=== PATIENT | male | born 1965 | race African-American/Black ===

== ENCOUNTER → 2016-11-02 | Outpatient (CLI) | payer BC ==
[~2016-11-02] MED LIST: AMT10 PO; ASPCH81X PO; ERYOPO OPL; HYDR-5688 PO; LISI5TAB PO
== END | disposition home or self-care (01) ==
LOC: C.LABSPEC 15:36
PROVIDERS: ATTEND Podiatrist
DX: L03.115 Cellulitis of right lower limb (principal)

== ENCOUNTER 2017-03-22 18:34 | Emergency (ER) | payer BC ==
[~2017-03-22] VITALS: Ht 182.9 cm; Wt 92.1 kg
[~2017-03-22 18:34] MED LIST changes: -AMT10 PO; -ERYOPO OPL; -HYDR-5688 PO
[2017-03-22 18:54] VITALS: TEMP 36.7; Ht 182.9 cm; Wt 92.1 kg
[2017-03-22] MEDS ORDERED: AMT10 PO (19:25)
[2017-03-22 19:32] VITALS: BP 133/70; PULSE 68; O2SAT 98
--- NOTE | 2017-03-22 20:47 | EMERGENCY ROOM VISIT NOTE ---
History First contact with patient: 19:20 Chief Complaint: FOREIGNBODY ANY BODY PART Stated Complaint: FOREIGN BODY IN RIGHT EAR History of Present Illness The patient is a 52 year old male who presents to the Emergency Room with complaints of a foam earbud stuck in his right ear canal. The patient reports that when he was removing his head set, the foam fell off. When he attempted to remove it, it was pushed further into the ear canal. He now presents for further evaluation. He denies any pain. Review of Systems 6 system review was performed and was negative except for pertinent positives and negatives as indicated in history of present illness Past Medical/Surgical History Medical Problems: (1) DM type 2 (diabetes mellitus, type 2) (2) HTN (hypertension) Family History Cancer Diabetes mellitus Heart disease Hypertension Social History Smoking Status: Current Every Day Smoker Alcohol Use: none Drug Use: marijuana Marital Status: single Housing Status: lives with family Occupation Status: employed Current/Historical Medications Scheduled Amitriptyline HCl (Amitriptyline HCl), 10 MG PO HS Aspirin (Aspirin Chewable), 81 MG PO DAILY Lisinopril (Prinivil), 1 TAB PO DAILY Allergies Coded Allergies: Penicillins (Verified Allergy, Mild, 02/25/16) Propoxyphene (Verified Allergy, Unknown, TYLENOL OK, 02/25/16) Naproxen (Verified Adverse Reaction, Unknown, stomach burning, takes ibuprofen w/out prob, 02/25/16) Physical Exam Vital Signs Date Time Temp Pulse Resp B/P (MAP) Pulse Ox O2 Delivery O2 Flow Rate FiO2 03/22/17 19:32 68 20 133/70 98 03/22/17 18:54 36.7 81 20 141/63 97 Room Air Pain Rating (0-10): 0 Physical Exam CONSTITUTIONAL: Healthy and well nourished. Alert and oriented X 3 with positive affect. Does not appear in any acute distress. HEENT: Normocephalic, atraumatic. Pupils equal, round and reactive. Exam shows a foreign body in the right ear. No bloody drainage noted. NECK: Full active range of motion without discomfort. INTEGUMENTARY: No rash or other significant dermatologic conditions noted. NEUROLOGIC: No focal neurologic deficits noted. Medical Decision & Procedures Procedure Foreign body removal of the right ear was successfully performed using mosquito forceps. Further otoscope examination of the year does not show any abrasions or other external auditory canal/tympanic membrane trauma. ED Course Patient history and physical exam were performed. Nurse's notes were reviewed. Foreign body removal was performed using mosquito forceps. Repeat otoscope exam did not show any residual trauma to the auditory canal or TM. The patient was instructed to return for any developing pain or drainage from the ear. The patient was happy with plan of care, and denied any pain at the time of discharge. Medical Decision Impression Primary Impression: Foreign body in right ear Departure Information Dispostion Home / Self-Care Condition GOOD Forms HOME CARE DOCUMENTATION FORM, IMPORTANT VISIT INFORMATION Patient Instructions [facility] Additional Instructions Return for any developing pain or drainage from the ear Problem Qualifiers Primary Impression: Foreign body in right ear Encounter type: initial encounter Qualified Codes: T16.1XXA - Foreign body in right ear, initial encounter
== END 2017-03-22 19:35 | disposition home or self-care (01) ==
LOC: C.EDB 18:37 → C.EDD 19:35
DX: T16.1XXA Foreign body in right ear, initial encounter (principal); X58.XXXA Exposure to other specified factors, initial encounter; Y93.89 Activity, other specified; Y99.8 Other external cause status; E11.9 Type 2 diabetes mellitus without complications; I10 Essential (primary) hypertension; F17.200 Nicotine dependence, unspecified, uncomplicated; Z83.3 Family history of diabetes mellitus; Z82.49 Family history of ischemic heart disease and other diseases of the circulatory system; Z79.82 Long term (current) use of aspirin; Z79.899 Other long term (current) drug therapy

== ENCOUNTER 2017-03-26 20:07 | Emergency (ER) | payer BC ==
[~2017-03-26] VITALS: Ht 182.9 cm; Wt 92.3 kg
[~2017-03-26 20:07] MED LIST changes: +AMT10 PO
[2017-03-26 20:09] VITALS: TEMP 36.9; Ht 182.9 cm; Wt 92.3 kg
[2017-03-26] MEDS ORDERED: HYDROCODONE/ACETAMOPHEN 5/325MG TAB PO ONE (20:30)
--- NOTE | 2017-03-26 20:36 | DIAGNOSTIC IMAGING REPORT ---
HEAD CT NONCONTRAST CT DOSE: HISTORY: Trauma Baseball injury to left eyebrow area TECHNIQUE: Multiaxial CT images of the head were performed without the use of intravenous contrast. Comparison: None. Findings: The paranasal sinuses and mastoid air cells are clear. The calvarium and skull base are intact. The ventricles and sulci are within normal limits. There is no mass, hematoma, midline shift, or acute infarct. Impression: No acute intracranial abnormality. Left periorbital soft tissue edema Electronically signed by: Hernandez Kong M.D. 03/26/2017 8:35 PM Dictated Date/Time: 03/26/2017 8:34 PM
--- NOTE | 2017-03-26 20:39 | DIAGNOSTIC IMAGING REPORT ---
MAXILLOFACIAL CT CT DOSE: 941.04 mGy.cm HISTORY: Trauma Baseball injury to left eyebrow area TECHNIQUE: Multiaxial CT images of the maxillofacial region were performed and reformatted in the coronal plane without the use of contrast. COMPARISON: None. FINDINGS: The visualized cervical spine, skull base, pterygoid plates, nasal bones, lamina papyracea, orbital floors, mandible, and zygomatic arches are intact. No fractures. The orbits are unremarkable. Considerable left preorbital soft tissue edema. Vague lucencies of the nasal bones felt to represent anatomic variations. IMPRESSION: Left preorbital soft tissue edema. Globes are symmetric. No acute bony abnormality Electronically signed by: Hernandez Kong M.D. 03/26/2017 8:38 PM Dictated Date/Time: 03/26/2017 8:36 PM
[2017-03-26] MEDS ORDERED: HYDR-5688 PO (21:39)
[2017-03-26] MEDS ORDERED: ONDANSETRON HOME PACK 4MG OD TAB PO ONE (21:45)
[2017-03-26] MEDS ORDERED: NORCO 5/325MG HOME PACK PO ONE (21:45)
[2017-03-26 21:49] VITALS: BP 142/89; PULSE 72; O2SAT 97
--- NOTE | 2017-03-27 22:06 | EMERGENCY ROOM VISIT NOTE ---
History First contact with patient: 20:13 Chief Complaint: FACIAL PAIN/INJURY Stated Complaint: HIT IN LEFT EYE WITH BASEBALL History of Present Illness The patient is a 52 year old male who presents to the Emergency Room with complaints of injury to the left side of his face after being struck by a baseball about 1 hour ago. The patient states that he was trying to catch a batted baseball. The ball was very high in the air, and the patient states the wind was swirling. This made it difficult for him to track the ball well, and as it fell, and struck him in the area of the left eyebrow. The patient did not lose consciousness or have seizure-like activity after the injury. He does not have difficulty with vision from either of his eyes, although the swelling around his left eye has increased. He does not have pain with movement of the eyes. No bleeding or laceration. The patient is not on blood thinners. He rates his discomfort a 7/10 and has not had anything [id number] for his discomfort. Review of Systems More than 10 systems were reviewed and otherwise negative with the exception of history of present illness. Past Medical/Surgical History Medical Problems: (1) DM type 2 (diabetes mellitus, type 2) (2) HTN (hypertension) Family History Cancer Diabetes mellitus Heart disease Hypertension Social History Smoking Status: Current Every Day Smoker Alcohol Use: none Drug Use: marijuana Marital Status: single Housing Status: lives with family Occupation Status: employed Current/Historical Medications Scheduled Amitriptyline HCl (Amitriptyline HCl), 10 MG PO HS Aspirin (Aspirin Chewable), 81 MG PO DAILY Lisinopril (Prinivil), 1 TAB PO DAILY Scheduled PRN Hydrocodone/Acetaminophen 5MG/325MG ([place] 5MG/325MG), 1-2 TABLET PO Q6 PRN for Pain Allergies Coded Allergies: Penicillins (Verified Allergy, Mild, 03/26/17) Propoxyphene (Verified Allergy, Unknown, TYLENOL OK, 03/26/17) Naproxen (Verified Adverse Reaction, Unknown, stomach burning, takes ibuprofen w/out prob, 03/26/17) Physical Exam Vital Signs Date Time Temp Pulse Resp B/P (MAP) Pulse Ox O2 Delivery O2 Flow Rate FiO2 03/26/17 21:49 72 16 142/89 97 Room Air 03/26/17 20:09 36.9 71 18 152/97 98 Room Air Pain Rating (0-10): 7.0 Physical Exam VITALS: Vitals are noted on the nurse's note and reviewed by myself. Vital signs stable. GENERAL: Well-developed, well-nourished, black male who is in moderate discomfort secondary to his stated complaint. HEAD: Significant left sided facial hematoma appreciated. The most central aspect appears to be over the left eyebrow laterally. The edema causes almost complete closure of the left eye. There is no active bleeding or pulsatile mass. EARS: External ear normal. External auditory canals clear, tympanic membranes pearly mcmillan without erythema or effusion bilaterally. No hemotympanum EYES: Pupils equal round and reactive to light and accommodation. Conjunctivae without injection, sclerae without icterus. Extraocular movements intact. No hyphema. No evidence of corneal abrasion or laceration. NOSE: Patent, turbinates without inflammation or discharge. No epistaxis or septal hematoma. MOUTH: Mucous membranes moist. Tonsils are not enlarged. Pharynx without erythema, blood, or exudate. Uvula midline. Airway patent. NECK: Supple without nuchal rigidity. No lymphadenopathy. No thyromegaly. Cervical spine is nontender. HEART: Regular rate and rhythm without murmurs gallops or rubs. LUNGS: Clear to auscultation bilaterally without wheezes, rales or rhonchi. No retractions or accessory muscle use. NEURO: Patient was alert and oriented to person place and time. CN II through XII grossly intact. Medical Decision & Procedures ER Provider Diagnostic Interpretation: HEAD CT NONCONTRAST CT DOSE: HISTORY: Trauma Baseball injury to left eyebrow area TECHNIQUE: Multiaxial CT images of the head were performed without the use of intravenous contrast. Comparison: None. Findings: The paranasal sinuses and mastoid air cells are clear. The calvarium and skull base are intact. The ventricles and sulci are within normal limits. There is no mass, hematoma, midline shift, or acute infarct. Impression: No acute intracranial abnormality. Left periorbital soft tissue edema MAXILLOFACIAL CT CT DOSE: 941.04 mGy.cm HISTORY: Trauma Baseball injury to left eyebrow area TECHNIQUE: Multiaxial CT images of the maxillofacial region were performed and reformatted in the coronal plane without the use of contrast. COMPARISON: None. FINDINGS: The visualized cervical spine, skull base, pterygoid plates, nasal bones, lamina papyracea, orbital floors, mandible, and zygomatic arches are intact. No fractures. The orbits are unremarkable. Considerable left preorbital soft tissue edema. Vague lucencies of the nasal bones felt to represent anatomic variations. IMPRESSION: Left preorbital soft tissue edema. Globes are symmetric. No acute bony abnormality Medications Administered Medications (Trade) Dose Ordered Sig/Dev Route Start Time Stop Time Status Last Admin Dose Admin Acetaminophen/ Hydrocodone Bitart ([place] 5/325 Tab) 2 tab NOW ONCE PO 03/26/17 20:30 03/26/17 20:31 DC 03/26/17 20:25 2 TAB Acetaminophen/ Hydrocodone Bitart ([place] 5/325mg Home Pack) 1 homepack UD ONCE PO 03/26/17 21:45 03/26/17 21:46 DC 03/26/17 21:45 1 HOMEPACK Ondansetron HCl (ZOFRAN ODT 4MG Home Pack) 1 homepack UD ONCE PO 03/26/17 21:45 03/26/17 21:46 DC 03/26/17 21:45 1 HOMEPACK ED Course Physical exam and history were performed. Nursing notes and EMR were reviewed. Patient appears to have suffered injury to his left side face after being struck by a baseball. The patient has a quite impressive amount of swelling around the left periorbital area. He was given Vicodin here in the department for comfort and a CT scan of the head and face was performed. CT scans do not show evidence of acute fracture or intracranial bleed. The patient was monitored for some time here in the department, and did not have any worsening of his symptoms. I suspect his injury is limited to the contusion and subsequent hematoma. The patient will be given a note for work and instructions to follow with his PCP. He was otherwise invited back to the ER with any new, worsening, or concerning symptoms. The chart was completed utilizing [employer] Voice Recognition Software. Grammatical errors, random word insertions, pronoun errors, and incomplete sentences are an occasional consequence of this system due to software limitations, ambient noise, and hardware issues. Any formal questions or concerns about the content, text, or information contained within the body of this dictation should be directly addressed to the provider for clarification. . Medical Decision Differential diagnosis: Etiologies such as concussion, contusion, fracture, subdural hematoma, epidural hematoma, intraparenchymal hemorrhage, as well as other traumatic pathologies were entertained. Impression Primary Impression: Facial injury Departure Information Dispostion Home / Self-Care Condition GOOD Prescriptions Hydrocodone/Acetaminophen 5MG/325MG ([place] 5MG/325MG) Tab 1-2 TABLET PO Q6 Y for Pain, #24 TAB For Initial Treatment Prov: Les Mccray PA-C 03/26/17 Forms HOME CARE DOCUMENTATION FORM, Work Instructions, Additional Instructions: Patient was seen and evaluated today in the emergency department medica care. Return to work on 04/01/2017. Please excuse. IMPORTANT VISIT INFORMATION Patient Instructions My [facility] Additional Instructions You were seen and evaluated today on an emergency basis only. This is not a substitute for, or an effort to provide, complete comprehensive medical care. It is not possible to recognize and treat all injuries or illnesses in a single emergency department visit. For this reason it is recommended that you followup with your primary care physician in 36-48 hours for recheck of your condition. [place] (hydrocodone/acetaminophen) 5/325 mg ONE or TWO every 6 hours as needed for worsening breakthrough pain. Do not drink or drive on [place]. This medication will likely make you tired. Do not take [place] and Tylenol at the same time as both contain acetaminophen. [place] may cause constipation. You may wish to take an vnqf-efu-wphrndc stool softener like Colace if this occurs. Zofran (hompack) 1 tablet every 6 hrs as needed for nausea. You are welcome to return to the emergency department anytime with new, worsening, or concerning symptoms. Work Instructions Additional Work Instructions: Patient was seen and evaluated today in the emergency department medical care. Return to work on 04/01/2017. Please excuse.
== END 2017-03-26 22:00 | disposition home or self-care (01) ==
LOC: C.EDB 20:09 → C.EDD 22:00
DX: S09.93XA Unspecified injury of face, initial encounter (principal); W21.89XA Striking against or struck by other sports equipment, initial encounter; Y93.89 Activity, other specified; Y99.8 Other external cause status; I10 Essential (primary) hypertension; E11.9 Type 2 diabetes mellitus without complications; F17.200 Nicotine dependence, unspecified, uncomplicated; Z83.3 Family history of diabetes mellitus; Z82.49 Family history of ischemic heart disease and other diseases of the circulatory system; Z79.82 Long term (current) use of aspirin; Z79.899 Other long term (current) drug therapy

== ENCOUNTER 2017-03-28 15:53 | Emergency (ER) | payer BC ==
[~2017-03-28] VITALS: Ht 182.9 cm; Wt 93.9 kg
[~2017-03-28 15:53] MED LIST changes: +HYDR-5688 PO
[2017-03-28 15:59] VITALS: BP 137/83; PULSE 65; TEMP 37.1; O2SAT 95; Ht 182.9 cm; Wt 93.9 kg
[2017-03-28] MEDS ORDERED: PROPARACAINE HCL 0.5% OP SOLN 15 ML BTL OP STA (16:23)
[2017-03-28] MEDS ORDERED: ERYTHROMYCIN OP OINT 5 MG/GM 3.5 GM TUBE OP ONE (17:00)
[2017-03-28] MEDS ORDERED: ERYOPO OPL (17:03)
--- NOTE | 2017-03-28 17:04 | EMERGENCY ROOM VISIT NOTE ---
History First contact with patient: 16:03 Chief Complaint: EYE ASSESSMENT Stated Complaint: LT EYE PUS AND BLOODY DISCHARGE- URGENT CARE REFER History of Present Illness The patient is a 52 year old male who presents to the Emergency Room with complaints of discharge from the left eye. The patient was seen here 2 days ago for an injury to the left eye. He was hit in the head with a baseball. He states that at that time, the eye was completely swollen shut. The swelling has actually improved and the patient is able to open his eyes slightly at this time. He still has a significant amount of pain surrounding the eye, but states it is improving slightly. He rates his discomfort a 9/10. The patient returned because when he woke up this morning, he had yellowish discharge from the eye. He states that there was also some pinkish drainage which he was concerned was blood. He was seen at urgent care and sent here for a recheck. The patient states that his vision is blurred. Overall, his symptoms seem to be improving since he was seen here initially. Review of Systems A complete 10 point review of systems was reviewed with the patient with pertinent positives and negatives as per history of present illness. All else were negative. Past Medical/Surgical History Medical Problems: (1) DM type 2 (diabetes mellitus, type 2) (2) HTN (hypertension) Family History Cancer Diabetes mellitus Heart disease Hypertension Social History Smoking Status: Current Every Day Smoker Alcohol Use: none Drug Use: marijuana Marital Status: single Housing Status: lives with family Occupation Status: employed Current/Historical Medications Scheduled Amitriptyline HCl (Amitriptyline HCl), 10 MG PO HS Aspirin (Aspirin Chewable), 81 MG PO DAILY Erythromycin Opth (Erythromycin Opth), 1 APPLN OPL QID Lisinopril (Prinivil), 1 TAB PO DAILY Scheduled PRN Hydrocodone/Acetaminophen 5MG/325MG ([place] 5MG/325MG), 1-2 TABLET PO Q6 PRN for Pain Allergies Coded Allergies: Penicillins (Verified Allergy, Mild, 03/28/17) Propoxyphene (Verified Allergy, Unknown, TYLENOL OK, 03/28/17) Acetaminophen (Unverified Adverse Reaction, Unknown, UPSETS STOMACH, ) Naproxen (Verified Adverse Reaction, Unknown, stomach burning, takes ibuprofen w/out prob, 03/28/17) Physical Exam Vital Signs Date Time Temp Pulse Resp B/P (MAP) Pulse Ox O2 Delivery O2 Flow Rate FiO2 03/28/17 15:59 37.1 65 16 137/83 95 Room Air Left Eye Acuity: 20/70 Physical Exam VITALS: Vitals are noted on the nurse's note and reviewed by myself. Vital signs stable. GENERAL: This is a 52-year-old male, in no acute distress, nondiaphoretic, well- developed well-nourished. EARS: External auditory canals clear, tympanic membranes pearly mcmillan without erythema or effusion bilaterally. EYES: There is a significant amount of left periorbital edema and ecchymosis. The pupil is equal, round and reactive to light and accommodation. There is yellowish discharge from the left eye. There is no evidence of hyphema. Patient has significant difficulty opening the eye due to edema. HEART: Regular rate and rhythm without murmurs gallops or rubs. LUNGS: Clear to auscultation bilaterally without wheezes, rales or rhonchi. NEURO: Patient was alert and oriented to person place and time. Medical Decision & Procedures Medications Administered Medications (Trade) Dose Ordered Sig/Dev Route Start Time Stop Time Status Last Admin Dose Admin Erythromycin (Erythromycin Oph Oint) 1 appln NOW ONCE OP 03/28/17 17:00 03/28/17 17:01 DC 03/28/17 16:54 1 APPLN Medical Decision Differential diagnosis includes conjunctivitis, open globe injury, retrobulbar hematoma, among others. Patient was evaluated as above. He presents with left eye discharge after being seen here 2 days ago for an injury. The patient states that his symptoms seem to be improving other than the discharge from the eye. Clinically, he appears to have a conjunctivitis. I'm unable to perform an adequate eye exam secondary to swelling. Case was discussed with ophthalmology on-call, Dr. Gonzalez , who states that he will follow-up with the patient in his office for a full eye exam. The patient will be placed on erythromycin ointment. He will follow- up with ophthalmology. He verbalized understanding and was discharged home in good condition. Medication reconciliation: I attest that I have personally reviewed the patient 's current medication list. Blood Pressure Screening: Patient was found to have a slightly elevated blood pressure due to circumstances. I do not believe that the patient requires hypertension monitoring. Impression Primary Impression: Conjunctivitis, left eye Departure Information Dispostion Home / Self-Care Condition GOOD Prescriptions Erythromycin Opth (ERYTHROMYCIN OPTH) 12 Appln/3.5 Gm Oint 1 APPLN OPL QID for 7 Days, #1 TUBE Prov: Marya Lopez, IVELISSE 03/28/17 Referrals Mackenzie Escobedo D.O. (PCP) Palomo Gonzalez D.O. Patient Instructions My [facility] Additional Instructions You have been prescribed Erythromycin Opthalmic ointment. This is an antibiotic ointment. You should apply a 1 cm ribbon of the ointment to the lower part of the affected eye up to 6 times per day for the next 7 days. Call ophthalmology (Dr. Gonzalez's office) tomorrow to schedule a follow-up appointment in the office. Return here for worsening eye pain, fever or any other new/concerning symptoms. Problem Qualifiers Primary Impression: Conjunctivitis, left eye Conjunctivitis type: acute Acute conjunctivitis type: bacterial Qualified Codes: H10.32 - Unspecified acute conjunctivitis, left eye
== END 2017-03-28 17:16 | disposition home or self-care (01) ==
LOC: C.EDB 15:55 → C.EDD 17:16
DX: H10.32 Unspecified acute conjunctivitis, left eye (principal); E11.9 Type 2 diabetes mellitus without complications; I10 Essential (primary) hypertension; Z83.3 Family history of diabetes mellitus; Z82.49 Family history of ischemic heart disease and other diseases of the circulatory system; F17.200 Nicotine dependence, unspecified, uncomplicated; F12.90 Cannabis use, unspecified, uncomplicated

== ENCOUNTER → 2017-05-27 | Outpatient (CLI) | payer BC ==
[~2017-05-27] MED LIST changes: +ERYOPO OPL
--- NOTE | 2017-05-27 07:18 | DIAGNOSTIC IMAGING REPORT ---
BRAIN WITHOUT CONTRAST CLINICAL HISTORY: 52 years-old Male presenting with S06.0X1A Concussion with loss of consciousness of 30 minutes or. TECHNIQUE: Multisequence, multiplanar MR imaging of the brain was performed without the use of intravenous contrast. IV contrast: None. COMPARISON: MRA from 01/24/[address] head from 03/26/2017. FINDINGS: Ventricles and sulci normal in size. Brain parenchyma normal in appearance with preserved mcmillan-white differentiation. No mass effect or midline shift. No hemorrhage or acute territorial infarct. No extra-axial fluid collection. T2 skull base flow voids preserved. 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 Extensive mucosal thickening in the bilateral maxillary sinuses. Additional mucosal thickening in anterior ethmoid air cells. Trace fluid in the left maxillary mastoid air cells suspected. Bone marrow signal intensity within the calvarium within normal limits. IMPRESSION: No acute intracranial abnormality. Extensive mucosal thickening in the paranasal sinuses. Electronically signed by: Carlos Negrete M.D. 05/27/2017 7:17 AM Dictated Date/Time: 05/27/2017 7:13 AM
== END | disposition home or self-care (01) ==
LOC: C.MRI 06:08
PROVIDERS: ATTEND Physician Assistant
DX: R51 Headache (principal); S06.0X1A Concussion with loss of consciousness of 30 minutes or less, initial encounter; X58.XXXA Exposure to other specified factors, initial encounter

== ENCOUNTER 2017-09-07 23:09 | Emergency (ER) | payer BC, OTHER ==
[~2017-09-07] VITALS: Ht 182.9 cm; Wt 95.3 kg
[2017-09-07 23:14] VITALS: TEMP 36.7; Ht 182.9 cm; Wt 95.3 kg
[2017-09-07] MEDS ORDERED: ONDANSETRON HOME PACK 4MG OD TAB PO ONE (23:30)
[2017-09-07] MEDS ORDERED: ONDANSETRON 4MG OD TAB PO ONE (23:30)
[2017-09-07] MEDS ORDERED: LISI-729 PO (23:44)
[2017-09-07] MEDS ORDERED: HYDR-5688 PO (23:45)
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
[2017-09-08 00:15] VITALS: BP 154/106; PULSE 72; O2SAT 97
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
== END 2017-09-08 00:20 | disposition home or self-care (01) ==
LOC: C.EDB 23:11 → C.EDA 09-08 00:20
DX: S06.0X9A Concussion with loss of consciousness of unspecified duration, initial encounter (principal); V89.0XXA Person injured in unspecified motor-vehicle accident, nontraffic, initial encounter; E11.9 Type 2 diabetes mellitus without complications; I10 Essential (primary) hypertension; F17.200 Nicotine dependence, unspecified, uncomplicated; F12.90 Cannabis use, unspecified, uncomplicated; Z79.82 Long term (current) use of aspirin; Z80.9 Family history of malignant neoplasm, unspecified; Z83.3 Family history of diabetes mellitus; Z82.49 Family history of ischemic heart disease and other diseases of the circulatory system

== ENCOUNTER 2018-02-14 08:49 | Emergency (ER) | payer BC, OTHER ==
[~2018-02-14] VITALS: Ht 182.9 cm; Wt 93.2 kg
[~2018-02-14 08:49] MED LIST changes: -ERYOPO OPL; +LISI-729 PO; -LISI5TAB PO
[2018-02-14 08:56] VITALS: TEMP 36.6; Ht 182.9 cm; Wt 93.2 kg
[2018-02-14] MEDS ORDERED: PROPARACAINE HCL 0.5% OP SOLN 15 ML BTL ONE (09:32)
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
[2018-02-14] MEDS ORDERED: CIPROFLOXACIN HCL 0.3% OP SOLN 2.5 ML BTL OPR ONE (10:15)
[2018-02-14 10:36] VITALS: BP 163/102; PULSE 70; O2SAT 96
== END 2018-02-14 10:36 | disposition home or self-care (01) ==
LOC: C.EDB 08:50 → C.EDA 10:36
DX: H61.101 Unspecified noninfective disorders of pinna, right ear (principal); E11.9 Type 2 diabetes mellitus without complications; I10 Essential (primary) hypertension; Z72.0 Tobacco use; Z79.82 Long term (current) use of aspirin; Z79.899 Other long term (current) drug therapy; Z88.0 Allergy status to penicillin; Z88.6 Allergy status to analgesic agent

== ENCOUNTER 2022-04-15 17:17 | Inpatient (IN) ==
--- NOTE | 2022-04-15 18:21 | Emergency Department Note ---
History of Present Illness General Chief complaint: Hypertension Stated complaint: BP HIGH, ABNORMAL LABS Time Seen by Provider: 04/15/22 17:45 Source: patient Mode of arrival: ambulatory Limitations: no limitations History of Present Illness Provider complaint: hypertension Onset (ago): month(s) This is a 57-year-old male presents emergency department due to concern for persistent high blood pressure. Patient states he was first noted to have high blood pressure a little over a month ago when he went to urgent care for something work-related. He states in the interim he began checking it and noted that it had been elevated intermittently. He states he did see his family doctor and was started on blood pressure medication. He states his blood pressure has remained high, and on to check recently it was up in the 240s systolically. He states he went to [facility] today and the pressures were still persistently high and they insisted he come to the ER for additional evaluation. Patient states there is a family history of high blood pressure. He states he has been trying to cut back on the salt intake in his diet. He states he also recently found out one of his best friends and feels stress could also be contributing. Patient states he has had intermittent headaches as well as slight blurred vision in his right eye. He does have a prior history of TBI and postconcussive syndrome which have left him with intermittent headaches that typically have a preceding visual aura. Pt seen during a time of high acuity and national emergency pandemic while we aring PPE. Home Medications Medication Instructions Recorded Confirmed Type aspirin 81 mg chewable tablet 81 mg PO QAM 10/06/18 04/15/22 History finasteride 5 mg tablet 5 mg PO DAILY 03/08/21 04/15/22 History losartan 25 mg tablet 50 mg PO QAM 04/15/22 04/15/22 History Allergies Allergy/AdvReac Type Severity Reaction Status Date / Time Penicillins Allergy Unknown CAN'T Verified 04/15/22 18:14 REMEMBER propoxyphene Allergy Unknown TYLENOL OK Verified 04/15/22 18:14 acetaminophen AdvReac Intermediate UPSETS Verified 04/15/22 18:14 STOMACH naproxen AdvReac Intermediate stomach Verified 04/15/22 18:14 burning, takes ibuprofen w/out prob Past Med/Surg History Medical History BPH (benign prostatic hyperplasia) Diabetes HTN (hypertension) Surgical History History of rotator cuff surgery Family History Other Cancer Diabetes Heart disease Hypertension Social History Smoking Status: Current every day smoker Second Hand Exposure: No; Do You Dip or Chew Tobacco: No; Tobacco Cessation Education Requested by Patient: No Hx Alcohol Use: No Hx Substance Use: Yes Last Used Substance: Days (ago) Preferred Language: Honduran Communication Ability: Effective 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 Beliefs That Will Affect Care: None marital status: Single Current Living Situation: Significant Other current occupational status: employed Other Information That Helps Us Care for You: No Feels Safe at Home: Yes Safety Concerns: Feels Safe At This Time Assistive Devices: None Review of Systems A total of 10 systems reviewed and were otherwise negative All systems reviewed & are unremarkable except as noted in HPI & below Physical Exam Vital Signs Vital Signs - 24 hr 04/15/22 17:22 04/15/22 18:35 04/15/22 18:47 Temperature 37.3 C Temperature Source Temporal Artery Scan Pulse Rate 104 H 77 84 Pulse Rate [Apical] Pulse Rate from SpO2 Sensor 84 Pulse Rhythm [Apical] Respiratory Rate 16 17 20 Respiratory Effort / Characteristics Non-Labored Respiratory Depth Normal Respiratory Pattern Blood Pressure 192/102 H Blood Pressure [Right Arm] Blood Pressure Mean 132 Blood Pressure Mean [Right Arm] Blood Pressure Position [Right Arm] Pulse Oximetry 97 99 Oxygen Delivery Method Room Air Room Air Room Air Sepsis Recent Fever Within 48 Hours No Sepsis New/Unexplained Change in Mental Status No Sepsis Action Taken by Nursing No Action Required 04/15/22 18:50 04/15/22 19:00 04/15/22 19:06 Temperature Temperature Source Pulse Rate 79 78 76 Pulse Rate [Apical] Pulse Rate from SpO2 Sensor 79 78 77 Pulse Rhythm [Apical] Respiratory Rate 19 17 17 Respiratory Effort / Characteristics Respiratory Depth Respiratory Pattern Blood Pressure Blood Pressure [Right Arm] Blood Pressure Mean Blood Pressure Mean [Right Arm] Blood Pressure Position [Right Arm] Pulse Oximetry 99 99 99 Oxygen Delivery Method Room Air Room Air Room Air Sepsis Recent Fever Within 48 Hours Sepsis New/Unexplained Change in Mental Status Sepsis Action Taken by Nursing 04/15/22 19:06 04/15/22 19:31 04/15/22 19:49 Temperature Temperature Source Pulse Rate Pulse Rate [Apical] 73 74 Pulse Rate from SpO2 Sensor Pulse Rhythm [Apical] Regular Respiratory Rate 18 18 Respiratory Effort / Characteristics Non-Labored Spontaneous Non-Labored Spontaneous Respiratory Depth Normal Normal Respiratory Pattern Regular Regular Blood Pressure 199/129 H Blood Pressure [Right Arm] 199/123 H 190/123 H Blood Pressure Mean 152 Blood Pressure Mean [Right Arm] 148 145 Blood Pressure Position [Right Arm] Sitting Sitting Pulse Oximetry 98 99 Oxygen Delivery Method Room Air Room Air Room Air Sepsis Recent Fever Within 48 Hours Sepsis New/Unexplained Change in Mental Status Sepsis Action Taken by Nursing GENERAL: alert, well appearing, well nourished, no distress, non-toxic EYE EXAM: normal conjunctiva, PERRL and EOM's grossly intact, no nystagmus OROPHARYNX: no exudate, no erythema, lips, buccal mucosa, and tongue normal and mucous membranes are moist NECK: supple, no nuchal rigidity, no adenopathy, non-tender LUNGS: Clear to auscultation. Normal chest wall mechanics, no w/r/r HEART: no murmurs, S1 normal and S2 normal ABDOMEN: abdomen soft, non-tender, normo-active bowel sounds, no masses, no rebound or guarding. BACK: Back is symmetrical on inspection and there is no deformity, no midline tenderness, no CVA tenderness. SKIN: no rashes and no bruising UPPER EXTREMITIES: upper extremities are grossly normal. FROM, nml pulses b/l. LOWER EXTREMITIES: No pitting edema. FROM, nml pulses b/l. NEURO EXAM: Normal sensorium, cranial nerves II-XII grossly intact, normal speech, no facial droop, no gross weakness of arms, no gross weakness of legs. Gross sensation intact. Course Course 1921: Patient updated on results. Denies any prior history of kidney problems. Blood pressure is still elevated although slightly improved compared to prior. Administered Medications Heparin Sodium (Porcine) (Heparin Sod 5,000 Unit/0.5 Ml Vial) 5,000 units SQ Q8 AURA Stop: 05/15/22 22:22 Last Admin: 04/15/22 22:52 Dose: 5,000 units Documented By: LONG Hydralazine HCl (Hydralazine Hcl 20 Mg/Ml Vial) 7.5 mg IV Q6H PRN PRN Reason: Hypertension Stop: 05/15/22 22:22 Last Admin: 04/15/22 23:17 Dose: 7.5 mg Documented By: LONG Tamsulosin HCl (Tamsulosin Hcl 0.4 Mg Cap) 0.4 mg PO HS AURA Stop: 05/15/22 22:22 Last Admin: 04/15/22 22:52 Dose: 0.4 mg Documented By: LONG Discontinued Medications Amlodipine Besylate (Amlodipine Besylate 5 Mg Tab) 10 mg PO NOW ONE Stop: 04/15/22 22:24 Last Admin: 04/15/22 22:51 Dose: 10 mg Documented By: LONG Carvedilol (Carvedilol 6.25 Mg Tab) 6.25 mg PO NOW STA Stop: 04/15/22 22:24 Last Admin: 04/15/22 22:52 Dose: 6.25 mg Documented By: LONG Sodium Chloride (Nss 1000ml) 1,000 mls @ 500 mls/hr IV .Q2H AURA Stop: 05/15/22 18:14 Last Infusion: 04/15/22 22:32 Dose: 0 mls/hr Documented By: Admin: 04/15/22 20:38 Dose: 500 mls/hr Documented By: Infusion: 04/15/22 20:36 Dose: 500 mls/hr Documented By: Admin: 04/15/22 18:36 Dose: 500 mls/hr Documented By: GERMÁN Ceftriaxone Sodium (Rocephin) 2,000 mg in 70 mls @ 140 mls/hr IV NOW STA Stop: 04/15/22 21:47 Last Infusion: 04/15/22 22:32 Dose: 0 mls/hr Documented By: Admin: 04/15/22 21:41 Dose: 140 mls/hr Documented By: KATE Sodium Chloride (Nss 1000ml) 1,000 mls @ 125 mls/hr IV .Q8H AURA Stop: 05/15/22 21:29 Last Admin: 04/15/22 22:31 Dose: Not Given Documented By: LONG Labetalol HCl (Labetalol Hcl Iv 5 Mg/Ml 20ml) 5 mg IV NOW STA Stop: 04/15/22 19:12 Last Admin: 04/15/22 19:15 Dose: 5 mg Documented By: KATE Co-signed By: QASIM Labetalol HCl (Labetalol Hcl Iv 5 Mg/Ml 20ml) 5 mg IV NOW STA Stop: 04/15/22 20:25 Last Admin: 04/15/22 20:38 Dose: 5 mg Documented By: JT Co-signed By: DAGMAR Potassium Chloride (Potassium Chloride Crtab 20 Meq Tabcr) 20 meq PO NOW STA Stop: 04/15/22 22:24 Last Admin: 04/15/22 22:54 Dose: 20 meq Documented By: LONG Medical Decision Making Differential Diagnosis Benign hypertension, hypertensive emergency, cardiovascular pathology, toxicologic, pheochromocytoma, electrolyte abnormality, renal disease, endorgan damage, as well as other pathologies. Medical Records Attestation: I reviewed the patient's medical records. Home Medications Current Medication List: was personally reviewed by me Laboratory Data Attestation: I reviewed the patient's lab results. Result diagrams: 04/15/22 18:30 04/15/22 18:30 Lab Results 04/15/22 04/15/22 04/15/22 Range/Units 18:30 18:30 18:30 WBC 9.72 (4.8-10.8) K/ul RBC 3.34 L (4.63-6.08) M/uL Hgb 9.9 L (14.0-18.0) g/dl Hct 29.8 L (40.1-51.0) % MCV 89.2 (80.0-100.0) fL MCH 29.6 (25.0-34.0) pg MCHC 33.2 (32.0-36.0) g/dL RDW Std Deviation 45.0 (36.4-46.3) fL RDW Coeff of Rufino 13.7 (11.5-14.5) % Plt Count 243 (130-400) K/uL MPV 10.1 (9.4-12.4) fL Immature Gran % (Auto) 0.4 % Neut % (Auto) 69.3 % Lymph % (Auto) 17.5 % [place] % (Auto) 8.8 % Eos % (Auto) 3.4 % Baso % (Auto) 0.6 % Neut # (Auto) 6.73 H (1.4-6.5) K/uL Lymph # (Auto) 1.70 (1.2-3.4) K/uL [place] # (Auto) 0.86 H (0.24-0.82) K/uL Eos # (Auto) 0.33 (0-0.50) K/uL Baso # (Auto) 0.06 (0-0.2) K/uL Immature Gran # (Auto) 0.04 H (0.00-0.02) K/uL Sodium 138 (136-145) mmol/L Potassium 3.3 L (3.5-5.1) mmol/L Chloride 106 (98-107) mmol/L Carbon Dioxide 25 (21-32) mmol/L Anion Gap 7 (3-11) BUN 27 H (6-23) mg/dl Creatinine 2.64 H (0.6-1.4) mg/dl Est Cr Clr Drug Dosing 36.8 ml/min Est GFR ( Amer) 29.8 ml/min Est GFR (Non-Af Amer) 25.7 ml/min BUN/Creatinine Ratio 10.2 (10-20) Glucose 99 (70-99(Fasting)) mg/dl Calcium 8.5 (8.5-10.1) mg/dl Phosphorus (2.5-4.9) mg/dl Magnesium 2.0 (1.7-2.4) mg/dl Total Bilirubin 0.3 (0.2-1.0) mg/dl AST 19 (13-39) U/L ALT 18 (7-52) U/L Alkaline Phosphatase 77 (34-104) U/L Troponin I High Sens 17.8 (0-20) pg/ml Total Protein 7.0 (6.0-8.3) gm/dl Albumin 3.8 (3.4-5.0) gm/dl Globulin 3.2 (2.5-4.0) gm/dl Albumin/Globulin Ratio 1.2 (0.9-2) TSH 0.988 (0.300-4.500) uIu/ml Urine Color Urine Appearance (Clear) Urine pH (4.5-7.5) Ur Specific [place] (1.000-1.030) Urine Protein (Negative) Urine Glucose (UA) (Negative) Urine Ketones (Negative) Urine Blood (Negative) Urine Nitrite (Negative) Urine Bilirubin (Negative) Urine Urobilinogen (Negative) Ur Leukocyte Esterase (Negative) Urine WBC (Auto) (0-5) /hpf Urine RBC (Auto) (0-4) /hpf U Hyaline Cast (Auto) (0-5) /lpf U Epithel Cells (Auto) (0-5) /lpf Urine Bacteria (Auto) (Negative) Lyme Disease IgG Ab (Negative) Lyme Disease IgM Ab (Negative) SARS-CoV-2, RNA, NAAT (NEGATIVE) 04/15/22 04/15/22 04/15/22 Range/Units 18:30 18:30 19:35 WBC (4.8-10.8) K/ul RBC (4.63-6.08) M/uL Hgb (14.0-18.0) g/dl Hct (40.1-51.0) % MCV (80.0-100.0) fL MCH (25.0-34.0) pg MCHC (32.0-36.0) g/dL RDW Std Deviation (36.4-46.3) fL RDW Coeff of Rufino (11.5-14.5) % Plt Count (130-400) K/uL MPV (9.4-12.4) fL Immature Gran % (Auto) % Neut % (Auto) % Lymph % (Auto) % [place] % (Auto) % Eos % (Auto) % Baso % (Auto) % Neut # (Auto) (1.4-6.5) K/uL Lymph # (Auto) (1.2-3.4) K/uL [place] # (Auto) (0.24-0.82) K/uL Eos # (Auto) (0-0.50) K/uL Baso # (Auto) (0-0.2) K/uL Immature Gran # (Auto) (0.00-0.02) K/uL Sodium (136-145) mmol/L Potassium (3.5-5.1) mmol/L Chloride (98-107) mmol/L Carbon Dioxide (21-32) mmol/L Anion Gap (3-11) BUN (6-23) mg/dl Creatinine (0.6-1.4) mg/dl Est Cr Clr Drug Dosing ml/min Est GFR ( Amer) ml/min Est GFR (Non-Af Amer) ml/min BUN/Creatinine Ratio (10-20) Glucose (70-99(Fasting)) mg/dl Calcium (8.5-10.1) mg/dl Phosphorus 3.1 (2.5-4.9) mg/dl Magnesium (1.7-2.4) mg/dl Total Bilirubin (0.2-1.0) mg/dl AST (13-39) U/L ALT (7-52) U/L Alkaline Phosphatase (34-104) U/L Troponin I High Sens (0-20) pg/ml Total Protein (6.0-8.3) gm/dl Albumin (3.4-5.0) gm/dl Globulin (2.5-4.0) gm/dl Albumin/Globulin Ratio (0.9-2) TSH (0.300-4.500) uIu/ml Urine Color Urine Appearance (Clear) Urine pH (4.5-7.5) Ur Specific [place] (1.000-1.030) Urine Protein (Negative) Urine Glucose (UA) (Negative) Urine Ketones (Negative) Urine Blood (Negative) Urine Nitrite (Negative) Urine Bilirubin (Negative) Urine Urobilinogen (Negative) Ur Leukocyte Esterase (Negative) Urine WBC (Auto) (0-5) /hpf Urine RBC (Auto) (0-4) /hpf U Hyaline Cast (Auto) (0-5) /lpf U Epithel Cells (Auto) (0-5) /lpf Urine Bacteria (Auto) (Negative) Lyme Disease IgG Ab Negative (Negative) Lyme Disease IgM Ab Negative (Negative) SARS-CoV-2, RNA, NAAT NEGATIVE (NEGATIVE) 04/15/22 Range/Units 20:23 WBC (4.8-10.8) K/ul RBC (4.63-6.08) M/uL Hgb (14.0-18.0) g/dl Hct (40.1-51.0) % MCV (80.0-100.0) fL MCH (25.0-34.0) pg MCHC (32.0-36.0) g/dL RDW Std Deviation (36.4-46.3) fL RDW Coeff of Rufino (11.5-14.5) % Plt Count (130-400) K/uL MPV (9.4-12.4) fL Immature Gran % (Auto) % Neut % (Auto) % Lymph % (Auto) % [place] % (Auto) % Eos % (Auto) % Baso % (Auto) % Neut # (Auto) (1.4-6.5) K/uL Lymph # (Auto) (1.2-3.4) K/uL [place] # (Auto) (0.24-0.82) K/uL Eos # (Auto) (0-0.50) K/uL Baso # (Auto) (0-0.2) K/uL Immature Gran # (Auto) (0.00-0.02) K/uL Sodium (136-145) mmol/L Potassium (3.5-5.1) mmol/L Chloride (98-107) mmol/L Carbon Dioxide (21-32) mmol/L Anion Gap (3-11) BUN (6-23) mg/dl Creatinine (0.6-1.4) mg/dl Est Cr Clr Drug Dosing ml/min Est GFR ( Amer) ml/min Est GFR (Non-Af Amer) ml/min BUN/Creatinine Ratio (10-20) Glucose (70-99(Fasting)) mg/dl Calcium (8.5-10.1) mg/dl Phosphorus (2.5-4.9) mg/dl Magnesium (1.7-2.4) mg/dl Total Bilirubin (0.2-1.0) mg/dl AST (13-39) U/L ALT (7-52) U/L Alkaline Phosphatase (34-104) U/L Troponin I High Sens (0-20) pg/ml Total Protein (6.0-8.3) gm/dl Albumin (3.4-5.0) gm/dl Globulin (2.5-4.0) gm/dl Albumin/Globulin Ratio (0.9-2) TSH (0.300-4.500) uIu/ml Urine Color Yellow Urine Appearance Turbid A (Clear) Urine pH 8.0 H (4.5-7.5) Ur Specific [place] 1.014 (1.000-1.030) Urine Protein 2+ H (Negative) Urine Glucose (UA) Negative (Negative) Urine Ketones Negative (Negative) Urine Blood 1+ H (Negative) Urine Nitrite Negative (Negative) Urine Bilirubin Negative (Negative) Urine Urobilinogen Negative (Negative) Ur Leukocyte Esterase 3+ H (Negative) Urine WBC (Auto) >30 H (0-5) /hpf Urine RBC (Auto) 5-10 H (0-4) /hpf U Hyaline Cast (Auto) 1-5 (0-5) /lpf U Epithel Cells (Auto) 0-5 (0-5) /lpf Urine Bacteria (Auto) Negative (Negative) Lyme Disease IgG Ab (Negative) Lyme Disease IgM Ab (Negative) SARS-CoV-2, RNA, NAAT (NEGATIVE) Imaging Data Radiologist's Impression: Head CT 04/15/22 18:12 CT SCAN OF THE BRAIN WITHOUT IV CONTRAST CLINICAL HISTORY: Headache. Hypertension. COMPARISON STUDY: CT of the brain dated 09/07/2017. TECHNIQUE: Unenhanced axial CT scan of the brain is performed from the vertex to the skull base. A dose lowering technique was utilized adhering to the principles of ALARA. CT DOSE: 537.48 mGy.cm FINDINGS: Brain parenchyma: There is age-related involutional change noting mild subcortical and periventricular microangiopathic disease. There is no hemorrhage, mass effect, or evidence of acute territorial ischemia by CT criteria. Mcfarland-white matter differentiation is preserved. No extra-axial fluid collection is seen. Ventricles, sulci, cisterns: Prominent secondary to involutional change. Intracranial vasculature: There is atherosclerotic calcification of the cavernous carotid arteries. Calvarium: Unremarkable. Sinuses and mastoids: There is trace mucosal thickening within the ethmoid and sphenoid sinuses. Retention cysts within the sphenoid sinuses measure up to 1.3 cm. The mastoid air cells are well pneumatized. Orbits: The bony orbits are grossly intact. IMPRESSION: There is no hemorrhage, mass effect, or evidence of acute territorial ischemia by CT criteria. ACT 112: Negative or not required by law. Electronically signed by: Pete Ocampo M.D. 04/15/2022 6:57 PM Chest X-Ray 04/15/22 18:13 SINGLE VIEW CHEST CLINICAL HISTORY: Hypertension FINDINGS: An AP, portable, upright chest radiograph is compared to study dated 10/09/2018. The cardiomediastinal silhouette is unremarkable. The lungs and pleural spaces are clear noting mild bibasilar atelectasis. No pneumothorax is seen. The bony thorax is grossly intact. IMPRESSION: No active disease in the chest. ACT 112: Negative or not required by law. Electronically signed by: Pete Ocampo M.D. 04/15/2022 6:41 PM Ultrasound renal: No hydronephrosis or nephrolithiasis noted bilaterally. Mucosal prominence of the bladder, greater than expected with partial decompression, measuring up to 9 mm in thickness. Differential consideration includes cystitis or hypertrophic changes. Bilateral ureteral jets noted. Upper pole cyst in the right kidney measuring 9 mm no complex features. Radiologist: José Miguel Young MD ECG Data Attestation: I personally reviewed and interpreted this ECG as follows: Indication: + other Rate (beats per minute): 92 Rhythm: + normal sinus ECG Intervals/blocks: + Normal QRS and + Normal QT ECG [place]: + Left axis deviation ECG ST segments: + Nonspecific ST abnormalities MDM Narrative An order was placed for continuous cardiac monitoring. The monitor shows a rate of _77_ with _normal sinus_ rhythm. This is a 57-year-old male presents emergency room due to concern for high blood pressure noted as an outpatient. Patient was started on oral medication by his PCP but feels it has not been helping. Patient has had intermittent headaches, although does not note that these seem associated with episodes of high blood pressure. Patient found to be markedly hypertensive here, mild improvement without intervention. Labs drawn and sent, CT performed, chest x-ray and EKG performed in addition. Patient denied any current headaches, vision changes, dizziness, chest pain, palpitations, or leg swelling. Patient found to have elevated creatinine at 2.6 which is new. No prior history of kidney dysfunction. Patient had a normal and nonfocal neuro exam. Patient is EKG, CT and chest x-ray reassuring. Patient denied any urinary symptoms. Case discussed with hospitalist, UA was pending at that time, renal ultrasound also added. UA with abnormalities also suggestive of possible infection, patient given IV Rocephin as a precaution. He was given 2 doses of IV labetalol to help improve blood pressure while in the emergency department. Patient sent for renal ultrasound which ultimately was reassuring in addition. Impression & Plan Hypertension, HERBERT (acute kidney injury), Acute UTI (urinary tract infection), Anemia Discharge Plan Visit Data Chief Complaint: Hypertension Stated Complaint: BP HIGH, ABNORMAL LABS ED Provider: Leyla Sequeira Discharge Problem: Hypertension, HERBERT (acute kidney injury), Acute UTI (urinary tract infection), Anemia Patient Disposition: Admitted As Inpatient Discharge Instructions Interventions: ED Discharge Assessment Last Done: 04/15/22 21:49
[2022-04-15] MEDS: SODIUM CHLORIDE 0.9% 1000ML 1,000 ML IV SCH ×2 (18:36→20:38)
[2022-04-15 18:39] LABS: Basophils # (auto) 0.06 K/uL (0-0.2); Basophils % (auto) 0.6 %; Eosinophils # (auto) 0.33 K/uL (0-0.50); Eosinophils % (auto) 3.4 %; Hematocrit (blood only) 29.8 % (40.1-51.0); Hemoglobin 9.9 g/dl (14.0-18.0); Immature Granulocytes # (auto) 0.04 K/uL (0.00-0.02); Immature Granulocytes % (auto) 0.4 %; Lymphocytes % (auto) 17.5 %; Mean Corpuscular Hemoglobin 29.6 pg (25.0-34.0); Mean Corpuscular Hgb Conc 33.2 g/dL (32.0-36.0); Mean Corpuscular Volume 89.2 fL (80.0-100.0); Mean Platelet Volume 10.1 fL (9.4-12.4); Monocytes # (auto) 0.86 K/uL (0.24-0.82); Monocytes % (auto) 8.8 %; Neutrophils # (auto) 6.73 K/uL (1.4-6.5); Neutrophils % (auto) 69.3 %; Platelet Count 243 K/uL (130-400); RDW Coefficient of Variation 13.7 % (11.5-14.5); Red Blood Count 3.34 M/uL (4.63-6.08); White Blood Count 9.72 K/ul (4.8-10.8)
--- NOTE | 2022-04-15 18:42 | XRay Report ---
SINGLE VIEW CHEST CLINICAL HISTORY: Hypertension FINDINGS: An AP, portable, upright chest radiograph is compared to study dated 10/09/2018. The cardiom ediastinal silhouette is unremarkable. The lungs and pleural spaces are clear noting mild bibasilar a telectasis. No pneumothorax is seen. The bony thorax is grossly intact. IMPRESSION: No active disease in the chest. ACT 112: Negative or not required by law. Electronically signed by: Pete Ocampo M.D. 04/15/2022 6:41 PM
--- NOTE | 2022-04-15 19:00 | CT Scan Report ---
CT SCAN OF THE BRAIN WITHOUT IV CONTRAST CLINICAL HISTORY: Headache. Hypertension. COMPARISON STUDY: CT of the brain dated 09/07/2017. TECHNIQUE: Unenhanced axial CT scan of the brain is performed from the vertex to the skull base. A do se lowering technique was utilized adhering to the principles of ALARA. CT DOSE: 537.48 mGy.cm FINDINGS: Brain parenchyma: There is age-related involutional change noting mild subcortical and periventricula r microangiopathic disease. There is no hemorrhage, mass effect, or evidence of acute territorial isc hemia by CT criteria. Mcfarland-white matter differentiation is preserved. No extra-axial fluid collection is seen. Ventricles, sulci, cisterns: Prominent secondary to involutional change. Intracranial vasculature: There is atherosclerotic calcification of the cavernous carotid arteries. Calvarium: Unremarkable. Sinuses and mastoids: There is trace mucosal thickening within the ethmoid and sphenoid sinuses. Rete ntion cysts within the sphenoid sinuses measure up to 1.3 cm. The mastoid air cells are well pneumati zed. Orbits: The bony orbits are grossly intact. IMPRESSION: There is no hemorrhage, mass effect, or evidence of acute territorial ischemia by CT parker gong. ACT 112: Negative or not required by law. Electronically signed by: Pete Ocampo M.D. 04/15/2022 6:57 PM
[2022-04-15 19:07] LABS: Albumin Globulin Ratio 1.2 (0.9-2); Albumin Level 3.8 gm/dl (3.4-5.0); BUN Creatinine Ratio 10.2 (10-20); Bilirubin,Total 0.3 mg/dl (0.2-1.0); Calcium 8.5 mg/dl (8.5-10.1); Creatinine Clr Calc Pharmacy 36.8 ml/min; Est GFR (African American) 29.8 ml/min; Est GFR (Non-African American) 25.7 ml/min; Globulin 3.2 gm/dl (2.5-4.0); Potassium 3.3 mmol/L (3.5-5.1)
[2022-04-15 19:09] LABS: Troponin I High Sensitivity 17.8 pg/ml (0-20)
[2022-04-15] MEDS ORDERED: LABETALOL HCL IV 5 MG/ML 20ML IV STA ×2 (19:11→20:24)
[2022-04-15 19:28] LABS: Lyme Ab IgG w/WB Rflx Negative (Negative); Lyme Ab IgM w/WB Rflx Negative (Negative)
[2022-04-15 20:36] LABS: Appearance Urine Turbid (Clear); Bacteria Urine Automated Negative (Negative); Bilirubin Urine Negative (Negative); Blood Urine 1+ (Negative); Color Urine Yellow; Epithelial Cell Urine Auto 0-5 /lpf (0-5); Glucose Urine UA Negative (Negative); Ketones Urine Negative (Negative); Leukocyte Esterase Urine 3+ (Negative); Nitrite Urine Negative (Negative); Specific Gravity Urine 1.014 (1.000-1.030); Urobilinogen Urine Negative (Negative); WBC Urine Automated >30 /hpf (0-5)
[2022-04-15 20:38] LABS: Protein Urine 2+ (Negative)
[2022-04-15] MEDS ORDERED: cefTRIAXone SODIUM 2,000 MG/70 ML BAG IV STA (21:18)
[2022-04-15] MEDS ORDERED: SODIUM CHLORIDE 0.9% 1000ML 1,000 ML IV SCH (21:30)
[2022-04-15] MEDS ORDERED: POTASSIUM CHLORIDE CRTAB 20 MEQ TABCR PO STA (22:23)
[2022-04-15] MEDS ORDERED: carvediloL 6.25 MG TAB PO STA (22:23)
[2022-04-15] MEDS ORDERED: amLODIPine BESYLATE 5 MG TAB PO ONE (22:23)
[2022-04-15] MEDS ORDERED: NITROGLYCERIN SL 0.4 MG/TAB TAB SL PRN (22:23)
--- NOTE | 2022-04-15 22:39 | History and Physical Report ---
DATE OF ADMISSION: 04/15/2022. CHIEF COMPLAINT: Hypertensive urgency. HISTORY OF PRESENT ILLNESS: A 57-year-old male with past medical history significant for hypertension, BPH, history of left ventricular hypertrophy, history of tobacco abuse, presents with elevated blood pressure. The patient states he was diagnosed with COVID on 04/08/2022. He had symptoms for a couple of days prior to that and he was having headaches, feeling flu-like symptoms. Initially had some shortness of breath, that got resolved. Appetite was not that great, but there was no cough, no fever, or any chest pains. He had symptoms for 2 days and he tested for COVID, it came back positive on 04/08/2022. He is COVID vaccinated and boosted .Today he went to check his doctors for physical for his work, his blood pressure was high and was sent in here. The patient states he is taking only losartan and his losartan was increased recently to 50. He was supposed to start losartan 50 today.But he was also on amlodipine 10 mg and also on Coreg 12.5 mg p.o. b.i.d., as per [facility] PCP notes from July 2021, but the patient is not taking those medications and he says he does not know about that. He is also taking medication for his prostate. Recently, he saw urology and continued the Flomax and finasteride. Resting comfortably. Denies any chest pain. He had a headache during COVID, but he says currently no headache. He has some blurred visions in his right eye. No earache, no runny nose, no sore throat, no cough, no fevers. Currently, no chest pain, no shortness of breath, no nausea, no abdominal pain. Normal bowel and bladder movements. ALLERGIES: PENICILLIN, PROPOXYPHENE, ACETAMINOPHEN, NAPROXEN. PAST MEDICAL HISTORY: As mentioned above. PAST SURGICAL HISTORY: Colonoscopy. MEDICATIONS: As per the patient, he is only on aspirin 81 mg p.o. daily, finasteride 5 mg p.o. daily, Flomax 0.4 mg daily, losartan 50 mg p.o. a.m. FAMILY HISTORY: Significant for no family history on file. SOCIAL HISTORY: Smokes half pack of cigarettes a day. No alcohol. Occasional marijuana. REVIEW OF SYSTEMS: As per HPI. Rest of review of systems is negative. PHYSICAL EXAMINATION: GENERAL: The patient is of moderate build, not in acute distress. VITAL SIGNS: Temperature 37.3, pulse 74, respiratory rate 18, blood pressure 190/123, oxygen 99% on room air. HEENT: Pupils equal, round and reactive to light. Oral mucosa moist. NECK: No JVD. No masses. CARDIOVASCULAR: S1 and S2 heard. Regular rate and rhythm. No murmur, no gallop. RESPIRATORY SYSTEM: Normal AP diameter. No accessory muscle use. No wheezing, no crackles. ABDOMEN: Soft, bowel sounds present, nontender, no distention. CENTRAL NERVOUS SYSTEM: Cranial nerves II-XII grossly intact, nonfocal. EXTREMITIES: No edema, no erythema. LABORATORY DATA: WBC 9.7, hemoglobin 9.9, hematocrit 29.8, platelets 243. Sodium 138, potassium 3.3, chloride 106, bicarbonate 25, BUN 27, creatinine 2.6, serum glucose 99, calcium 8.5, phosphorus 3.1, magnesium 2, total bilirubin 0.3, AST 19, ALT 18, alkaline phosphatase 77, total troponin I high sensitivity 17.8. TSH 0.9. Urinalysis, +3 leukocyte esterase, urine bacteria negative. Lyme screen negative. SARS-CoV-2 rapid test negative. IMAGING DATA: Chest x-ray, no acute disease in the chest. CT of the head, no acute findings. Renal ultrasound results are pending. EKG: Normal sinus rhythm at a rate of 92. Incomplete right bundle-branch block, left axis deviation, voltage criteria for left ventricular hypertrophy. ASSESSMENT AND PLAN: This is a 57-year-old male who presents with hypertensive urgency. 1. Hypertensive urgency: The patient says he is taking only losartan, supposed to be on amlodipine and Coreg also. The patient received labetalol in the ER, Will hold losartan for acute kidney injury. Continue amlodipine 10 mg daily. On Coreg 12.5 b.i.d. at home, but will continue with 6.25 b.i.d., IV hydralazine p.r.n. Monitor in the hospital. Follow renal ultrasound and nephro consult in a.m. .Later added nitropaste as his BP was still high. 2. Left ventricular hypertrophy: Will get an echocardiogram and consult cardiology. 3. Acute kidney injury versus chronic kidney disease: Presents with creatinine of 2.6, his creatinine was 1.2 in September 2018. His creatinine was 1.3 in January 2020. Recently had COVID. Follow renal ultrasound. Await nephro input. 4. Hypokalemia: Will replace. 5. Benign prostatic hypertrophy: Continue home medications. 6. Anemia: Hemoglobin 9.9. Could be from the renal disease. Will follow the stool for Hemoccult and iron studies, vitamin B12, and folate levels. 7. Deep venous thrombosis prophylaxis: Heparin subcutaneous. If Hemoccult positive, will stop the heparin subcutaneous. DISPOSITION: Closely monitor in tele floor. PT/OT prior to discharge. Social service to help with discharge planning. Job ID: [id number] MTDD
[2022-04-15] MEDS: TAMSULOSIN HCL 0.4 MG CAP PO SCH (22:52)
[2022-04-15] MEDS: HEPARIN SOD 5,000 UNIT/0.5 ML VIAL SQ SCH (22:52)
[2022-04-15] MEDS: hydrALAZINE HCL 20 MG/ML VIAL IV PRN (23:17)
[2022-04-16] MEDS: NITROGLYCERIN 2% OINTMENT 30GM TUBE EXT SCH ×2 (04:20→10:01)
[2022-04-16 05:47] LABS: Basophils # (auto) 0.06 K/uL (0-0.2); Basophils % (auto) 0.5 %; Eosinophils # (auto) 0.36 K/uL (0-0.50); Eosinophils % (auto) 3.3 %; Hematocrit (blood only) 31.7 % (40.1-51.0); Hemoglobin 10.7 g/dl (14.0-18.0); Immature Granulocytes # (auto) 0.04 K/uL (0.00-0.02); Immature Granulocytes % (auto) 0.4 %; Lymphocytes # (auto) 1.38 K/uL (1.2-3.4); Lymphocytes % (auto) 12.5 %; Mean Corpuscular Hemoglobin 29.9 pg (25.0-34.0); Mean Corpuscular Hgb Conc 33.8 g/dL (32.0-36.0); Mean Corpuscular Volume 88.5 fL (80.0-100.0); Mean Platelet Volume 10.3 fL (9.4-12.4); Monocytes % (auto) 7.2 %; Neutrophils % (auto) 76.1 %; Platelet Count 263 K/uL (130-400); RDW Coefficient of Variation 13.5 % (11.5-14.5); RDW Standard Deviation 44.1 fL (36.4-46.3); Red Blood Count 3.58 M/uL (4.63-6.08); White Blood Count 11.04 K/ul (4.8-10.8)
[2022-04-16 06:09] LABS: Calcium 8.6 mg/dl (8.5-10.1); Creatinine Clr Calc Pharmacy 41.3 ml/min; Est GFR (African American) 34.1 ml/min; Est GFR (Non-African American) 29.5 ml/min; Potassium 3.3 mmol/L (3.5-5.1)
[2022-04-16] MEDS: HEPARIN SOD 5,000 UNIT/0.5 ML VIAL SQ SCH ×3 (06:11→21:03)
[2022-04-16 06:32] LABS: Folate (Folic Acid) 11.89 ng/ml (>5.38)
--- NOTE | 2022-04-16 07:17 | Ultrasound Report ---
RENAL ULTRASOUND HISTORY: Acute kidney injury. Hypertension. COMPARISON: None. FINDINGS: Right kidney: 9.4 cm. A 1.1 cm upper pole cyst. No hydronephrosis. Normal corticomedullary differenti ation and cortical thickness. Left kidney: 9.7 cm. No hydronephrosis. Normal corticomedullary differentiation and cortical thicknes s. Bladder: Moderate bladder wall thickening. The bilateral ureteral jets were identified. IMPRESSION: 1. No hydronephrosis. 2. Moderate bladder wall thickening. Recommend correlation with urinalysis to exclude a cystitis. ACT 112: Negative or not required by law. Electronically signed by: Navneet Piña M.D. 04/16/2022 7:16 AM
[2022-04-16] MEDS ORDERED: POTASSIUM CHLORIDE CRTAB 20 MEQ TABCR PO ONE (08:01)
[2022-04-16] MEDS: ASPIRIN 81 MG CHEW PO SCH (08:07)
[2022-04-16] MEDS: amLODIPine BESYLATE 5 MG TAB PO SCH (08:07)
[2022-04-16] MEDS: FINASTERIDE 5 MG TAB PO SCH (08:07)
[2022-04-16] MEDS: ACETAMINOPHEN 325 MG TAB PO PRN ×2 (08:16→12:28)
[2022-04-16] MEDS ORDERED: carvediloL 6.25 MG TAB PO SCH (09:00)
--- NOTE | 2022-04-16 10:53 | Cardiology Consultation ---
Date of Consultation April 16, 2022 Assessment & Plan (1) Hypertensive urgency: (2) Hypertension: (3) Hypertensive heart disease: (4) Anemia: Plan Hypertensive urgency: Agree with initiation/resumption of carvedilol and amlodipine. Recommend increasing carvedilol dosing, attempting to discontinue nitro paste. Continue IV hydralzine PRN. If renal dysfunction improves would consider resumption of losartan followed by low spironolactone versus low dose HCTZ. Patient educated regarding effects of uncontrolled hypertension. Nonpharmacologic treatment of hypertension discussed. Further recommendations pending the above, evaluation by Dr. Gonzalez, patient's ongoing hospitalization. Supervising Physician Co-Signing Physician Notes Patient was seen and personally reviewed and examined. Outpatient records also reviewed. Patient notes recent COVID infection only mildly symptomatic. Did use nonsteroidals for complaints. Was seeing urgent care as part of screening prior to returning to work and noted to have significant hypertension, referred for ER evaluation. Patient notes longstanding history of hypertension. Notes systolic blood pressures rarely of below 170 on home checks. "Not having much symptoms" Unfortunately now manifesting evidence of end-organ damage with severe left ventricular hypertrophy, renal insufficiency. Treatment for hypertension initiated as above. We will coordinate with nephrology ongoing care History of Present Illness Reason for Consultation: Hypertensive urgency Requesting Physician: Clinton Attending Physician: Mahamed History of Present Illness History of Present Illness: Mr. Christopher Harry is a 57 year old male originally from the [facility] who was referred for hospitalization on April 15, 2022 after observing marked hypertension as an outpatient. Initial blood pressure upon presentation to the [facility] ER was 192/102 with a high of 222/128 noted on 04/15/2022 at 22:23. Patient notes past use of lisinopril was not well-tolerated. More recently, circa July 2021 he was prescribed losartan. He does not recall ever being prescribed amlodipine or carvedilol and does not recall past evaluation by [facility]. Mild to moderate left ventricular hypertrophy noted at the time of stress testing in 2015, without evidence of exercise-induced myocardial ischemia at that time. Resting echocardiography of January 2020 with moderate concentric left ventricular hypertrophy, grade 1 diastolic dysfunction, atrial septal aneurysm, and small patent foramen ovale.Patient notes testing positive for COVID-19 on April 08, 2022. Symptoms at that time were loss of taste and smell and some malaise as well as fatigue. Notes, questioning, intermittent headaches. Denies chest pain, shortness of breath, palpitations. No orthopnea, PND, or lower extremity peripheral edema. No dizziness, near syncope, or syncope. No current fevers or chills. No epistaxis, hemoptysis, melena, hematochezia, or hematuria. Past Medical and Surgical History: Hypertension, hypertensive heart disease Chronic kidney disease BPH Chronic tobacco abuse Left shoulder surgery Oral surgery, prior dental abscess Social History: Smoker, 1/2 pack/day. No alcohol. Occasional marijuana. Employment: [employer], [employer]. 4 children ages 26-35. Son with heart murmur. Family History: Multiple family members with hypertension. Mother with Alzheimer's at 74. Father is alive at 87, history of prostate and colon cancer. Brother is alive with hypertension, age 63. Complete Review of Systems: Constitutional: No current fevers, sweats, or chills. HEENT: No amaurosis fugax. No recent visual changes. No epistaxis. Pulmonary: Chronic tobacco use. No history of sleep apnea, pulmonary embolism, COPD or asthma. Cardiac: See above. GI/Abd: No dysphagia. No liver problems. + CKD. Vascular: Denies history of claudication, AAA, or carotid artery disease. Hematologic: No coagulation disorder, anemia, or abnormal bleeding. Muscu loskeletal: Negative. Skin: No rash. Neurologic: No history of TIA, CVA, or seizure. Male : BPH, on medications, followed by Urology, attempting to avoid surgery per patient. Endocrine: No history of diabetes. Complete Review of Systems is as stated above or negative. Allergies Allergy/AdvReac Type Severity Reaction Status Date / Time Penicillins Allergy Unknown CAN'T Verified 04/15/22 18:14 REMEMBER propoxyphene Allergy Unknown TYLENOL OK Verified 04/15/22 18:14 acetaminophen AdvReac Intermediate UPSETS Verified 04/15/22 18:14 STOMACH naproxen AdvReac Intermediate stomach Verified 04/15/22 18:14 burning, takes ibuprofen w/out prob Home Medications Medication Instructions Recorded Confirmed Type aspirin 81 mg chewable tablet 81 mg PO QAM 10/06/18 04/15/22 History finasteride 5 mg tablet 5 mg PO DAILY 03/08/21 04/15/22 History losartan 25 mg tablet 50 mg PO QAM 04/15/22 04/15/22 History Patient History Medical History BPH (benign prostatic hyperplasia) Diabetes HTN (hypertension) Surgical History History of rotator cuff surgery Family History Other Cancer Diabetes Heart disease Hypertension Social History Smoking Status: Current every day smoker Second Hand Exposure: No; Do You Dip or Chew Tobacco: No; Tobacco Cessation Education Requested by Patient: No Hx Alcohol Use: No Hx Substance Use: Yes Last Used Substance: Days (ago) Preferred Language: French Communication Ability: Effective [employer] Sciences Program Coordinator Required: No Beliefs That Will Affect Care: None marital status: Single Current Living Situation: Significant Other current occupational status: employed Other Information That Helps Us Care for You: No Feels Safe at Home: Yes Safety Concerns: Feels Safe At This Time Assistive Devices: None Physical Exam Physical Exam: General: A&Ox3. NAD. HENT: Normocephalic. Atraumatic. Eyes: PER. Conjunctiva pink, sclera clear. Neck: No carotid bruits. No JVD. No HJR. Heart: RRR, 76 bpm. Soft systolic murmur. No diastolic murmur. No rub. No gallop. PMI is nondisplaced. Lungs: Diminished. Decreased. Clear to auscultation. No wheeze. Abdomen: +BS. Soft. Nontender. No masses or organomegaly. Extremities: No clubbing, cyanosis, or edema. Limited neurological examination is without focal deficits. Pulses: radial=3/4, posterior tibial=3/4. Results & Data ([facility]) Vital Signs (Past 12 Hours) Vital Signs Temp Pulse Resp BP Pulse Ox O2 Del Method 04/16/22 07:31 36.8 C 79 19 150/89 H 98 Room Air 04/16/22 06:21 156/87 H 04/16/22 03:00 36.7 C 78 18 187/112 H 97 Laboratory Results Laboratory Results - last 24 hr 04/15/22 04/15/22 04/15/22 18:30 18:30 18:30 WBC 9.72 RBC 3.34 L Hgb 9.9 L Hct 29.8 L MCV 89.2 MCH 29.6 MCHC 33.2 RDW Std Deviation 45.0 RDW Coeff of Rufino 13.7 Plt Count 243 MPV 10.1 Immature Gran % (Auto) 0.4 Neut % (Auto) 69.3 Lymph % (Auto) 17.5 [place] % (Auto) 8.8 Eos % (Auto) 3.4 Baso % (Auto) 0.6 Neut # (Auto) 6.73 H Lymph # (Auto) 1.70 [place] # (Auto) 0.86 H Eos # (Auto) 0.33 Baso # (Auto) 0.06 Immature Gran # (Auto) 0.04 H Sodium 138 Potassium 3.3 L Chloride 106 Carbon Dioxide 25 Anion Gap 7 BUN 27 H Creatinine 2.64 H Est Cr Clr Drug Dosing 36.8 Est GFR ( Amer) 29.8 Est GFR (Non-Af Amer) 25.7 BUN/Creatinine Ratio 10.2 Glucose 99 Calcium 8.5 Phosphorus Magnesium 2.0 Iron TIBC Unsaturated IBC Transferrin % Sat Total Bilirubin 0.3 AST 19 ALT 18 Alkaline Phosphatase 77 Troponin I High Sens 17.8 Total Protein 7.0 Albumin 3.8 Globulin 3.2 Albumin/Globulin Ratio 1.2 Vitamin B12 Folate TSH 0.988 Urine Color Urine Appearance Urine pH Ur Specific Pearson Urine Protein Urine Glucose (UA) Urine Ketones Urine Blood Urine Nitrite Urine Bilirubin Urine Urobilinogen Ur Leukocyte Esterase Urine WBC (Auto) Urine RBC (Auto) U Hyaline Cast (Auto) U Epithel Cells (Auto) Urine Bacteria (Auto) Lyme Disease IgG Ab Lyme Disease IgM Ab SARS-CoV-2, RNA, NAAT 04/15/22 04/15/22 04/15/22 18:30 18:30 19:35 WBC RBC Hgb Hct MCV MCH MCHC RDW Std Deviation RDW Coeff of Rufino Plt Count MPV Immature Gran % (Auto) Neut % (Auto) Lymph % (Auto) [place] % (Auto) Eos % (Auto) Baso % (Auto) Neut # (Auto) Lymph # (Auto) [place] # (Auto) Eos # (Auto) Baso # (Auto) Immature Gran # (Auto) Sodium Potassium Chloride Carbon Dioxide Anion Gap BUN Creatinine Est Cr Clr Drug Dosing Est GFR ( Amer) Est GFR (Non-Af Amer) BUN/Creatinine Ratio Glucose Calcium Phosphorus 3.1 Magnesium Iron TIBC Unsaturated IBC Transferrin % Sat Total Bilirubin AST ALT Alkaline Phosphatase Troponin I High Sens Total Protein Albumin Globulin Albumin/Globulin Ratio Vitamin B12 Folate TSH Urine Color Urine Appearance Urine pH Ur Specific Pearson Urine Protein Urine Glucose (UA) Urine Ketones Urine Blood Urine Nitrite Urine Bilirubin Urine Urobilinogen Ur Leukocyte Esterase Urine WBC (Auto) Urine RBC (Auto) U Hyaline Cast (Auto) U Epithel Cells (Auto) Urine Bacteria (Auto) Lyme Disease IgG Ab Negative Lyme Disease IgM Ab Negative SARS-CoV-2, RNA, NAAT NEGATIVE 04/15/22 04/16/22 04/16/22 20:23 05:14 05:14 WBC 11.04 H RBC 3.58 L Hgb 10.7 L Hct 31.7 L MCV 88.5 MCH 29.9 MCHC 33.8 RDW Std Deviation 44.1 RDW Coeff of Rufino 13.5 Plt Count 263 MPV 10.3 Immature Gran % (Auto) 0.4 Neut % (Auto) 76.1 Lymph % (Auto) 12.5 [place] % (Auto) 7.2 Eos % (Auto) 3.3 Baso % (Auto) 0.5 Neut # (Auto) 8.40 H Lymph # (Auto) 1.38 [place] # (Auto) 0.80 Eos # (Auto) 0.36 Baso # (Auto) 0.06 Immature Gran # (Auto) 0.04 H Sodium Potassium Chloride Carbon Dioxide Anion Gap BUN Creatinine Est Cr Clr Drug Dosing Est GFR ( Amer) Est GFR (Non-Af Amer) BUN/Creatinine Ratio Glucose Calcium Phosphorus Magnesium Iron TIBC Unsaturated IBC Transferrin % Sat Total Bilirubin AST ALT Alkaline Phosphatase Troponin I High Sens Total Protein Albumin Globulin Albumin/Globulin Ratio Vitamin B12 1369 H Folate 11.89 TSH Urine Color Yellow Urine Appearance Turbid A Urine pH 8.0 H Ur Specific Pearson 1.014 Urine Protein 2+ H Urine Glucose (UA) Negative Urine Ketones Negative Urine Blood 1+ H Urine Nitrite Negative Urine Bilirubin Negative Urine Urobilinogen Negative Ur Leukocyte Esterase 3+ H Urine WBC (Auto) >30 H Urine RBC (Auto) 5-10 H U Hyaline Cast (Auto) 1-5 U Epithel Cells (Auto) 0-5 Urine Bacteria (Auto) Negative Lyme Disease IgG Ab Lyme Disease IgM Ab SARS-CoV-2, RNA, NAAT 04/16/22 05:14 WBC RBC Hgb Hct MCV MCH MCHC RDW Std Deviation RDW Coeff of Rufino Plt Count MPV Immature Gran % (Auto) Neut % (Auto) Lymph % (Auto) [place] % (Auto) Eos % (Auto) Baso % (Auto) Neut # (Auto) Lymph # (Auto) [place] # (Auto) Eos # (Auto) Baso # (Auto) Immature Gran # (Auto) Sodium 139 Potassium 3.3 L Chloride 108 H Carbon Dioxide 23 Anion Gap 8 BUN 26 H Creatinine 2.36 H Est Cr Clr Drug Dosing 41.3 Est GFR ( Amer) 34.1 Est GFR (Non-Af Amer) 29.5 BUN/Creatinine Ratio 11.0 Glucose 110 H Calcium 8.6 Phosphorus Magnesium 2.0 Iron 27 L TIBC 347 Unsaturated IBC 320 Transferrin % Sat 8 L Total Bilirubin AST ALT Alkaline Phosphatase Troponin I High Sens Total Protein Albumin Globulin Albumin/Globulin Ratio Vitamin B12 Folate TSH Urine Color Urine Appearance Urine pH Ur Specific Pearson Urine Protein Urine Glucose (UA) Urine Ketones Urine Blood Urine Nitrite Urine Bilirubin Urine Urobilinogen Ur Leukocyte Esterase Urine WBC (Auto) Urine RBC (Auto) U Hyaline Cast (Auto) U Epithel Cells (Auto) Urine Bacteria (Auto) Lyme Disease IgG Ab Lyme Disease IgM Ab SARS-CoV-2, RNA, NAAT Diagnostic Findings Telemetry: Sinus in the 70's and 80's. No arrhythmias. EKG on presentation revealed normal sinus rhythm at 92 bpm with left axis deviation, incomplete right bundle branch block, left ventricular hypertrophy. April 16, 2022 TTE Interpretation Summary ([facility], Dr. Gonzalez): Normal size left ventricle. Severe concentric LVH. Normal LV wall motion. Ejection fraction 60 to 65%. Grade 1 diastolic dysfunction. Trace mitral regurgitation. Normal size aortic root. Doppler findings not suggestive of pulmonary hypertension.
--- NOTE | 2022-04-16 10:53 | Nephrology Consultation ---
Date of Consultation April 16, 2022 Assessment & Plan (1) Hypertension: w/ severe LVH and HTN urgency in setting of medication nonadherence and nsaid use. NSAIDS may potentially explain low K but would monitor. GOAL is SBP in 150-160s for next few days consistently -hold ARB given presumed HERBERT though likely to need this as well as diuretic longer term. 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 smoking cessation/nicotine patch -agree w/ coreg, amlodipine; prn hydralazine -defer eval for aldosteronism at this time; would avoid / hold spironolactone for now though given its long halflife so that this could be evaluated later -daily bmp while in house -care coordinated w/ cardiology (2) HERBERT (acute kidney injury): most recent baseline creatinine unknown; 1.3-1.4 as OP in 2019 w/ dipstick proteinuria; HERBERT on CKD versus CKD progressoin -check proteinuria status once bp control better established (3) Abnormal urine findings: on empiric ceftriaxone for WBC, LE in urine; reasonable to continue pending culture; notably no bacteria in urine > may have chronic prostatitis or other and doubt UTI; pt w/ hx of prostatic hypertrophy/ LUTS History of Present Illness Reason for Consultation: HERBERT on CKD and HTN urgency Requesting Physician: Dr Alonzo Attending Physician: Katrin Irby, History of Present Illness 57 y/o M whom I'm asked to see for HERBERT on CKD and HTN urgency was admitted overnight w/ HTN urgency after being sent by [facility] to ER d/t HTN. His baseline creatinine is 1.3-1.4 (last reading as OP in Epic or Meditech in 2019) and he presented with creatinine 2.6. Presenting BP was 192/102 last evening about 1800, to 150-180s as of this am. 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 He had Covid 04/08/22 + test after 48 hrs of sx. Had significant NORMAN with infection and took advil to treat. He can't really give me the specifics of how much advil he took but thinks it was about 3 pills 2-3 times in the past week. He tells me he takes advil regularly but can't specify how often. Overnight he had 500 mL NS, nitropaste, one dose of hydralazine 7.5 mg IV, 2 labetalol 5 mg doses, coreg 6.25 mg x 1 and amlodipine 10 mg. Also had 60 mEq po K for presenting K 3.3. Admission med list markedly inconsistent with pt reported meds for HTN. He was on losartan only as OP 25 mg daily. He freely admits to me that he struggles to remember his medication names/doses. Hx of past intolerance of lisinopril. Dr Angelica is listed as PCP > at last 07/2021 visit was not taking BP meds as rx'd ; he'd at that time stopped /did not tolerate ACEI; endorsed being on amlodipine, coreg at that time but does not recall use now. He has seen cardiology [facility] last visit 04/2020 but does not recall this visit/BP med recs there. the patient reports he had a headache w/ nitropaste but otherwise feels well. no n/v, no sob, no chest pain or palpitations, no new/worrisome voiding sx; no flank or suprapubic pain, no edema, no rash or F. Allergies Allergy/AdvReac Type Severity Reaction Status Date / Time Penicillins Allergy Unknown CAN'T Verified 04/15/22 18:14 REMEMBER propoxyphene Allergy Unknown TYLENOL OK Verified 04/15/22 18:14 acetaminophen AdvReac Intermediate UPSETS Verified 04/15/22 18:14 STOMACH naproxen AdvReac Intermediate stomach Verified 04/15/22 18:14 burning, takes ibuprofen w/out prob Home Medications Medication Instructions Recorded Confirmed Type aspirin 81 mg chewable tablet 81 mg PO QAM 10/06/18 04/15/22 History finasteride 5 mg tablet 5 mg PO DAILY 03/08/21 04/15/22 History losartan 25 mg tablet 50 mg PO QAM 04/15/22 04/15/22 History Patient History Medical History BPH (benign prostatic hyperplasia) Diabetes HTN (hypertension) Surgical History History of rotator cuff surgery Family History (Updated 04/16/22 @ 20:18 by Angie Ovalle MD, PhD) Grandmother (Maternal) Dementia Mother Dementia Other Cancer Diabetes Heart disease Hypertension Social History Smoking Status: Current every day smoker Second Hand Exposure: No; Do You Dip or Chew Tobacco: No; Tobacco Cessation Education Requested by Patient: No Hx Alcohol Use: No Hx Substance Use: Yes Last Used Substance: Days (ago) Preferred Language: Setswana Communication Ability: Effective [employer]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 Beliefs That Will Affect Care: None marital status: Single Current Living Situation: Significant Other current occupational status: employed How many Children do You have: 4 Other Information That Helps Us Care for You: No Feels Safe at Home: Yes Safety Concerns: Feels Safe At This Time Assistive Devices: None Review of Systems Review of Systems: All systems reviewed & are unremarkable except as noted in HPI & below Physical Exam Constitutional: well developed and well nourished Eyes: EOM intact bilaterally ENMT: Ears: no external ear abnormality Nose: no external nose abnormality Mouth: + dry oral mucous membranes Neck: no nuchal rigidity Respiratory: normal respiratory effort Auscultation: + diminished lung sounds Gastrointestinal (Abdomen): Inspection/Auscultation: normal bowel sounds Percussion/Palpation: abdomen soft; abdomen nontender Musculoskeletal: Extremities: strength 5/5 throughout Skin: no rashes, warm and dry Neurologic: rivera, fluent speech, no tremor Results & Data ([facility]) Vital Signs (Past 12 Hours) Vital Signs Temp Pulse Resp BP Pulse Ox O2 Del Method 04/16/22 07:31 36.8 C 79 19 150/89 H 98 Room Air 04/16/22 06:21 156/87 H 04/16/22 03:00 36.7 C 78 18 187/112 H 97 Laboratory Results 04/16/22 05:14 04/16/22 05:14 UA with turbid yellow urine pH 8.0, 3+ LE, > 30 WBC, 2+ protein, 1+ blood, no ketones, no bacteria, 5-10 RBC Diagnostic Findings renal u/s 1. No hydronephrosis. 2. Moderate bladder wall thickening. Recommend correlation with urinalysis to exclude a cystitis. cxr, head CT no active process TTE >severe cLVH, EF 60%; valves ok; no plm HTN, ECG concerning for LVH
--- NOTE | 2022-04-16 11:27 | Hospitalist Progress Note ---
Date of Service April 16, 2022 Assessment & Plan (1) Hypertensive urgency: Plan: Controlled on current therapy including carvedilol and amlodipine. Losartan is being held given HERBERT. Nitropaste was on overnight but is being removed as patient has headache and blood pressure is improved. (2) Hypertensive heart disease: Plan: Described to patient long-term side effect of uncontrolled high blood pressure. LVH noted on echocardiogram. (3) HERBERT (acute kidney injury): Plan: Creatinine is twice his baseline. Nephrology was consulted and we are trending BMP daily. Hold losartan (4) UTI (urinary tract infection): Plan: Ruled out with negative urine culture. Rocephin stopped. (5) BPH (benign prostatic hyperplasia): Plan: Continue tamsulosin and Flomax per home regimen. (6) Smoker: Plan: Smoking cessation strongly encouraged. (7) DVT prophylaxis: Plan: Heparin Full code Disposition-to home when renal failure is resolved and blood pressure is stable. Katrin Irby DO [facility] Hospitalist Admission and Anticipated Discharge Date Admission Date: April 15, 2022 Subjective 57-year-old man with known history of hypertension presents out of concern for uncontrolled blood pressure. Denies any chest pain or shortness of breath We discussed the long-term effects of high blood pressure on the heart and he verbalized understanding. Blood pressure is now at goal at 135/77. Nitro was discontinued per plan from nephrology and cardiology. He is tolerating current therapies without issue He is an active smoker and is interested in quitting Review of Systems Review of Systems: All systems reviewed negative except as indicated above. Physical Exam Physical Exam: CONSTITUTIONAL: WNWD, vitals as above, generally well- appearing, NAD EYES: normal conjunctivae, no scleral icterus ENT: external ear and nose normal,MMM NECK: trachea midline RESPIRATORY: clear to auscultation bilaterally, no crackles, rales or wheezes, normal respiratory effort CARDIOVASCULAR: regular rate and rhythm, S1 and 2 heard without murmurs, gallops or rubs, no JVD, no peripheral edema CHEST: inspection of chest was normal GASTROINTESTINAL: soft, nontender, ND, no guarding MUSCULOSKELETAL: strength 5/5 throughout, head is normocephalic and atraumatic SKIN: warm and dry NEUROLOGIC: CN 2-12 grossly intact, no sensory deficit, normal cognition, normal speech, no tremor PSYCHIATRIC: alert cooperative and oriented to person, place and time. Euthymic mood, makes good eye contact, language grossly intact, recent and remote memory grossly intact. Results & Data Results & Data ([facility]) Vital Signs (Past 12 Hours) Vital Signs Temp Pulse Resp BP Pulse Ox O2 Del Method 04/16/22 07:31 36.8 C 79 19 150/89 H 98 Room Air 04/16/22 06:21 156/87 H 04/16/22 03:00 36.7 C 78 18 187/112 H 97 Laboratory Results Short CBC 04/15/22 04/16/22 Range/Units 18:30 05:14 WBC 9.72 11.04 H (4.8-10.8) K/ul Hgb 9.9 L 10.7 L (14.0-18.0) g/dl Hct 29.8 L 31.7 L (40.1-51.0) % Plt Count 243 263 (130-400) K/uL [facility] 04/15/22 04/16/22 18:30 05:14 Sodium 138 139 Potassium 3.3 L 3.3 L Chloride 106 108 H Carbon Dioxide 25 23 BUN 27 H 26 H Creatinine 2.64 H 2.36 H Glucose 99 110 H Calcium 8.5 8.6 Liver Function 04/15/22 Range/Units 18:30 Total Bilirubin 0.3 (0.2-1.0) mg/dl AST 19 (13-39) U/L ALT 18 (7-52) U/L Alkaline Phosphatase 77 (34-104) U/L Albumin 3.8 (3.4-5.0) gm/dl Urine 04/15/22 Range/Units 20:23 Urine Color Yellow Urine Appearance Turbid A (Clear) Urine pH 8.0 H (4.5-7.5) Ur Specific [place] 1.014 (1.000-1.030) Urine Protein 2+ H (Negative) Urine Glucose (UA) Negative (Negative) Diagnostic Findings Renal Ultrasound 04/15/22 19:31 RENAL ULTRASOUND HISTORY: Acute kidney injury. Hypertension. COMPARISON: None. FINDINGS: Right kidney: 9.4 cm. A 1.1 cm upper pole cyst. No hydronephrosis. Normal corticomedullary differentiation and cortical thickness. Left kidney: 9.7 cm. No hydronephrosis. Normal corticomedullary differentiation and cortical thickness. Bladder: Moderate bladder wall thickening. The bilateral ureteral jets were identified. IMPRESSION: 1. No hydronephrosis. 2. Moderate bladder wall thickening. Recommend correlation with urinalysis to exclude a cystitis. ACT 112: Negative or not required by law. Electronically signed by: Navneet Piña M.D. 04/16/2022 7:16 AM Medications Administered Current Inpatient Medications Acetaminophen (Acetaminophen 325 Mg Tab) 650 mg PO Q4H PRN PRN Reason: Pain or Fever Stop: 05/15/22 22:22 Last Admin: 04/16/22 08:16 Dose: 650 mg Amlodipine Besylate (Amlodipine Besylate 5 Mg Tab) 10 mg PO QAM [facility] Stop: 05/16/22 08:59 Last Admin: 04/16/22 08:07 Dose: 10 mg Aspirin (Aspirin 81 Mg Chew) 81 mg PO QAM [facility] Stop: 05/16/22 08:59 Last Admin: 04/16/22 08:07 Dose: 81 mg Carvedilol (Carvedilol 6.25 Mg Tab) 6.25 mg PO BID [facility] Stop: 05/16/22 08:59 Last Admin: 04/16/22 08:07 Dose: 6.25 mg Finasteride (Finasteride 5 Mg Tab) 5 mg PO DAILY [facility] Stop: 05/16/22 08:59 Last Admin: 04/16/22 08:07 Dose: 5 mg Heparin Sodium (Porcine) (Heparin Sod 5,000 Unit/0.5 Ml Vial) 5,000 units SQ Q8 [facility] Stop: 05/15/22 22:22 Last Admin: 04/16/22 06:11 Dose: 5,000 units Hydralazine HCl (Hydralazine Hcl 20 Mg/Ml Vial) 7.5 mg IV Q6H PRN PRN Reason: Hypertension Stop: 05/15/22 22:22 Last Admin: 04/15/22 23:17 Dose: 7.5 mg Ceftriaxone Sodium 2,000 mg/ (Dextrose) 70 mls @ 140 mls/hr IV Q24H [facility]; Protocol Stop: 04/26/22 20:59 Nitroglycerin (Nitroglycerin Sl 0.4 Mg/Tab Tab) 0.4 mg SL Q5M PRN PRN Reason: Chest Pain Stop: 05/15/22 22:22 Nitroglycerin (Nitroglycerin 2% Ointment 30gm Tube) 0.5 inch EXT Q6H [facility] Stop: 05/16/22 03:59 Last Admin: 04/16/22 10:01 Dose: 0.5 inch Tamsulosin HCl (Tamsulosin Hcl 0.4 Mg Cap) 0.4 mg PO HS [facility] Stop: 05/15/22 22:22 Last Admin: 04/15/22 22:52 Dose: 0.4 mg
--- NOTE | 2022-04-16 12:39 | Electrocardiogram Report ---
Test Reason : Blood Pressure : / mmHG Vent. Rate : 092 BPM Atrial Rate : 092 BPM P-R Int : 144 ms QRS Dur : 114 ms QT Int : 364 ms P-R-T Axes : 047 -37 -18 degrees QTc Int : 450 ms Normal sinus rhythm Left axis deviation Incomplete right bundle branch block Voltage criteria for left ventricular hypertrophy Nonspecific T wave abnormality Abnormal ECG When compared with ECG of 09-OCT-2018 12:41, Incomplete right bundle branch block is now Present Confirmed by Christopher Cortez ([id number]) on 04/16/2022 12:39:25 PM Referred By: REFERRED SELF Confirmed By:Christopher Cortez
[2022-04-16] MEDS: carvediloL 12.5 MG TAB PO SCH (20:05)
[2022-04-16] MEDS: TAMSULOSIN HCL 0.4 MG CAP PO SCH (20:07)
[2022-04-16] MEDS ORDERED: cefTRIAXone SODIUM 2,000 MG in DEXTROSE 5% 50 ML IV SCH (21:00)
[2022-04-17] MEDS: hydrALAZINE HCL 20 MG/ML VIAL IV PRN (03:34)
[2022-04-17] MEDS: HEPARIN SOD 5,000 UNIT/0.5 ML VIAL SQ SCH ×3 (05:46→23:07)
[2022-04-17 07:01] LABS: BUN Creatinine Ratio 12.9 (10-20); Calcium 8.6 mg/dl (8.5-10.1); Creatinine Clr Calc Pharmacy 37.3 ml/min; Est GFR (African American) 33.5 ml/min; Est GFR (Non-African American) 28.9 ml/min; Potassium 3.4 mmol/L (3.5-5.1)
[2022-04-17] MEDS: ASPIRIN 81 MG CHEW PO SCH (08:29)
[2022-04-17] MEDS: carvediloL 12.5 MG TAB PO SCH (08:29)
[2022-04-17] MEDS: amLODIPine BESYLATE 5 MG TAB PO SCH (08:29)
[2022-04-17] MEDS: FINASTERIDE 5 MG TAB PO SCH (08:30)
--- NOTE | 2022-04-17 09:44 | Cardiology Progress Note ---
Date of Service April 17, 2022 Assessment & Plan (1) Hypertensive heart disease: (2) Hypertensive urgency: (3) HERBERT (acute kidney injury): Plan Increase carvedilol to 25 mg twice a day. Add hydralazine 12.5 four times per day. Continue amlodipine 10 mg/day. If renal dysfunction improves would consider a trial of low spironolactone versus low dose HCTZ. Patient educated once again. Nonpharmacologic treatment of hypertension discussed. Avoid NSAID's. Admission and Anticipated Discharge Date Admission Date: April 15, 2022 Supervising Physician Co-Signing Physician Notes Patient seen and examined, chart, medications, telemetry reviewed. Asymptomatic but blood pressure still trending high. Medications adjusted appropriately as above. Discussed treatment of hypertension in detail with patient. Will require multiple drug regimen and patient understands Subjective Patient seen and examined. Chart, medications, and telemetry reviewed. Headaches resolved 10 minutes after removal of the Nitropaste. No pain. Patient specifically denies chest pain, palpitations, shortness of breath, dizziness, lightheadedness, near-syncope, melena, hematochezia, or dysuria. Blood pressure remains uncontrolled. Continuous telemetry monitoring reveals sinus rhythm predominantly in the 70s. Physical Exam Physical Exam: General: A&Ox3. NAD. HENT: Normocephalic. Atraumatic. Eyes: PER. Conjunctiva pink, sclera clear. Neck: No carotid bruits. No JVD. Heart: RRR, 70 bpm. Grade II/ systolic murmur. No diastolic murmur. PMI is nondisplaced. Lungs: Clear to auscultation. Abdomen: +BS. Soft. Nontender. No masses or organomegaly. Extremities: No clubbing, cyanosis, or edema. Limited neurological examination is without focal deficits. Pulses: radial=2/4, posterior tibial=2/4. Results & Data ([facility]) Vital Signs (Past 12 Hours) Vital Signs Temp Pulse Pulse Pulse Resp BP Pulse Ox 04/17/22 08:12 36.7 C 68 22 187/98 H 97 04/17/22 04:08 70 178/102 H 04/17/22 03:34 36.6 C 68 18 222/125 H 98 04/17/22 03:34 222/125 H 04/16/22 23:24 36.5 C 66 20 183/101 H 98 04/16/22 22:50 67 O2 Del Method 04/17/22 08:12 Room Air 04/17/22 04:08 04/17/22 03:34 Room Air 04/17/22 03:34 04/16/22 23:24 Room Air 04/16/22 22:50 Laboratory Results Laboratory Results - last 24 hr 04/17/22 06:10 Sodium 137 Potassium 3.4 L Chloride 106 Carbon Dioxide 24 Anion Gap 7 BUN 31 H Creatinine 2.40 H Est Cr Clr Drug Dosing 37.3 Est GFR ( Amer) 33.5 Est GFR (Non-Af Amer) 28.9 BUN/Creatinine Ratio 12.9 Glucose 103 H Calcium 8.6 Magnesium 2.0
--- NOTE | 2022-04-17 11:26 | Nephrology Progress Note ---
Date of Service April 17, 2022 Assessment & Plan (1) Hypertension: Plan: w/ severe LVH and HTN urgency in setting of medication nonadherence and nsaid use. NSAIDS may potentially explain low K but would monitor. GOAL is SBP in 150-160s for next few days consistently - he is still far from goal -hold ARB given presumed HERBERT though likely to need this as well as diuretic longer term. -needs close in f/u of BP control and renal function after d/c as well as IP -no nsaids -career counselor smoking cessation/nicotine patch -agree w/ coreg, amlodipine; agree w/ trial of low dose qid hydralazine for now -added low dose hctz/triamterene -defer eval for aldosteronism at this time; would avoid / hold spironolactone for now though given its long halflife so that this could be evaluated later -daily bmp while in house >manage anxiety and tobacco withdrawal >low threshold for MMSE as indepth as possible (2) HERBERT (acute kidney injury): Plan: most recent baseline creatinine unknown; 1.3-1.4 as OP in 2019 w/ dipstick proteinuria; HERBERT on CKD versus CKD progressoin -check proteinuria status once bp control better established (3) Abnormal urine findings: Plan: not a uti; ? chronic prostatitis; pt w/ hx of prostatic hypertrophy/ LUTS and sx stable; observe Admission and Anticipated Discharge Date Admission Date: April 15, 2022 Subjective no interval events; tells me no cigarettes since he got covid 3 wks back; some elevated bp this am w/o sx. Review of Systems Review of Systems: All systems reviewed & are unremarkable except as noted in Subjective Physical Exam Constitutional: well developed and well nourished Eyes: EOM intact bilaterally ENMT: Ears: no external ear abnormality Nose: no external nose abnormality Mouth: + dry oral mucous membranes Neck: no nuchal rigidity Respiratory: normal respiratory effort Auscultation: + diminished lung sounds Gastrointestinal (Abdomen): Inspection/Auscultation: normal bowel sounds Percussion/Palpation: abdomen soft; abdomen nontender Musculoskeletal: Extremities: strength 5/5 throughout Skin: no rashes, warm and dry Results & Data ([facility]) Vital Signs (Past 12 Hours) Vital Signs Temp Pulse Pulse Pulse Resp BP Pulse Ox 04/17/22 10:56 63 04/17/22 08:12 36.7 C 68 22 187/98 H 97 04/17/22 04:08 70 178/102 H 04/17/22 03:34 36.6 C 68 18 222/125 H 98 04/17/22 03:34 222/125 H 04/16/22 23:24 36.5 C 66 20 183/101 H 98 O2 Del Method 04/17/22 10:56 04/17/22 08:12 Room Air 04/17/22 04:08 04/17/22 03:34 Room Air 04/17/22 03:34 04/16/22 23:24 Room Air Laboratory Results 04/16/22 05:14 04/17/22 06:10
[2022-04-17] MEDS: TRIAMTERENE/HCTZ 37.5/25MG TAB PO SCH (12:04)
[2022-04-17] MEDS: hydrALAZINE HCL 25 MG TAB PO SCH ×3 (12:05→20:24)
[2022-04-17] MEDS: carvediloL 25 MG TAB PO SCH (20:24)
[2022-04-17] MEDS: TAMSULOSIN HCL 0.4 MG CAP PO SCH (20:25)
--- NOTE | 2022-04-17 21:11 | Hospitalist Progress Note ---
Date of Service April 17, 2022 Assessment & Plan (1) Hypertensive urgency: Plan: 04/16: Controlled on current therapy including carvedilol and amlodipine. Losartan is being held given HERBERT. Nitropaste was on overnight but was removed as patient had headache and blood pressure was improved 04/17: elevated to 220s systolic overnight. Treated with hydralazine with minimal success. Coreg was increased and hydralazine PO added. Cont amlodipine. Cardiology and Nephrology are seeing him. Nephro also added Maxzide later in the day. Cont low salt diet. Consider withdrawal from tobacco contributing. Consider secondary HTN workup. Defer to specialty teams as appropriate. (2) Hypertensive heart disease: Plan: Described to patient long-term side effect of uncontrolled high blood pressure. LVH noted on echocardiogram. Counseled on the detention effects of hypertension and how to improve this. (3) HERBERT (acute kidney injury): Plan: Creatinine remains twice his baseline. Nephrology was consulted and we are trending BMP daily. Cont holding losartan. BMP daily. (4) UTI (urinary tract infection): Plan: Ruled out with negative urine culture. Rocephin stopped. (5) BPH (benign prostatic hyperplasia): Plan: Continue tamsulosin and Flomax per home regimen. (6) Smoker: Plan: Smoking cessation strongly encouraged. (7) DVT prophylaxis: Plan: Heparin Full code Disposition-to home when renal failure is resolved and blood pressure is stable. Katrin Irby DO [facility] Hospitalist Admission and Anticipated Discharge Date Admission Date: April 15, 2022 Subjective 57-year-old man with known history of hypertension presents out of concern for uncontrolled blood pressure. Denies any chest pain or shortness of breath He is tolerating current therapies without issue Some elevation in BP to 220s overnight Hydralazine QID started and coreg was increased. Pt is ambulating in hallways. Review of Systems Review of Systems: All systems reviewed negative except as indicated above. Physical Exam Physical Exam: CONSTITUTIONAL: WNWD, vitals as above, generally well- appearing, NAD EYES: normal conjunctivae, no scleral icterus ENT: external ear and nose normal,MMM NECK: trachea midline RESPIRATORY: clear to auscultation bilaterally, no crackles, rales or wheezes, normal respiratory effort CARDIOVASCULAR: regular rate and rhythm, S1 and 2 heard without murmurs, gallops or rubs, no JVD, no peripheral edema, no carotid bruits. CHEST: inspection of chest was normal GASTROINTESTINAL: soft, nontender, ND, no guarding MUSCULOSKELETAL: strength 5/5 throughout, head is normocephalic and atraumatic SKIN: warm and dry NEUROLOGIC: CN 2-12 grossly intact, no sensory deficit, normal cognition, normal speech, no tremor PSYCHIATRIC: alert cooperative and oriented to person, place and time. Euthymic mood, makes good eye contact, language grossly intact, recent and remote memory grossly intact. Results & Data Results & Data ([facility]) Vital Signs (Past 12 Hours) Vital Signs Temp Pulse Pulse Pulse Resp BP BP 04/17/22 19:05 36.6 C 78 18 180/98 H 04/17/22 16:00 36.5 C 73 18 172/108 H 04/17/22 11:45 36.5 C 73 18 159/86 H 04/17/22 10:56 63 Pulse Ox O2 Del Method 04/17/22 19:05 98 Room Air 04/17/22 16:00 99 Room Air 04/17/22 11:45 99 Room Air 04/17/22 10:56 Laboratory Results BMP 04/17/22 06:10 Sodium 137 Potassium 3.4 L Chloride 106 Carbon Dioxide 24 BUN 31 H Creatinine 2.40 H Glucose 103 H Calcium 8.6 Medications Administered Current Inpatient Medications Acetaminophen (Acetaminophen 325 Mg Tab) 650 mg PO Q4H PRN PRN Reason: Pain or Fever Stop: 05/15/22 22:22 Last Admin: 04/16/22 12:28 Dose: 650 mg Amlodipine Besylate (Amlodipine Besylate 5 Mg Tab) 10 mg PO QAM [facility] Stop: 05/16/22 08:59 Last Admin: 04/17/22 08:29 Dose: 10 mg Aspirin (Aspirin 81 Mg Chew) 81 mg PO QAM [facility] Stop: 05/16/22 08:59 Last Admin: 04/17/22 08:29 Dose: 81 mg Carvedilol (Carvedilol 25 Mg Tab) 25 mg PO BID [facility] Stop: 05/17/22 20:59 Last Admin: 04/17/22 20:24 Dose: 25 mg Finasteride (Finasteride 5 Mg Tab) 5 mg PO DAILY [facility] Stop: 05/16/22 08:59 Last Admin: 04/17/22 08:30 Dose: 5 mg Heparin Sodium (Porcine) (Heparin Sod 5,000 Unit/0.5 Ml Vial) 5,000 units SQ Q8 [facility] Stop: 05/15/22 22:22 Last Admin: 04/17/22 15:41 Dose: 5,000 units Hydralazine HCl (Hydralazine Hcl 20 Mg/Ml Vial) 7.5 mg IV Q6H PRN PRN Reason: Hypertension Stop: 05/15/22 22:22 Last Admin: 04/17/22 03:34 Dose: 7.5 mg Hydralazine HCl (Hydralazine Hcl 25 Mg Tab) 12.5 mg PO QID [facility] Stop: 05/17/22 12:59 Last Admin: 04/17/22 20:24 Dose: 12.5 mg Nitroglycerin (Nitroglycerin Sl 0.4 Mg/Tab Tab) 0.4 mg SL Q5M PRN PRN Reason: Chest Pain Stop: 05/15/22 22:22 Tamsulosin HCl (Tamsulosin Hcl 0.4 Mg Cap) 0.4 mg PO HS [facility] Stop: 05/15/22 22:22 Last Admin: 04/17/22 20:25 Dose: 0.4 mg Triamterene/Hydrochlorothiazide (Triamterene/Hctz 37.5/25mg Tab) 0.5 tab PO QAM [facility] Stop: 05/17/22 11:59 Last Admin: 04/17/22 12:04 Dose: 0.5 tab
[2022-04-18] MEDS: HEPARIN SOD 5,000 UNIT/0.5 ML VIAL SQ SCH ×2 (05:44→15:30)
[2022-04-18 06:11] LABS: Hematocrit (blood only) 32.2 % (40.1-51.0); Mean Corpuscular Hemoglobin 30.1 pg (25.0-34.0); Mean Corpuscular Hgb Conc 34.2 g/dL (32.0-36.0); Platelet Count 269 K/uL (130-400); RDW Coefficient of Variation 13.5 % (11.5-14.5); RDW Standard Deviation 43.8 fL (36.4-46.3); Red Blood Count 3.66 M/uL (4.63-6.08); White Blood Count 7.14 K/ul (4.8-10.8)
[2022-04-18 06:34] LABS: BUN Creatinine Ratio 12.7 (10-20); Calcium 8.7 mg/dl (8.5-10.1); Creatinine Clr Calc Pharmacy 41.4 ml/min; Est GFR (Non-African American) 29.3 ml/min; Potassium 3.7 mmol/L (3.5-5.1)
[2022-04-18] MEDS: TRIAMTERENE/HCTZ 37.5/25MG TAB PO SCH (09:10)
[2022-04-18] MEDS: hydrALAZINE HCL 25 MG TAB PO SCH (09:10)
[2022-04-18] MEDS: carvediloL 25 MG TAB PO SCH (09:12)
[2022-04-18] MEDS: FINASTERIDE 5 MG TAB PO SCH (09:12)
[2022-04-18] MEDS: ASPIRIN 81 MG CHEW PO SCH (09:17)
--- NOTE | 2022-04-18 10:32 | Cardiology Progress Note ---
Date of Service April 18, 2022 Assessment & Plan (1) Hypertensive heart disease: (2) Hypertensive urgency: (3) HERBERT (acute kidney injury): Plan Increase/change hydralazine to 50 three times per day Continue carvedilol at 25 mg twice a day. Continue amlodipine 10 mg/day. Maxzide as per Nephrology Outpatient cardiology follow-up at [facility] Admission and Anticipated Discharge Date Admission Date: April 15, 2022 Supervising Physician Co-Signing Physician Notes Patient seen and examined, chart, medications reviewed. Blood pressure still labile and elevated with slightly better control. Medications adjusted as above and patient agreeable to the need for multiple drug regimen Subjective Patient seen and examined. Chart, medications, and telemetry reviewed. No headaches, visual changes, chest pain, palpitations, shortness of breath, dizziness, lightheadedness, near-syncope, melena, hematochezia, or dysuria. Continuous telemetry monitoring reveals sinus rhythm throughout, rates in the 60's and 70s. Review of Systems Review of Systems: Complete Review of Systems is as stated above, negative, or noncontributory. Physical Exam Physical Exam: General: A&Ox3. NAD. HENT: Normocephalic. Atraumatic. Eyes: PER. Conjunctiva pink, sclera clear. Neck: No carotid bruits. No JVD. Heart: RRR, 64 bpm. Grade II/ systolic murmur. No diastolic murmur. PMI is nondisplaced. Lungs: Clear to auscultation. Abdomen: +BS. Soft. Nontender. No masses or organomegaly. Extremities: No clubbing, cyanosis, or edema. Limited neurological examination is without focal deficits. Pulses: radial=2/4, posterior tibial=2/4. Results & Data ([facility]) Vital Signs (Past 12 Hours) Vital Signs Temp Pulse Resp BP BP Pulse Ox O2 Del Method 04/18/22 08:13 36.6 C 66 18 176/107 H 99 Room Air 04/18/22 04:05 36.5 C 70 18 178/117 H 99 Room Air 04/17/22 22:40 36.7 C 77 16 150/69 H 98 Room Air Laboratory Results Laboratory Results - last 24 hr 04/18/22 04/18/22 05:45 05:45 WBC 7.14 RBC 3.66 L Hgb 11.0 L Hct 32.2 L MCV 88.0 MCH 30.1 MCHC 34.2 RDW Std Deviation 43.8 RDW Coeff of Rufino 13.5 Plt Count 269 MPV 11.0 Sodium 135 L Potassium 3.7 Chloride 104 Carbon Dioxide 23 Anion Gap 8 BUN 30 H Creatinine 2.37 H Est Cr Clr Drug Dosing 41.4 Est GFR ( Amer) 34.0 Est GFR (Non-Af Amer) 29.3 BUN/Creatinine Ratio 12.7 Glucose 105 H Calcium 8.7
[2022-04-18] MEDS: amLODIPine BESYLATE 5 MG TAB PO SCH (11:08)
[2022-04-18] MEDS: hydrALAZINE TAB 50 MG TAB PO SCH ×2 (11:36→15:30)
--- NOTE | 2022-04-18 11:56 | Nephrology Progress Note ---
Date of Service April 18, 2022 Assessment & Plan (1) Hypertension: Plan: w/ severe LVH and HTN urgency in setting of medication nonadherence and nsaid use. NSAIDS may potentially explain low K but would monitor. GOAL is SBP in 150-160s for next few days consistently - he is still somewhat far from goal; would ideally be tested in house but given desire to go home and understanding of severity now of situation believe he can be f/u as OP w/ 's support DISCHARGE RECOMMENDATIONS -bring home bp cuff to appt with cardiology/nephrology/or-and PCP to ensure it reads correctly -d/c on hydralazine 50 mg tid, coreg 25 mg bid, amlodipine 10 mg daily, current maxzide dose >>pls have him get FASTING 8AM lab draw no later than 04/20 (blood and urine tests) -will need to [employer] supplies for 24 hr urine when he does fasting labs -pls d/c on NaCl tabs 1 gm bid to be taken x 3 days - on day he does 24 hr urine and the 2 days just before he does it -hold ARB at d/c given presumed HERBERT though likely to need this longer term. -needs HOSPITAL DISCHARGE appt with me within 10 days of discharge -no nsaids after d/c -correctional classification counselor smoking cessation and manage anxiety > consider wellbutrin trial or other -pls put on hospital d/c instructions that only nephrology starts spi ronolactone, given its interference w/ HTN testing (2) HERBERT (acute kidney injury): Plan: most recent baseline creatinine unknown; 1.3-1.4 as OP in 2019 w/ dipstick proteinuria; HERBERT on CKD versus CKD progression >> he is at least CKD 3B, possibly early Stage 4 -check proteinuria status once bp control better established (3) Abnormal urine findings: Plan: not a uti; ? chronic prostatitis; pt w/ hx of prostatic hypertrophy/ LUTS and sx stable; observe Admission and Anticipated Discharge Date Admission Date: April 15, 2022 Subjective no overnight events. at bedside > states pt not same cognitively as pre concussion 2017; both he and she endorse anxiety; no sob, no n/v, no confusion, no acute visual changes or edema; pt extremely eager to d/c home today / dismayed to stay for further testing Review of Systems Review of Systems: All systems reviewed & are unremarkable except as noted in Subjective Physical Exam Constitutional: well developed and well nourished Eyes: EOM intact bilaterally ENMT: Ears: no external ear abnormality Nose: no external nose abnormality Mouth: + dry oral mucous membranes Neck: no nuchal rigidity Respiratory: normal respiratory effort Auscultation: + diminished lung sounds Cardiovascular: RRR, no murmur, no edema Gastrointestinal (Abdomen): Inspection/Auscultation: normal bowel sounds Percussion/Palpation: abdomen soft; abdomen nontender Musculoskeletal: Extremities: strength 5/5 throughout Skin: no rashes, warm and dry Neurologic: rivera, fluent speech, no tremor Psychiatric: Orientation: oriented x 3 Affect: + anxious affect Results & Data ([facility]) Vital Signs (Past 12 Hours) Vital Signs Temp Pulse Resp BP BP Pulse Ox O2 Del Method 04/18/22 11:41 36.4 C L 65 18 170/101 H 98 Room Air 04/18/22 08:13 36.6 C 66 18 176/107 H 99 Room Air 04/18/22 04:05 36.5 C 70 18 178/117 H 99 Room Air Laboratory Results 04/18/22 05:45 04/18/22 05:45
[2022-04-18] MEDS ORDERED: SODIUM CHLORIDE 1 GM TABLET PO SCH (14:00)
--- NOTE | 2022-04-18 14:54 | Hospitalist Progress Note ---
Date of Service April 18, 2022 Assessment & Plan (1) Hypertensive urgency: Plan: - currently better controlled on carvedilol and amlodipine. - Losartan is being held given HERBERT. - Cardiology and Nephrology following - Nephro also added Maxzide and triamterene/HCTZ - salt tabs and regular diet per renal preparing for secondary hypertension work up - being discharge for close follow up with nephrology and repeat labs 04/20/2022 - also following up with Cardiology as outpatient (2) Hypertensive heart disease: Plan: Described to patient long-term side effect of uncontrolled high blood pressure. LVH noted on echocardiogram. Counseled on the mcc effects of hypertension and how to improve this. (3) HERBERT (acute kidney injury): Plan: Creatinine remains twice his baseline. Nephrology was consulted and we are trending BMP daily. Cont holding losartan. BMP daily. - likely with CKD 3 now - still holding ARB for now until outpatient follow up and secondary hypertension work up completed (4) UTI (urinary tract infection): Plan: Ruled out with negative urine culture. Rocephin stopped. (5) BPH (benign prostatic hyperplasia): Plan: Continue tamsulosin and Flomax per home regimen. (6) Smoker: Plan: Smoking cessation strongly encouraged. - being discharged with trial of bupropion 150mg daily given reduced kidney function - to follow up with PCP about continuing (7) DVT prophylaxis: Plan: Heparin Full code Disposition-to home when renal failure is resolved and blood pressure is stable. Donovan Reed MD [facility] Medicine Admission and Anticipated Discharge Date Admission Date: April 15, 2022 Subjective no overnight events. at bedside > states pt not same cognitively as pre concussion 2017; both he and she endorse anxiety; no sob, no n/v, no confusion, no acute visual changes or edema; pt extremely eager to d/c home today discussed with Dr. Ovalle and ok to discharge with instructions for close follow up with her for further testing. Review of Systems Review of Systems: All systems reviewed & are unremarkable except as noted in Subjective Physical Exam Constitutional: well developed, well nourished and + well hydrated; no acute distress, not ill appearing and not overweight Eyes: + anicteric sclerae, PERRL and EOM intact bilaterally; no conjunctival abnormality ENMT: Ears: no external ear abnormality Nose: no sinus tenderness and no epistaxis Mouth: no oropharynx abnormality, no oral mucosal abnormality, oral mucous membranes not dry and no dentition abnormality Throat: no tonsil abnormality Neck: trachea midline; no tracheal deviation and no nuchal rigidity Thyroid: normal thyroid; no thyromegaly and thyroid nontender Respiratory: normal respiratory effort; no respiratory distress, no labored breathing, does not use accessory muscles, not tachypneic and no audible wheezes Auscultation: lungs clear to auscultation bilaterally; no crackles, no rales, no rhonchi and no wheezes Cardiovascular: Rate/Rhythm: regular rate and regular rhythm Heart Sounds: normal S1 and normal S2; no gallop, no murmur and no cardiac rub Vessels: normal peripheral pulses; no JVD Extremities: normal capillary refill; no edema Gastrointestinal (Abdomen): Inspection/Auscultation: normal bowel sounds; abdomen not distended Percussion/Palpation: abdomen soft; abdomen nontender, no guarding, abdomen not rigid and no hepatosplenomegaly Musculoskeletal: Head/Neck/Chest: normocephalic, head atraumatic and neck supple Spine: normal cervical ROM and no cervical spinal tenderness Extremities: strength 5/5 throughout; full ROM of extremities and no clubbing Skin: normal turgor; no rashes, no lesions, no ulcers, no induration, no jaundice, no dry skin and no erythema Neurologic: moves all extremities and awake; no focal motor deficits Speech / Cognition: normal speech Motor/Sensory: no tremor, no fasciculations and no sensory deficit Cranial Nerves: PERRL, EOM intact bilaterally and tongue midline Psychiatric: Orientation: alert, oriented x 3 and cooperative Speech: normal rate/rhythm/volume of speech Affect: euthymic affect Genitourinary: no CVA tenderness Lymphatic: no lymphadenopathy and no lymphedema Results & Data Results & Data ([facility]) Vital Signs (Past 12 Hours) Vital Signs Temp Pulse Resp BP BP Pulse Ox O2 Del Method 04/18/22 11:41 36.4 C L 65 18 170/101 H 98 Room Air 04/18/22 08:13 36.6 C 66 18 176/107 H 99 Room Air 04/18/22 04:05 36.5 C 70 18 178/117 H 99 Room Air Laboratory Results Short CBC 04/18/22 Range/Units 05:45 WBC 7.14 (4.8-10.8) K/ul Hgb 11.0 L (14.0-18.0) g/dl Hct 32.2 L (40.1-51.0) % Plt Count 269 (130-400) K/uL [facility] 04/18/22 05:45 Sodium 135 L Potassium 3.7 Chloride 104 Carbon Dioxide 23 BUN 30 H Creatinine 2.37 H Glucose 105 H Calcium 8.7
--- NOTE | 2022-04-18 18:10 | Discharge Summary ---
Date of Service April 18, 2022 Admission HPI Per Admitting Provider A 57-year-old male with past medical history significant for hypertension, BPH, history of left ventricular hypertrophy, history of tobacco abuse, presents with elevated blood pressure. The patient states he was diagnosed with COVID on 04/08/2022. He had symptoms for a couple of days prior to that and he was having headaches, feeling flu-like symptoms. Initially had some shortness of breath, that got resolved. Appetite was not that great, but there was no cough, no fever, or any chest pains. He had symptoms for 2 days and he tested for COVID, it came back positive on 04/08/2022. He is COVID vaccinated and boosted .Today he went to check his doctors for physical for his work, his blood pressure was high and was sent in here. The patient states he is taking only losartan and his losartan was increased recently to 50. He was supposed to start losartan 50 today.But he was also on amlodipine 10 mg and also on Coreg 12.5 mg p.o. b.i.d., as per [facility] PCP notes from July 2021, but the patient is not taking those medications and he says he does not know about that. He is also taking medication for his prostate. Recently, he saw urology and continued the Flomax and finasteride. Resting comfortably. Denies any chest pain. He had a headache during COVID, but he says currently no headache. He has some blurred visions in his right eye. No earache, no runny nose, no sore throat, no cough, no fevers. Currently, no chest pain, no shortness of breath, no nausea, no abdominal pain. Normal bowel and bladder movements. Admission Exam Per Admitting Provider GENERAL: The patient is of moderate build, not in acute distress. VITAL SIGNS: Temperature 37.3, pulse 74, respiratory rate 18, blood pressure 190/123, oxygen 99% on room air. HEENT: Pupils equal, round and reactive to light. Oral mucosa moist. NECK: No JVD. No masses. CARDIOVASCULAR: S1 and S2 heard. Regular rate and rhythm. No murmur, no gallop. RESPIRATORY SYSTEM: Normal AP diameter. No accessory muscle use. No wheezing, no crackles. ABDOMEN: Soft, bowel sounds present, nontender, no distention. CENTRAL NERVOUS SYSTEM: Cranial nerves II-XII grossly intact, nonfocal. EXTREMITIES: No edema, no erythema. Principal Diagnosis severe hypertension Discharge Exam Constitutional well developed, well nourished and + well hydrated; no acute distress, not ill appearing and not overweight Eyes + anicteric sclerae, PERRL and EOM intact bilaterally; no conjunctival abnormality ENMT Ears: no external ear abnormality Nose: no sinus tenderness and no epistaxis Mouth: no oropharynx abnormality, no oral mucosal abnormality, oral mucous membranes not dry and no dentition abnormality Throat: no tonsil abnormality Neck trachea midline; no tracheal deviation and no nuchal rigidity Thyroid: normal thyroid; no thyromegaly and thyroid nontender Respiratory normal respiratory effort; no respiratory distress, no labored breathing, does not use accessory muscles, not tachypneic and no audible wheezes Auscultation: lungs clear to auscultation bilaterally; no crackles, no rales, no rhonchi and no wheezes Cardiovascular Rate/Rhythm: regular rate and regular rhythm Heart Sounds: normal S1 and normal S2; no gallop, no murmur and no cardiac rub Vessels: normal peripheral pulses; no JVD Extremities: normal capillary refill; no edema Gastrointestinal (Abdomen) Inspection/Auscultation: normal bowel sounds; abdomen not distended Percussion/Palpation: abdomen soft; abdomen nontender, no guarding, abdomen not rigid and no hepatosplenomegaly Musculoskeletal Head/Neck/Chest: normocephalic, head atraumatic and neck supple Spine: normal cervical ROM and no cervical spinal tenderness Extremities: strength 5/5 throughout; full ROM of extremities and no clubbing Skin normal turgor; no rashes, no lesions, no ulcers, no induration, no jaundice, no dry skin and no erythema Neurologic moves all extremities and awake; no focal motor deficits Speech / Cognition: normal speech Motor/Sensory: no tremor, no fasciculations and no sensory deficit Cranial Nerves: PERRL, EOM intact bilaterally and tongue midline Psychiatric Orientation: alert, oriented x 3 and cooperative Speech: normal rate/rhythm/volume of speech Affect: euthymic affect Genitourinary no CVA tenderness Lymphatic no lymphadenopathy and no lymphedema Discharge Data Allergies Allergy/AdvReac Type Severity Reaction Status Date / Time Penicillins Allergy Unknown CAN'T Verified 04/15/22 18:14 REMEMBER propoxyphene Allergy Unknown TYLENOL OK Verified 04/15/22 18:14 acetaminophen AdvReac Intermediate UPSETS Verified 04/15/22 18:14 STOMACH naproxen AdvReac Intermediate stomach Verified 04/15/22 18:14 burning, takes ibuprofen w/out prob Consultations 04/15/22 19:45 ED Decision to Admit Stat 04/16/22 08:00 Consult Cardiology Routine Consult Nephrology Routine Ordered Studies 04/15/22 18:12 CT head/brain wo con Stat 04/15/22 19:31 US renal/blad retro comp Stat Hospital Course (1) Hypertensive urgency: - currently better controlled on carvedilol and amlodipine. - Losartan is being held given HERBERT. - Cardiology and Nephrology following - Nephro also added Maxzide and triamterene/HCTZ - salt tabs and regular diet per renal preparing for secondary hypertension work up - being discharge for close follow up with nephrology and repeat labs 04/20/2022 - also following up with Cardiology as outpatient (2) Hypertensive heart disease: Described to patient long-term side effect of uncontrolled high blood pressure. LVH noted on echocardiogram. Counseled on the fine grader effects of hypertension and how to improve this. (3) HERBERT (acute kidney injury): Creatinine remains twice his baseline. Nephrology was consulted and we are trending BMP daily. Cont holding losartan. BMP daily. - likely with CKD 3 now - still holding ARB for now until outpatient follow up and secondary hypertension work up completed (4) UTI (urinary tract infection): Ruled out with negative urine culture. Rocephin stopped. (5) BPH (benign prostatic hyperplasia): Continue tamsulosin and Flomax per home regimen. (6) Smoker: Smoking cessation strongly encouraged. - being discharged with trial of bupropion 150mg daily given reduced kidney function - to follow up with PCP about continuing (7) DVT prophylaxis: Heparin Full code Disposition-to home when renal failure is resolved and blood pressure is stable. Donovan Reed MD [facility] Medicine Total Time Total Time Spent Total Time Spent (In Minutes): 30 minutes Total Time Includes: Examination of the Patient, Discharge Planning, Medication Reconciliation and Communication With Other Providers Discharge Plan Discharge Items Patient Disposition: Home - Self-Care Reason For Visit: HTN Discharge Diagnosis: resistant Hypertension, chronic kidney disease Condition on Discharge: Fair Activity: Resume your previous activity Non-emergency contact: Primary Care Provider, Substation Superintendent and Warehouse Record Clerk Call non-emergency contact if: you have any medication questions and your symptoms worsen Follow-up/Referrals: Shaun Chung DO [Physician] - Angie Villarreal MD, PhD [Physician] - Irma Gavin MD [Outside Practitioners] - (Date & Time 04/23/2022 11:00 AM Provider Irma Gavin MD [facility] ) PCP,NO [Primary Care Provider] - Diet: Heart Healthy Addtl Attending Provider Instructions: You were admitted with resistant hypertension and found to have impairment in your kidney function which is likely chronic kidney disease at this time. You were being followed by a instructional specialist and zipper machine operator and have started on new BP medications. You MUST FOLLOW UP with your new instructional specialist, Dr. Villarreal, and Substation Superintendent as well as a primary care doctor. You should take all your medications as prescribed. You will be discharged on Wellbutrin (bupropion) to start for smoking cessation. Please follow up with primary care to further management his medication. Addtl Complex Care Nurse Practitioner Provider Instructions: Instructions from you instructional specialist: bring home bp cuff to appt with cardiology/nephrology/or-and PCP to ensure it reads correctly -d/c on hydralazine 50 mg 3x/day, coreg 25 mg 2x/day, amlodipine 10 mg daily, current maxzide dose >> get FASTING 8AM lab draw no later than 04/20 (blood and urine tests) - CALL DR. VILLARREAL's office to set up blood work and urine studies - oyster picker supplies for 24 hr urine when he does fasting labs -pls d/c on NaCl tabs 1 gm bid to be taken x 3 days - on day he does 24 hr urine and the 2 days just before he does it -hold ARB at d/c given presumed HERBERT though likely to need this longer term. 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 smoking cessation and manage anxiety > Trial of wellbutrin on discharge - only nephrology starts spironolactone, given its interference w/ HTN testing Pending Studies at Discharge: No Stand-Alone Forms: [facility], Smoking Cessation Medications and DC Order Prescriptions: New carvedilol 25 mg Tablet 25 mg PO BID Qty: 60 0RF amlodipine [Norvasc] 5 mg Tablet 10 mg PO QAM Qty: 30 0RF tamsulosin 0.4 mg Capsule 0.4 mg PO HS Qty: 30 0RF nitroglycerin [Nitrostat] 0.4 mg Tablet, Sublingual 0.4 mg sublingual Q5M PRN (Reason: chest pain) Qty: 15 0RF hydralazine 50 mg Tablet 50 mg PO TID Qty: 90 0RF sodium chloride 1 gram Tablet 1 g PO TID Qty: 60 0RF triamterene-hydrochlorothiazid [Maxzide-25mg] 37.5-25 mg Tablet 0.5 tab PO QAM Qty: 30 0RF bupropion HCl (smoking deter) 150 mg tablet extended release 12 hr 150 mg PO DAILY Qty: 30 0RF Continued aspirin 81 mg Tablet,Chewable 81 mg PO QAM finasteride 5 mg tablet 5 mg PO DAILY Discontinued losartan 25 mg tablet 50 mg PO QAM Rx Instructions: PER PT "FIRST DAY ON INCREASED DOSE OF 50 MG". Discharge Orders: Discharge Order (Routine); Ordered 04/18/22 Ordered By: Donovan Reed Admission Data Admit Date/Time: 04/15/22 20:57 Attending Provider: Donovan Reed Admit Provider: Myke Alonzo Primary Care Provider: PCP,NO Other Providers: Myke Alonzo ; Angie Villarreal ; Shaun Chung ; Les Wiggins ; John Gonzalez ; Jan Fink ; MelissaBob jean ; Hernandez Shaw ; Dolores Goodwin ; Syl Lopez ; Belgica Santos ; Mak Abreu Other Interventions: Discharge Summary Assessment (RN) Last Done: 04/18/22 14:54
[2022-04-19] MEDS ORDERED: ASPIRIN 81 MG ECTAB PO SCH (09:00)
== END 2022-04-18 15:42 | disposition home or self-care (01) | DRG 305 ==
LOC: ED 17:17 → 2S 20:57 → SUATTDRO 20:57 → 2S 21:49

== ENCOUNTER 2022-10-06 12:00 | Inpatient (IN) ==
[2022-10-06] MEDS ORDERED: NITROGLYCERIN 2% OINTMENT 30GM TUBE EXT STA (12:43)
[2022-10-06] MEDS ORDERED: LABETALOL HCL IV 5 MG/ML 20ML IV STA ×2 (12:43→14:06)
--- NOTE | 2022-10-06 12:52 | Emergency Department Note ---
Impression & Plan Headache, Hypertensive urgency, Visual disturbance, Elevated troponin, Abnormal ECG, Thrombocytopenia ED Provider Note NAME: BERTHA MIRANDA SR AGE: 57 SEX: M : 1965 ARRIVES VIA: Walk-In INFORMANT: [Patient] ED PROVIDER(S): [Pete Morfin MD] CHIEF COMPLAINT: Hypertension HISTORY OF PRESENT ILLNESS: The patient is a 57-year-old male with a history of hypertension. He has n oticed blurry vision and poor vision for about a week or so. He has had 2 days of some shortness of breath and probably 2 weeks of intermittent headache. He has no headache currently. The patient has not taken his medications for blood pressure for at least 2 days. He did go to [employer] today and his pressure was quite high, he was sent to the ER for further work-up. The patient has not had chest pain. He has no arm or leg weakness. He has not had abdominal pain or vomiting. PMHx/PSHx: See Below SOCIAL HISTORY: See Below. PHYSICAL EXAM: GENERAL: Patient is in no acute distress. HEENT: No acute trauma, normocephalic atraumatic, mucous membranes moist, no nasal congestion. NECK: No stridor, no adenopathy, no meningismus, trachea is midline. LUNGS: Clear to auscultation bilaterally, no wheeze, no rhonchi, breath sounds equal. HEART: Diminished breath sounds with some scattered wheezing and crackles noted bilaterally. No respiratory distress. ABDOMEN: Soft, nontender, bowel sounds positive, no peritonitis. EXTREMITIES: No cyanosis or edema, full range of motion of all the joints without pain or difficulty, no signs for acute trauma. NEUROLOGIC: Oriented x 3, no acute motor or sensory deficits, no focal weakness. SKIN: No rash, no jaundice, no diaphoresis. DIFFERENTIAL DIAGNOSIS: Hypertensive emergency/urgency. Renal failure, electrolyte imbalance, intracranial bleeding, cardiac ischemia, infection, among others. EMERGENCY DEPARTMENT COURSE/PROCEDURES: Prior/Outside records reviewed: [facility] documents. ECG per my interpretation: Indication was hypertension. The ECG shows a normal sinus rhythm with a rate of 72. There is some subtle ST elevation in the anterior leads consistent with likely early repolarization. There are inverted T waves in the inferior and lateral leads. LVH is present. No PVCs. The QTc is 479. Compared to an ECG from 15 April 2022, the T wave changes are more pronounced/acute appearing. Continuous Cardiac Monitoring per my interpretation: An order was placed for continuous cardiac monitoring. The monitor shows a rate of 72 with normal sinus rhythm. Critical Care Note: I have personally spent 48 minutes of critical care time in the direct management of this patient. This includes bedside care, interpretation of diagnostic studies, and testing, discussion with consultants, patient, and family members, and other required patient management activities. This 48 minutes is in excess of all separately billable procedures. MEDICAL DECISION MAKING: There is no leukocytosis or concerning anemia. Platelet count is low at 79. The lower platelet count is a new finding. There was evidence for some acute on chronic renal failure. Creatinine was 3.62. Potassium was little bit low at 3.4. No worrisome liver enzyme elevation. The patient appeared to be in a eu thyroid state. ECG shows T wave inversions which are significantly more pronounced than previous ECGs. These findings are consistent with his significant hypertension. Cardiac enzyme testing x1 is slightly elevated, this elevation could be from mismatch or potential cardiac injury. COVID, influenza and RSV test were negative. Chest x-ray does not show pneumonia or CHF. Brain CT shows no acute bleed or mass-effect. The patient was aggressively managed as he was quite hypertensive. He received IV hydralazine, a second dose of IV hydralazine was given. He was given IV labetalol, a second dose of IV labetalol was given. He received 2 inches of nitroglycerin paste. The patient's blood pressure has decreased some, I was careful not to decrease it too much too fast. The patient requires a hospital stay for further blood pressure control and further monitoring/management. I suspect his visual changes and headache are from his extremely high blood pressure. The patient was told the results of his testing, I did speak with case management, hospitalization is warranted. The on-call hospitalist was consulted. DISPOSITION: Hospitalization was warranted. 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 Beliefs That Will Affect Care: None marital status: Single Current Living Situation: Significant Other current occupational status: employed How many Children do You have: 4 Feels Safe at Home: Yes Assistive Devices: None Allergies Allergies Allergy/AdvReac Type Severity Reaction Status Date / Time Penicillins Allergy Unknown CAN'T Verified 04/15/22 18:14 REMEMBER propoxyphene Allergy Unknown TYLENOL OK Verified 04/15/22 18:14 acetaminophen AdvReac Intermediate UPSETS Verified 04/15/22 18:14 STOMACH naproxen AdvReac Intermediate stomach Verified 04/15/22 18:14 burning, takes ibuprofen w/out prob Home Meds Home Medications Medication Instructions Recorded Confirmed aspirin 81 mg chewable tablet 81 mg PO QAM 10/06/18 04/15/22 finasteride 5 mg tablet 5 mg PO DAILY 03/08/21 04/15/22 Previous Rx's Medication Instructions Recorded amlodipine 5 mg tablet (Norvasc) 10 mg PO QAM #30 tabs 04/18/22 bupropion HCl (smoking deter) 150 150 mg PO DAILY #30 tabs 04/18/22 mg tablet,12 hr sustained-release(smoking deterrent) carvedilol 25 mg tablet 25 mg PO BID #60 tabs 04/18/22 hydralazine 50 mg tablet 50 mg PO TID #90 tabs 04/18/22 nitroglycerin 0.4 mg sublingual 0.4 mg sublingual Q5M PRN chest 04/18/22 tablet (Nitrostat) pain #15 tabs sodium chloride 1 gram tablet 1 g PO TID #60 tabs 04/18/22 tamsulosin 0.4 mg capsule 0.4 mg PO HS #30 caps 04/18/22 triamterene 37.5 0.5 tab PO QAM #30 tabs 04/18/22 mg-hydrochlorothiazide 25 mg tablet (Maxzide-25mg) Results & Data (ED) Vital Signs Vital Signs - 24 hr 10/06/22 12:07 10/06/22 12:21 10/06/22 12:30 Temperature 36.7 C Temperature Source Temporal Artery Scan Pulse Rate 78 69 76 Pulse Rate from SpO2 Sensor 71 75 Respiratory Rate 18 15 25 H Respiratory Effort / Characteristics Non-Labored Spontaneous Respiratory Depth Normal Respiratory Pattern Regular Blood Pressure 235/148 H Blood Pressure Mean 177 Pulse Oximetry 100 99 99 Oxygen Delivery Method Room Air Sepsis Recent Fever Within 48 Hours No Sepsis New/Unexplained Change in Mental Status No Sepsis Action Taken by Nursing No Action Required 10/06/22 12:40 10/06/22 12:50 10/06/22 13:07 Temperature Temperature Source Pulse Rate 70 72 71 Pulse Rate from SpO2 Sensor 71 72 70 Respiratory Rate 20 21 17 Respiratory Effort / Characteristics Respiratory Depth Respiratory Pattern Blood Pressure 249/201 H Blood Pressure Mean 217 Pulse Oximetry 100 98 99 Oxygen Delivery Method Sepsis Recent Fever Within 48 Hours Sepsis New/Unexplained Change in Mental Status Sepsis Action Taken by Nursing 10/06/22 13:10 10/06/22 13:10 10/06/22 13:20 Temperature Temperature Source Pulse Rate 71 70 Pulse Rate from SpO2 Sensor 72 71 Respiratory Rate 19 6 L Respiratory Effort / Characteristics Respiratory Depth Respiratory Pattern Blood Pressure 241/161 H 241/161 H Blood Pressure Mean 187 187 Pulse Oximetry 99 97 Oxygen Delivery Method Room Air Sepsis Recent Fever Within 48 Hours Sepsis New/Unexplained Change in Mental Status Sepsis Action Taken by Nursing 10/06/22 13:23 10/06/22 13:23 10/06/22 13:27 Temperature Temperature Source Pulse Rate 71 76 Pulse Rate from SpO2 Sensor 71 74 Respiratory Rate 11 L 19 Respiratory Effort / Characteristics Respiratory Depth Respiratory Pattern Blood Pressure 259/160 H 229/144 H Blood Pressure Mean 193 172 Pulse Oximetry 98 99 Oxygen Delivery Method Sepsis Recent Fever Within 48 Hours Sepsis New/Unexplained Change in Mental Status Sepsis Action Taken by Nursing 10/06/22 13:27 10/06/22 13:30 10/06/22 13:40 Temperature Temperature Source Pulse Rate 74 72 Pulse Rate from SpO2 Sensor 74 73 Respiratory Rate 13 18 Respiratory Effort / Characteristics Respiratory Depth Respiratory Pattern Blood Pressure 255/170 H Blood Pressure Mean 198 Pulse Oximetry 98 100 Oxygen Delivery Method Sepsis Recent Fever Within 48 Hours Sepsis New/Unexplained Change in Mental Status Sepsis Action Taken by Nursing 10/06/22 13:56 10/06/22 13:48 10/06/22 13:48 Temperature Temperature Source Pulse Rate 76 Pulse Rate from SpO2 Sensor 75 Respiratory Rate 17 Respiratory Effort / Characteristics Respiratory Depth Respiratory Pattern Blood Pressure 229/144 H Blood Pressure Mean 172 Pulse Oximetry 99 99 Oxygen Delivery Method Room Air Sepsis Recent Fever Within 48 Hours Sepsis New/Unexplained Change in Mental Status Sepsis Action Taken by Nursing 10/06/22 13:50 10/06/22 14:00 10/06/22 14:00 Temperature Temperature Source Pulse Rate 76 76 Pulse Rate from SpO2 Sensor 76 76 Respiratory Rate 17 17 Respiratory Effort / Characteristics Respiratory Depth Respiratory Pattern Blood Pressure 239/151 H Blood Pressure Mean 180 Pulse Oximetry 100 99 Oxygen Delivery Method Sepsis Recent Fever Within 48 Hours Sepsis New/Unexplained Change in Mental Status Sepsis Action Taken by Nursing 10/06/22 14:10 10/06/22 14:15 10/06/22 14:15 Temperature Temperature Source Pulse Rate 75 78 Pulse Rate from SpO2 Sensor Respiratory Rate 15 14 Respiratory Effort / Characteristics Respiratory Depth Respiratory Pattern Blood Pressure 260/145 H Blood Pressure Mean 183 Pulse Oximetry Oxygen Delivery Method Sepsis Recent Fever Within 48 Hours Sepsis New/Unexplained Change in Mental Status Sepsis Action Taken by Nursing 10/06/22 14:20 10/06/22 14:30 10/06/22 14:32 Temperature Temperature Source Pulse Rate 76 78 Pulse Rate from SpO2 Sensor 76 78 Respiratory Rate 16 20 Respiratory Effort / Characteristics Respiratory Depth Respiratory Pattern Blood Pressure 243/141 H Blood Pressure Mean 175 Pulse Oximetry 100 100 Oxygen Delivery Method Sepsis Recent Fever Within 48 Hours Sepsis New/Unexplained Change in Mental Status Sepsis Action Taken by Nursing 10/06/22 14:32 10/06/22 14:40 10/06/22 14:45 Temperature Temperature Source Pulse Rate 78 77 89 Pulse Rate from SpO2 Sensor 78 77 90 Respiratory Rate 15 13 16 Respiratory Effort / Characteristics Respiratory Depth Respiratory Pattern Blood Pressure Blood Pressure Mean Pulse Oximetry 100 99 100 Oxygen Delivery Method Sepsis Recent Fever Within 48 Hours Sepsis New/Unexplained Change in Mental Status Sepsis Action Taken by Nursing 10/06/22 14:45 10/06/22 14:50 10/06/22 15:00 Temperature Temperature Source Pulse Rate 80 Pulse Rate from SpO2 Sensor 80 Respiratory Rate 15 Respiratory Effort / Characteristics Respiratory Depth Respiratory Pattern Blood Pressure 216/139 H 214/123 H Blood Pressure Mean 164 153 Pulse Oximetry 100 Oxygen Delivery Method Sepsis Recent Fever Within 48 Hours Sepsis New/Unexplained Change in Mental Status Sepsis Action Taken by Nursing 10/06/22 15:00 10/06/22 15:10 10/06/22 15:15 Temperature Temperature Source Pulse Rate 85 84 83 Pulse Rate from SpO2 Sensor 85 83 83 Respiratory Rate 16 21 16 Respiratory Effort / Characteristics Respiratory Depth Respiratory Pattern Blood Pressure Blood Pressure Mean Pulse Oximetry 99 100 100 Oxygen Delivery Method Sepsis Recent Fever Within 48 Hours Sepsis New/Unexplained Change in Mental Status Sepsis Action Taken by Nursing 10/06/22 15:15 10/06/22 15:20 10/06/22 15:30 Temperature Temperature Source Pulse Rate 83 84 Pulse Rate from SpO2 Sensor 81 88 Respiratory Rate 18 21 Respiratory Effort / Characteristics Respiratory Depth Respiratory Pattern Blood Pressure 202/123 H 160/100 H Blood Pressure Mean 149 120 Pulse Oximetry 99 100 Oxygen Delivery Method Sepsis Recent Fever Within 48 Hours Sepsis New/Unexplained Change in Mental Status Sepsis Action Taken by Custodial Medications Current Medication List: was personally reviewed by me Laboratory Data Attestation: I reviewed the patient's lab results. 10/06/22 12:30 10/06/22 12:30 Lab Results 10/06/22 10/06/22 10/06/22 Range/Units 12:30 12:30 12:30 WBC 10.09 (4.8-10.8) K/ul RBC 4.41 L (4.63-6.08) M/uL Hgb 13.1 L (14.0-18.0) g/dl Hct 38.3 L (40.1-51.0) % MCV 86.8 (80.0-100.0) fL MCH 29.7 (25.0-34.0) pg MCHC 34.2 (32.0-36.0) g/dL RDW Std Deviation 50.8 H (36.4-46.3) fL RDW Coeff of Rufino 15.9 H (11.5-14.5) % Plt Count 79 L (130-400) K/uL Immature Gran % (Auto) 0.5 % Neut % (Auto) 75.7 % Lymph % (Auto) 12.9 % Franklin % (Auto) 7.7 % Eos % (Auto) 2.5 % Baso % (Auto) 0.7 % Neut # (Auto) 7.64 H (1.4-6.5) K/uL Lymph # (Auto) 1.30 (1.2-3.4) K/uL Franklin # (Auto) 0.78 (0.24-0.82) K/uL Eos # (Auto) 0.25 (0-0.50) K/uL Baso # (Auto) 0.07 (0-0.2) K/uL Immature Gran # (Auto) 0.05 H (0.00-0.02) K/uL Platelet Estimate Decreased L (Normal) Sodium 137 (136-145) mmol/L Potassium 3.4 L (3.5-5.1) mmol/L Chloride 103 (98-107) mmol/L Carbon Dioxide 26 (21-32) mmol/L Anion Gap 8 (3-11) BUN 30 H (6-23) mg/dl Creatinine 3.62 H (0.6-1.4) mg/dl Est Cr Clr Drug Dosing 24.7 ml/min Est GFR ( Amer) 20.4 ml/min Est GFR (Non-Af Amer) 17.6 ml/min BUN/Creatinine Ratio 8.3 L (10-20) Glucose 114 H (70-99(Fasting)) mg/dl Calcium 8.6 (8.5-10.1) mg/dl Magnesium 2.0 (1.7-2.4) mg/dl Total Bilirubin 0.9 (0.2-1.0) mg/dl AST 35 (13-39) U/L ALT 39 (7-52) U/L Alkaline Phosphatase 91 (34-104) U/L Troponin I High Sens 72.8 H* (0-20) pg/ml Total Protein 7.8 (6.0-8.3) gm/dl Albumin 4.1 (3.4-5.0) gm/dl Globulin 3.7 (2.5-4.0) gm/dl Albumin/Globulin Ratio 1.1 (0.9-2) TSH 2.121 (0.300-4.500) uIu/ml SARS-CoV-2 (PCR) (Negative) Influenza Type A (PCR) (Neg) Influenza Type B (PCR) (Neg) RSV (RT-PCR) (Neg) 10/06/22 Range/Units 12:54 WBC (4.8-10.8) K/ul RBC (4.63-6.08) M/uL Hgb (14.0-18.0) g/dl Hct (40.1-51.0) % MCV (80.0-100.0) fL MCH (25.0-34.0) pg MCHC (32.0-36.0) g/dL RDW Std Deviation (36.4-46.3) fL RDW Coeff of Rufino (11.5-14.5) % Plt Count (130-400) K/uL Immature Gran % (Auto) % Neut % (Auto) % Lymph % (Auto) % Franklin % (Auto) % Eos % (Auto) % Baso % (Auto) % Neut # (Auto) (1.4-6.5) K/uL Lymph # (Auto) (1.2-3.4) K/uL Franklin # (Auto) (0.24-0.82) K/uL Eos # (Auto) (0-0.50) K/uL Baso # (Auto) (0-0.2) K/uL Immature Gran # (Auto) (0.00-0.02) K/uL Platelet Estimate (Normal) Sodium (136-145) mmol/L Potassium (3.5-5.1) mmol/L Chloride (98-107) mmol/L Carbon Dioxide (21-32) mmol/L Anion Gap (3-11) BUN (6-23) mg/dl Creatinine (0.6-1.4) mg/dl Est Cr Clr Drug Dosing ml/min Est GFR ( Amer) ml/min Est GFR (Non-Af Amer) ml/min BUN/Creatinine Ratio (10-20) Glucose (70-99(Fasting)) mg/dl Calcium (8.5-10.1) mg/dl Magnesium (1.7-2.4) mg/dl Total Bilirubin (0.2-1.0) mg/dl AST (13-39) U/L ALT (7-52) U/L Alkaline Phosphatase (34-104) U/L Troponin I High Sens (0-20) pg/ml Total Protein (6.0-8.3) gm/dl Albumin (3.4-5.0) gm/dl Globulin (2.5-4.0) gm/dl Albumin/Globulin Ratio (0.9-2) TSH (0.300-4.500) uIu/ml SARS-CoV-2 (PCR) NEGATIVE (Negative) Influenza Type A (PCR) Negative (Neg) Influenza Type B (PCR) Negative (Neg) RSV (RT-PCR) Negative (Neg) Administered Medications Hydralazine HCl (Hydralazine Hcl 20 Mg/Ml Vial) 10 mg IV Q4H PRN PRN Reason: hypertension Stop: 11/05/22 14:48 Last Admin: 10/06/22 15:09 Dose: 10 mg Documented By: ADAMS Labetalol HCl (Labetalol Hcl Iv 5 Mg/Ml 20ml) 10 mg IV Q4H PRN PRN Reason: Hypertension Stop: 11/05/22 14:48 Last Admin: 10/06/22 15:10 Dose: 10 mg Documented By: ADAMS Co-signed By: OMA Discontinued Medications Hydralazine HCl (Hydralazine Hcl 20 Mg/Ml Vial) 10 mg IV NOW STA Stop: 10/06/22 13:28 Last Admin: 10/06/22 13:31 Dose: 10 mg Documented By: ADAMS Hydralazine HCl (Hydralazine Hcl 20 Mg/Ml Vial) 10 mg IV NOW STA Stop: 10/06/22 14:07 Last Admin: 10/06/22 14:35 Dose: 10 mg Documented By: ADAMS Labetalol HCl (Labetalol Hcl Iv 5 Mg/Ml 20ml) 10 mg IV NOW STA Stop: 10/06/22 12:44 Last Admin: 10/06/22 12:51 Dose: 10 mg Documented By: ADAMS Co-signed By: CHEYENNE Labetalol HCl (Labetalol Hcl Iv 5 Mg/Ml 20ml) 10 mg IV NOW STA Stop: 10/06/22 14:07 Last Admin: 10/06/22 14:36 Dose: 10 mg Documented By: AADMS Co-signed By: ESTEVAN Nitroglycerin (Nitroglycerin 2% Ointment 30gm Tube) 2 inch EXT NOW STA Stop: 10/06/22 12:44 Last Admin: 10/06/22 12:51 Dose: 2 inch Documented By: ADAMS Imaging Data Radiologist's Impression: Chest X-Ray 10/06/22 12:43 XR chest 1V portable HISTORY: 57 years-old Male weakness acute weakness COMPARISON: 04/15/2022 TECHNIQUE: AP view of the chest FINDINGS: Cardiomediastinal and hilar silhouettes are within normal limits. No pneumothorax, pleural effusion, airspace consolidation or overt pulmonary edema. Bones of the chest appear grossly intact. IMPRESSION: No acute process. ACT 112: Negative or not required by law. The above report was generated using voice recognition software. It may contain grammatical, syntax or spelling errors. Electronically signed by: Milton Crystal M.D. 10/06/2022 1:[address] 10/06/22 12:43 CT head/brain wo con CLINICAL HISTORY: 57 years-old Male with headache, htn. Acute headache with hypertension TECHNIQUE: Multiple axial CT images of the head were obtained without contrast. A dose lowering technique was utilized adhering to the principles of ALARA. CT DOSE: 773.57 mGy.cm COMPARISON: Head CT 04/15/2022. FINDINGS: No acute intracranial hemorrhage, midline shift, intracranial mass, hydrocephalus, territorial ischemia or abnormal extra-axial collection. Involutional changes with patchy white matter hypodensities redemonstrated suggestive of probable chronic microvascular ischemic disease. Motion degraded exam. The calvarium is intact. The paranasal sinuses, mastoid air cells, and middle ear cavities are clear. IMPRESSION: No acute intracranial abnormality. ACT 112: Negative or not required by law. The above report was generated using voice recognition software. It may contain grammatical, syntax or spelling errors. Electronically signed by: Milton Crystal M.D. 10/06/2022 1:16 PM Discharge Plan Visit Data Chief Complaint: Hypertension Stated Complaint: BODY ACHES ED Provider: Pete Morfin Discharge Problem: Headache, Hypertensive urgency, Visual disturbance, Elevated troponin, Abnormal ECG, Thrombocytopenia Patient Disposition: Admitted As Inpatient Condition: Fair Forms Stand Alone Forms: [facility] Prescriptions Prescriptions: No Action aspirin 81 mg Tablet,Chewable 81 mg PO QAM finasteride 5 mg tablet 5 mg PO DAILY carvedilol 25 mg Tablet 25 mg PO BID Qty: 60 0RF amlodipine [Norvasc] 5 mg Tablet 10 mg PO QAM Qty: 30 0RF tamsulosin 0.4 mg Capsule 0.4 mg PO HS Qty: 30 0RF nitroglycerin [Nitrostat] 0.4 mg Tablet, Sublingual 0.4 mg sublingual Q5M PRN (Reason: chest pain) Qty: 15 0RF hydralazine 50 mg Tablet 50 mg PO TID Qty: 90 0RF sodium chloride 1 gram Tablet 1 g PO TID Qty: 60 0RF triamterene-hydrochlorothiazid [Maxzide-25mg] 37.5-25 mg Tablet 0.5 tab PO QAM Qty: 30 0RF bupropion HCl (smoking deter) 150 mg tablet extended release 12 hr 150 mg PO DAILY Qty: 30 0RF Referrals Referrals: PCP,NO [Physician] -
[2022-10-06 13:17] LABS: Basophils # (auto) 0.07 K/uL (0-0.2); Basophils % (auto) 0.7 %; Eosinophils # (auto) 0.25 K/uL (0-0.50); Eosinophils % (auto) 2.5 %; Hematocrit (blood only) 38.3 % (40.1-51.0); Hemoglobin 13.1 g/dl (14.0-18.0); Immature Granulocytes # (auto) 0.05 K/uL (0.00-0.02); Immature Granulocytes % (auto) 0.5 %; Lymphocytes % (auto) 12.9 %; Mean Corpuscular Hemoglobin 29.7 pg (25.0-34.0); Mean Corpuscular Hgb Conc 34.2 g/dL (32.0-36.0); Mean Corpuscular Volume 86.8 fL (80.0-100.0); Monocytes # (auto) 0.78 K/uL (0.24-0.82); Monocytes % (auto) 7.7 %; Neutrophils # (auto) 7.64 K/uL (1.4-6.5); Neutrophils % (auto) 75.7 %; Platelet Count 79 K/uL (130-400); Platelet Estimate Decreased (Normal); RDW Coefficient of Variation 15.9 % (11.5-14.5); RDW Standard Deviation 50.8 fL (36.4-46.3); Red Blood Count 4.41 M/uL (4.63-6.08); White Blood Count 10.09 K/ul (4.8-10.8)
--- NOTE | 2022-10-06 13:18 | CT Scan Report ---
CT head/brain wo con CLINICAL HISTORY: 57 years-old Male with headache, htn. Acute headache with hypertension TECHNIQUE: Multiple axial CT images of the head were obtained without contrast. A dose lowering tech nique was utilized adhering to the principles of ALARA. CT DOSE: 773.57 mGy.cm COMPARISON: Head CT 04/15/2022. FINDINGS: No acute intracranial hemorrhage, midline shift, intracranial mass, hydrocephalus, territorial ischem ia or abnormal extra-axial collection. Involutional changes with patchy white matter hypodensities re demonstrated suggestive of probable chronic microvascular ischemic disease. Motion degraded exam. The calvarium is intact. The paranasal sinuses, mastoid air cells, and middle ear cavities are clear . IMPRESSION: No acute intracranial abnormality. ACT 112: Negative or not required by law. The above report was generated using voice recognition software. It may contain grammatical, syntax o r spelling errors. Electronically signed by: Milton Crystal M.D. 10/06/2022 1:16 PM
[2022-10-06 13:19] LABS: Albumin Globulin Ratio 1.1 (0.9-2); Albumin Level 4.1 gm/dl (3.4-5.0); BUN Creatinine Ratio 8.3 (10-20); Bilirubin,Total 0.9 mg/dl (0.2-1.0); Calcium 8.6 mg/dl (8.5-10.1); Creatinine Clr Calc Pharmacy 24.7 ml/min; Est GFR (African American) 20.4 ml/min; Est GFR (Non-African American) 17.6 ml/min; Globulin 3.7 gm/dl (2.5-4.0); Potassium 3.4 mmol/L (3.5-5.1); Total Protein 7.8 gm/dl (6.0-8.3)
--- NOTE | 2022-10-06 13:21 | XRay Report ---
XR chest 1V portable HISTORY: 57 years-old Male weakness acute weakness COMPARISON: 04/15/2022 TECHNIQUE: AP view of the chest FINDINGS: Cardiomediastinal and hilar silhouettes are within normal limits. No pneumothorax, pleural effusion, airspace consolidation or overt pulmonary edema. Bones of the chest appear grossly intact. IMPRESSION: No acute process. ACT 112: Negative or not required by law. The above report was generated using voice recognition software. It may contain grammatical, syntax o r spelling errors. Electronically signed by: Milton Crystal M.D. 10/06/2022 1:20 PM
[2022-10-06] MEDS ORDERED: hydrALAZINE HCL 20 MG/ML VIAL IV STA ×2 (13:27→14:06)
[2022-10-06 13:38] LABS: Troponin I High Sensitivity 72.8 pg/ml (0-20)
[2022-10-06 14:01] LABS: Influenza A virus by PCR Negative (Neg); Influenza B virus by PCR Negative (Neg); RSV by PCR Negative (Neg); SARS CoV2 RNA(COVID-19) Ceph NEGATIVE (Negative)
[2022-10-06] MEDS ORDERED: MAGNESIUM HYDROXIDE SUSP 30 ML UDC PO PRN (14:44)
[2022-10-06] MEDS ORDERED: ALUMINUM/MAGNESIUM SUSP 30 ML UDC PO PRN (14:44)
[2022-10-06] MEDS ORDERED: ONDANSETRON INJ 2 MG/ML 2 ML VIAL IV PRN (14:44)
[2022-10-06] MEDS ORDERED: NITROGLYCERIN SL 0.4 MG/TAB TAB SL PRN (14:44)
[2022-10-06] MEDS ORDERED: hydrALAZINE HCL 20 MG/ML VIAL IV PRN (14:49)
[2022-10-06] MEDS ORDERED: LABETALOL HCL IV 5 MG/ML 20ML IV PRN ×2 (14:49→18:48)
[2022-10-06] MEDS ORDERED: POTASSIUM CHLORIDE CRTAB 20 MEQ TABCR PO STA ×2 (14:53→17:59)
--- NOTE | 2022-10-06 15:10 | History & Physical Report ---
Date of Service October 06, 2022 Assessment & Plan (1) Hypertensive heart disease: Plan Malignant hypertenison/ Hypertensive emergency Hypertensive heart disease / STEMI Troponin elevation, likely demand due to hypertension: Trend troponin, EKG as needed for chest pain. HERBERT over CKD stage IV, likely secondary to hypertensive disease Patient presents with elevated blood pressure at 235/148, no chest pain, troponin elevation at 72.8, EKG with LVH but no acute ST elevation. Patient received 2 doses of hydralazine 10 mg IV and 2 doses of labetalol 10 mg IV along with Nitropaste in the ED. Admitting CXR and admitting CT head with no acute findings. TSH WNL. Pt later on developed chest pain, EKG w/ ? ST elevation in ant leads. Heart Alert called. Pt going to slab inspector. Course of events while in ED: Pt had no chest pain, received multiple doses of iv labetalol. Pt was specifically asked about drug abuse, and he declined any use of them. Later after my bedside exam i sent Utox, which came back positive for cocaine and marijuana. Interaction b/w cocaine and labetalol on background of high BP might have triggered STEMI. Pt also has diaphoresis/nausea after being pricked by needle for his second troponin draw. Will continue with as needed hydralazine and labetalol IV. We will resume home medication. Hold nephrotoxic's. Nephrology consult, cardiology consult, EKG as needed for chest pain. Telemetry monitoring. Will get U tox screen. AVOID BETA BLOCKERS. Thrombocytopenia: Likely secondary to hypertensive emergency, possible thrombotic microangiopathy. Expect to improve with blood pressure improvement. Follow labs in AM. 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 Heparin subcu Full code History of Present Illness Chief Complaint: Higb BP Primary Care Provider: Irma Gavin MD 57-year-old male with PMH of left ventricular hypertrophy, essential hypertension, patent foramen ovale, tobacco abuse presented to the ED 10/06 was sent to the ED from his visit at [facility] today due to very high blood pressure. 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 Hence patient was sent to the ED for further evaluation. Patient reports he might have missed his blood pressure medication up to 2 times in the last 1 month, patient states that he took his blood pressure medication until yesterday evening and did not take his today morning's medication. Patient denies sore throat/cough/chest pain/palpitations/belly pain/acute changes in his bowel or bladder habit. Patient denies vomiting. Patient reports smoking tobacco for many years, currently smokes 1/4 pack a day. Also smokes marijuana multiple times a week. Denies use of alcohol or other recreational drugs. Medications were reviewed with the patient at bedside. Full code Plan of care discussed with the patient at bedside. Patient works at [employer] at [employer]. Family history positive for colon cancer and prostate cancer in father, dementia in mother, hypertension in brother. Allergies Allergy/AdvReac Type Severity Reaction Status Date / Time Penicillins Allergy Unknown CAN'T Verified 10/06/22 16:25 REMEMBER propoxyphene Allergy Unknown TYLENOL OK Verified 10/06/22 16:25 acetaminophen AdvReac Intermediate UPSETS Verified 10/06/22 16:25 STOMACH naproxen AdvReac Intermediate stomach Verified 10/06/22 16:25 burning, takes ibuprofen w/out prob Home Medications Medication Instructions Recorded Confirmed Type aspirin 81 mg chewable tablet 81 mg PO QAM 10/06/18 10/06/22 History finasteride 5 mg tablet 5 mg PO QAM 03/08/21 10/06/22 History amlodipine 5 mg tablet (Norvasc) 10 mg PO QAM #30 tabs 04/18/22 10/06/22 Rx carvedilol 25 mg tablet 25 mg PO BID #60 tabs 04/18/22 10/06/22 Rx hydralazine 50 mg tablet 50 mg PO TID #90 tabs 04/18/22 10/06/22 Rx nitroglycerin 0.4 mg sublingual 0.4 mg sublingual Q5M PRN chest 04/18/22 10/06/22 Rx tablet (Nitrostat) pain #15 tabs bupropion HCl (smoking deter) 150 150 mg PO QAM 10/06/22 10/06/22 History mg tablet,12 hr sustained-release(smoking deterrent) tamsulosin 0.4 mg capsule 0.8 mg PO QAM 10/06/22 10/06/22 History triamterene 37.5 1 tab PO QAM 10/06/22 10/06/22 History mg-hydrochlorothiazide 25 mg tablet (Maxzide-25mg) Past Med/Surg History Medical History HERBERT (acute kidney injury) BPH (benign prostatic hyperplasia) CKD (chronic kidney disease) stage 3, GFR 30-59 ml/min Diabetes HTN (hypertension) LV hypertrophy, hypertensive Surgical History History of rotator cuff surgery Family History Grandmother (Maternal) Dementia Mother Dementia Other Cancer Diabetes Heart disease Hypertension Social History Smoking Status: Current some day smoker Second Hand Exposure: No; Hx Alcohol Use: No Hx Substance Use: Yes Last Used Substance: Days (ago) Preferred Language: Bulgarian Communication Ability: Effective Dispatcher Automobile Rental Required: No Beliefs That Will Affect Care: None marital status: Single Current Living Situation: Significant Other current occupational status: employed How many Children do You have: 4 Feels Safe at Home: Yes Assistive Devices: None Review of Systems Review of Systems: Negative otherwise mentioned in HPI. Physical Exam Physical Exam: GENERAL: Alert and oriented x3. NAD, on RA. HEENT: No pallor, no icterus. Pupils equal, round and reactive to light. Oral mucosa moist. NECK: No JVD, no neck masses. HEART: S1 and S2 heard. Regular rate and rhythm. No murmur, no gallop. RESPIRATORY SYSTEM: Normal AP diameter. No accessory muscle use. No wheezing, no crackles. ABDOMEN: Soft, bowel sounds present, nontender, no distention. CENTRAL NERVOUS SYSTEM: No facial droop. Speech is clear. Obeys simple commands. Moves extremities. EXTREMITIES: No edema, no erythema seen. Results & Data Results & Data ([facility]) Vital Signs (Past 12 Hours) Vital Signs Temp Pulse Resp BP Pulse Ox O2 Del Method 10/06/22 14:45 216/139 H 10/06/22 14:45 89 16 100 10/06/22 14:40 77 13 99 10/06/22 14:32 78 15 100 10/06/22 14:32 243/141 H 10/06/22 14:30 78 20 100 10/06/22 14:20 76 16 100 10/06/22 14:15 260/145 H 10/06/22 14:15 78 14 10/06/22 14:10 75 15 10/06/22 14:00 76 17 99 10/06/22 14:00 239/151 H 10/06/22 13:50 76 17 100 10/06/22 13:48 76 17 99 10/06/22 13:48 229/144 H 10/06/22 13:56 99 Room Air 10/06/22 13:40 72 18 100 10/06/22 13:30 74 13 98 10/06/22 13:27 255/170 H 10/06/22 13:27 76 19 229/144 H 99 10/06/22 13:23 259/160 H 10/06/22 13:23 71 11 L 98 10/06/22 13:20 70 6 L 97 10/06/22 13:10 241/161 H 10/06/22 13:10 71 19 241/161 H 99 Room Air 10/06/22 13:07 71 17 99 10/06/22 12:50 72 21 249/201 H 98 10/06/22 12:40 70 20 100 10/06/22 12:30 76 25 H 99 10/06/22 12:21 69 15 99 10/06/22 12:07 36.7 C 78 18 235/148 H 100 Room Air Code Status & VTE Plan VTE Prophylaxis Plan VTE Prophylaxis will be ordered: Yes
--- NOTE | 2022-10-06 15:56 | Nephrology Consultation ---
Date of Consultation October 06, 2022 Assessment & Plan (1) Labile blood pressure: as per # 2 (2) Hypertensive urgency: would call this HTN urgency rather than emergency given no acute findings of end organ damage such as flash pulmonary edema or new/neurologic changes worrisome for stroke. headache /blurry vision over days and HERBERT go more with HTN urgency than emergency, though he is certainly at risk for the latter. that said w/ heart alert he may well now have ECG changes w/ large swing in BP >goal blood pressure is 170-180s systolic for next few days or as per cardiology service given heart alert -cont cardiac catheterization technician and low Na diet >agree w/ NS and Trendelenberg position >continue prn IV labetalol and hydralazine w/ goal BP above -reluctant to use diuretics or ACEI at this time but may need to consider (3) CKD (chronic kidney disease) stage 3, GFR 30-59 ml/min: baseline creatinine in summer 2021 was mid 2's, w/ Cystatin C eGFR 31. He did however have evidence of progression at that time from prior values so some concern this could be less HERBERT and more CKD progression; time will tell -daily bmp -cont to avoid nephrotoxins (4) HERBERT (acute kidney injury): HERBERT on CKD versus continued CKD progression; not clear at this time >daily bmp > awaitUA and repeat prot/creat ratio (historically <200mg proteinuria) -avoid nephrotoxic meds/substances for now including shellie/arb History of Present Illness Reason for Consultation: HTN emergency, HERBERT on CKD4 Requesting Physician: Dr Loco Attending Physician: Dr Loco History of Present Illness 57 y/o M whom I'm asked to see for HTN emergency and HERBERT on CKD is being admitted this afternoon for same. 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 He was sent to ER today from [facility] after presenting there w/ uncontrolled HTN. He endorses a week of intermittent NORMAN and blurry vision w/ malaise and GI upset. Has also been missing BP medications at times recently, including this am. He follows w/ me in CKD clinic and I took care of him last summer as well > his medication reconciliation is generally quite challenging ? d/t mild cognitive impairment. For example he was repeatedly told to do only 3 days of salt tabs at last hospital d/c in March but he was taking them at May. His presenting BPs were 240s/140s. He was given IV labetalol 100 mg x 2, hydralazine 10 mg x 2 IV, and nitropaste. No acute ECG changes; mild troponin elevation. At about 345 pm per RN he took a turn for the worse w/ sbp to 120s and then to 100s; pt was diaphoretic, groaning in discomfort; c/o chest pressure nonradiating but more than anything of malaise. He denied dyspnea or abdominal pain; denied new/worrisome voiding sx. 1L NS was hung wide open. BG 107. Dr Loco at bedside evaluating patient. Heart alert later called after I left the room. Allergies Allergy/AdvReac Type Severity Reaction Status Date / Time Penicillins Allergy Unknown CAN'T Verified 04/15/22 18:14 REMEMBER propoxyphene Allergy Unknown TYLENOL OK Verified 04/15/22 18:14 acetaminophen AdvReac Intermediate UPSETS Verified 04/15/22 18:14 STOMACH naproxen AdvReac Intermediate stomach Verified 04/15/22 18:14 burning, takes ibuprofen w/out prob Home Medications Medication Instructions Recorded Confirmed Type aspirin 81 mg chewable tablet 81 mg PO QAM 10/06/18 04/15/22 History finasteride 5 mg tablet 5 mg PO DAILY 03/08/21 04/15/22 History amlodipine 5 mg tablet (Norvasc) 10 mg PO QAM #30 tabs 04/18/22 Rx carvedilol 25 mg tablet 25 mg PO BID #60 tabs 04/18/22 Rx hydralazine 50 mg tablet 50 mg PO TID #90 tabs 04/18/22 Rx nitroglycerin 0.4 mg sublingual 0.4 mg sublingual Q5M PRN chest 04/18/22 Rx tablet (Nitrostat) pain #15 tabs sodium chloride 1 gram tablet 1 g PO TID #60 tabs 04/18/22 Rx tamsulosin 0.4 mg capsule 0.4 mg PO HS #30 caps 04/18/22 Rx triamterene 37.5 0.5 tab PO QAM #30 tabs 07/20/22 Rx mg-hydrochlorothiazide 25 mg tablet (Maxzide-25mg) bupropion HCl (smoking deter) 150 150 mg PO QAM 10/06/22 10/06/22 History mg tablet,12 hr sustained-release(smoking deterrent) Patient History Medical History HERBERT (acute kidney injury) BPH (benign prostatic hyperplasia) CKD (chronic kidney disease) stage 3, GFR 30-59 ml/min Diabetes HTN (hypertension) LV hypertrophy, hypertensive Surgical History History of rotator cuff surgery Family History Grandmother (Maternal) Dementia Mother Dementia Other Cancer Diabetes Heart disease Hypertension Social History Smoking Status: Current some day smoker Second Hand Exposure: No; Hx Alcohol Use: No Hx Substance Use: Yes Last Used Substance: Days (ago) Preferred Language: Ethiopian Communication Ability: Effective School Coordinator Required: No Beliefs That Will Affect Care: None marital status: Single Current Living Situation: Significant Other current occupational status: employed How many Children do You have: 4 Feels Safe at Home: Yes Assistive Devices: None Review of Systems Review of Systems: All systems reviewed & are unremarkable except as noted in HPI & below Physical Exam Constitutional: well developed and well nourished Eyes: EOM intact bilaterally ENMT: Ears: no external ear abnormality Nose: no external nose abnormality Mouth: + dry oral mucous membranes Neck: no nuchal rigidity Respiratory: normal respiratory effort Auscultation: + diminished lung sounds Cardiovascular: Rate/Rhythm: regular rate and regular rhythm Extremities: normal capillary refill; no edema Gastrointestinal (Abdomen): Inspection/Auscultation: normal bowel sounds Percussion/Palpation: abdomen soft; abdomen nontender Musculoskeletal: Extremities: strength 5/5 throughout Skin: no rashes, warm and dry Neurologic: rivera, fluent speech, no tremor Psychiatric: Orientation: oriented x 3 Results & Data ([facility]) Vital Signs (Past 12 Hours) Vital Signs Temp Pulse Resp BP Pulse Ox O2 Del Method 10/06/22 14:45 216/139 H 10/06/22 14:45 89 16 100 10/06/22 14:40 77 13 99 10/06/22 14:32 78 15 100 10/06/22 14:32 243/141 H 10/06/22 14:30 78 20 100 10/06/22 14:20 76 16 100 10/06/22 14:15 260/145 H 10/06/22 14:15 78 14 10/06/22 14:10 75 15 10/06/22 14:00 76 17 99 10/06/22 14:00 239/151 H 10/06/22 13:50 76 17 100 10/06/22 13:48 76 17 99 10/06/22 13:48 229/144 H 10/06/22 13:56 99 Room Air 10/06/22 13:40 72 18 100 10/06/22 13:30 74 13 98 10/06/22 13:27 255/170 H 10/06/22 13:27 76 19 229/144 H 99 10/06/22 13:23 259/160 H 10/06/22 13:23 71 11 L 98 10/06/22 13:20 70 6 L 97 10/06/22 13:10 241/161 H 10/06/22 13:10 71 19 241/161 H 99 Room Air 10/06/22 13:07 71 17 99 10/06/22 12:50 72 21 249/201 H 98 10/06/22 12:40 70 20 100 10/06/22 12:30 76 25 H 99 10/06/22 12:21 69 15 99 10/06/22 12:07 36.7 C 78 18 235/148 H 100 Room Air Laboratory Results 10/06/22 12:30 10/06/22 12:[address],CXR no acute process
[2022-10-06 16:10] LABS: Appearance Urine Clear (Clear); Bacteria Urine Automated Negative (Negative); Bilirubin Urine Negative (Negative); Blood Urine 2+ (Negative); Color Urine Yellow; Glucose Urine UA Negative (Negative); Ketones Urine Negative (Negative); Leukocyte Esterase Urine Negative (Negative); Nitrite Urine Negative (Negative); Protein Urine 4+ (Negative); Specific Gravity Urine 1.016 (1.000-1.030); Urobilinogen Urine Negative (Negative); pH Urine 6.5 (4.5-7.5)
[2022-10-06] MEDS ORDERED: MIDAZOLAM HCL 1 MG/ML 2ML VIAL ONE (16:23)
[2022-10-06] MEDS ORDERED: fentaNYL citrate 100 MCG/2 ML VIAL ONE (16:23)
[2022-10-06] MEDS ORDERED: HEPARIN (PORCINE) 1000 UNIT/ML 10 ML (CATH LAB USE ONLY) ONE (16:23)
[2022-10-06] MEDS ORDERED: niCARdipine HCL INJ 2.5 MG/ML 10 ML AMP ONE (16:23)
[2022-10-06] MEDS ORDERED: NITROGLYCERIN/D5W 100MCG/ML 20ML SYR ONE (16:24)
[2022-10-06 16:54] LABS: Estimated Average Glucose 105 mg/dl; Hemoglobin A1C 5.3 % (4.5-5.6)
[2022-10-06 17:15] LABS: Amphetamines+Metham, Urine Neg (Neg); Barbiturates, Urine Neg (Neg); Benzodiazepine, Urine Neg (Neg); Cocaine, Urine Pos (Neg); MDMA (Ecstacy), Urine Neg (Neg); Methadone, Urine Neg (Neg); Opiate, Urine Neg (Neg); Phencyclidine, Urine Neg (Neg)
[2022-10-06 17:24] LABS: Protein Creatinine Ratio Urine 4.1 (0-0.2); Total Protein Urine Random 483.6 mg/dl (0-11.9)
[2022-10-06] MEDS: amLODIPine BESYLATE 5 MG TAB PO SCH (17:50)
[2022-10-06] MEDS ORDERED: NITROGLYCERIN 2% OINTMENT 30GM TUBE EXT SCH (18:00)
--- NOTE | 2022-10-06 18:56 | Communication Note ---
Date of Service: October 06, 2022 Heart alert called this afternoon just after I saw the pt in setting of chest pain/ECG changes w/ large swings in SBP (from 240>100s). Cardiac cath was clean per RN. Pt w/ positive cocaine on urine tox screen. notable thrombocytopenia but doubt MAHA here and no clear cause; certainly ITP or drug-induced thrombocytopenia on differential -started 1/2 NS at 125 ml/hr to help lower risk of contrast induced nephropathy; reluctant to use customary NS or bic gtt d/t potential for worsened HTN -he has prn NTG chest pain and prn hydralazine for sbp > 200 >>for now will avoid beta blockade d/t cocaine screen >> if used, would use NTG ointment first and would use labetalol since it's short acting and non selective -favor prn benzo to help w/ chest pain/anxiety -cocaine and THC verifications sent/pending -hold ASA/heparin given plts Care coordinated w/ Dr Loco
--- NOTE | 2022-10-06 19:13 | Post Anesthesia Assessment ---
Date of Service October 06, 2022 Post Sedation Assessment Vital Signs Temp Pulse Pulse Pulse Resp BP BP 10/06/22 18:35 97.7 F 82 20 200/103 H 10/06/22 18:05 97.5 F L 80 20 175/111 H 10/06/22 17:50 97.5 F L 79 18 169/97 H 10/06/22 17:35 97.3 F L 80 18 146/80 H 10/06/22 17:33 76 10/06/22 17:20 97.2 F L 77 18 175/82 H 10/06/22 17:23 97.2 F L 75 20 175/82 H 10/06/22 16:30 75 14 10/06/22 16:20 74 12 10/06/22 16:15 142/78 H 10/06/22 16:15 70 21 10/06/22 16:10 65 27 H 10/06/22 16:08 67 27 H 10/06/22 16:08 109/64 10/06/22 16:00 76 19 10/06/22 16:00 107/74 10/06/22 15:50 66 12 10/06/22 15:47 69 10/06/22 15:47 121/71 10/06/22 15:30 160/100 H 10/06/22 15:30 84 21 160/100 H 10/06/22 15:20 83 18 10/06/22 15:15 202/123 H 10/06/22 15:15 83 16 10/06/22 15:10 84 21 10/06/22 15:00 85 16 10/06/22 15:00 214/123 H 10/06/22 14:50 80 15 10/06/22 14:45 216/139 H 10/06/22 14:45 89 16 10/06/22 14:40 77 13 10/06/22 14:32 78 15 10/06/22 14:32 243/141 H 10/06/22 14:30 78 20 10/06/22 14:20 76 16 10/06/22 14:15 260/145 H 10/06/22 14:15 78 14 10/06/22 14:10 75 15 10/06/22 14:00 76 17 10/06/22 14:00 239/151 H 10/06/22 13:50 76 17 10/06/22 13:48 76 17 10/06/22 13:48 229/144 H 10/06/22 13:56 10/06/22 13:40 72 18 10/06/22 13:30 74 13 10/06/22 13:27 255/170 H 10/06/22 13:27 76 19 229/144 H 10/06/22 13:23 259/160 H 10/06/22 13:23 71 11 L 10/06/22 13:20 70 6 L 10/06/22 13:10 241/161 H 10/06/22 13:10 71 19 241/161 H 10/06/22 13:07 71 17 10/06/22 12:50 72 21 249/201 H 10/06/22 12:40 70 20 10/06/22 12:30 76 25 H 10/06/22 12:21 69 15 10/06/22 12:07 98.1 F 78 18 235/148 H Pulse Ox O2 Del Method 10/06/22 18:35 99 Room Air 10/06/22 18:05 97 Room Air 10/06/22 17:50 98 Room Air 10/06/22 17:35 99 Room Air 10/06/22 17:33 10/06/22 17:20 98 Room Air 10/06/22 17:23 98 Room Air 10/06/22 16:30 10/06/22 16:20 99 10/06/22 16:15 10/06/22 16:15 99 10/06/22 16:10 99 10/06/22 16:08 99 10/06/22 16:08 10/06/22 16:00 98 10/06/22 16:00 10/06/22 15:50 98 10/06/22 15:47 10/06/22 15:47 10/06/22 15:30 10/06/22 15:30 100 10/06/22 15:20 99 10/06/22 15:15 10/06/22 15:15 100 10/06/22 15:10 100 10/06/22 15:00 99 10/06/22 15:00 10/06/22 14:50 100 10/06/22 14:45 10/06/22 14:45 100 10/06/22 14:40 99 10/06/22 14:32 100 10/06/22 14:32 10/06/22 14:30 100 10/06/22 14:20 100 10/06/22 14:15 10/06/22 14:15 10/06/22 14:10 10/06/22 14:00 99 10/06/22 14:00 10/06/22 13:50 100 10/06/22 13:48 99 10/06/22 13:48 10/06/22 13:56 99 Room Air 10/06/22 13:40 100 10/06/22 13:30 98 10/06/22 13:27 10/06/22 13:27 99 10/06/22 13:23 10/06/22 13:23 98 10/06/22 13:20 97 10/06/22 13:10 10/06/22 13:10 99 Room Air 10/06/22 13:07 99 10/06/22 12:50 98 10/06/22 12:40 100 10/06/22 12:30 99 10/06/22 12:21 99 10/06/22 12:07 100 Room Air Recovery Score Activity: Moves 4 extremities Respiration: Deep Breath/Cough Circulation: +/-20% PreAnes Value Consciousness: Fully Awake Oxygen Saturation: O2 needed for >90% Discharge Sedation Level of Care: Fast Track Phase II Post Sedation Plan On clinical assessment, the patient appears to have tolerated the sedation without complications. Patient is recovering as anticipated. Patient will continue to be monitored by nursing and may be discharged when sedation discharge criteria are met per below protocol. Upon Completions of procedure up to 15 minutes continue every 5 minute vital signs and the P.A.R. score; then discharge to a Phase I or Fast Track to Phase II per the following guidelines: * Discharge Patient to appropriate Phase II area if PAR is 8 or greater or return to pre- procedure baseline. The post - procedure orders will be as directed. * If PAR score is less than 8 or not return to pre-procedure baseline then patient will follow Phase I monitoring till PAR is reached for Phase II. The Phase I may be done in procedure room or may call to secure a Phase I area. * If naloxone or flumazenil are used for reversal, hold in Phase I for continued monitoring from when last reversal dose was given for a minimum of 60 minutes or longer pending the nurse and/or physician discretion of patient condition before discharge to Phase II. Please call the Sedation Physician to re-evaluate and complete post-note for discharge to Phase II area. Do NOT discharge from procedure sedation or Phase 1 until post- sedation evaluation note is complete by procedure /sedation MD Sedation Discharge Instructions to be given to the patient at discharge to home.
--- NOTE | 2022-10-06 19:28 | Cardiac Catheterization ---
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 Cardiac Status Clinical evaluation leading to the procedure CAD Presenation: STEMI Anginal Classification: CCS IV Diagnostic Physicians Name: Mook Sandra MD Closure Device Recommendations: Medical Therapy and/or Counseling Cardiac Cath Procedure Full Procedure Date October 06, 2022 Pre-Procedure Diagnosis Pre-Procedure Diagnosis: Acute Coronary Syndrome AUC Score AUC Score: 9 Post-Procedure Diagnosis Post-Procedure Diagnosis: Mild CAD Procedure(s) Performed Procedure(s) Performed: Coronary Angiography and Left Heart Cath Canvas Repairer Mook Sandra MD Hot Air Furnace Installer And Repairer(s) [place] Estimated Blood Loss Estimated Blood Loss: 10 Medication(s) Medication(s): Fentanyl, Heparin, Lidocaine 1%, Nicardipine, Nitroglycerin and Versed Summary of Findings Indication: Suspected ACS. Transient anterior ST elevations Access: 6 Fr right radial artery Catheters: [place] Findings: LM -large caliber vessel, no significant disease LAD -large caliber, 40% diffuse mid segment disease. Distal vessel without significant disease and wraps around apex. Small D1, medium D2 without significant disease. Circumflex -dominant, large caliber vessel, midsegment luminal regularities. Gives of 2 medium caliber OM's, 1 PLV and left PDA without significant disease. RCA -not visualized in the setting of patient's acute renal insufficiency. Likely nondominant LVEDP - 8 Arterial Closure: TR band Summary: 1. Mild nonobstructive coronary artery disease -40% diffuse mid LAD -Dominant circumflex. RCA not visualized to spare contrast. 2. Elevated intracardiac filling pressure Recommendations: Continue blood pressure control, ASCVD risk factor modification. IV fluids per nephrology for risk of TYSON. Hemodynamics Rest Ao:: 127/82/102 Final Ao: 129/79/97 LV: 121/8 Recommendations Recommendations: Medical Therapy and/or Counseling Specimens Specimens: None Radiation Exposure (mGy) 369 Contrast (mls) 25 Anesthesia Moderate [id number] Procedural Complication(s) None Disposition PCU I attest to the content of the Intraoperative Record and any orders documented therein. Any exceptions are noted below. [facility] Card Cath Procedure Codes Cardiac Catheterization Procedure 1: Cardiovascular Cath Procedures: 73025 Coronaries and LHC (+/-LV) Moderate Sedation Procedure 1: Sedation/Anesthesia: 64053 Mod Sedation by the same physician;Init15 Min Child Age 5 & Up PG Care Time/CCT Total # of Minutes Spent Total Time Spent with Patient: Total time spent is greater than 50% in coordination of care (as documented) at patient's floor/unit and/or counseling patient:
[2022-10-06] MEDS: ACETAMINOPHEN 325 MG TAB PO PRN (19:42)
[2022-10-06] MEDS: SODIUM CHLORIDE 0.45 % 1,000 ML IV SCH (19:43)
[2022-10-06] MEDS: HEPARIN SOD 5,000 UNIT/0.5 ML VIAL SQ SCH (20:36)
[2022-10-06] MEDS: TAMSULOSIN HCL 0.4 MG CAP PO SCH (20:36)
[2022-10-06] MEDS: hydrALAZINE TAB 50 MG TAB PO SCH (20:36)
[2022-10-06] MEDS ORDERED: carvediloL 25 MG TAB PO SCH (21:00)
[2022-10-06] MEDS: LORazepam 0.5 MG TAB PO PRN (21:23)
[2022-10-06 22:01] LABS: Prothrombin Time 10.7 Seconds (9.0-12.0)
[2022-10-07] MEDS: ACETAMINOPHEN 325 MG TAB PO PRN ×2 (03:26→19:08)
[2022-10-07] MEDS ORDERED: LABETALOL HCL IV 5 MG/ML 20ML IV STA ×2 (03:27→23:23)
[2022-10-07 03:39] LABS: BUN Creatinine Ratio 8.4 (10-20); Calcium 8.1 mg/dl (8.5-10.1); Creatinine Clr Calc Pharmacy 27.2 ml/min; Est GFR (African American) 20.6 ml/min; Est GFR (Non-African American) 17.7 ml/min; Magnesium 1.8 mg/dl (1.7-2.4); Phosphorus 4.3 mg/dl (2.5-4.9); Potassium 3.4 mmol/L (3.5-5.1)
[2022-10-07] MEDS: SODIUM CHLORIDE 0.45 % 1,000 ML IV SCH (03:48)
[2022-10-07 03:51] LABS: Hematocrit (blood only) 33.1 % (40.1-51.0); Hemoglobin 11.5 g/dl (14.0-18.0); Mean Corpuscular Hemoglobin 29.9 pg (25.0-34.0); Mean Corpuscular Hgb Conc 34.7 g/dL (32.0-36.0); Mean Corpuscular Volume 86.2 fL (80.0-100.0); Mean Platelet Volume 11.6 fL (9.4-12.4); Platelet Count 80 K/uL (130-400); Red Blood Count 3.84 M/uL (4.63-6.08); White Blood Count 12.21 K/ul (4.8-10.8)
[2022-10-07] MEDS ORDERED: LORazepam 0.5 MG TAB PO STA (05:01)
[2022-10-07] MEDS ORDERED: POTASSIUM CHLORIDE CRTAB 20 MEQ TABCR PO STA (07:55)
[2022-10-07] MEDS: FINASTERIDE 5 MG TAB PO SCH (08:16)
[2022-10-07] MEDS: amLODIPine BESYLATE 5 MG TAB PO SCH (08:16)
[2022-10-07] MEDS: buPROPion SR 150 MG TABCR PO SCH (08:16)
[2022-10-07] MEDS: ASPIRIN 81 MG CHEW PO SCH (08:16)
[2022-10-07] MEDS: hydrALAZINE TAB 50 MG TAB PO SCH (08:16)
[2022-10-07] MEDS: HEPARIN SOD 5,000 UNIT/0.5 ML VIAL SQ SCH ×2 (08:17→20:07)
[2022-10-07] MEDS ORDERED: carvediloL 25 MG TAB PO SCH (09:00)
--- NOTE | 2022-10-07 09:04 | Nephrology Progress Note ---
Date of Service October 07, 2022 Assessment & Plan (1) Labile blood pressure: Plan: as per # 2 (2) Hypertensive urgency: Plan: would call this HTN urgency rather than emergency given no acute findings of emergent end organ damage such as flash pulmonary edema or new/neurologic changes worrisome for stroke. headache /blurry vision over days and HERBERT go more with HTN urgency than emergency, though he is certainly at risk for the latter. tox screen + for cocaine on presentation. Heart alert called day of admission in wake of large swing in BP (240s > 100s in few hours); cardiac cath >> mild nonobstructive CAD 40% diffuse LAD, only 25 mL IV con. >>>lowered standing coreg from 25 mg bid to 12.5 mg bid and amlodipine from 10 mg daily to 5 mg daily and hydralazine from 50 mg tid to 25 mg tid to avoid large BP swings; not clear to me how consistently pt took bp meds prior to admission and want to avoid bottoming pt out again >>>>continue prn IV hydralazine w/ goal BP above -heart alert/ECG changes and troponin bumps w/ large swings in BP and w/ cardiac cath > f/u cardiology recs on this >goal blood pressure is 170-180s systolic consistently for next few days or as per cardiology service given cath -cont hall monitor and low Na diet -discussed w/ hospitalist >> nonselective BB such as coreg, labetalol ok w/ cocaine + tox screen if needed -reluctant to use ACEI at this time but may need to consider (3) CKD (chronic kidney disease) stage 3, GFR 30-59 ml/min: Plan: baseline creatinine in summer 2021 was mid 2's, w/ Cystatin C eGFR 31. He did however have evidence of progression at that time from prior values so some concern this could be less HERBERT and more CKD progression; time will tell. chemistries and volume status ok -daily bmp -cont to avoid nephrotoxins -follows w/ me in CKD clinic and at d/c will need hosp d/c appt w/ me (4) HERBERT (acute kidney injury): Plan: HERBERT on CKD versus continued CKD progression; not clear at this time which and at risk for TYSON. new 4 gm proteinuria on specimen extremely high BP at time of collection - recheck when BP control a bit better; may reflect new nephrotic range proteinuria from hypertensive nephropathy >>>after obligate heart cath, at risk for contrast induced nephropathy next 36 hrs >>>> completed 1.5L 1/2 NS to lower risk; had no preoperative hydration for unplanned cath > will give another 1L 1/2 NS >daily bmp -avoid nephrotoxic meds/substances for now including shellie/arb Admission and Anticipated Discharge Date Admission Date: October 06, 2022 Subjective at goal SBP 170-180s [id number]. denies ever using cocaine and dismayed this was in urine. endorses several days of blurred vision, not changing. no sob, no further ches tpain Review of Systems Review of Systems: All systems reviewed & are unremarkable except as noted in Subjective Physical Exam Constitutional: well developed and well nourished Eyes: EOM intact bilaterally ENMT: Ears: no external ear abnormality Nose: no external nose abnormality Mouth: + dry oral mucous membranes Neck: no nuchal rigidity Respiratory: normal respiratory effort Auscultation: + diminished lung sounds Cardiovascular: Rate/Rhythm: regular rate and regular rhythm Extremities: normal capillary refill; no edema Gastrointestinal (Abdomen): Inspection/Auscultation: normal bowel sounds Percussion/Palpation: abdomen soft; abdomen nontender Musculoskeletal: Extremities: strength 5/5 throughout ?clubbing Skin: no rashes, warm and dry Neurologic: rivera, fluent speech, no tremor; squints to read Psychiatric: Orientation: oriented x 3 Results & Data ([facility]) Vital Signs (Past 12 Hours) Vital Signs Temp Pulse Pulse Resp BP Pulse Ox O2 Del Method 10/07/22 08:22 Room Air 10/07/22 07:30 36.8 C 79 18 194/116 H 94 Room Air 10/07/22 05:00 80 186/97 H 10/07/22 03:23 88 10/07/22 03:00 36.8 C 92 H 18 192/113 H 96 Room Air 10/07/22 01:23 36.6 C 96 H 19 171/100 H 97 Room Air 10/06/22 23:00 36.7 C 93 H 18 171/93 H 97 Room Air 10/06/22 21:05 36.8 C 86 16 191/109 H 98 Room Air Laboratory Results 10/07/22 03:10 10/07/22 03:10
[2022-10-07] MEDS ORDERED: SODIUM CHLORIDE 0.45 % 1,000 ML IV SCH (09:15)
--- NOTE | 2022-10-07 10:51 | Cardiology Consultation ---
Date of Consultation October 07, 2022 Assessment & Plan (1) Hypertensive urgency: (2) Headache: (3) LV hypertrophy, hypertensive: (4) HERBERT (acute kidney injury): (5) Elevated troponin: (6) Visual disturbance: (7) Diabetes: (8) Positive urine drug screen: Plan Upon presentation the patient was suffering from hypertensive urgency and then has a vasovagal event with severe EKG changes Cardiac cath showed no significant obstructive disease Urine drug screen came back positive for cocaine which obviously would explain the ischemic EKG changes in the setting of acute coronary spasm Confirmatory cocaine screen is pending at this time Has already been seen by our nephrology colleagues and will defer further antihypertensive management to their expertise No further cardiac test intervention necessary at this time. History of Present Illness Reason for Consultation: Chest pain Requesting Physician: Dr. Loco Attending Physician: Cara Loco MD History of Present Illness Mr. Nelson is a very pleasant 57-year-old gentleman who presented to [facility] on 10/06/2022 with complaints of headache and severely elevated blood pressure. Patient states he was not feeling well and went to a local urgent care. There his blood pressure was severely elevated and was recommended to go to the emergency department. In the ER, his initial EKG showed nonspecific changes. While an IV was being placed the patient appeared to have a vasovagal episode and became very diaphoretic and lightheaded. His blood pressure dropped approximately 100 mmHg systolic and the patient developed chest pain. With this, profound EKG changes also occurred and a heart alert was called. The patient was taken to the cardiac [facility] which showed no significant obstructive disease and he was admitted to telemetry. Overnight, his blood pressure has improved but unfortunately his renal function continues to decline. Past Medical and Surgical History: Hypertension, hypertensive heart disease Chronic kidney disease BPH Chronic tobacco abuse Left shoulder surgery Oral surgery, prior dental abscess Allergies Allergy/AdvReac Type Severity Reaction Status Date / Time Penicillins Allergy Unknown CAN'T Verified 10/06/22 16:25 REMEMBER propoxyphene Allergy Unknown TYLENOL OK Verified 10/06/22 16:25 acetaminophen AdvReac Intermediate UPSETS Verified 10/06/22 16:25 STOMACH naproxen AdvReac Intermediate stomach Verified 10/06/22 16:25 burning, takes ibuprofen w/out prob Home Medications Medication Instructions Recorded Confirmed Type aspirin 81 mg chewable tablet 81 mg PO QAM 10/06/18 10/06/22 History finasteride 5 mg tablet 5 mg PO QAM 03/08/21 10/06/22 History amlodipine 5 mg tablet (Norvasc) 10 mg PO QAM #30 tabs 04/18/22 10/06/22 Rx carvedilol 25 mg tablet 25 mg PO BID #60 tabs 04/18/22 10/06/22 Rx hydralazine 50 mg tablet 50 mg PO TID #90 tabs 04/18/22 10/06/22 Rx nitroglycerin 0.4 mg sublingual 0.4 mg sublingual Q5M PRN chest 04/18/22 10/06/22 Rx tablet (Nitrostat) pain #15 tabs bupropion HCl (smoking deter) 150 150 mg PO QAM 10/06/22 10/06/22 History mg tablet,12 hr sustained-release(smoking deterrent) tamsulosin 0.4 mg capsule 0.8 mg PO QAM 10/06/22 10/06/22 History triamterene 37.5 1 tab PO QAM 10/06/22 10/06/22 History mg-hydrochlorothiazide 25 mg tablet (Maxzide-25mg) Patient History Medical History HERBERT (acute kidney injury) BPH (benign prostatic hyperplasia) CKD (chronic kidney disease) stage 3, GFR 30-59 ml/min Diabetes HTN (hypertension) LV hypertrophy, hypertensive Surgical History History of rotator cuff surgery Family History Grandmother (Maternal) Dementia Mother Dementia Other Cancer Diabetes Heart disease Hypertension Social History Smoking Status: Current every day smoker Second Hand Exposure: No; Do You Dip or Chew Tobacco: No; Tobacco Cessation Education Requested by Patient: No Hx Alcohol Use: No Hx Substance Use: Yes Last Used Substance: Unknown Preferred Language: Yi Communication Ability: Effective 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 No acute distress. HEENT: Normocephalic, atraumatic. Pupils equal, round and reactive to light and accommodation. Extraocular muscles are intact. Anicteric sclera. Moist mucous membranes. Neck: No JVD. No bruit. Cardiovascular: Regular. Positive S-4. Normal S-1 and S-2. No S-3. No mur murs or rubs. Pulmonary: Clear to auscultation B/L. No rales, rhonchi or wheezing Abdomen: Bowel sounds x 4, soft. No rebound, guarding or tenderness. No organomegaly. Extremities: No clubbing, cyanosis or edema. +2 pedal pulses bilaterally. Skin: Warm and dry. Results & Data ([facility]) Vital Signs (Past 12 Hours) Vital Signs Temp Pulse Pulse Resp BP Pulse Ox O2 Del Method 10/07/22 08:22 Room Air 10/07/22 07:30 36.8 C 79 18 194/116 H 94 Room Air 10/07/22 05:00 80 186/97 H 10/07/22 03:23 88 10/07/22 03:00 36.8 C 92 H 18 192/113 H 96 Room Air 10/07/22 01:23 36.6 C 96 H 19 171/100 H 97 Room Air 10/06/22 23:00 36.7 C 93 H 18 171/93 H 97 Room Air (1) Headache Headache chronicity pattern: acute headache Headache type: unspecified Intractability: not intractable Qualified Code(s): R51.9 - Headache, unspecified
[2022-10-07] MEDS: hydrALAZINE HCL 25 MG TAB PO SCH ×2 (13:20→21:04)
--- NOTE | 2022-10-07 13:48 | Hospitalist Progress Note ---
Date of Service October 07, 2022 Assessment & Plan (1) Hypertensive heart disease: Plan Malignant hypertenison/ Hypertensive emergency Hypertensive heart disease / STEMI Patient presents with elevated blood pressure at 235/148, no chest pain at presentation, troponin elevation at 72.8, EKG with LVH but no acute ST elevation. TSH WNL. Patient states he smoked marijuana prior to arrival, he denies use of cocaine. Patient received multiple doses of IV hydralazine and IV labetalol in the ED, also received Nitropaste. Urine toxicology screen done later in the admission process was positive for cocaine and marijuana. Later in the admission patient developed chest discomfort and repeat EKG was with ST elevation in anterior leads. Further beta-blockers were held on the day of admission. Heart alert called, status post cardiac cath 10/06--- mild nonobstructive coronary artery disease. Of note, patient also likely had vasovagal after needlestick for troponin draw at ED. Patient reports missing taking blood pressure medication up to 2 times in the last 1 month prior to arrival. Blood pressure getting better, appears labile, nephrology on board, appreciate recommendation. Blood pressure medication changes per nephro --- Coreg from 25 twice daily to 12.5 twice daily, amlodipine from 10 Mg daily to 5 Mg daily, hydralazine from 50 Mg 3 times daily to 25 mg 3 times daily due to labile nature of his blood pressure/to avoid bottoming out again with his blood pressure. Cardiology on board for chest discomfort/hypertensive heart disease. Troponin elevation post cardiac cath is expected, patient with no chest pain HERBERT over CKD stage IV, likely secondary to hypertensive disease, admitting creatinine of 3.62, baseline creatinine around mid twos. Avoid nephrotoxic. BMP in AM. Nephrology on board, appreciate recommendation. Thrombocytopenia: stable, continue to monitor. OK with heparin and aspirin at this point. Monitor. 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 Pt reports resolution of headache, don't have clear vision/can't see television from distance, no eye pain. Will need opthalmo/optometry follow up upon DC. Heparin subcu Full code Admission and Anticipated Discharge Date Admission Date: October 06, 2022 Subjective Patient seen and examined at bedside as a follow-up of malignant hypertension, troponin elevation with chest pain, HERBERT over CKD stage IV, thrombocytopenia. Patient was lying in bed, on room air, NAD, reports improvement in his headache and chest discomfort, no further chest pain per patient, denies any dizziness/sore throat/cough/belly pain/other review of symptoms. Reports eating okay and moving bowels okay. Physical Exam Physical Exam: GENERAL: Alert and oriented x3. NAD, on RA. HEENT: No pallor, no icterus. Pupils equal, round and reactive to light. Oral mucosa moist. NECK: No JVD, no neck masses. HEART: S1 and S2 heard. Regular rate and rhythm. No murmur, no gallop. RESPIRATORY SYSTEM: Normal AP diameter. No accessory muscle use. No wheezing, no crackles. ABDOMEN: Soft, bowel sounds present, nontender, no distention. CENTRAL NERVOUS SYSTEM: No facial droop. Speech is clear. Obeys simple commands. Moves extremities. EXTREMITIES: No edema, no erythema seen. Results & Data Results & Data ([facility]) Vital Signs (Past 12 Hours) Vital Signs Temp Pulse Pulse Resp BP Pulse Ox O2 Del Method 10/07/22 12:14 36.4 C L 74 18 140/86 97 Room Air 10/07/22 08:22 Room Air 10/07/22 07:30 36.8 C 79 18 194/116 H 94 Room Air 10/07/22 05:00 80 186/97 H 10/07/22 03:23 88 10/07/22 03:00 36.8 C 92 H 18 192/113 H 96 Room Air
[2022-10-07] MEDS: hydrALAZINE HCL 20 MG/ML VIAL IV PRN (19:59)
[2022-10-07] MEDS: carvediloL 12.5 MG TAB PO SCH (20:07)
[2022-10-07] MEDS: TAMSULOSIN HCL 0.4 MG CAP PO SCH (20:07)
[2022-10-07] MEDS: LORazepam 0.5 MG TAB PO PRN (22:08)
--- NOTE | 2022-10-07 23:04 | Electrocardiogram Report ---
Test Reason : Blood Pressure : / mmHG Vent. Rate : 072 BPM Atrial Rate : 072 BPM P-R Int : 152 ms QRS Dur : 112 ms QT Int : 438 ms P-R-T Axes : 062 -43 255 degrees QTc Int : 479 ms Normal sinus rhythm Possible Left atrial enlargement Left axis deviation Incomplete right bundle branch block Left ventricular hypertrophy ST elevation, consider early repolarization, pericarditis, or injury T wave abnormality, consider inferolateral ischemia Prolonged QT Abnormal ECG When compared with ECG of 15-APR-2022 17:36, ST elevation now present in Anterior leads T wave inversion now evident in Lateral leads Confirmed by Wayne Gomez ([id number]) on 10/07/2022 11:04:18 PM Referred By: REFERRED SELF Confirmed By:Wayne Gomez
--- NOTE | 2022-10-08 06:10 | Electrocardiogram Report ---
Test Reason : Blood Pressure : / mmHG Vent. Rate : 064 BPM Atrial Rate : 064 BPM P-R Int : 160 ms QRS Dur : 116 ms QT Int : 518 ms P-R-T Axes : 074 -38 -89 degrees QTc Int : 534 ms Normal sinus rhythm Left axis deviation Left ventricular hypertrophy with QRS widening and repolarization abnormality ST elevation consider anterior injury or acute infarct Prolonged QT Abnormal ECG When compared with ECG of 06-OCT-2022 12:37, ST now depressed in Inferolateral leads QT has lengthened Confirmed by Wayne Gomez ([id number]) on 10/08/2022 6:10:28 AM Referred By: REFERRED SELF Confirmed By:Wayne Gomez
[2022-10-08 06:22] LABS: Hematocrit (blood only) 33.7 % (40.1-51.0); Hemoglobin 11.1 g/dl (14.0-18.0); Mean Corpuscular Hemoglobin 29.8 pg (25.0-34.0); Mean Corpuscular Hgb Conc 32.9 g/dL (32.0-36.0); Mean Corpuscular Volume 90.6 fL (80.0-100.0); Mean Platelet Volume 11.5 fL (9.4-12.4); Platelet Count 85 K/uL (130-400); RDW Coefficient of Variation 16.5 % (11.5-14.5); RDW Standard Deviation 54.2 fL (36.4-46.3); Red Blood Count 3.72 M/uL (4.63-6.08); White Blood Count 7.98 K/ul (4.8-10.8)
[2022-10-08 06:34] LABS: BUN Creatinine Ratio 9.3 (10-20); Calcium 8.3 mg/dl (8.5-10.1); Creatinine Clr Calc Pharmacy 27.6 ml/min; Est GFR (African American) 20.9 ml/min; Magnesium 1.8 mg/dl (1.7-2.4); Phosphorus 2.9 mg/dl (2.5-4.9); Potassium 3.4 mmol/L (3.5-5.1)
[2022-10-08] MEDS: FINASTERIDE 5 MG TAB PO SCH (08:40)
[2022-10-08] MEDS: hydrALAZINE HCL 25 MG TAB PO SCH ×3 (08:40→19:22)
[2022-10-08] MEDS: amLODIPine BESYLATE 5 MG TAB PO SCH (08:40)
[2022-10-08] MEDS: carvediloL 12.5 MG TAB PO SCH ×2 (08:40→19:22)
[2022-10-08] MEDS: buPROPion SR 150 MG TABCR PO SCH (08:40)
[2022-10-08] MEDS: ASPIRIN 81 MG CHEW PO SCH (08:40)
[2022-10-08] MEDS: HEPARIN SOD 5,000 UNIT/0.5 ML VIAL SQ SCH ×2 (08:41→19:23)
[2022-10-08] MEDS ORDERED: POTASSIUM CHLORIDE CRTAB 20 MEQ TABCR PO STA (08:46)
--- NOTE | 2022-10-08 11:40 | Nephrology Progress Note ---
Date of Service October 08, 2022 Assessment & Plan Admission and Anticipated Discharge Date Admission Date: October 06, 2022 Subjective Assessment & Plan 1 Hypertensive urgency: Plan: would call this HTN urgency rather than emergency given no acute findings of emergent end organ damage such as flash pulmonary edema or new/neurologic changes worrisome for stroke. headache /blurry vision over days and HERBERT go more with HTN urgency than emergency, though he is certainly at risk for the latter. tox screen + for cocaine on presentation. Heart alert called day of admission in wake of large swing in BP (240s > 100s in few hours); cardiac cath >> mild nonobstructive CAD 40% diffuse LAD, only 25 mL IV con. BP now is 166/93 which is acceptable. Continue Hydralazine 25 tid and Coreg and Amlo 5. No ZEKE/ARB and Diuretics till we sort out the renal status. Daily labs. Goal is to have BP < 170/100 for the next 24 hrs. (3) CKD (chronic kidney disease) stage 3, GFR 30-59 ml/min: Plan: baseline creatinine in summer 2021 was mid 2's, w/ Cystatin C eGFR 31. Rapidly Declinig Kidney function and seems heading towards Dialysis in the next 6 months. Creat has not changed much last few days. -follow up with Nephrology in CKD clinic and at d/c will need hosp d/c appt with Dr Ovalle (4) HERBERT (acute kidney injury): Plan: HERBERT on CKD versus continued CKD progression. 4 gm proteinuria on specimen extremely high BP at time of collection - recheck when BP control a bit better; may reflect new nephrotic range proteinuria from hypertensive nephropathy vs Underlying FSGS Causing Premature Severe HTN/Worsening CKD and Proteinuria. Subjective No new issues. Feels fine. NORMAN and Blurry Vision is getting Better. BP also trending down. Review of Systems Review of Systems: All systems reviewed & are unremarkable except as noted in Subjective Physical Exam Constitutional: well developed and well nourished Eyes: EOM intact bilaterally ENMT: Ears: no external ear abnormality Nose: no external nose abnormality Mouth: + dry oral mucous membranes Neck: no nuchal rigidity Respiratory: normal respiratory effort Auscultation: + diminished lung sounds Cardiovascular: Rate/Rhythm: regular rate and regular rhythm Extremities: normal capillary refill; no edema Gastrointestinal (Abdomen): Inspection/Auscultation: normal bowel sounds P ercussion/Palpation: abdomen soft; abdomen nontender Musculoskeletal: Extremities: strength 5/5 throughout ?clubbing Skin: no rashes, warm and dry Neurologic: rivera, fluent speech, no tremor; squints to read Psychiatric: Orientation: oriented x 3 Results & Data ([facility]) Vital Signs (Past 12 Hours) Vital Signs Temp Pulse Pulse Resp BP BP Pulse Ox 10/08/22 11:12 36.5 C 73 18 166/93 H 97 10/08/22 11:01 10/08/22 07:24 36.3 C L 76 18 193/108 H 96 10/08/22 03:14 36.8 C 84 18 165/85 H 98 10/08/22 01:10 76 10/08/22 00:30 178/97 H O2 Del Method 10/08/22 11:12 Room Air 10/08/22 11:01 Room Air 10/08/22 07:24 Room Air 10/08/22 03:14 Room Air 10/08/22 01:10 10/08/22 00:30
--- NOTE | 2022-10-08 14:30 | Electrocardiogram Report ---
Test Reason : Blood Pressure : / mmHG Vent. Rate : 071 BPM Atrial Rate : 071 BPM P-R Int : 158 ms QRS Dur : 098 ms QT Int : 434 ms P-R-T Axes : 065 -39 263 degrees QTc Int : 471 ms Normal sinus rhythm Left axis deviation Left ventricular hypertrophy with repolarization abnormality Chronic ST elevation in Septal leads T-wave inversion in multiple leads, metabolic vs.ischemia vs. LVH Abnormal ECG When compared with ECG of 06-OCT-2022 16:12, No significant change Confirmed by Tarun Freedman ([id number] on 10/08/2022 2:30:12 PM Referred By: REFERRED SELF Confirmed By:Tarun Freedman
--- NOTE | 2022-10-08 16:06 | Hospitalist Progress Note ---
Date of Service October 08, 2022 Assessment & Plan (1) Hypertensive heart disease: Plan Malignant hypertenison/ Hypertensive emergency Hypertensive heart disease / STEMI Patient presents with elevated blood pressure at 235/148, no chest pain at presentation, troponin elevation at 72.8, EKG with LVH but no acute ST elevation. TSH WNL. Patient states he smoked marijuana prior to arrival, he denies use of cocaine. Patient received multiple doses of IV hydralazine and IV labetalol in the ED, also received Nitropaste. Urine toxicology screen done later in the admission process was positive for cocaine and marijuana. Later in the admission patient developed chest discomfort and repeat EKG was with ST elevation in anterior leads. Further beta-blockers were held on the day of admission. Heart alert called, status post cardiac cath 10/06--- mild nonobstructive coronary artery disease. Of note, patient also likely had vasovagal after needlestick for troponin draw at ED. Patient reports missing taking blood pressure medication up to 2 times in the last 1 month prior to arrival. Blood pressure getting better, appears labile, nephrology on board, appreciate recommendation. Blood pressure medication changes per nephro --- Coreg from 25 twice daily to 12.5 twice daily, amlodipine from 10 Mg daily to 5 Mg daily, hydralazine from 50 Mg 3 times daily to 25 mg 3 times daily due to labile nature of his blood pressure/to avoid bottoming out again with his blood pressure. Cardiology on board for chest discomfort/hypertensive heart disease. Troponin elevation post cardiac cath is expected, patient with no chest pain HERBERT over CKD stage IV vs Progressive CKD IV, likely secondary to hypertensive disease, admitting creatinine of 3.62, baseline creatinine around mid twos. Avoid nephrotoxic. BMP in AM. Nephrology on board, appreciate recommendation. BMP stable around 3.5, likely new baseline/progressing CKD rather than HERBERT over CKD. Thrombocytopenia: stable, continue to monitor. OK with heparin sc and aspirin at this point. Monitor. 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 Pt reports resolution of headache, don't have clear vision/can't see television from distance, no eye pain. Will need opthalmo/optometry follow up upon DC. Heparin subcu Full code Admission and Anticipated Discharge Date Admission Date: October 06, 2022 Subjective Patient seen and examined at bedside as a follow-up of malignant hypertension, troponin elevation with chest pain, HERBERT over CKD stage IV, thrombocytopenia. Patient was lying in bed, on room air, NAD, reports occasional headache/overall improved and no further chest discomfort, no further chest pain per patient, denies any dizziness/sore throat/cough/belly pain/other review of symptoms. Reports eating okay and moving bowels okay. Physical Exam Physical Exam: GENERAL: Alert and oriented x3. NAD, on RA. HEENT: No pallor, no icterus. Pupils equal, round and reactive to light. Oral mucosa moist. NECK: No JVD, no neck masses. HEART: S1 and S2 heard. Regular rate and rhythm. No murmur, no gallop. RESPIRATORY SYSTEM: Normal AP diameter. No accessory muscle use. No wheezing, no crackles. ABDOMEN: Soft, bowel sounds present, nontender, no distention. CENTRAL NERVOUS SYSTEM: No facial droop. Speech is clear. Obeys simple commands. Moves extremities. EXTREMITIES: No edema, no erythema seen. Results & Data Results & Data ([facility]) Vital Signs (Past 12 Hours) Vital Signs Temp Pulse Resp BP BP Pulse Ox O2 Del Method 10/08/22 15:41 36.8 C 74 18 189/110 H 96 Room Air 10/08/22 11:12 36.5 C 73 18 166/93 H 97 Room Air 10/08/22 11:01 Room Air 10/08/22 07:24 36.3 C L 76 18 193/108 H 96 Room Air
[2022-10-08] MEDS: TAMSULOSIN HCL 0.4 MG CAP PO SCH (19:22)
[2022-10-08] MEDS: LORazepam 0.5 MG TAB PO PRN (23:40)
[2022-10-09] MEDS: hydrALAZINE HCL 20 MG/ML VIAL IV PRN (02:54)
[2022-10-09] MEDS: ACETAMINOPHEN 325 MG TAB PO PRN ×2 (05:06→10:49)
[2022-10-09] MEDS: carvediloL 12.5 MG TAB PO SCH (08:05)
[2022-10-09] MEDS: FINASTERIDE 5 MG TAB PO SCH (08:05)
[2022-10-09] MEDS: buPROPion SR 150 MG TABCR PO SCH (08:05)
[2022-10-09] MEDS: ASPIRIN 81 MG CHEW PO SCH (08:05)
[2022-10-09] MEDS: hydrALAZINE HCL 25 MG TAB PO SCH (08:05)
[2022-10-09] MEDS: amLODIPine BESYLATE 5 MG TAB PO SCH ×2 (08:05→20:14)
[2022-10-09] MEDS: HEPARIN SOD 5,000 UNIT/0.5 ML VIAL SQ SCH ×2 (08:06→20:15)
[2022-10-09 08:54] LABS: BUN Creatinine Ratio 10.1 (10-20); Calcium 8.7 mg/dl (8.5-10.1); Creatinine Clr Calc Pharmacy 27.4 ml/min; Est GFR (African American) 20.7 ml/min; Est GFR (Non-African American) 17.9 ml/min; Potassium 3.6 mmol/L (3.5-5.1)
--- NOTE | 2022-10-09 09:48 | Nephrology Progress Note ---
Date of Service October 09, 2022 Assessment & Plan Admission and Anticipated Discharge Date Admission Date: October 06, 2022 Subjective Assessment & Plan 1 Hypertensive urgency: Plan: would call this HTN urgency rather than emergency given no acute findings of emergent end organ damage such as flash pulmonary edema or new/neurologic changes worrisome for stroke. headache /blurry vision over days and HERBERT go more with HTN urgency than emergency, though he is certainly at risk for the latter. tox screen + for cocaine on presentation. Heart alert called day of admission in wake of large swing in BP (240s > 100s in few hours); cardiac cath >> mild nonobstructive CAD 40% diffuse LAD, only 25 mL IV con. BP was 166/93 yesterday AM but now 200 sys again. No ZEKE/ARB and loop Diuretics till we sort out the renal status. Increase Amlo to 5 bid. Hydralazine to 50 tid. Stop flomax and use Doxazosin instead--this as more BP lowering effect than flom ax while doing same for Bladder function. Low K is persistent so will also add Spironolactone 50. Raise Coreg to 25 bid. Daily labs. Goal is to have BP < 170/100 for the next 24 hrs. (3) CKD (chronic kidney disease) stage 3, GFR 30-59 ml/min: Plan: baseline creatinine in summer 2021 was mid 2's, w/ Cystatin C eGFR 31. Rapidly Declinig Kidney function and seems heading towards Dialysis in the next 6 months. Creat has not changed in last 3 days so quite possible this is new baseline. -follow up with Nephrology in CKD clinic and at d/c will need hosp d/c appt with Dr Ovalle (4) HERBERT (acute kidney injury): Plan: HERBERT on CKD versus continued CKD progression. 4 gm proteinuria on specimen extremely high BP at time of collection - recheck when BP control a bit better; may reflect new nephrotic range proteinuria from hypertensive nephropathy vs Underlying FSGS Causing Premature Severe HTN/Worsening CKD and Proteinuria. Subjective No new issues. Feels fine. NORMAN and Blurry Vision is Better. BP also trending down. Review of Systems Review of Systems: All systems reviewed & are unremarkable except as noted in Subjective Physical Exam Constitutional: well developed and well nourished Eyes: EOM intact bilaterally ENMT: Ears: no external ear abnormality Nose: no external nose abnormality Mouth: + dry oral mucous membranes Neck: no nuchal rigidity Respiratory: normal respiratory effort Auscultation: + diminished lung sounds Cardiovascular: Rate/Rhythm: regular rate and regular rhythm Extremities: normal capillary refill; no edema Gastrointestinal (Abdomen): Inspection/Auscultation: normal bowel sounds Percussion/Palpation: abdomen soft; abdomen nontender Musculoskeletal: Extremities: strength 5/5 throughout ?clubbing Skin: no rashes, warm and dry Neurologic: rivera, fluent speech, no tremor; squints to read Psychiatric: Orientation: oriented x 3 Results & Data ([facility]) Vital Signs (Past 12 Hours) Vital Signs Temp Pulse Pulse Pulse Resp BP BP 10/09/22 08:13 36.5 C 87 16 200/110 H 10/09/22 03:26 81 179/106 H 10/09/22 02:59 36.6 C 83 18 201/112 H 10/08/22 22:00 75 10/09/22 00:00 76 191/115 H 10/08/22 23:28 36.5 C 75 18 196/122 H Pulse Ox O2 Del Method 10/09/22 08:13 97 Room Air 10/09/22 03:26 10/09/22 02:59 96 Room Air 10/08/22 22:00 10/09/22 00:00 10/08/22 23:28 97 Room Air
[2022-10-09] MEDS ORDERED: SPIRONOLACTONE 25 MG TAB PO SCH (10:00)
[2022-10-09] MEDS: SPIRONOLACTONE 25 MG TAB PO SCH (10:49)
[2022-10-09] MEDS: hydrALAZINE TAB 50 MG TAB PO SCH ×2 (13:24→20:15)
--- NOTE | 2022-10-09 14:28 | Hospitalist Progress Note ---
Date of Service October 09, 2022 Assessment & Plan (1) Hypertensive heart disease: Plan Malignant hypertenison/ Hypertensive emergency Hypertensive heart disease / STEMI Patient presents with elevated blood pressure at 235/148, no chest pain at presentation, troponin elevation at 72.8, EKG with LVH but no acute ST elevation. TSH WNL. Patient states he smoked marijuana prior to arrival, he denies use of cocaine. Patient received multiple doses of IV hydralazine and IV labetalol in the ED, also received Nitropaste. Urine toxicology screen done later in the admission process was positive for cocaine and marijuana. Later in the admission day, patient developed chest discomfort and repeat EKG was with ST elevation in anterior leads. Further beta-blockers were held on the day of admission. Heart alert called, status post cardiac cath 10/06--- mild nonobstructive coronary artery disease. Of note, patient also likely had vasovagal after needlestick for troponin draw at ED. Patient reports missing taking blood pressure medication up to 2 times in the last 1 month prior to arrival. Blood pressure mostly high in AM, appears labile, d/w nephro. Blood pressure medication changes per nephro --- Coreg from 25 twice daily as prior, amlodipine from 10 Mg daily to 5 Mg BID, hydralazine from 50 Mg 3 times daily as prior home dose. Doxazosin in PM instead of flomax. Aldactone added 50 mg in AM. Cardiology on evaled for chest discomfort/hypertensive heart disease. Pt w/ no chest pain. Monitor overnight, meds changes today, reassess in AM for DC. HERBERT over CKD stage IV vs Progressive CKD IV, likely secondary to hypertensive disease, admitting creatinine of 3.62, baseline creatinine around mid twos. Avoid nephrotoxic. Nephrology on board, appreciate recommendation. BMP stable around 3.5, likely new baseline/progressing CKD rather than HERBERT over CKD. BMP in AM. Thrombocytopenia: stable, continue to monitor. OK with heparin sc and aspirin at this point. Monitor. Intermittent headache and blurry vision: Patient reports such symptoms 1 weeks [employer] RO[employer], likely secondary to uncontrolled blood pressure, patient already scheduled to see ophthalmology per himself/coming saturday, advised to keep follow-up with eye doctor for possible hypertensive eye disease eval. Headache might be from poor sight/vision he has, he also need pourer buggy ladle eval on DC. No eye pain, No red eye. Will need opthalmo/optometry follow up upon DC. Heparin subcu Full code Admission and Anticipated Discharge Date Admission Date: October 06, 2022 Subjective Patient seen and examined at bedside as a follow-up of malignant hypertension, troponin elevation with chest pain, HERBERT over CKD stage IV, thrombocytopenia. Patient was lying in bed, on room air, NAD, reports occasional headache/overall improved and no further chest discomfort, headache could be from him watching television on background of poor sight (he needs eval for specs), no further chest pain per patient, denies any dizziness/sore throat/cough/belly pain/other review of symptoms. Reports eating okay and moving bowels okay. Physical Exam Physical Exam: GENERAL: Alert and oriented x3. NAD, on RA. HEENT: No pallor, no icterus. Pupils equal, round and reactive to light. Oral mucosa moist. NECK: No JVD, no neck masses. HEART: S1 and S2 heard. Regular rate and rhythm. No murmur, no gallop. RESPIRATORY SYSTEM: Normal AP diameter. No accessory muscle use. No wheezing, no crackles. ABDOMEN: Soft, bowel sounds present, nontender, no distention. CENTRAL NERVOUS SYSTEM: No facial droop. Speech is clear. Obeys simple commands. Moves extremities. EXTREMITIES: No edema, no erythema seen. Results & Data Results & Data ([facility]) Vital Signs (Past 12 Hours) Vital Signs Temp Pulse Pulse Pulse Resp BP BP 10/09/22 09:50 166/87 H 10/09/22 11:44 36.4 C L 71 18 154/87 H 10/09/22 08:00 85 10/09/22 08:13 36.5 C 87 16 200/110 H 10/09/22 03:26 81 179/106 H 10/09/22 02:59 36.6 C 83 18 201/112 H Pulse Ox O2 Del Method 10/09/22 09:50 10/09/22 11:44 97 Room Air 10/09/22 08:00 10/09/22 08:13 97 Room Air 10/09/22 03:26 10/09/22 02:59 96 Room Air
[2022-10-09] MEDS: carvediloL 25 MG TAB PO SCH (20:14)
[2022-10-09] MEDS ORDERED: DOXAZosin MESYLATE TAB 2 MG TAB PO SCH (21:00)
[2022-10-10] MEDS: ACETAMINOPHEN 325 MG TAB PO PRN ×3 (00:39→14:31)
[2022-10-10 07:07] LABS: BUN Creatinine Ratio 11.5 (10-20); Calcium 8.4 mg/dl (8.5-10.1); Creatinine Clr Calc Pharmacy 22.9 ml/min; Est GFR (African American) 18.6 ml/min; Magnesium 1.9 mg/dl (1.7-2.4); Potassium 3.6 mmol/L (3.5-5.1)
[2022-10-10 08:08] LABS: Cocaine, Urine 575 ng/mL (<100); Marijuana Quant, GCMS Urine 37 ng/mL (<5)
[2022-10-10] MEDS: amLODIPine BESYLATE 5 MG TAB PO SCH (10:31)
[2022-10-10] MEDS: HEPARIN SOD 5,000 UNIT/0.5 ML VIAL SQ SCH ×2 (10:32→20:04)
[2022-10-10] MEDS: carvediloL 25 MG TAB PO SCH ×2 (10:32→20:03)
[2022-10-10] MEDS: FINASTERIDE 5 MG TAB PO SCH (10:32)
[2022-10-10] MEDS: buPROPion SR 150 MG TABCR PO SCH (10:32)
[2022-10-10] MEDS: ASPIRIN 81 MG CHEW PO SCH (10:33)
[2022-10-10] MEDS: hydrALAZINE TAB 50 MG TAB PO SCH ×3 (10:33→20:03)
[2022-10-10] MEDS: SPIRONOLACTONE 25 MG TAB PO SCH (11:01)
--- NOTE | 2022-10-10 11:07 | Nephrology Progress Note ---
Date of Service October 10, 2022 Assessment & Plan Admission and Anticipated Discharge Date Admission Date: October 06, 2022 Subjective Assessment & Plan 1 Hypertensive urgency: Plan: would call this HTN urgency rather than emergency given no acute findings of emergent end organ damage such as flash pulmonary edema or new/neurologic changes worrisome for stroke. headache /blurry vision over days and HERBERT go more with HTN urgency than emergency, though he is certainly at risk for the latter. tox screen + for cocaine on presentation. Heart alert called day of admission in wake of large swing in BP (240s > 100s in few hours); cardiac cath >> mild nonobstructive CAD 40% diffuse LAD, only 25 mL IV con. No ZEKE/ARB and loop Diuretics till we sort out the renal status. Change to Nifedipine 90 evening. d/c Amlodipine Increase Hydralazine to 100 tid. Continue Doxazosin -raise to 8 mg hs Added Spironolactone 50 yesterday --K is better but Creat got slightly higher so not sure we can use this Coreg to 25 bid. Daily labs. Goal is to have BP < 170/100 for the next 24 hrs. After this no other choice but to add clonidine po tid. (3) CKD (chronic kidney disease) stage 3, GFR 30-59 ml/min: Plan: baseline creatinine in summer 2021 was mid 2's, w/ Cystatin C eGFR 31. Rapidly Declining Kidney function and seems heading towards Dialysis in the next 6 months. Creat has not changed in last 3 days so quite possible this is new baseline. -follow up with Nephrology in CKD clinic and at d/c will need hosp d/c appt with Dr Ovalle (4) HERBERT (acute kidney injury): Plan: HERBERT on CKD versus continued CKD progression. 4 gm proteinuria on specimen extremely high BP at time of collection - recheck when BP control a bit better; may reflect new nephrotic range proteinuria from hypertensive nephropathy vs Underlying FSGS Causing Premature Severe HTN/Worsening CKD and Proteinuria. Subjective No new issues. NORMAN and Blurry Vision is Better. BP Still quite difficult to control despite multiple meds. Review of Systems Review of Systems: All systems reviewed & are unremarkable except as noted in Subjective Physical Exam Constitutional: well developed and well nourished Eyes: EOM intact bilaterally ENMT: Ears: no external ear abnormality Nose: no external nose abnormality Mouth: + dry oral mucous membranes Neck: no nuchal rigidity Respiratory: normal respiratory effort Auscultation: + diminished lung sounds Cardiovascular: Rate/Rhythm: regular rate and regular rhythm Extremities: normal capillary refill; no edema Gastrointestinal (Abdomen): Inspection/Auscultation: normal bowel sounds Percussion/Palpation: abdomen soft; abdomen nontender Musculoskeletal: Extremities: strength 5/5 throughout ?clubbing Skin: no rashes, warm and dry Neurologic: rivera, fluent speech, no tremor; squints to read Psychiatric: Orientation: oriented x 3 Results & Data ([facility]) Vital Signs (Past 12 Hours) Vital Signs Temp Pulse Pulse Resp BP Pulse Ox O2 Del Method 10/10/22 07:38 36.5 C 71 19 178/92 H 95 Room Air 10/10/22 03:26 36.8 C 82 20 171/93 H 97 Room Air 10/10/22 00:54 77
--- NOTE | 2022-10-10 16:09 | Hospitalist Progress Note ---
Date of Service October 10, 2022 Assessment & Plan (1) Hypertensive heart disease: Plan Malignant hypertenison/ Hypertensive emergency Hypertensive heart disease / STEMI Patient presents with elevated blood pressure at 235/148, no chest pain at presentation, troponin elevation at 72.8, EKG with LVH but no acute ST elevation. TSH WNL. Patient states he smoked marijuana prior to arrival, he denies use of cocaine. Patient received multiple doses of IV hydralazine and IV labetalol in the ED, also received Nitropaste. Urine toxicology screen done later in the admission process was positive for cocaine and marijuana. Later in the admission day, patient developed chest discomfort and repeat EKG was with ST elevation in anterior leads. Further beta-blockers were held on the day of admission. Heart alert called, status post cardiac cath 10/06--- mild nonobstructive coronary artery disease. Of note, patient also likely had vasovagal after needlestick for troponin draw at ED. Patient reports missing taking blood pressure medication up to 2 times in the last 1 month prior to arrival. Blood pressure mostly high in AM, appears labile, d/w nephro. Blood pressure medication changes per nephro --- Coreg from 25 twice daily as prior, amlodipine from 10 Mg daily to 5 Mg BID, hydralazine from 50 Mg 3 times daily to 100 mg TID. Doxazosin in PM instead of flomax. Aldactone 50 mg in AM. Cardiology on evaled for chest discomfort/hypertensive heart disease. Pt w/ no chest pain. d/w nephro, Monitor overnight, reassess in AM for DC. HERBERT over CKD stage IV vs Progressive CKD IV, likely secondary to hypertensive disease, admitting creatinine of 3.62, baseline creatinine around mid twos. Avoid nephrotoxic. Nephrology on board, appreciate recommendation. BMP slightly trending up, d/w nephro, BMP in AM. Thrombocytopenia: stable, continue to monitor. Monitor. 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 Headache might be from poor sight/vision he has, he also need scrap collector eval on DC. No eye pain, No red eye. Will need opthalmo/optometry follow up upon DC. Heparin subcu Full code Admission and Anticipated Discharge Date Admission Date: October 06, 2022 Subjective Patient seen and examined at bedside as a follow-up of malignant hypertension, troponin elevation with chest pain, HERBERT over CKD stage IV, thrombocytopenia. Patient was lying in bed, on room air, NAD, reports occasional headache/overall improved and no further chest discomfort, headache could be from him watching television on background of poor sight (he needs eval for specs), no further chest pain per patient, denies any dizziness/sore throat/cough/belly pain/other review of symptoms. Reports eating okay and moving bowels okay. BP still high and Renal fxn slightly worsened, pt made aware. Physical Exam Physical Exam: GENERAL: Alert and oriented x3. NAD, on RA. HEENT: No pallor, no icterus. Pupils equal, round and reactive to light. Oral mucosa moist. NECK: No JVD, no neck masses. HEART: S1 and S2 heard. Regular rate and rhythm. No murmur, no gallop. RESPIRATORY SYSTEM: Normal AP diameter. No accessory muscle use. No wheezing, no crackles. ABDOMEN: Soft, bowel sounds present, nontender, no distention. CENTRAL NERVOUS SYSTEM: No facial droop. Speech is clear. Obeys simple commands. Moves extremities. EXTREMITIES: No edema, no erythema seen. Results & Data Results & Data ([facility]) Vital Signs (Past 12 Hours) Vital Signs Temp Pulse Resp BP Pulse Ox O2 Del Method 10/10/22 15:06 36.3 C L 76 18 151/86 H 97 Room Air 10/10/22 11:17 36.9 C 75 19 162/86 H 96 Room Air 10/10/22 07:38 36.5 C 71 19 178/92 H 95 Room Air
[2022-10-10] MEDS ORDERED: SUMAtriptan succinate 6 MG/0.5 ML VIAL SQ STA (18:04)
[2022-10-10] MEDS ORDERED: DOXAZosin MESYLATE 4 MG TAB PO SCH (21:00)
[2022-10-10] MEDS ORDERED: NIFEdipine EXTENDED REL 30 MG TABCR PO SCH (21:00)
[2022-10-11] MEDS: ACETAMINOPHEN 325 MG TAB PO PRN ×2 (02:40→08:46)
[2022-10-11 08:41] LABS: BUN Creatinine Ratio 9.8 (10-20); Calcium 8.8 mg/dl (8.5-10.1); Est GFR (African American) 15.7 ml/min; Est GFR (Non-African American) 13.6 ml/min; Potassium 3.9 mmol/L (3.5-5.1)
[2022-10-11] MEDS: hydrALAZINE TAB 50 MG TAB PO SCH ×2 (08:46→13:20)
[2022-10-11] MEDS: buPROPion SR 150 MG TABCR PO SCH (08:48)
[2022-10-11] MEDS: carvediloL 25 MG TAB PO SCH (08:48)
[2022-10-11] MEDS: FINASTERIDE 5 MG TAB PO SCH (08:48)
[2022-10-11] MEDS: SPIRONOLACTONE 25 MG TAB PO SCH (08:49)
[2022-10-11] MEDS: HEPARIN SOD 5,000 UNIT/0.5 ML VIAL SQ SCH (08:50)
[2022-10-11] MEDS: ASPIRIN 81 MG CHEW PO SCH (08:54)
--- NOTE | 2022-10-11 09:22 | Nephrology Progress Note ---
Date of Service October 11, 2022 Assessment & Plan Admission and Anticipated Discharge Date Admission Date: October 06, 2022 Subjective Assessment & Plan 1 Hypertensive urgency: Plan: would call this HTN urgency rather than emergency given no acute findings of emergent end organ damage such as flash pulmonary edema or new/neurologic changes worrisome for stroke. headache /blurry vision over days and HERBERT go more with HTN urgency than emergency, though he is certainly at risk for the latter. tox screen + for cocaine on presentation. Heart alert called day of admission in wake of large swing in BP (240s > 100s in few hours); cardiac cath >> mild nonobstructive CAD 40% diffuse LAD, only 25 mL IV con. No ZEKE/ARB and loop Diuretics till we sort out the renal status. For Discharge: Stable for Discharge from renal standpoint Nifedipine 90 evening. Hydralazine 100 tid. Continue Doxazosin -8 mg hs. So stop flomax Given rising creat after this will stop Spironolactone Coreg 25 bid. Daily labs. f/u next week with nephrology (3) CKD (chronic kidney disease) stage 3, GFR 30-59 ml/min: Plan: baseline creatinine in summer 2021 was mid 2's, w/ Cystatin C eGFR 31. Rapidly Declining Kidney function and seems heading towards Dialysis in the next 6 months. -follow up with Nephrology in CKD clinic with Dr Ovalle or me (4) HERBERT (acute kidney injury): Plan: HERBERT on CKD versus continued CKD progression. 4 gm proteinuria on specimen extremely high BP at time of collection - recheck when BP control a bit better; may reflect new nephrotic range proteinuria from hypertensive nephropathy vs Underlying FSGS Causing Premature Severe HTN/Worsening CKD and Proteinuria. Subjective No new issues.NORMAN and Blurry Vision is Better. BP is now controlled. Review of Systems Review of Systems: All systems reviewed & are unremarkable except as noted in Subjective Physical Exam Constitutional: well developed and well nourished Eyes: EOM intact bilaterally ENMT: Ears: no external ear abnormality Nose: no external nose abnormality Mouth: + dry oral mucous membranes Neck: no nuchal rigidity Respiratory: normal respiratory effort Auscultation: + diminished lung sounds Cardiovascular: Rate/Rhythm: regular rate and regular rhythm Extremities: normal capillary refill; no edema Gastrointestinal (Abdomen): Inspection/Auscultation: normal bowel sounds Percussion/Palpation: abdomen soft; abdomen nontender Musculoskeletal: Extremities: strength 5/5 throughout ?clubbing Skin: no rashes, warm and dry Neurologic: rivera, fluent speech, no tremor; squints to read Psychiatric: Orientation: oriented x 3 Results & Data ([facility]) Vital Signs (Past 12 Hours) Vital Signs Temp Pulse Pulse Pulse Resp BP Pulse Ox 10/11/22 07:48 36.8 C 81 17 127/71 96 10/11/22 03:42 36.6 C 86 16 126/64 94 10/11/22 02:20 80 10/10/22 23:07 37.2 C 86 16 117/54 L 96 O2 Del Method 10/11/22 07:48 Room Air 10/11/22 03:42 Room Air 10/11/22 02:20 10/10/22 23:07 Room Air
--- NOTE | 2022-10-11 13:20 | Discharge Summary ---
Date of Service October 11, 2022 Admission HPI Per Admitting Provider 57-year-old male with PMH of left ventricular hypertrophy, essential hypertension, patent foramen ovale, tobacco abuse presented to the ED 10/06 was sent to the ED from his visit at [facility] today due to very high blood pressure. Per patient, he has been having intermittent headache and blurry vision since 1 weeks [employer], he was not feeling good and was feeling sick at stomach/nausea and hence he visited [facility] today where he was found to have very high blood pressure. Hence patient was sent to the ED for further evaluation. Patient reports he might have missed his blood pressure medication up to 2 times in the last 1 month, patient states that he took his blood pressure medication until yesterday evening and did not take his today morning's medication. Patient denies sore throat/cough/chest pain/palpitations/belly pain/acute changes in his bowel or bladder habit. Patient denies vomiting. Patient reports smoking tobacco for many years, currently smokes 1/4 pack a day. Also smokes marijuana multiple times a week. Denies use of alcohol or other recreational drugs. Medications were reviewed with the patient at bedside. Full code Plan of care discussed with the patient at bedside. Patient works at [employer] at [employer]. Family history positive for colon cancer and prostate cancer in father, dementia in mother, hypertension in brother. Admission Exam Per Admitting Provider GENERAL: Alert and oriented x3. NAD, on RA. HEENT: No pallor, no icterus. Pupils equal, round and reactive to light. Oral mucosa moist. NECK: No JVD, no neck masses. HEART: S1 and S2 heard. Regular rate and rhythm. No murmur, no gallop. RESPIRATORY SYSTEM: Normal AP diameter. No accessory muscle use. No wheezing, no crackles. ABDOMEN: Soft, bowel sounds present, nontender, no distention. CENTRAL NERVOUS SYSTEM: No facial droop. Speech is clear. Obeys simple commands. Moves extremities. EXTREMITIES: No edema, no erythema seen. Principal Diagnosis Hypertensive emergency Hypertensive heart disease Progressive CKD stage IV Intermittent headache and blurry vision Discharge Exam GENERAL: Alert and oriented x3. NAD, on RA. HEENT: No pallor, no icterus. Pupils equal, round and reactive to light. Oral mucosa moist. NECK: No JVD, no neck masses. HEART: S1 and S2 heard. Regular rate and rhythm. No murmur, no gallop. RESPIRATORY SYSTEM: Normal AP diameter. No accessory muscle use. No wheezing, no crackles. ABDOMEN: Soft, bowel sounds present, nontender, no distention. CENTRAL NERVOUS SYSTEM: No facial droop. Speech is clear. Obeys simple commands. Moves extremities. EXTREMITIES: No edema, no erythema seen. Discharge Data Allergies Allergy/AdvReac Type Severity Reaction Status Date / Time Penicillins Allergy Unknown CAN'T Verified 10/06/22 16:25 REMEMBER propoxyphene Allergy Unknown TYLENOL OK Verified 10/06/22 16:25 acetaminophen AdvReac Intermediate UPSETS Verified 10/06/22 16:25 STOMACH naproxen AdvReac Intermediate stomach Verified 10/06/22 16:25 burning, takes ibuprofen w/out prob Consultations 10/06/22 14:11 ED Decision to Admit Stat 10/06/22 14:44 Consult Cardiology Routine Consult Nephrology Routine Procedures Performed Operation Date: 10/06/22 16:30 Actual Procedures p Cath, Left with Cors and Vent - Eloy Sandra MD s Cineradiography w/Routine Exam - Eloy Sandra MD Ordered Studies 10/06/22 12:43 CT head/brain wo con Stat 10/06/22 16:22 CL Cath Imgs for PACS use only Stat Hospital Course (1) Hypertensive heart disease: Plan Malignant hypertenison/ Hypertensive emergency Hypertensive heart disease / STEMI Patient presents with elevated blood pressure at 235/148, no chest pain at presentation, troponin elevation at 72.8, EKG with LVH but no acute ST elevation. TSH WNL. Patient states he smoked marijuana prior to arrival, he denies use of cocaine. Patient received multiple doses of IV hydralazine and IV labetalol in the ED, also received Nitropaste. Urine toxicology screen done later in the admission process was positive for cocaine and marijuana. Later in the admission day, patient developed chest discomfort and repeat EKG was with ST elevation in anterior leads. Further beta-blockers were held on the day of admission. Heart alert called, status post cardiac cath 10/06--- mild nonobstructive coronary artery disease. Of note, patient also likely had vasovagal after needlestick for troponin draw at ED. Patient reports missing taking blood pressure medication up to 2 times in the last 1 month prior to arrival. Blood pressure medication has been optimized, patient with progressive renal disease. Patient to have BMP regularly in coordination with kidney doctors office upon discharge. Patient aware. Patient reports improvement in headache with improvement in his blood pressure. Patient advised to take his medication compliantly along with adhering to heart healthy diet/low-sodium diet/regular exercise activities. Cardiology on evaled for chest discomfort/hypertensive heart disease. Pt w/ no chest pain. HERBERT over CKD stage IV vs Progressive CKD IV, likely secondary to hypertensive disease, admitting creatinine of 3.62, baseline creatinine around mid twos. Avoid nephrotoxic. Nephrology on board, appreciate recommendation. Since progressive chronic kidney disease. Patient to follow-up with nephrology closely upon discharge as outlined above. Thrombocytopenia: stable, continue to monitor. Monitor. Intermittent headache and blurry vision: Patient reports such symptoms 1 weeks [employer], likely secondary to uncontrolled blood pressure, patient already scheduled to see ophthalmology per himself/coming saturday, advised to keep follow-up with eye doctor for possible hypertensive eye disease eval. Headache might be from poor sight/vision he has, he also need cps team lead eval on DC. No eye pain, No red eye. Will need opthalmo/optometry follow up upon DC. Patient is aware. Full code Patient being discharged home with following instruction at the point of discharge home: Follow-up with your primary care physician within a week time. Also communicate with your kidney doctor's office for labs every 2 days upon discharge and follow-up with the kidney doctor within a week time. After which time your kidney doctor will be able to tell you the requirement on your lab test. You have very difficult to control hypertension, your blood pressure medication has been optimized. Please follow heart healthy diet and low-sodium diet [less than 2 g/day]. Also encourage 150 minutes of moderate intensity activity every week spread out over 5 days. You have progressive kidney disease, and you will need close follow-up with nephrology as outlined above. Avoid NSAIDs. For your poor vision/sight, you will have to maintain follow-up with your ophthalmology and also establish care with cps team lead. Take your medications as prescribed. Please make sure that you are able to get your medications today by calling your pharmacy before you leave the hospital so that your treatment continuity is not broken. Home Health Attestation I certify that this patient is under my care and that I, or a physicians assistant general manager working with me, had a face to-face encounter that meets the home health [id number] encounter requirements with this patient. The encounter with the patient was in whole, or in part, for the following medical condition, which is the primary reason for home health care (list medical condition): I certify that, based on my findings, the following services are medically necessary home health services: My clinical findings support the need for the above services because: Further, I certify that my clinical findings support that this patient is homebound (i.e. absences from home require considerable and taxing effort and are for medical reasons or [employer] services or infrequently or of short duration when for other reasons) because: Certification for Home Health Services: Based on the above findings, I certify that this patient is confined to the home and needs intermittent snf care, physical therapy and/or speech therapy or continues to need occupational therapy. The patient is under my care, and I have initiated the establishment of the plan of care. This patient will be followed by a physician who will periodically review the plan of care. Total Time Total Time Spent Total Time Spent (In Minutes): 50 Discharge Plan Discharge Items Patient Disposition: Home - Self-Care Reason For Visit: HIGH BLOOD PRESSURE Discharge Diagnosis: Hypertensive emergency Hypertensive heart disease Progressive CKD stage IV Intermittent headache and blurry vision Condition on Discharge: Fair Activity: Resume your previous activity Non-emergency contact: Primary Care Provider Call non-emergency contact if: you have any medication questions, your symptoms worsen and your temperature is above 101 Follow-up/Referrals: Albert Jhaveri MD [Surgeon] - (Date & Time 10/19/2022 1:00 PM Provider Albert Jhaveri MD Department Nephrology, [facility] ) Irma Gavin MD [Primary Care Provider] - (Date & Time 10/19/2022 11:00 AM Provider Irma Gavin MD Department [facility] ) Diet: Heart Healthy and Low Sodium (2gm) Addtl Attending Provider Instructions: Follow-up with your primary care physician within a week time. Also communicate with your kidney doctor's office for labs every 2 days upon discharge and follow-up with the kidney doctor within a week time. After which time your kidney doctor will be able to tell you the requirement on your lab test. You have very difficult to control hypertension, your blood pressure medication has been optimized. Please follow heart healthy diet and low-sodium diet [less than 2 g/day]. Also encourage 150 minutes of moderate intensity activity every week spread out over 5 days. You have progressive kidney disease, and you will need close follow-up with nephrology as outlined above. Avoid NSAIDs. For your poor vision/sight, you will have to maintain follow-up with your ophthalmology and also establish care with cps team lead. Take your medications as prescribed. Please make sure that you are able to get your medications today by calling your pharmacy before you leave the hospital so that your treatment continuity is not broken. Pending Studies at Discharge: No Stand-Alone Forms: My [facility] [employer], Smoking Cessation Medications and DC Order Prescriptions: New hydralazine 50 mg Tablet 100 mg PO TID Qty: 180 0RF doxazosin 4 mg Tablet 8 mg PO HS Qty: 30 0RF nifedipine [Procardia XL] 30 mg Tablet Extended Release 24hr 90 mg PO HS Qty: 90 0RF Continued aspirin 81 mg Tablet,Chewable 81 mg PO QAM finasteride 5 mg tablet 5 mg PO QAM nitroglycerin [Nitrostat] 0.4 mg Tablet, Sublingual 0.4 mg sublingual Q5M PRN (Reason: chest pain) Qty: 15 0RF Rx Instructions: NEEDED FOR CHEST PAIN : ONE TABLET UNDER THE TONGUE EVERY FIVE MINUTES UP TO 3 DOSES. bupropion HCl (smoking deter) 150 mg tablet extended release 12 hr 150 mg PO QAM carvedilol 25 mg Tablet 25 mg PO BID Qty: 60 0RF Discontinued amlodipine [Norvasc] 5 mg Tablet 10 mg PO QAM Qty: 30 0RF hydralazine 50 mg Tablet 50 mg PO TID Qty: 90 0RF tamsulosin 0.4 mg capsule 0.8 mg PO QAM triamterene-hydrochlorothiazid [Maxzide-25mg] 37.5-25 mg tablet 1 tab PO QAM Discharge Orders: Discharge Order (Routine); Ordered 10/11/22 Ordered By: Cara Loco Admission Data Admit Date/Time: 10/06/22 14:44 Attending Provider: Cara Loco Admit Provider: Cara Loco Primary Care Provider: Irma Gavin Other Providers: Cara Loco ; Shaun Chung ; Angie Ovalle.
== END 2022-10-11 14:20 | disposition home or self-care (01) | DRG 287 ==
LOC: ED 12:00 → 2S 14:44 → 2N 10-09 18:05

== ENCOUNTER 2023-10-08 11:13 | Inpatient (IN) ==
[2023-10-08] MEDS ORDERED: LABETALOL HCL IV 5 MG/ML 20ML IV STA ×2 (11:35→12:38)
--- NOTE | 2023-10-08 11:48 | Emergency Department Note ---
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 Patient significant history of CKD as well as hypertension went for checkup today. States due to the holidays and his girlfriend being in the hospital ran out of his carvedilol last dose yesterday. Did take his other medications including hydralazine today. Blood pressure significantly bit in the 230s there and they completed an EKG and sent him here for further evaluation. He denies chest pain to me. Does report maybe a little bit short of breath but this has been an on-and-off issue for some time. Was hospitalized in September for similar episode but states he is feeling better than then. Denies any headache but reports maybe his vision is a little bit weird. States it is a little bit hazy when his blood pressure is up. Denies any abdominal pain. Denies cough cold or fever symptoms. Denies leg swelling. Denies abdominal symptoms. PAST MEDICAL HISTORY: As noted above MEDICATIONS: Reviewed home medications, states he is out of his carvedilol SOCIAL HISTORY: Smoker PHYSICAL EXAM: GENERAL: alert and oriented in no acute distress on stretcher Head: normocephalic and atraumatic EYES: No injection, discharge or icterus. PERRL, EOMI. NECK: Trachea midline. Supple. ENT: Mucous membranes pink and moist. LUNGS: Airway patent. No retractions. Breath sounds clear with good air entry bilaterally. HEART: Regular rate and rhythm. No chest wall tenderness ABDOMEN: Soft and non-tender, without guarding or rebound. SKIN: Acyanotic, warm, dry, without rashes EXTREMITIES: Without swelling, tenderness or deformity NEUROLOGICAL: No focal deficits. No aphasia. No facial droop or slurred speech. Ambulatory. EK beats per minute normal sinus rhythm. No PVC. Patient QTc 467. Evidence of inferior lateral T wave inversions with LVH changes in the left axis with some very slight V2 V3 elevations seemingly consistent with LVH and repolarization abnormality. CONTINUOUS CARDIAC MONITORING: was ordered and showed a heart rate of 60s bpm in normal sinus rhythm Patient's laboratory studies and imaging reviewed. Differential includes Benign hypertension, hypertensive emergency, cardiovascular pathology, toxicologic, pheochromocytoma, electrolyte abnormality, renal disease, endorgan damage, as well as other pathologies. IMPRESSION/MEDICAL DECISION MAKING: Patient for from [facility] neurology office due to uncontrolled hypertension. EKG here with what appears to be LVH and repolarization changes. Blood pressure significantly elevated in the 240s. Little bit of hazy vision but denies any significant headache. No numbness or weakness and I doubt acute intracranial hemorrhage at this time. Denies any chest pain. Maybe a little bit of on and off shortness of breath ongoing but not new. Doubt acute ACS/CO at this point. Did have cardiac catheterization approximately a year ago and report reviewed from Dr. Sandra with mild nonobstructive CAD at that time. History of CKD issues. Evidently out of scoring may be contributing. Given an IV dose of labetalol given his significant hypertension. Has been using his other medications by report. Will look for other signs of significant acute electrolyte or endorgan damage on blood work. Do not see clinical evidence of heart failure at this time. Question hypertensive urgency versus emergency situation. Blood work here with minimally elevated high-sensitivity troponin of 32 very minimally elevated off of highs of previous admission. Creatinine elevated at 5 higher than previous at discharge here. [facility] records accessed to determine his recent outpatient baseline. Does follow with nephrology. 10 mg of IV labetalol with little improvement and given an additional dose here as not becoming significantly bradycardic. He did again miss his dose of outpatient Coreg. No significant blood count abnormalities with stable anemia. Did have clonidine this morning at 8 AM. Has not yet had his hydralazine today on further discussion with him and given his refractory status with the labetalol given a 10 mg IV dose here. Discussed with the patient given his severe uncontrolled hypertension with worsened renal function I would recommend that we bring him into the hospital for further care. Patient in agreement. Hospitalist team contacted. Some improvement with IV hydralazine. Will give an additional dose of clonidine to work towards further blood pressure improvement as he is still greater than 200 systolic. Additional consideration could be towards proceeding towards nitroglycerin paste in the future but I do not feel he needs an IV drip at this time. DIAGNOSIS: Hypertensive emergency, acute on chronic renal dysfunction, elevated troponin DISPOSITION: Hospitalist will evaluate Patient was agreeable with this plan. Critical Care I have personally spent 31 minutes of critical care time in the direct management of this patient. This includes bedside care, interpretation of diagnostic studies, and testing, discussion with consultants, patient, and other required patient management activities. These 31 minutes is in excess of all separately billable procedures. Past Med/Surg History Medical History LV hypertrophy, hypertensive CKD (chronic kidney disease) stage 3, GFR 30-59 ml/min HERBERT (acute kidney injury) BPH (benign prostatic hyperplasia) HTN (hypertension) Diabetes Surgical History History of rotator cuff surgery Family History Grandmother (Maternal) Dementia Mother Dementia Other Cancer Diabetes Heart disease Hypertension Social History Smoking Status: Current every day smoker Tobacco Type: Cigarettes Second Hand Exposure: No; Do You Dip or Chew Tobacco: No; Hx Alcohol Use: No Hx Substance Use: Yes Last Used Substance: Unknown Preferred Language: Albanian Communication Ability: Effective 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 Beliefs That Will Affect Care: None marital status: Single Current Living Situation: Spouse current occupational status: employed How many Children do You have: 4 Feels Safe at Home: Yes Assistive Devices: None Allergies Allergies Allergy/AdvReac Type Severity Reaction Status Date / Time Penicillins Allergy Unknown CAN'T Verified 10/06/22 16:25 REMEMBER propoxyphene Allergy Unknown TYLENOL OK Verified 10/06/22 16:25 acetaminophen AdvReac Intermediate UPSETS Verified 10/06/22 16:25 STOMACH naproxen AdvReac Intermediate stomach Verified 10/06/22 16:25 burning, takes ibuprofen w/out prob Home Meds Home Medications Medication Instructions Recorded Confirmed aspirin 81 mg chewable tablet 81 mg PO QAM 10/06/18 10/08/23 finasteride 5 mg tablet 5 mg PO QAM 03/08/21 10/08/23 Previous Rx's Medication Instructions Recorded nitroglycerin 0.4 mg sublingual 0.4 mg sublingual Q5M PRN chest 04/18/22 tablet (Nitrostat) pain #15 tabs carvedilol 25 mg tablet 25 mg PO BID #60 tabs 10/11/22 doxazosin 4 mg tablet 8 mg (2 x 4 mg) PO HS #30 tabs 10/11/22 nifedipine 30 mg tablet,extended 90 mg (3 x 30 mg) PO HS #90 tabs 10/11/22 release 24 hr (Procardia XL) Results & Data (ED) Vital Signs Vital Signs - 24 hr 10/08/23 11:22 10/08/23 11:36 10/08/23 11:40 Temperature 37 C Temperature Source Temporal Artery Scan Pulse Rate 68 68 68 Respiratory Rate 20 15 22 Respiratory Effort / Characteristics Non-Labored Spontaneous Respiratory Depth Normal Respiratory Pattern Regular Blood Pressure 218/136 H Blood Pressure Mean 163 Pulse Oximetry 100 Oxygen Delivery Method Room Air Sepsis Recent Fever Within 48 Hours No Sepsis New/Unexplained Change in Mental Status No Sepsis Action Taken by Nursing No Action Required 10/08/23 11:43 10/08/23 11:50 10/08/23 11:50 Temperature Temperature Source Pulse Rate 68 65 64 Respiratory Rate 16 Respiratory Effort / Characteristics Respiratory Depth Respiratory Pattern Blood Pressure 249/162 H Blood Pressure Mean Pulse Oximetry Oxygen Delivery Method Sepsis Recent Fever Within 48 Hours Sepsis New/Unexplained Change in Mental Status Sepsis Action Taken by Nursing 10/08/23 11:52 10/08/23 11:52 10/08/23 12:00 Temperature Temperature Source Pulse Rate 69 66 Respiratory Rate 16 15 Respiratory Effort / Characteristics Respiratory Depth Respiratory Pattern Blood Pressure 208/136 H Blood Pressure Mean 159 Pulse Oximetry Oxygen Delivery Method Sepsis Recent Fever Within 48 Hours Sepsis New/Unexplained Change in Mental Status Sepsis Action Taken by Nursing 10/08/23 12:10 10/08/23 12:20 10/08/23 12:30 Temperature Temperature Source Pulse Rate 67 67 69 Respiratory Rate 19 13 21 Respiratory Effort / Characteristics Respiratory Depth Respiratory Pattern Blood Pressure Blood Pressure Mean Pulse Oximetry Oxygen Delivery Method Sepsis Recent Fever Within 48 Hours Sepsis New/Unexplained Change in Mental Status Sepsis Action Taken by Nursing 10/08/23 12:37 10/08/23 12:37 10/08/23 12:40 Temperature Temperature Source Pulse Rate 66 65 Respiratory Rate 15 18 Respiratory Effort / Characteristics Respiratory Depth Respiratory Pattern Blood Pressure 221/153 H Blood Pressure Mean 178 Pulse Oximetry Oxygen Delivery Method Sepsis Recent Fever Within 48 Hours Sepsis New/Unexplained Change in Mental Status Sepsis Action Taken by Nursing 10/08/23 12:46 10/08/23 12:46 10/08/23 12:47 Temperature Temperature Source Pulse Rate 64 67 Respiratory Rate 14 Respiratory Effort / Characteristics Respiratory Depth Respiratory Pattern Blood Pressure 236/158 H 236/158 H Blood Pressure Mean 197 Pulse Oximetry Oxygen Delivery Method Sepsis Recent Fever Within 48 Hours Sepsis New/Unexplained Change in Mental Status Sepsis Action Taken by Nursing 10/08/23 12:50 10/08/23 12:55 10/08/23 12:55 Temperature Temperature Source Pulse Rate 68 65 Respiratory Rate 14 13 Respiratory Effort / Characteristics Respiratory Depth Respiratory Pattern Blood Pressure 221/152 H Blood Pressure Mean 181 Pulse Oximetry Oxygen Delivery Method Sepsis Recent Fever Within 48 Hours Sepsis New/Unexplained Change in Mental Status Sepsis Action Taken by Nursing 10/08/23 13:00 10/08/23 13:00 10/08/23 13:10 Temperature Temperature Source Pulse Rate 66 66 Respiratory Rate 12 17 Respiratory Effort / Characteristics Respiratory Depth Respiratory Pattern Blood Pressure 222/145 H Blood Pressure Mean 157 Pulse Oximetry Oxygen Delivery Method Sepsis Recent Fever Within 48 Hours Sepsis New/Unexplained Change in Mental Status Sepsis Action Taken by Nursing Laboratory Data 10/08/23 11:32 10/08/23 11:32 Lab Results 10/08/23 Range/Units 11:32 WBC 6.60 (4.8-10.8) K/ul RBC 4.53 L (4.70-6.10) M/uL Hgb 11.4 L (14.0-18.0) g/dl Hct 36.5 L (42.0-52.0) % MCV 80.6 (80.0-100.0) fL MCH 25.2 (25.0-34.0) pg MCHC 31.2 L (32.0-36.0) g/dL RDW Std Deviation 60.2 H (36.4-46.3) fL RDW Coeff of Rufino 20.6 H (11.5-14.5) % Plt Count 173 (130-400) K/uL MPV 11.1 (9.4-12.4) fL Immature Gran % (Auto) 0.5 % Neut % (Auto) 54.5 % Lymph % (Auto) 13.0 % [place] % (Auto) 9.4 % Eos % (Auto) 22.0 % Baso % (Auto) 0.6 % Neut # (Auto) 3.60 (1.40-6.50) K/uL Lymph # (Auto) 0.86 L (1.20-3.40) K/uL [place] # (Auto) 0.62 H (0.11-0.59) K/uL Eos # (Auto) 1.45 H (0.00-0.50) K/uL Baso # (Auto) 0.04 (0.00-0.20) K/uL Immature Gran # (Auto) 0.03 (0.01-0.20) K/uL Polychromasia 1+ Anisocytosis Present Tear Drop Cells 1+ Ovalocytes 1+ Sodium 138 (136-145) mmol/L Potassium 4.8 (3.5-5.1) mmol/L Chloride 107 (98-107) mmol/L Carbon Dioxide 22 (21-32) mmol/L Anion Gap 9 (3-11) BUN 56 H (6-23) mg/dl Creatinine 5.07 H* (0.6-1.4) mg/dl Est Cr Clr Drug Dosing 17.9 ml/min Est GFR ( Amer) 13.4 ml/min Est GFR (Non-Af Amer) 11.6 ml/min BUN/Creatinine Ratio 11.0 (10-20) Glucose 101 H (70-99(Fasting)) mg/dl Calcium 8.6 (8.6-10.3) mg/dl Total Bilirubin 0.3 (0.2-1.0) mg/dl AST 16 (13-39) U/L ALT 17 (7-52) U/L Alkaline Phosphatase 98 (34-104) U/L Troponin I High Sens 32.7 H (0-20) pg/ml Total Protein 7.9 (6.0-8.3) gm/dl Albumin 4.2 (3.4-5.0) gm/dl Globulin 3.7 (2.5-4.0) gm/dl Albumin/Globulin Ratio 1.1 (0.9-2) TSH 2.330 (0.300-4.500) uIu/ml Administered Medications Discontinued Medications Clonidine HCl (Clonidine Hcl 0.1 Mg Tab) 0.2 mg PO NOW ONE Stop: 10/08/23 13:25 Last Admin: 10/08/23 13:31 Dose: 0.2 mg Documented By: KMS Hydralazine HCl (Hydralazine Hcl 20 Mg/Ml Vial) 10 mg IV NOW STA Stop: 10/08/23 13:01 Last Admin: 10/08/23 13:11 Dose: 10 mg Documented By: HS Labetalol HCl (Labetalol Hcl Iv 5 Mg/Ml 20ml) 10 mg IV NOW STA Stop: 10/08/23 11:36 Last Admin: 10/08/23 11:50 Dose: 10 mg Documented By: HS Co-signed By: DEEPAK Labetalol HCl (Labetalol Hcl Iv 5 Mg/Ml 20ml) 10 mg IV NOW STA Stop: 10/08/23 12:39 Last Admin: 10/08/23 12:47 Dose: 10 mg Documented By: HS Co-signed By: PHILLIP Imaging Data Radiologist's Impression: Chest X-Ray 10/08/23 11:36 SINGLE VIEW CHEST CLINICAL HISTORY: Hypertension FINDINGS: An AP, portable, upright chest radiograph is compared to study dated 10/06/2022. The heart is enlarged. The pulmonary vasculature is noncongested. The lungs and pleural spaces are clear. No pneumothorax is seen. The bony thorax is grossly intact. IMPRESSION: Cardiomegaly with no active disease in the chest. ACT 112: Negative or not required by law. Electronically signed by: Pete Ocampo M.D. 10/08/2023 11:55 AM Discharge Plan Visit Data Chief Complaint: Hypertension Stated Complaint: REF BY DOCTOR, HIGH BP, ABNORAL EKG ED Provider: Tao Lazaro Discharge Problem: Hypertensive emergency, Elevated troponin, LV hypertrophy, hypertensive, HERBERT (acute kidney injury) Patient Disposition: Being Evaluated by Hospitalist Forms Stand Alone Forms: My [facility] Prescriptions Prescriptions: No Action aspirin 81 mg Tablet,Chewable 81 mg PO QAM finasteride 5 mg tablet 5 mg PO QAM nitroglycerin [Nitrostat] 0.4 mg Tablet, Sublingual 0.4 mg sublingual Q5M PRN (Reason: chest pain) Qty: 15 0RF Rx Instructions: NEEDED FOR CHEST PAIN : ONE TABLET UNDER THE TONGUE EVERY FIVE MINUTES UP TO 3 DOSES. doxazosin 4 mg Tablet 8 mg PO HS Qty: 30 0RF nifedipine [Procardia XL] 30 mg Tablet Extended Release 24hr 90 mg PO HS Qty: 90 0RF carvedilol 25 mg Tablet 25 mg PO BID Qty: 60 0RF Referrals Referrals: Leslye,Irma L., MD [Primary Care Provider] - Discharge Problem: LV hypertrophy, hypertensive Qualifiers: Heart failure presence: without heart failure Qualified Code(s): I11.9 - Hypertensive heart disease without heart failure
--- NOTE | 2023-10-08 11:56 | XRay Report ---
SINGLE VIEW CHEST CLINICAL HISTORY: Hypertension FINDINGS: An AP, portable, upright chest radiograph is compared to study dated 10/06/2022. The heart is enlarged. The pulmonary vasculature is noncongested. The lungs and pleural spaces are clear. No pneu mothorax is seen. The bony thorax is grossly intact. IMPRESSION: Cardiomegaly with no active disease in the chest. ACT 112: Negative or not required by law. Electronically signed by: Pete Ocampo M.D. 10/08/2023 11:55 AM
[2023-10-08 12:31] LABS: Albumin Globulin Ratio 1.1 (0.9-2); Albumin Level 4.2 gm/dl (3.4-5.0); Bilirubin,Total 0.3 mg/dl (0.2-1.0); Calcium 8.6 mg/dl (8.6-10.3); Creatinine Clr Calc Pharmacy 17.9 ml/min; Est GFR (African American) 13.4 ml/min; Est GFR (Non-African American) 11.6 ml/min; Globulin 3.7 gm/dl (2.5-4.0); Potassium 4.8 mmol/L (3.5-5.1); Total Protein 7.9 gm/dl (6.0-8.3)
[2023-10-08 12:39] LABS: Troponin I High Sensitivity 32.7 pg/ml (0-20)
[2023-10-08 12:46] LABS: Hematocrit (blood only) 36.5 % (42.0-52.0); Hemoglobin 11.4 g/dl (14.0-18.0); Mean Corpuscular Hemoglobin 25.2 pg (25.0-34.0); Mean Corpuscular Hgb Conc 31.2 g/dL (32.0-36.0); Mean Corpuscular Volume 80.6 fL (80.0-100.0); Mean Platelet Volume 11.1 fL (9.4-12.4); Platelet Count 173 K/uL (130-400); RDW Coefficient of Variation 20.6 % (11.5-14.5); RDW Standard Deviation 60.2 fL (36.4-46.3); Red Blood Count 4.53 M/uL (4.70-6.10)
[2023-10-08 12:47] LABS: Anisocytosis Present; Basophils # (auto) 0.04 K/uL (0.00-0.20); Basophils % (auto) 0.6 %; Eosinophils # (auto) 1.45 K/uL (0.00-0.50); Immature Granulocytes # (auto) 0.03 K/uL (0.01-0.20); Immature Granulocytes % (auto) 0.5 %; Lymphocytes # (auto) 0.86 K/uL (1.20-3.40); Monocytes # (auto) 0.62 K/uL (0.11-0.59); Monocytes % (auto) 9.4 %; Neutrophils % (auto) 54.5 %; Ovalocytes 1+; Polychromasia 1+; Tear Drop Cells 1+
[2023-10-08 12:56] LABS: Thyroid Stimulating Hormone 2.33 uIu/ml (0.300-4.500)
[2023-10-08] MEDS ORDERED: hydrALAZINE HCL 20 MG/ML VIAL IV STA (13:00)
[2023-10-08] MEDS ORDERED: cloNIDine HCL 0.1 MG TAB PO ONE (13:24)
[2023-10-08] MEDS ORDERED: NIFEdipine EXTENDED REL 30 MG TABCR PO STA (13:35)
--- NOTE | 2023-10-08 13:42 | History & Physical Report ---
Date of Service October 08, 2023 Assessment & Plan (1) Hypertensive emergency: Plan: This is a 58yo M with a PMH of HTN, tobacco use, BPH, DM II and other medical problems listed below who was sent in by IVELISSE Goodwin from [facility] cardiology for elevated BP in clinic. Ran out of home meds - missed PM dose of Carvedilol, nifedipine last night. Missed last evening's dose of Carvedilol 25mg, nifedipine 90mg H/o similar admission last Sep with HTNive urgency in setting of medication non- compliance, underwent cardiac cath that admission showing mild CAD Initial BP today 249/162. Improved to 228/152 following Labetalol 10 IV x 2 in ED, Hydralazine 10 IV x 1, clonidine 0.2mg PO x 1, Nifedipine 90mg PO Admitted to PCU, per ED nurse SBP now back to 250s. Starting nicardipine drip, given missed Carvedilol 25mg PO dose EKG with inferior T wave inversions, LVH, possible repolarization abn ? No chest pain, HS trop minimally elevated at 32.7 Consulted cardiology for further evaluation, keeping NPO for now in case catheterization is warranted Keep on telemetry, trend trops UDS pending Resumed home BP meds (2) Acute kidney injury superimposed on chronic kidney disease: Plan: Cr 5.07 (baseline CR mid 2s- mid3s) in setting of hypertensive crisis Consulted Dr. Jhaveri, who patient follows with in nephrology clinic, for further recommendations (3) BPH with obstruction/lower urinary tract symptoms: Plan: Cont. finasteride, terazosin, bladder scan PRN (4) Tobacco use: Plan: Smoking cessation DVT Ppx: SQ heparin Code status: FULL PCP: Leslye Dispo: admitted to pcu Patient seen in collaboration with Dr. Ortiz. Please see addendum. History of Present Illness Chief Complaint: sent from [facility] clinic with elevated BP Primary Care Provider: Irma Gavin MD This is a 58yo M with a PMH of HTN, tobacco use, BPH, DM II and other medical problems listed below who was sent in by IVELISSE Goodwin from [facility] cardiology for elevated BP in clinic. Ran out of home meds - missed PM dose of Carvedilol, nifedipine last night. Took last dose of doxazosin last night and is now out. Significant other is currently hospitalized and patient is under increased stress. Decreased tobacco use from 1 ppd to 4 cigarettes today. Smokes marijuana occasionally and denies etoh use. Having some visual changes with "fuzzy edges" but still can read the board across the room without issue. No chest pain, SOB. No F/C, headache, lightheadedness, N/V, abdominal pain, dysuria, diarrhea or constipation. Was admitted with HTNive urgency last September in setting of medication non-compliance and + cocaine on UDS. Underwent cardiac cath due to abnormal EKG findings which revealed mild CAD, no intervention required. Allergies Allergy/AdvReac Type Severity Reaction Status Date / Time Penicillins Allergy Unknown CAN'T Verified 10/06/22 16:25 REMEMBER propoxyphene Allergy Unknown TYLENOL OK Verified 10/06/22 16:25 acetaminophen AdvReac Intermediate UPSETS Verified 10/06/22 16:25 STOMACH naproxen AdvReac Intermediate stomach Verified 10/06/22 16:25 burning, takes ibuprofen w/out prob Home Medications Medication Instructions Recorded Confirmed Type aspirin 81 mg chewable tablet 81 mg PO QAM 10/06/18 10/08/23 History finasteride 5 mg tablet 5 mg PO QAM 03/08/21 10/08/23 History nitroglycerin 0.4 mg sublingual 0.4 mg sublingual Q5M PRN chest 04/18/22 10/08/23 Rx tablet (Nitrostat) pain #15 tabs carvedilol 25 mg tablet 25 mg PO BID #60 tabs 10/11/22 10/08/23 Rx doxazosin 4 mg tablet 8 mg (2 x 4 mg) PO HS #30 tabs 10/11/22 10/08/23 Rx nifedipine 30 mg tablet,extended 90 mg (3 x 30 mg) PO HS #90 tabs 10/11/22 10/08/23 Rx release 24 hr (Procardia XL) Past Med/Surg History Medical History Tobacco use LV hypertrophy, hypertensive CKD (chronic kidney disease) stage 3, GFR 30-59 ml/min HERBERT (acute kidney injury) BPH (benign prostatic hyperplasia) HTN (hypertension) Diabetes Surgical History History of rotator cuff surgery Family History Grandmother (Maternal) Dementia Mother Dementia Other Cancer Diabetes Heart disease Hypertension Social History Smoking Status: Current every day smoker Tobacco Type: Cigarettes Second Hand Exposure: No; Do You Dip or Chew Tobacco: No; Hx Alcohol Use: No Hx Substance Use: Yes Last Used Substance: Unknown Preferred Language: Arabic Communication Ability: Effective 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 Physical Exam Physical Exam: Please see Dr. Ortiz' addendum for physical exam. Results & Data Results & Data Vital Signs (Past 12 Hours) Vital Signs Temp Pulse Resp BP Pulse Ox O2 Del Method 10/08/23 13:10 66 17 10/08/23 13:00 222/145 H 10/08/23 13:00 66 12 10/08/23 12:55 221/152 H 10/08/23 12:55 65 13 10/08/23 12:50 68 14 10/08/23 12:47 67 236/158 H 10/08/23 12:46 64 14 10/08/23 12:46 236/158 H 10/08/23 12:40 65 18 10/08/23 12:37 221/153 H 10/08/23 12:37 66 15 10/08/23 12:30 69 21 10/08/23 12:20 67 13 10/08/23 12:10 67 19 10/08/23 12:00 66 15 10/08/23 11:52 208/136 H 10/08/23 11:52 69 16 10/08/23 11:50 64 16 10/08/23 11:50 65 249/162 H 10/08/23 11:43 68 10/08/23 11:40 68 22 10/08/23 11:36 68 15 10/08/23 11:22 37 C 68 20 218/136 H 100 Room Air Laboratory Results Short CBC 10/08/23 Range/Units 11:32 WBC 6.60 (4.8-10.8) K/ul Hgb 11.4 L (14.0-18.0) g/dl Hct 36.5 L (42.0-52.0) % Plt Count 173 (130-400) K/uL BMP 10/08/23 11:32 Sodium 138 Potassium 4.8 Chloride 107 Carbon Dioxide 22 BUN 56 H Creatinine 5.07 H* Glucose 101 H Calcium 8.6 Liver Function 10/08/23 Range/Units 11:32 Total Bilirubin 0.3 (0.2-1.0) mg/dl AST 16 (13-39) U/L ALT 17 (7-52) U/L Alkaline Phosphatase 98 (34-104) U/L Albumin 4.2 (3.4-5.0) gm/dl Diagnostic Findings Chest X-Ray 10/08/23 11:36 SINGLE VIEW CHEST CLINICAL HISTORY: Hypertension FINDINGS: An AP, portable, upright chest radiograph is compared to study dated 10/06/2022. The heart is enlarged. The pulmonary vasculature is noncongested. The lungs and pleural spaces are clear. No pneumothorax is seen. The bony thorax is grossly intact. IMPRESSION: Cardiomegaly with no active disease in the chest. ACT 112: Negative or not required by law. Electronically signed by: Pete Ocampo M.D. 10/08/2023 11:55 AM Supervising Physician Co-Signing Physician Notes I have seen and discussed the case with the collaborating IVELISSE. I agree with the above H&P. I have reviewed and confirmed the patients medical history, the findings on physical examination, and the patients diagnosis and treatment plan with Sebastian OVIEDO and agree with the information documented. In short, Mr. Harry is a 58 year old gentleman with past medical history of CKDIIIb and hypertension with history of medication noncompliance, tobacco use, who is being admitted for hypertensive emergency. Patient notes nearly 2 days of missed medications, stating he "didn't think it would be that high." Patient reports vision dimming, but denies any headache, vision loss, chest pain, palpitations or other acute concerns. Patient was administered multiple IV pushes as well as home meds with no improvement. Patient to be admitted to PCU/tele with nicardipine drip. Physical Exam general:AOx4, pleasant CV gallop+ no murmur RRR Resp CTAB GI NTND MSK 5/5 strength, moving equally Neuro No focal deficits, CN II-XII intact Plan #Hypertensive Emergency -no successful reduction with home medications and IV push -Target organ damage, HERBERT and EKG changes -Nicardipine drip, goal range over next 2 hours 185-200 given presenting pressure 250s -Goal 160s in next 6 hours, with gradual titration to normal with resumption of PO regimen -Cardiology and Nephrology consult #HERBERT on CKDIIIB -likely iso poor perfusion from hypertension, reports stable UOP -Resume home po regimen -Nephrology consult -Avoid nephrotoxins, thren Cr. 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
[2023-10-08] MEDS ORDERED: SODIUM CHLORIDE 0.9% 500 ML IV ONE (14:03)
[2023-10-08] MEDS ORDERED: carvediloL 25 MG TAB PO ONE (15:13)
--- NOTE | 2023-10-08 15:57 | Cardiology Consultation ---
Date of Consultation October 08, 2023 Assessment & Plan (1) Hypertensive emergency: (2) HERBERT (acute kidney injury): (3) Hypertensive heart disease: (4) Abnormal ECG: Plan Patient admitted for hypertensive emergency with BP readings > 250/110 and HERBERT. He has known chronically abnormal EKG with T wave inversions in inferior and lateral leads with mild ST elevation in V1 and V2, this is similar to past tracings and likely repolarization abnormality consistent with severe LVH. He had similar presentation last Sep 2022 with abnormal EKG, HTN, HERBERT and elevated troponin and sent for cath which revealed mild mod non obstructive CAD. Troponin at that time was 1989. HS troponin on admission currently only minimally elevated at 32.7. Repeat pending. He has been non compliant with antihypertensive therapy at home. Update echo. Last echo in 2021 with severe LVH, preserved EF. No indication for repeat cardiac cath at this time. Ongoing medical management recommended He is currently CP free. Continue ASA, carvedilol. Continue atorvastatin 40 mg daily Creatinine at 5.0. Nephrology consulted with assistance for HERBERT and HTN management. (his other home antihypertensive therapies include - carvedilol 25 mg BID, clonidine 0.1 mg as needed, clonidine 0.2 mg TID, doxazosin 4 mg (reported as not taking), hydralazine 100 mg TID, nifedipine 90 mg (reported as not taking, torsemide 10 mg (reported as not taking), valsartan 160 mg Patient treated with IV labetalol in ER. To be started on nicardipine gtt Await response. Case discussed with Dr. Wiggins I spent a total of 70 minutes on the date of service in preparation, delivery, and documentation of the care provided to this patient, excluding any time spent in the performance of separately billed services. Dolores Goodwin PA-C Department of Cardiology, [facility] This chart was completed in part utilizing Speech Voice Recognition Software. Grammatical errors, random word insertions, pronoun errors, and incomplete sentences are an occasional consequence of this system due to software limitations, ambient noise, and hardware issues. Any formal questions or concerns about the content, text, or information contained within the body of this dictation should be directly addressed to the provider for clarification. Supervising Physician Co-Signing Physician Notes Attending attestation: I have reviewed the advanced practitioner's documentation and agree with the plan of care. I accept the responsibility for the associated risk of managing the patient. Subjective: Patient feeling well at the time assessment at the bedside in room 209. Blood pressure at the time my assessment was down to 189/132, still high, but certainly much improved. IV nicardipine had yet to be started. Exam: Cardiovascular: Regular rhythm, no murmurs, no edema Data: Hemoglobin 11.4 g/dL Creatinine 5.07, increased compared to previous baseline of 2.54 mg/dL EKG tracing today with findings consistent with left ventricular hypertrophy and strain pattern. Relatively stable compared to previous tracings performed during hospital stay in September, and December, Impression/ Plan: Hypertensive emergency Acute kidney injury on chronic renal insufficiency * Urine toxicology panel ordered by the emergency room team * Agree with IV nicardipine 5 mg/h, resuming home medications of carvedilol, doxazosin, nifedipine. * Advance diet * At present, do not anticipate need for further ischemic workup, with cardiac catheterization having been performed a year ago for similar presentation and similar EKG changes. * Repeat echocardiogram requested and will be reviewed I spent a total of 20 minutes coordinating, documenting, and providing care for this patient excluding time spent in the performance of separately billed services or time spent by another provider. Les Wiggins DO History of Present Illness Reason for Consultation: Hypertensive emergency Requesting Physician: Ms. Dee Cortes PA-C Attending Physician: Dr. Wiggins History of Present Illness Patient is a 58 year old male who was sent to [facility] from cardiology office with hypertensive emergency. History includes: 1. Hypertensive heart disease with severe LVH a. H/o hypertensive urgency 04/15/2022- no evidence of secondary hypertension workup by Nephrology b. H/o hypertensive emergency, HERBERT and anterior STEMI (due to coronary spasm) in the setting of noncompliance with medications and cocaine use. Cardiac catheterization at that time showed nonobstructive CAD, 09/2022 2. CKD- follows with nephrology 3. BPH 4. Tobacco use, smokes 7-8 cigarettes per day 5. Chronic RAWLS a. Negative nuclear stress, 05/2022 b. Anterior STEMI due to coronary spasm in the setting of cocaine use. Nonobstructive CAD per cardiac catheterization 09/2022 at [facility]. 6. Marijuana use and history of cocaine use 7. PFO- on ASA 8. JONATHON 9. History of medication noncompliance Patient presented to cardiology office today and BP was > 250/110. EKG is chron ically abnormal with NSR, LVH, T wave abnormalities, diffuse. He noted worsening SOB with activities over the last few days. No chest pain. He admits to non compliance with meds. He was to have f/u labs given creatinine around 4.0 last month, but did not have these done. Upon arrival to ER, BP remained significantly elevated. Creatinine at 5.0. EKG demonstrated NSR with similar T wave inversions in inferior and lateral leads with mild repolarization abnormality in V1-V2. similar to past EKG's. HS troponin only minimally elevated at 32.7. Patient had similar presentation in Sep 2022 with CP, abnormal EKG, hypertensive emergency. Sent for cardiac cath with only mild non obstructive disease. Troponin at that time peaked at 1,929. He tested positive for cocaine at that time and it was thought he may have had coronary vasospasm from cocaine use. He has had worsening CKD over the last year. He has been somewhat non compliant with follow up and labs. Non compliant with meds at home. At time of consult, patient denies recent chest pain. He notes mild SOB since this morning. No dizziness. No headaches. Notes a "fogginess" in his eyes but no specific blurred vision. No orthopnea, PND or edema. Allergies Allergy/AdvReac Type Severity Reaction Status Date / Time Penicillins Allergy Unknown CAN'T Verified 10/06/22 16:25 REMEMBER propoxyphene Allergy Unknown TYLENOL OK Verified 10/06/22 16:25 acetaminophen AdvReac Intermediate UPSETS Verified 10/06/22 16:25 STOMACH naproxen AdvReac Intermediate stomach Verified 10/06/22 16:25 burning, takes ibuprofen w/out prob Home Medications Medication Instructions Recorded Confirmed Type aspirin 81 mg chewable tablet 81 mg PO QAM 10/06/18 10/08/23 History finasteride 5 mg tablet 5 mg PO QAM 03/08/21 10/08/23 History nitroglycerin 0.4 mg sublingual 0.4 mg sublingual Q5M PRN chest 04/18/22 10/08/23 Rx tablet (Nitrostat) pain #15 tabs carvedilol 25 mg tablet 25 mg PO BID #60 tabs 10/11/22 10/08/23 Rx doxazosin 4 mg tablet 8 mg (2 x 4 mg) PO HS #30 tabs 10/11/22 10/08/23 Rx nifedipine 30 mg tablet,extended 90 mg (3 x 30 mg) PO HS #90 tabs 10/11/22 10/08/23 Rx release 24 hr (Procardia XL) Patient History Medical History Tobacco use LV hypertrophy, hypertensive CKD (chronic kidney disease) stage 3, GFR 30-59 ml/min HERBERT (acute kidney injury) BPH (benign prostatic hyperplasia) HTN (hypertension) Diabetes Surgical History History of rotator cuff surgery Family History Grandmother (Maternal) Dementia Mother Dementia Other Cancer Diabetes Heart disease Hypertension Social History Smoking Status: Current every day smoker Tobacco Type: Cigarettes Second Hand Exposure: No; Do You Dip or Chew Tobacco: No; Hx Alcohol Use: No Hx Substance Use: Yes Last Used Substance: Unknown Preferred Language: Haitian Communication Ability: Effective Property Developer Required: No Beliefs That Will Affect Care: None marital status: Single Current Living Situation: Spouse current occupational status: employed How many Children do You have: 4 Feels Safe at Home: Yes Assistive Devices: None Review of Systems Review of Systems: All systems reviewed & are unremarkable except as noted in HPI & below Physical Exam Constitutional: WD/WN, vitals as above no acute distress Respiratory: normal respiratory effort, lungs clear to auscultation Cardiovascular: Rate/Rhythm: regular rate and regular rhythm Heart Sounds: normal S1, normal S2 and + murmur (II/ systolic murmur) Vessels: no JVD Extremities: no edema Gastrointestinal (Abdomen): normal bowel sounds, soft, nontender, no hepatosplenomegaly Neurologic: PERRL, EOMI, accommodation nl, no face palsy, no dysarthria Results & Data Vital Signs (Past 12 Hours) Vital Signs Temp Pulse Resp BP Pulse Ox O2 Del Method 10/08/23 14:30 228/152 H 10/08/23 14:30 68 22 97 10/08/23 14:15 66 16 10/08/23 14:15 236/136 H 10/08/23 14:09 64 12 10/08/23 14:09 240/134 H 10/08/23 14:00 68 22 10/08/23 13:43 67 23 10/08/23 13:43 218/151 H 10/08/23 13:41 67 17 10/08/23 13:41 226/154 H 10/08/23 13:30 210/154 H 10/08/23 13:30 71 20 10/08/23 13:22 67 16 10/08/23 13:22 207/131 H 10/08/23 13:15 227/145 H 10/08/23 13:15 68 16 10/08/23 13:10 66 17 10/08/23 13:00 222/145 H 10/08/23 13:00 66 12 10/08/23 12:55 221/152 H 10/08/23 12:55 65 13 10/08/23 12:50 68 14 10/08/23 12:47 67 236/158 H 10/08/23 12:46 64 14 10/08/23 12:46 236/158 H 10/08/23 12:40 65 18 10/08/23 12:37 221/153 H 10/08/23 12:37 66 15 10/08/23 12:30 69 21 10/08/23 12:20 67 13 10/08/23 12:10 67 19 10/08/23 12:00 66 15 10/08/23 11:52 208/136 H 10/08/23 11:52 69 16 10/08/23 11:50 64 16 10/08/23 11:50 65 249/162 H 10/08/23 11:43 68 10/08/23 11:40 68 22 10/08/23 11:36 68 15 10/08/23 11:22 37 C 68 20 218/136 H 100 Room Air Laboratory Results Cardiac Enzymes 10/08/23 Range/Units 11:32 AST 16 (13-39) U/L Troponin I High Sens 32.7 H (0-20) pg/ml CBC 10/08/23 Range/Units 11:32 WBC 6.60 (4.8-10.8) K/ul RBC 4.53 L (4.70-6.10) M/uL Hgb 11.4 L (14.0-18.0) g/dl Hct 36.5 L (42.0-52.0) % Plt Count 173 (130-400) K/uL Neut # (Auto) 3.60 (1.40-6.50) K/uL Lymph # (Auto) 0.86 L (1.20-3.40) K/uL Douglas # (Auto) 0.62 H (0.11-0.59) K/uL Eos # (Auto) 1.45 H (0.00-0.50) K/uL Baso # (Auto) 0.04 (0.00-0.20) K/uL Comprehensive Metabolic Panel 10/08/23 Range/Units 11:32 Sodium 138 (136-145) mmol/L Potassium 4.8 (3.5-5.1) mmol/L Chloride 107 (98-107) mmol/L Carbon Dioxide 22 (21-32) mmol/L BUN 56 H (6-23) mg/dl Creatinine 5.07 H* (0.6-1.4) mg/dl Glucose 101 H (70-99(Fasting)) mg/dl Calcium 8.6 (8.6-10.3) mg/dl AST 16 (13-39) U/L ALT 17 (7-52) U/L Alkaline Phosphatase 98 (34-104) U/L Total Protein 7.9 (6.0-8.3) gm/dl Albumin 4.2 (3.4-5.0) gm/dl Intake and Output 10/08/23 10/08/23 10/08/23 06:59 14:59 22:59 Intake Total 500 / 500 Balance 500 / 500 Intake: IV 500 / 500 Sodium Chloride 0.9% 500 ml @ 500 / 500 999 mls/hr IV .Q31M ONE Rx#: [id number] Other: Weight 93.8 kg Weight Measurement Method Chair Scale Patient Weight 10/09/23 06:59 Weight 93.8 kg Diagnostic Findings Telemetry reviewed: NSR, no arrhythmias noted while in the ER EKG on admission: NSR with LAD and voltage criteria for LVH with T wave inversions in inferior and lateral leads. Mild ST elevation in V1-V2, similar to past findings EKG in the office today reviewed: NSR with LVH, repolarization abnormalities. Mild ST elevation in V1-V2, similar to past tracings. Chest xray on admission - No acute process. Cardiac cath report reviewed dated Sep 2022: Summary: 1. Mild nonobstructive coronary artery disease -40% diffuse mid LAD -Dominant circumflex. RCA not visualized to spare contrast. 2. Elevated intracardiac filling pressure Echo report reviewed from March 2022 - Normal LVEF at 60-65% Severe concentric LVH Grade I diastolic dysfunction. No pulm hypertension Medications Administered Current Inpatient Medications Acetaminophen (Acetaminophen 325 Mg Tab) 650 mg PO Q4H PRN PRN Reason: Pain or Fever Stop: 11/07/23 16:14 Aspirin (Aspirin 81 Mg Ectab) 81 mg PO QAM AURA Stop: 11/08/23 08:59 Carvedilol (Carvedilol 25 Mg Tab) 25 mg PO BID AURA Stop: 11/07/23 20:59 Doxazosin Mesylate (Doxazosin Mesylate 4 Mg Tab) 8 mg PO HS AURA Stop: 11/07/23 20:59 Finasteride (Finasteride 5 Mg Tab) 5 mg PO QAM AURA Stop: 11/08/23 08:59 Heparin Sodium (Porcine) (Heparin Sod 5,000 Unit/0.5 Ml Vial) 5,000 units SQ Q8 AURA Stop: 11/07/23 21:59 Nicardipine HCl 25 mg/ Sodium (Chloride) 250 mls @ 50 mls/hr IV .Q5H AURA; Protocol Stop: 11/07/23 16:14 Nifedipine (Nifedipine Extended Rel 30 Mg Tabcr) 90 mg PO HS AURA Stop: 11/07/23 20:59 Ondansetron HCl (Ondansetron Inj 2 Mg/Ml 2 Ml Vial) 4 mg IV Q6H PRN PRN Reason: Nausea Stop: 11/07/23 16:14 Polyethylene Glycol (Polyethylene (Miralax) 17 Gm Pack) 17 gm PO DAILY PRN PRN Reason: Constipation Stop: 11/07/23 16:14 (3) Hypertensive heart disease Heart failure presence: without heart failure Qualified Code(s): I11.9 - Hypertensive heart disease without heart failure
[2023-10-08] MEDS ORDERED: POLYETHYLENE (MIRALAX) 17 GM PACK PO PRN (16:15)
[2023-10-08] MEDS ORDERED: ONDANSETRON INJ 2 MG/ML 2 ML VIAL IV PRN (16:15)
[2023-10-08] MEDS ORDERED: ACETAMINOPHEN 325 MG TAB PO PRN (16:15)
[2023-10-08] MEDS ORDERED: STAT IV Infusion **Titration per Protocol STA (16:15)
--- NOTE | 2023-10-08 16:33 | Electrocardiogram Report ---
Test Reason : Blood Pressure : / mmHG Vent. Rate : 069 BPM Atrial Rate : 069 BPM P-R Int : 160 ms QRS Dur : 086 ms QT Int : 436 ms P-R-T Axes : 065 -39 217 degrees QTc Int : 467 ms Normal sinus rhythm Left atrial enlargement Left axis deviation Left ventricular hypertrophy with repolarization abnormality Abnormal ECG When compared with ECG of 15-JAN-2023 10:18, No significant change Confirmed by Tarun Freedman ([id number]) on 10/08/2023 4:33:31 PM Referred By: Provider Outside Confirmed By:Tarun Freedman
[2023-10-08] MEDS: niCARdipine 25 MG in SODIUM CHLORIDE 0.9% 240 ML IV SCH ×2 (17:08→22:12)
[2023-10-08 19:42] LABS: Appearance Urine Clear (Clear); Bacteria Urine Automated Negative (Negative); Bilirubin Urine Negative (Negative); Blood Urine Negative (Negative); Cast Urine Automated 0 /lpf (0-5); Color Urine Yellow; Epithelial Cell Urine Auto 0-5 /lpf (0-5); Glucose Urine UA Negative (Negative); Ketones Urine Negative (Negative); Leukocyte Esterase Urine Negative (Negative); Nitrite Urine Negative (Negative); Protein Urine 2+ (Negative); RBC Urine Automated 0-4 /hpf (0-4); Specific Gravity Urine 1.011 (1.000-1.030); Urobilinogen Urine Negative (Negative); WBC Urine Automated 0 /hpf (0-5); pH Urine 6.5 (4.5-7.5)
[2023-10-08 19:59] LABS: Amphetamines+Metham, Urine Neg (Neg); Barbiturates, Urine Neg (Neg); Benzodiazepine, Urine Neg (Neg); Cocaine, Urine Neg (Neg); MDMA (Ecstacy), Urine Neg (Neg); Marijuana, Urine Neg (Neg); Methadone, Urine Neg (Neg); Opiate, Urine Neg (Neg); Phencyclidine, Urine Neg (Neg)
--- OUTSIDE RECORDS SUMMARY | 2023-10-08 20:23 | External Medical Summary | Summary of Care ---
Author Name Unknown Organization [facility] Address [address] [place] [address] Phone [phone] Care Team Providers Care Client Program Manager Name Role Phone Irma Gavin MD Primary Care Provid er Reason for Visit * Reason Comments Follow Up Encounter Details Date Type Department Care Team (Late st Contact Info) Description 10/08/2023 10:30 AM EST Office Visit Cardiology, [facility] [address] [place] [id number] Belgica Santos CRNP [address] [facility] [address] Hypertensive heart disease without congestive heart failure*; Hypertension goal BP (blood pressure) < 130/80; LVH (left ventricular hypertrophy); CKD (chronic kidney disease) stage 4, GFR 15-29 ml/min ([facility]) Allergies Active Allergy Reactions Criticality Noted Date Comments Acetaminophen High 10/06/2022 Other Reaction(s): UPSETS STOMACH Propoxyphene Abdominal pain Low 01/30/2016 Penicillins Abdominal pain Low 01/30/2016 documented as of this encounter (statuses as of 10/08/2023) Medications Medication Sig Dispensed Refills Start Date End Date Status Nitroglycerin 0.4 MG Sublingual Tablet Sublingual (Nitrostat) Place 1 Tablet under the tongue every 5 minutes as needed for Pain, Chest. 0 Active Atorvastatin Calcium 40 MG Oral Tablet (Lipitor)Indicatio ns:Mild CAD Take 1 Tablet by mouth every night at bedtime. Take with coenzyme qu 10 supplement. 90 Tablet 3 01/31/2023 Active NIFEdipine ER 90 MG Oral Tablet Extended Release 24 Hour (Adalat CC) Take 1 Tablet by mouth in the morning. 90 Tablet 3 02/01/2023 Active Additional Information Patient not taking.Reported on 06/04/2023 Doxazosin Mesylate 4 MG Oral Tablet (Cardura) Take 1 Tablet by mouth at bedtime. 90 Tablet 3 02/01/2023 Active Additional Information Patient not taking.Reported on 06/04/2023 Torsemide 10 MG Oral Tablet (Demadex) Take 1 Tablet by mouth in the morning. 90 Tablet 3 05/22/2023 Active Additional Information Patient not taking.Reported on 10/08/2023 cloNIDine HCl 0.2 MG Oral Tablet (Catapres) Take 1 Tablet by mouth in the morning and 1 Tablet at noon and 1 Tablet before bedtime. 90 Tablet 11 05/22/2023 Active hydrALAZINE HCl 100 MG Oral Tablet Take 1 Tablet by mouth in the morning and 1 Tablet at noon and 1 Tablet before bedtime. 90 Tablet 5 05/22/2023 Active Additional Information Patient not taking.Reported on 06/04/2023 Finasteride 5 MG Oral Tablet (Proscar) Take 1 Tablet by mouth in the morning. 90 Tablet 3 05/31/2023 Active Carvedilol 25 MG Oral Tablet (Coreg) Take 1 Tablet by mouth in the morning and 1 Tablet before bedtime. 180 Tablet 3 05/31/2023 Active Famotidine 20 MG Oral Tablet (Pepcid)Indication s:Gastroesophageal reflux disease, unspecified whether esophagitis present,Hypertensi on goal BP (blood pressure) < 130/80 Take 1 Tablet by mouth in the morning. 90 Tablet 3 06/04/2023 Active Omeprazole 40 MG Oral Capsule Delayed Release (PriLOSEC)Indicati ons:Gastroesophage al reflux disease, unspecified whether esophagitis present,Hypertensi on goal BP (blood pressure) < 130/80 Take 1 Capsule by mouth in the morning. 90 Capsule 3 06/04/2023 Active Valsartan 160 MG Oral Tablet (Diovan)Indication s:Hypertension goal BP (blood pressure) < 130/80,Gastroesoph ageal reflux disease, unspecified whether esophagitis present Take 1 Tablet by mouth at bedtime. 90 Tablet 3 06/27/2023 Active Aspirin Low Dose 81 MG Oral Tablet Chewable (aspirin)Indicatio ns:Hypertensive heart disease without congestive heart failure CHEW 1 TABLET BY MOUTH DAILY IN THE MORNING WITH FOOD 90 Tablet 3 07/12/2023 Active cloNIDine HCl 0.1 MG Oral Tablet (Catapres) TAKE 1 TAB BY MOUTH NEEDED FOR HYPERTENSION (FOR BP HIGHER THAN 160 SYSTOLIC UP TO 3 TIMES A DAY) 0 07/01/2023 Active documented as of this encounter (statuses as of 10/08/2023) Active Problems Problem Noted Date Diagnosed Date Positive urine drug screen 08/02/2023 Hyperparathyroidism 08/02/2023 BPH (benign prostatic hyperplasia) 12/28/2022 Cardiomyopathy due to hypertension, 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 10/15/2022 Kidney disease, chronic, stage IV (GFR 15-29 ml/ min) 10/15/2022 Cigarette smoker one half pack a day or less Patent foramen ovale 04/23/2022 LV hypertrophy, hypertensive 02/12/2020 History of tobacco abuse 02/12/2020 Essential (primary) hypertension 04/01/2017 documented as of this encounter (statuses as of 10/08/2023) Immunizations Name Administration Dates Next Due Hepatitis B, 20+ yrs 12/28/2022 Pneumococcal Conjugate Vaccine, 20-valent (Prevn ar20) 12/28/2022 TDAP (age 10 and older)(Boostrix) 03/12/2016 documented as of this encounter Social History Tobacco Use Types Packs/Day Years Used Date Smoking Tobacco: Every Day Cigarettes 0.3 Passive Smoke Exposure: Current Smokeless Tobacco: Former Comments:Currently smoking a bout 4 cigs/day Alcohol Use Standard Drinks/Week Comments No 0 (1 standard drink = 0.6 oz pur e alcohol) PHQ-2 Answer Date Recorded PHQ Adult Total Score 0 07/30/2022 Hunger Vital Sign Answer Date Recorded Worried About Running Out of Food in the Last Ye ar Never true 04/26/2020 Ran Out of Food in the Last Year Never true 04/26/2020 Sex and Gender Information Value Date Recorded Sex Assigned at Male 01/28/2023 11:42 AM EDT Gender Identity Male 01/28/2023 11:42 AM EDT Sexual Orientation Straight 04/26/2020 7: 43 AM EDT Job Start Date Occupation Industry Not on file Not on file Not on file documented as of this encounter Last Filed Vital Signs Vital Sign Reading Time Taken Comments Blood Pressure 234/136 10/08/2023 10:13 AM EST Pulse 76 10/08/2023 10:10 AM EST Temperature - - Respiratory Rate 14 10/08/2023 10:10 AM EST Oxygen Saturation - - Inhaled Oxygen Concentration - - Weight 94.1 kg (207 lb 8 oz) 10/08/2023 10:10 AM EST Height - - Body Mass Index 27.38 08/02/2023 11:53 AM EDT documented in this encounter Progress Notes * Belgica Santos CRNP - 10/08/2023 10:30 AM EST Cardiology Outpatient Visit 10/08/2023 Primary Rehabilitation Therapy Technician: Dr. Gonzalez Past medical history: Hypertensive heart disease with severe LVH H/o hypertensive urgency 04/15/2022- no evidence of secondary hypertension workup by Nephrology H/o hypertensive emergency, HERBERT and anterior STEMI (due to coronary spasm) in the setting of noncompliance with medications and cocaine use. Cardiac catheterization at that time showed nonobstructiveCAD, 09/2022 CKD- follows with nephrology BPH Tobacco use, smokes 7-8 cigarettes per day Chronic RAWLS Negative nuclear stress, 05/2022 Anterior STEMI due to coronary spasm in the setting of cocaine use. Nonobstructive CAD per cardiac catheterization 09/2022 at [facility]. Marijuana use and history of cocaine use PFO- on ASA JONATHON History of medication noncompliance HPI 58-year-old male presenting to the cardiology office today in routine follow-up. Was last evaluatedby the undersigned approximately 4 months ago. Patient carries a history of hypertensive heart disease with severe concentric LVH on echocardiogram. He has had 2 hospitalizations due to hypertensive emergency and HERBERT with the most recent being September of 2022 in the setting of medication noncompliance and questionable, cocaine use. Has followedwith Nephrology and secondary causes have previously been ruled out. At his last appointment blood pressures were borderline controlled due to medication noncompliance.Medications were restarted-- and blood pressures are generally well controlled on multidrug regimenof carvedilol, nifedipine, doxazosin, and hydralazine. Recent BMP showed steadily worsening renal function. Today the patient presents to the office markedly hypertensive. Two readings of 234/138 and 234/136. He is mildly symptomatic with occasional blurred vision and worsening shortness of breath-- no blurred vision today in office. He has been noncompliant with his medications. Only took clonidine 0.2 mg this morning. Ran out of his torsemide and carvedilol yesterday. Has not been taking nifedipine or hydralazine. He is unsure regarding valsartan, he does have significant renal dysfunction. EKG today showing sinus rhythm, 67 beats per minute with diffuse ST segment elevations-- prior EKGs were somewhat similar. He is currently chest pain-free. No palpitations. Current Outpatient Medications Medication Sig Dispense Refill Nitroglycerin 0.4 MG Sublingual Tablet Sublingual (Nitrostat) Place 1 Tablet under the tongue every5 minutes as needed for Pain, Chest. Atorvastatin Calcium 40 MG Oral Tablet (Lipitor) Take 1 Tablet by mouth every night at bedtime. Take with coenzyme qu 10 supplement. 90 Tablet 3 cloNIDine HCl 0.2 MG Oral Tablet (Catapres) Take 1 Tablet by mouth in the morning and 1 Tablet at noon and 1 Tablet before bedtime. 90 Tablet 11 Finasteride 5 MG Oral Tablet (Proscar) Take 1 Tablet by mouth in the morning. 90 Tablet 3 Carvedilol 25 MG Oral Tablet (Coreg) Take 1 Tablet by mouth in the morning and 1 Tablet before bedtime. 180 Tablet 3 Famotidine 20 MG Oral Tablet (Pepcid) Take 1 Tablet by mouth in the morning. 90 Tablet 3 Omeprazole 40 MG Oral Capsule Delayed Release (PriLOSEC) Take 1 Capsule by mouth in the morning. 90Capsule 3 Valsartan 160 MG Oral Tablet (Diovan) Take 1 Tablet by mouth at bedtime. 90 Tablet 3 Aspirin Low Dose 81 MG Oral Tablet Chewable (aspirin) CHEW 1 TABLET BY MOUTH DAILY IN THE MORNING WITH FOOD 90 Tablet 3 cloNIDine HCl 0.1 MG Oral Tablet (Catapres) TAKE 1 TAB BY MOUTH NEEDED FOR HYPERTENSION (FOR BP HIGHER THAN 160 SYSTOLIC UP TO 3 TIMES A DAY) NIFEdipine ER 90 MG Oral Tablet Extended Release 24 Hour (Adalat CC) Take 1 Tablet by mouth in the morning. (Patient not taking: Reported on 06/04/2023) 90 Tablet 3 Doxazosin Mesylate 4 MG Oral Tablet (Cardura) Take 1 Tablet by mouth at bedtime. (Patient not taking: Reported on 06/04/2023) 90 Tablet 3 Torsemide 10 MG Oral Tablet (Demadex) Take 1 Tablet by mouth in the morning. (Patient not taking: Reported on 10/08/2023) 90 Tablet 3 hydrALAZINE HCl 100 MG Oral Tablet Take 1 Tablet by mouth in the morning and 1 Tablet at noon and 1Tablet before bedtime. (Patient not taking: Reported on 06/04/2023) 90 Tablet 5 No current facility-administered medications for this visit. Past Medical History: Diagnosis Date Hypertension Past Surgical History: Procedure Laterality Date COLONOSCOPY, DIAGNOSTIC (RECTUM) 12/17/2018 fair prep, repeat 5 yrs/COLONOSCOPY FLEXIBLE PROXIMAL DIAGNOSTIC performed by Janie Gomez MD at ENDOSCOPY [facility] [place] Social History Tobacco Use Smoking status: Every Day Packs/day: .25 Types: Cigarettes Passive exposure: Current Smokeless tobacco: Former Tobacco comments: Currently smoking about 4 cigs/day Vaping Use Vaping Use: Never used Substance Use Topics Alcohol use: No Drug use: Yes Types: Marijuana Comment: occ Review of patient's allergies indicates: Allergen Reactions Acetaminophen Other Reaction(s): UPSETS STOMACH Darvon [Propoxyphene] Abdominal pain Penicillins Abdominal pain Review of Systems: See HPI for pertinent positives. All others negative, other than those noted in HPI. Physical Exam BP (!) 234/136 (BP Site: Right Arm, BP Position: Sitting, BP Cuff Size: Large) | Pulse 76 | Resp 14| Wt 94.1 kg (207 lb 8 oz) | BMI 27.38 kg/m | BSA 2.2 m General: No acute distress. A+Ox3. HEENT: Normocephalic. Atraumatic. Conjunctiva and sclera clear. NECK: No carotid bruits. No JVD. Carotid upstrokes are brisk. Heart: RRR. S1 and S2 noted without murmur, rubs, gallops. PMI non displaced. Lungs: Clear to auscultation. No wheezes, rhonchi, rales. Abdomen: Normal bowel sounds. Soft. Nontender. No masses or organomegaly. No abdominal bruits. Extremities: No edema. No clubbing or cyanosis. Pulses: radial=2/4, posterior tibial=2/4, dorsalis pedis = 2/4. NEURO: No focal deficits. PSYCH: Normal. Lab data/imaging study review: Cardiac catheterization at [facility] 10/06/[address] Sandra In the setting of anterior ST elevation and hypertensive emergency LM -large caliber vessel, no significant disease LAD -large caliber, 40% diffuse mid segment disease. Distal vessel without significant disease and wraps around apex. Small D1, medium D2 without significant disease. Circumflex -dominant, large caliber vessel, midsegment luminal regularities. Gives of 2 medium caliber OM's, 1 PLV and left PDA without significant disease. RCA -not visualized in the setting of patient's acute renal insufficiency. Likely nondominant Summary: 1. Mild nonobstructive coronary artery disease -40% diffuse mid LAD -Dominant circumflex. RCA not visualized to spare contrast. 2. Elevated intracardiac filling pressure Nuclear stress 06/20/2022 Myocardial perfusion imaging is normal. Overall left ventricular systolic function was normal without regional wall motion abnormalities. The left ventricular ejection fraction was 58%. There are no prior studies available for comparison. Echocardiogram April 16, 2022 [facility] Left ventricle is normal in size There is severe left left ventricular hypertrophy with normal wall motion and ejection fraction, EF60 to 65% Grade 1 diastolic dysfunction Trace mitral insufficiency Impression/Plan: 1. Hypertensive heart disease without congestive heart failure 2. LVH (left ventricular hypertrophy) 3. Hypertension goal BP (blood pressure) < 130/80 -Hypertensive heart disease with severe concentric LVH. -x2 hospitalizations due to hypertensive emergency and HERBERT. Most recent being in September 2022 in the setting of ? medication noncompliance and questionable cocaine use. -Secondary causes of hypertension previously ruled out. -Nonobstructive CAD per cardiac catheterization 09/2022 at [facility] -Markedly hypertensive today in office secondary to medication noncompliance. Patient symptomatic with shortness of breath and intermittent vision changes. 1. Hypertensive urgency noted today in office. Recommend proceeding to [facility] Emergency Department for further care. Recommended EMS transport however patient adamantly declined. 2. Recommend lab work including a BMP to reassess renal function and electrolytes. He also carries a history of iron deficiency anemia that has not been corrected. Recommend CBC--anemia likely contributing to shortness of breath. 3. Most recent echocardiogram was done in March 2022 at [facility] where he was found to have severe concentric LVH with a normal EF. Recommend repeat echocardiogram to reassess structural heart. 4. CKD stage IV Progressive renal dysfunction-- uncontrolled hypertension contributing. Serum creatinine now averaging 3.5-4.2. Plan as above. Phone call made to [facility] Cardiology team, Dolores Goodwin PA-C-- aware of planned patient arrival.Will fax note to [facility] Emergency Department. The patient agrees to the above plan and will call with additional questions or concerns. ER with all emergencies advised. Check-out note: Follow up after ED I spent a total of 45 minutes on the date of service in preparation, delivery, and documentation ofthe care provided to Christopher Harry excluding any time spent in the performance of separately billed services. MIKHAIL Osuna, Department of Cardiology This chart was completed in part utilizing [employer] Speech Voice Recognition Software. Grammatical errors, random word insertions, prounoun errors, and incomplete sentences are an occasional consequence of this system due to software limitations, ambient noise, and hardware issues. Any formal questions or concerns about the content, text, or information contained within the body of this dictation should be directly addressed to the provider for clarification. documented in this encounter Nursing Notes * Alysa Moise CMA - 10/08/2023 10:05 AM EST Examination Room: 15 Name: Christopher Harry Date of : (1965). Reason for Visit: 4M f/u Interim Hospitalization(s): none Problems/Concerns: BP, reports runs higher Chest Pain/SOB: Denies CP. Some worsening SOB with exertion. States he was unable to get set up foriron infusions. [facility] Discussed: Not applicable My [facility] is a way you can talk to your provider online through e-mail. Would you like to sign up? I can activate it for you? DECLINES Patient was instructed to not get up on the exam table until directed and assisted by their provider; patient is to remain seated in the chair/ wheelchair/ exam table for fall prevention and safety reasons. Patient is aware to have assistance to step down off exam table with personnel. Patient voiced full comprehension of instructions. documented in this encounter Plan of Treatment Upcoming Encounters Date Type Department Care Team (Late st Contact Info) Description 10/10/2023 2:40 PM EST Office Visit Nephrology, [facility] [address] [place] [address] Albert Jhaveri MD [address] [place], [place] [address] 01/31/2024 9:40 AM EDT Office Visit [facility] [address] [place] [address] Irma Gavin MD [address], [place] [id number] Scheduled Orders Name Type Priority Associated Diagnoses Orde r Schedule EKG EKG Routine Hypertensive heart disease without congestive heart failure Hypertension goal BP (blood pressure) < 130/80 LVH (left ventricular hypertrophy) Ordered: 10/08/2023 Scheduled Procedures Name Priority Associated Diagnoses Date/Ti me COLONOSCOPY FLEXIBLE PROXIMA L DIAGNOSTIC Recall Family history of colon cancer Health Maintenance Due Date Last Done Comments COVID-19 Vaccine (#1) 1965 Zoster Vaccines (1 of 2) 2015 Hepatitis B (2 of 3 - 19+ 3-dose series) 01/25/2023 12/28/2022 Influenza Vaccine (FLU shot) (#1) 2023 Depression Screening 07/30/2023 07/30/2022 COLONOSCOPY-EVERY 5 YRS AGES 18-100 12/18/2023 12/17/2018, 12/17/2018 GFR 02/03/2024 08/05/2023, 09/0 01/2023, 01/11/2023, Additional history exists Nephrology Referral 05/22/2024 05/22/2023 Albumin/Creatinine Ratio 06/04/2024 06/04/2023, 07/2 01/2022 Hgb 06/04/2024 06/04/2023, 09/0 01/2023, 01/11/2023, Additional history exists PTH 08/05/2024 08/05/2023, 09/0 01/2023, 10/26/2022 Phosphate 08/05/2024 08/05/2023, 090 01/2023, 01/11/2023, Additional history exists DTaP,Tdap,and Td Vaccines (2 - Td or Tdap) 03/12/2026 03/12/2016 Diabetes Screening 08/05/2026 08/05/2023, 0 06/04/2023, 01/11/2023, Additional history exists Lipid Panel 08/05/2028 08/05/2023, 0 01/2023, 05/11/2020, Additional history exists Pneumococcal Vaccine: Pediatrics (0 to 5 Years) and At-Risk Patients (6 to 64 Years) Completed 12/28/2022 GARDASIL-HPV IMMUNIZATION SERIES Aged Out No longer eligible based on patient's age to complete this topic MENINGOCOCCAL (MENACTRA/MENVEO) Aged Out No longer eligible based on patient's age to complete this topic documented as of this encounter Medical Devices Not on filedocumented as of this encounter Visit Diagnoses Diagnosis Hypertensive heart disease without congestive heart failure- Primary Unspecified hypertensive heart disease without heart failure Hypertension goal BP (blood pressure) < 130/80 Unspecified essential hypertension LVH (left ventricular hypertrophy) Cardiomegaly CKD (chronic kidney disease) stage 4, GFR 15-29 ml/min (HCC) Chronic kidney disease, Stage IV (severe) documented in this encounter Care Teams Client Program Manager Relationship Specialty Start Date End Date Irma Gavin MD [address] [place] [address] PCP - General Family Medicine 04/23/22 documented as of this encounter"
[2023-10-08] MEDS ORDERED: DOXAZosin MESYLATE 4 MG TAB PO SCH (21:00)
[2023-10-08] MEDS ORDERED: NIFEdipine EXTENDED REL 30 MG TABCR PO SCH (21:00)
[2023-10-08] MEDS ORDERED: ATORVASTATIN 40 MG TAB PO SCH (21:00)
[2023-10-08] MEDS: carvediloL 25 MG TAB PO SCH (21:04)
[2023-10-08] MEDS: HEPARIN SOD 5,000 UNIT/0.5 ML VIAL SQ SCH (22:10)
[2023-10-09] MEDS: HEPARIN SOD 5,000 UNIT/0.5 ML VIAL SQ SCH ×2 (05:47→14:12)
[2023-10-09 07:09] LABS: Hematocrit (blood only) 33.5 % (42.0-52.0); Hemoglobin 10.5 g/dl (14.0-18.0); Mean Corpuscular Hemoglobin 24.9 pg (25.0-34.0); Mean Corpuscular Hgb Conc 31.3 g/dL (32.0-36.0); Mean Corpuscular Volume 79.4 fL (80.0-100.0); Mean Platelet Volume 10.9 fL (9.4-12.4); Platelet Count 140 K/uL (130-400); RDW Coefficient of Variation 20.6 % (11.5-14.5); RDW Standard Deviation 59.3 fL (36.4-46.3); Red Blood Count 4.22 M/uL (4.70-6.10); White Blood Count 6.01 K/ul (4.8-10.8)
[2023-10-09 07:33] LABS: BUN Creatinine Ratio 11.3 (10-20); Calcium 8.2 mg/dl (8.6-10.3); Creatinine Clr Calc Pharmacy 18.3 ml/min; Est GFR (African American) 13.8 ml/min; Est GFR (Non-African American) 11.9 ml/min; Potassium 4.2 mmol/L (3.5-5.1)
[2023-10-09] MEDS: carvediloL 25 MG TAB PO SCH (07:33)
[2023-10-09] MEDS ORDERED: ASPIRIN 81 MG ECTAB PO SCH (09:00)
[2023-10-09] MEDS ORDERED: FINASTERIDE 5 MG TAB PO SCH (09:00)
--- NOTE | 2023-10-09 09:28 | Electrocardiogram Report ---
Test Reason : Blood Pressure : / mmHG Vent. Rate : 071 BPM Atrial Rate : 071 BPM P-R Int : 166 ms QRS Dur : 094 ms QT Int : 474 ms P-R-T Axes : 070 -31 047 degrees QTc Int : 515 ms Normal sinus rhythm Left axis deviation Left ventricular hypertrophy with repolarization abnormality Prolonged QT Abnormal ECG When compared with ECG of 08-OCT-2023 11:36, T wave inversion no longer evident in Inferior leads T wave inversion less evident in Lateral leads Confirmed by Tarun Freedman ([id number]) on 10/09/2023 9:28:31 AM Referred By: Provider Outside Confirmed By:Tarun Freedman
--- NOTE | 2023-10-09 09:29 | Electrocardiogram Report ---
Test Reason : Blood Pressure : / mmHG Vent. Rate : 072 BPM Atrial Rate : 072 BPM P-R Int : 158 ms QRS Dur : 094 ms QT Int : 464 ms P-R-T Axes : 063 -42 059 degrees QTc Int : 508 ms Normal sinus rhythm Possible Left atrial enlargement Left axis deviation Left ventricular hypertrophy Prolonged QT Abnormal ECG When compared with ECG of 09-OCT-2023 06:07, T wave inversion no longer evident in Lateral leads Confirmed by Tarun Freedman ([id number]) on 10/09/2023 9:29:03 AM Referred By: Provider Outside Confirmed By:Tarun Freedman
--- NOTE | 2023-10-09 10:08 | Ultrasound Report ---
ULTRASOUND KIDNEYS AND BLADDER CLINICAL HISTORY: Acute on chronic renal insufficiency.. COMPARISON STUDY: Renal ultrasound dated 04/15/2022. TECHNIQUE: Real-time, grayscale, and color flow sonography of the kidneys and bladder is performed. I mages are reviewed in the transverse and longitudinal planes. FINDINGS: Kidneys: The kidneys are normal in size. Echotexture is increased. The right kidney measures 10.0 cm in length and the left kidney measures 9.3 cm. There is no hydronephrosis. No shadowing renal calcul i are identified. A 1.1 cm cyst is seen in the right upper pole. There is no sonographic evidence of contour deforming renal mass lesion. No perinephric fluid is identified. Bladder: The prostate gland is enlarged and heterogeneous noting median lobe hypertrophy. The bladder is distended, the wall appears thickened/trabeculated indicating chronic outlet obstruction. Only le ft ureteral jet was seen. IMPRESSION: 1. The kidneys are normal in size and without hydronephrosis. 2. Cortical echotexture is increased suggesting medical renal disease. 3. Prostatomegaly with evidence of chronic bladder outlet obstruction. ACT 112: Negative or not required by law. Electronically signed by: Pete Ocampo M.D. 10/09/2023 10:07 AM
--- NOTE | 2023-10-09 10:25 | Nephrology Consultation ---
Date of Consultation October 09, 2023 Assessment & Plan (1) Acute kidney injury superimposed on chronic kidney disease: 58/M who is my CKD patient. has progressive worsening CKD approaching stage 5 from Uncontrolled HTN for many years. at this point we can manage him as CKD 4 to 5 patient. Renal function does fluctuate mainly because of Massive Swings in his BP. NO need for further workup. He has Clinic appt with me tomorrow.if possible would try to keep that appt No further workup needed for renal Standpoint. he was concerned about anemia--although for his CKD 5 hgb of 10+ is at goal. Would benefot with iv venfoer --give 300 mg today. further management with [facility] as outpt (2) Hypertensive emergency: His BP was 220 + on admission but has come down to normal very quick. This strongly suggest Intermittent/Non adherence to BP meds. he was out of his BP meds--really no proper excuse for this to happen. Now with his regimen back BP is at goal. Continue same. Hard to tell whether he really needs the clonidine or not. Would prefer him to be on same regimen as before. Intermittent adherence to BP meds is the hardest to manage History of Present Illness Reason for Consultation: HTN urgency and progressive CKD 5 Attending Physician: Ross Matamoros MD History of Present Illness 58/M who is my CKD patient. has progressive worsening CKD approaching stage 5 from Uncontrolled HTN for many years. h/o tobacco/marijuana use +ve cocaine on toxic screen, BPH, DM II and other medical problems listed below was sent in by IVELISSE Goodwin from [facility] cardiology for elevated BP in clinic. He Ran out of home meds - missed PM dose of Carvedilol, nifedipine last night. Took last dose of doxazosin last night and is now out. Significant other is currently hospitalized and patient is under increased stress. he however has h/o Intermittent med complaince which makes his HTN management very difficult. No chest pain, SOB. No F/C, headache, lightheadedness, N/V, abdominal pain, dysuria, diarrhea or constipation. Was admitted with HTN urgency September, in setting of medication non-compliance and + cocaine on UDS. Underwent cardiac cath due to abnormal EKG findings which revealed mild CAD, no intervention required. he is back on Coreg, Doxazosin, Nifedipine. At home also takes clonidine 0.2 tid--not on that yet here. His BP was 220 + on admission but has come down to normal very quick. renal US done earlier and unremarkable. Creat was 5 and is still about same ROS--Now feels better. Denies any acute complaints. 12 systems reviewed and negative Physical Exam Constitutional: WD/WN, vitals as above no acute distress Respiratory: normal respiratory effort, lungs clear to auscultation Cardiovascular: Rate/Rhythm: regular rate and regular rhythm Heart Sounds: normal S1, normal S2 and + murmur (II/ systolic murmur) no JVD Extremities: no edema Gastrointestinal (Abdomen): normal bowel sounds, soft, nontender, no hep atosplenomegaly Neurologic: PERRL, EOMI, accommodation nl, no face palsy, no dysarthria Allergies Allergy/AdvReac Type Severity Reaction Status Date / Time Penicillins Allergy Unknown CAN'T Verified 10/06/22 16:25 REMEMBER propoxyphene Allergy Unknown TYLENOL OK Verified 10/06/22 16:25 acetaminophen AdvReac Intermediate UPSETS Verified 10/06/22 16:25 STOMACH naproxen AdvReac Intermediate stomach Verified 10/06/22 16:25 burning, takes ibuprofen w/out prob Home Medications Medication Instructions Recorded Confirmed Type aspirin 81 mg chewable tablet 81 mg PO QAM 10/06/18 10/08/23 History finasteride 5 mg tablet 5 mg PO QAM 03/08/21 10/08/23 History nitroglycerin 0.4 mg sublingual 0.4 mg sublingual Q5M PRN chest 04/18/22 10/08/23 Rx tablet (Nitrostat) pain #15 tabs carvedilol 25 mg tablet 25 mg PO BID #60 tabs 10/11/22 10/08/23 Rx doxazosin 4 mg tablet 8 mg (2 x 4 mg) PO HS #30 tabs 10/11/22 10/08/23 Rx nifedipine 30 mg tablet,extended 90 mg (3 x 30 mg) PO HS #90 tabs 10/11/22 10/08/23 Rx release 24 hr (Procardia XL) atorvastatin 40 mg tablet 40 mg PO HS 10/08/23 10/08/23 History clonidine HCl 0.1 mg tablet 0.1 mg PO TID PRN hypertention 10/08/23 10/08/23 H istory clonidine HCl 0.2 mg tablet 0.2 mg PO TID 10/08/23 10/08/23 History omeprazole 40 mg capsule,delayed 40 mg PO DAILY 10/08/23 10/08/23 History release torsemide 10 mg tablet 10 mg PO DAILY 10/08/23 10/08/23 History valsartan 160 mg tablet 160 mg PO DAILY 10/08/23 10/08/23 History Patient History Medical History Tobacco use LV hypertrophy, hypertensive CKD (chronic kidney disease) stage 3, GFR 30-59 ml/min HERBERT (acute kidney injury) BPH (benign prostatic hyperplasia) HTN (hypertension) Diabetes Surgical History History of rotator cuff surgery Family History Grandmother (Maternal) Dementia Mother Dementia Other Cancer Diabetes Heart disease Hypertension Social History Smoking Status: Current every day smoker Tobacco Type: Cigarettes Second Hand Exposure: No; Do You Dip or Chew Tobacco: No; Hx Alcohol Use: No Hx Substance Use: Yes Last Used Substance: Unknown Preferred Language: Tajik Communication Ability: Effective Python Java 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 Required: No Beliefs That Will Affect Care: None marital status: Single Current Living Situation: Spouse current occupational status: employed How many Children do You have: 4 Feels Safe at Home: Yes Safety Concerns: Feels Safe At This Time Assistive Devices: None Results & Data Vital Signs (Past 12 Hours) Vital Signs Temp Pulse Pulse Resp BP Pulse Ox O2 Del Method 10/09/23 07:24 69 18 150/97 H 97 Room Air 10/09/23 07:03 67 10/09/23 05:00 72 158/98 H 10/09/23 03:00 69 138/83 10/09/23 02:10 36.6 C 66 18 158/85 H 99 Room Air 10/09/23 01:00 72 145/87 H 10/09/23 00:19 68 150/91 H 10/08/23 23:03 71 127/70 10/08/23 23:00 71 Laboratory Results reviewed Diagnostic Findings reviewed.
[2023-10-09] MEDS ORDERED: IRON SUCROSE 300 MG in SODIUM CHLORIDE 0.9% 250 ML IV ONE (10:35)
--- NOTE | 2023-10-09 11:44 | Cardiology Progress Note ---
Date of Service October 09, 2023 Assessment & Plan (1) Hypertensive emergency: (2) HERBERT (acute kidney injury): (3) Hypertensive heart disease: (4) Abnormal ECG: Plan Patient admitted for hypertensive emergency with BP readings > 250/110 and HERBERT secondary to non compliance with medications. He has known chronically abnormal EKG with T wave inversions in inferior and lateral leads with mild ST elevation in V1 and V2, this is similar to past tracings and likely repolarization abnormality consistent with severe LVH. He had similar presentation last Sep 2022 with abnormal EKG, HTN, HERBERT and elevated troponin and sent for cath which revealed mild mod non obstructive CAD. Troponin at that time was 1989. HS troponin on admission only minimally elevated. Not consistent with ACS. He has been non compliant with antihypertensive therapy at home. Echo reveales severe LVH, preserved EF, stable findings No indication for repeat cardiac cath at this time. Ongoing medical management recommended He is currently CP free. His episode of "chest pain" this morning was more epigastric, left lower rib cage. reproducible with movement. EKG at the time of discomfort demonstrated improved T wave inversions. Continue ASA and statin for mild/mod CAD. Med management recommended Creatinine at 5.0. repeat at 4.9 this morning. Appreciate nephrology consult and advise. Renal US without acute findings. Recommendations were to resume all oral home therapies. Patient does not think he was taking nifedipine on arrival. Per outpatient list - He should be taking Carvedilol, clonidine, nifedipine, valsartan, torsemide. Patient does not think he was taking hydralazine for aw hile due to near syncope? BP readings greatly improved. No further cardiac testing warranted. IF BP remains controlled this afternoon, consider discharge today. He has outpatient nephro appt tomorrow that they were hoping to keep Case discussed with Dr. Wiggins I spent a total of 35 minutes on the date of service in preparation, delivery, and documentation of the care provided to this patient, excluding any time spent in the performance of separately billed services. Dolores Goodwin PA-C Department of Cardiology, [facility] This chart was completed in part utilizing Speech Voice Recognition Software. Grammatical errors, random word insertions, pronoun errors, and incomplete sentences are an occasional consequence of this system due to software limitations, ambient noise, and hardware issues. Any formal questions or concerns about the content, text, or information contained within the body of this dictation should be directly addressed to the provider for clarification. Admission and Anticipated Discharge Date Admission Date: October 08, 2023 Supervising Physician Co-Signing Physician Notes Attending attestation: I have reviewed the advanced practitioner's documentation and agree with the plan of care. I accept the responsibility for the associated risk of managing the patient. Subjective: Patient feeling well at the time assessment at the bedside in room 209. Feeling well. Had a transient discomfort at the margin of the left sided rib margin this am that does not sound characteristic of angina. EKG performed 10/09/23 reveals stable findings. Exam: Temp Pulse Resp BP Pulse Ox O2 Del Method 36.5 C 69 18 144/93 H 98 Room Air 10/09/23 11:00 10/09/23 11:00 10/09/23 11:00 10/09/23 11:00 10/09/23 11:10/09/23 11:00 Cardiovascular: Regular rhythm, no murmurs, no edema Data: Echocardiogram 10/09/23: Severe concentric LVH , LVEF 65-70% Trace anterior pericardial effusion without hemodynamic consequence Impression/ Plan: Hypertensive emergency Acute kidney injury on chronic renal insufficiency * Urine toxicology panel is negative * BP much improved on [employer] SAL[employer] SERVICE MA[employer]GER coreg, nifedipine, and Cardura. Add back clonidine 0.1 mg PO BID. * Continue to hold [employer] SAL[employer] SERVICE MA[employer]GER torsemide and valsartan pending reassessment of his renal function . * Has outpatient nephrology visit scheduled for tomorrow. * Pt to ambulate in unit. If he feels well, OK for discharge. I spent a total of 20 minutes coordinating, documenting, and providing care for this patient excluding time spent in the performance of separately billed services or time spent by another provider. Les Wiggins, DO Subjective Patient resting in bed comfortably. BP trending down overnight. Nicardipine gtt stopped. Oral home meds resumed and BP improved today. Creatinine remains 5 He reported left sided "chest pain" this morning, but upon my evaluation, he reports this pain was more in the left epigastric area/left lower rib cage and he believes it was how he was laying. No substernal chest pain or pressure. No SOB. He reports mild headache but this has improved with tylenol. He admits he does not think he was taking home meds appropriately. He ran out of carvedilol and now he does not believe he was taking nifedipine at night. Review of Systems Review of Systems: All systems reviewed & are unremarkable except as noted in HPI & below Physical Exam Constitutional: WD/WN, vitals as above no acute distress Respiratory: normal respiratory effort, lungs clear to auscultation Cardiovascular: Rate/Rhythm: regular rate and regular rhythm Heart Sounds: normal S1, normal S2 and + murmur (II/ systolic murmur) Vessels: no JVD Extremities: no edema Gastrointestinal (Abdomen): normal bowel sounds, soft, nontender, no hepatosplenomegaly Neurologic: PERRL, EOMI, accommodation nl, no face palsy, no dysarthria Results & Data Vital Signs (Past 12 Hours) Vital Signs Temp Pulse Pulse Resp BP Pulse Ox O2 Del Method 10/09/23 11:00 36.5 C 69 18 144/93 H 98 Room Air 10/09/23 07:24 69 18 150/97 H 97 Room Air 10/09/23 07:03 67 10/09/23 05:00 72 158/98 H 10/09/23 03:00 69 138/83 10/09/23 02:10 36.6 C 66 18 158/85 H 99 Room Air 10/09/23 01:00 72 145/87 H 10/09/23 00:19 68 150/91 H Laboratory Results Cardiac Enzymes 10/08/23 10/08/23 10/08/23 Range/Units 11:32 15:29 17:37 AST 16 (13-39) U/L Troponin I High Sens 32.7 H 25.3 H 25.6 H (0-20) pg/ml 10/08/23 Range/Units 22:25 AST (13-39) U/L Troponin I High Sens 24.7 H (0-20) pg/ml CBC 10/08/23 10/09/23 Range/Units 11:32 06:31 WBC 6.60 6.01 (4.8-10.8) K/ul RBC 4.53 L 4.22 L (4.70-6.10) M/uL Hgb 11.4 L 10.5 L (14.0-18.0) g/dl Hct 36.5 L 33.5 L (42.0-52.0) % Plt Count 173 140 (130-400) K/uL Neut # (Auto) 3.60 (1.40-6.50) K/uL Lymph # (Auto) 0.86 L (1.20-3.40) K/uL [place] # (Auto) 0.62 H (0.11-0.59) K/uL Eos # (Auto) 1.45 H (0.00-0.50) K/uL Baso # (Auto) 0.04 (0.00-0.20) K/uL Comprehensive Metabolic Panel 10/08/23 10/09/23 Range/Units 11:32 06:31 Sodium 138 138 (136-145) mmol/L Potassium 4.8 4.2 (3.5-5.1) mmol/L Chloride 107 110 H (98-107) mmol/L Carbon Dioxide 22 19 L (21-32) mmol/L BUN 56 H 56 H (6-23) mg/dl Creatinine 5.07 H* 4.97 H* (0.6-1.4) mg/dl Glucose 101 H 107 H (70-99(Fasting)) mg/dl Calcium 8.6 8.2 L (8.6-10.3) mg/dl AST 16 (13-39) U/L ALT 17 (7-52) U/L Alkaline Phosphatase 98 (34-104) U/L Total Protein 7.9 (6.0-8.3) gm/dl Albumin 4.2 (3.4-5.0) gm/dl Intake and Output 10/08/23 10/09/23 10/09/23 22:59 06:59 14:59 Intake Total 850 / 1021.667 171.667 / 1021.667 Output Total 650 / 1800 1150 / 1800 Balance 200 / -778.333 -978.333 / -778.333 Intake: IV 750 / 771.667 21.667 / 771.667 Sodium Chloride 0.9% 500 ml @ 500 / 500 999 mls/hr IV .Q31M [facility] Rx#: [id number] niCARdipine 25 mg In Sodium 250 / 271.667 21.667 / 271.667 Chloride 0.9% 240 ml @ 0 MG/HR IV .Q0M [facility] Rx#:[id number] Oral 100 / 250 150 / 250 Output: Urine 650 / 1800 1150 / 1800 Other: Weight 93.8 kg 93.8 kg Weight Measurement Method Chair Scale Built in [facility] Diagnostic Findings telemetry reviewed: NSR in the 70's, occ PVC. No arrhythmias EKG reviewed from this morning dated 10/09/2023: Normal sinus rhythm at 72 bpm Left axis deviation LVH Compared with prior EKG, T wave inversion is no longer evident in lateral leads. Echo report reviewed from 10/09/23: Severe asymmetric LVH. No regional wall motion abnormalities noted. LV systolic function is normal to hyperdynamic. Ejection fraction 65 to 70%. Mild MR. Grade 1 diastolic dysfunction. Trace anterior pericardial effusion. Tamponade is absent. Medications Administered Current Inpatient Medications Acetaminophen (Acetaminophen 325 Mg Tab) 650 mg PO Q4H PRN PRN Reason: Pain or Fever Stop: 11/07/23 16:14 Last Admin: 10/09/23 10:56 Dose: 650 mg Aspirin (Aspirin 81 Mg Ectab) [facility] Stop: 11/08/23 08:59 Last Admin: 10/09/23 07:32 Dose: 81 mg Atorvastatin Calcium (Atorvastatin 40 Mg Tab) 40 mg PO [facility] Stop: 11/08/23 20:59 Carvedilol (Carvedilol 25 Mg Tab) 25 mg PO BID [facility] Stop: 11/07/23 20:59 Last Admin: 10/09/23 07:33 Dose: 25 mg Doxazosin Mesylate (Doxazosin Mesylate 4 Mg Tab) 8 mg PO HS [facility] Stop: 11/07/23 20:59 Last Admin: 10/08/23 20:46 Dose: 8 mg Finasteride (Finasteride 5 Mg Tab) 5 [facility] Stop: 11/08/23 08:59 Last Admin: 10/09/23 07:33 Dose: 5 mg Heparin Sodium (Porcine) (Heparin Sod 5,000 Unit/0.5 Ml Vial) 5,000 units SQ Q8 [facility] Stop: 11/07/23 21:59 Last Admin: 10/09/23 05:47 Dose: 5,000 units Nicardipine HCl 25 mg/ Sodium (Chloride) 250 mls @ 0 mls/hr IV .Q0M [facility]; Protocol Stop: 11/07/23 16:14 Last Titration: 10/09/23 06:46 Dose: 0 mg/hr, 0 mls/hr Iron Sucrose 300 mg/ Sodium (Chloride) 265 mls @ 176.667 mls/hr IV TODAY ONE Stop: 10/09/23 12:04 Last Admin: 10/09/23 10:57 Dose: 176.7 mls/hr Nifedipine (Nifedipine Extended Rel 30 Mg Tabcr) 90 mg PO HS [facility] Stop: 11/07/23 20:59 Last Admin: 10/08/23 21:03 Dose: Not Given Ondansetron HCl (Ondansetron Inj 2 Mg/Ml 2 Ml Vial) 4 mg IV Q6H PRN PRN Reason: Nausea Stop: 11/07/23 16:14 Polyethylene Glycol (Polyethylene (Miralax) 17 Gm Pack) 17 gm PO DAILY PRN PRN Reason: Constipation Stop: 11/07/23 16:14 (3) Hypertensive heart disease Heart failure presence: without heart failure Qualified Code(s): I11.9 - Hypertensive heart disease without heart failure
[2023-10-09] MEDS ORDERED: cloNIDine HCL 0.1 MG TAB PO ONE (13:22)
--- NOTE | 2023-10-09 13:57 | Hospitalist Progress Note ---
Date of Service October 09, 2023 Assessment & Plan (1) Hypertensive emergency: Plan: Patient is a 58 yr male with H/O HTN, tobacco use, BPH, DM II and other medical problems listed below who was sent in by IVELISSE Goodwin from [facility] cardiology for elevated BP in clinic. Ran out of home meds - missed PM dose of Carvedilol, nifedipine last night. Hypertensive urgency Medication noncompliance --ECHO: Severe asymmetric left ventricular hypertrophy. No regional wall motion abnormality. LV systolic function is normal to hyperdynamic LVEF 60% depression. Mild mitral regurgitation. Grade 1 diastolic dysfunction. Trace anterior pericardial effusion. Tamponade is absent. Nicardipine drip discontinued Continue Coreg, nifedipine, Cardura. Added back clonidine 0.1 mg twice a day Continue to hold torsemide, losartan for now as recommended by cardiology Appreciate Cardiology, Nephrology input Blood pressure much improved Right-sided rib pain Likely musculoskeletal in origin --CXR:Cardiomegaly with no active disease in the chest. Patient denies any trauma Conservative management (2) Acute kidney injury superimposed on chronic kidney disease: Plan: Cr 5.07 (baseline CR mid 2s- mid3s) in setting of hypertensive crisis --Renal USD:The kidneys are normal in size and without hydronephrosis. Cortical echotexture is increased suggesting medical renal disease. Prostatomegaly with evidence of chronic bladder outlet obstruction. Cr:4.97 Today Progressively worsening CKD impression stage V from uncontrolled hypertension for many years as per nephrology Patient has follow-up with nephrology tomorrow Received IV Venofer for anemia of chronic kidney disease Needs follow-up with nephrology on discharge (3) BPH with obstruction/lower urinary tract symptoms: Plan: Continue finasteride, terazosin, bladder scan PRN (4) Tobacco use: Plan: Smoking cessation DVT Px: SQ heparin Code status: FULL CODE Disposition Home Admission and Anticipated Discharge Date Admission Date: October 08, 2023 Subjective Patient is seen and examined at bedside Feels much better today Blood pressure is better today States having minimal headache but otherwise feels well Vision seems to be back to baseline Discussed with cardiology and nephrology today Patient also states having left rib pain Review of Systems Review of Systems: All systems reviewed & are unremarkable except as noted in Subjective Physical Exam Physical Exam: Physical Exam: Vitals signs as noted above General Appearance:Moderately built and nourished, no apparent distress Head: normocephalic, Atraumatic Eyes: normal inspection, EOMI Neck: supple, Trachea midline Respiratory/Chest: Normal breath sounds, CTA, No accessory muscle use Cardiovascular: S1, S2, + murmur Abdomen/GI:Soft, Non tender, Bowel sounds present Extremities/Musculoskeletal:normal inspection, no edema Neurologic/Psych:AAOX3, grossly no focal neurological deficits Skin: normal color, warm Results & Data Results & Data Vital Signs (Past 12 Hours) Vital Signs Temp Pulse Pulse Resp BP Pulse Ox O2 Del Method 10/09/23 11:00 36.5 C 69 18 144/93 H 98 Room Air 10/09/23 07:24 69 18 150/97 H 97 Room Air 10/09/23 07:03 67 10/09/23 05:00 72 158/98 H 10/09/23 03:00 69 138/83 10/09/23 02:10 36.6 C 66 18 158/85 H 99 Room Air Laboratory Results Short CBC 10/09/23 Range/Units 06:31 WBC 6.01 (4.8-10.8) K/ul Hgb 10.5 L (14.0-18.0) g/dl Hct 33.5 L (42.0-52.0) % Plt Count 140 (130-400) K/uL BMP 10/09/23 06:31 Sodium 138 Potassium 4.2 Chloride 110 H Carbon Dioxide 19 L BUN 56 H Creatinine 4.97 H* Glucose 107 H Calcium 8.2 L Urine 10/08/23 Range/Units 19:23 Urine Color Yellow Urine Appearance Clear (Clear) Urine pH 6.5 (4.5-7.5) Ur Specific [place] 1.011 (1.000-1.030) Urine Protein 2+ H (Negative) Urine Glucose (UA) Negative (Negative)
--- NOTE | 2023-10-09 14:30 | Discharge Summary ---
Date of Service October 09, 2023 Admission HPI Per Admitting Provider This is a 58yo M with a PMH of HTN, tobacco use, BPH, DM II and other medical problems listed below who was sent in by IVELISSE Goodwin from [facility] cardiology for elevated BP in clinic. Ran out of home meds - missed PM dose of Carvedilol, nifedipine last night. Took last dose of doxazosin last night and is now out. Significant other is currently hospitalized and patient is under increased stress. Decreased tobacco use from 1 ppd to 4 cigarettes today. Smokes marijuana occasionally and denies etoh use. Having some visual changes with "fuzzy edges" but still can read the board across the room without issue. No chest pain, SOB. No F/C, headache, lightheadedness, N/V, abdominal pain, dysuria, diarrhea or constipation. Was admitted with HTNive urgency last September in setting of medication non-compliance and + cocaine on UDS. Underwent cardiac cath due to abnormal EKG findings which revealed mild CAD, no intervention required. Admission Exam Per Admitting Provider Physical Exam general:AOx4, pleasant CV gallop+ no murmur RRR Resp CTAB GI NTND MSK 5/5 strength, moving equally Neuro No focal deficits, CN II-XII intact Principal Diagnosis Hypertensive urgency 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 Discharge Data Allergies Allergy/AdvReac Type Severity Reaction Status Date / Time Penicillins Allergy Unknown CAN'T Verified 10/06/22 16:25 REMEMBER propoxyphene Allergy Unknown TYLENOL OK Verified 10/06/22 16:25 acetaminophen AdvReac Intermediate UPSETS Verified 10/06/22 16:25 STOMACH naproxen AdvReac Intermediate stomach Verified 10/06/22 16:25 burning, takes ibuprofen w/out prob Consultations 10/08/23 13:05 ED Decision to Admit Stat 10/08/23 13:36 Consult Nephrology Routine 10/08/23 13:37 Consult Cardiology Routine Procedures Performed Laboratory Results WBC 6.01 K/ul (4.8-10.8) 10/09/23 06:31 RBC 4.22 M/uL (4.70-6.10) L 10/09/23 06:31 Hgb 10.5 g/dl (14.0-18.0) L 10/09/23 06:31 Hct 33.5 % (42.0-52.0) L 10/09/23 06:31 MCV 79.4 fL (80.0-100.0) L 10/09/23 06:31 MCH 24.9 pg (25.0-34.0) L 10/09/23 06: MCHC 31.3 g/dL (32.0-36.0) L 10/09/23 06:31 RDW Std Deviation 59.3 fL (36.4-46.3) H 10/09/23 06:31 RDW Coeff of Rufino 20.6 % (11.5-14.5) H 10/09/23 06:31 Plt Count 140 K/uL (130-400) 10/09/23 06:31 MPV 10.9 fL (9.4-12.4) 10/09/23 06:31 Immature Gran % (Auto) 0.5 % 10/08/23 11:32 Neut % (Auto) 54.5 % 10/08/23 11:32 Lymph % (Auto) 13.0 % 10/08/23 11:32 [place] % (Auto) 9.4 % 10/08/23 11:32 Eos % (Auto) 22.0 % 10/08/23 11:32 Baso % (Auto) 0.6 % 10/08/23 11:32 Neut # (Auto) 3.60 K/uL (1.40-6.50) 10/08/23 11:32 Lymph # (Auto) 0.86 K/uL (1.20-3.40) L 10/08/23 11:32 [place] # (Auto) 0.62 K/uL (0.11-0.59) H 10/08/23 11:32 Eos # (Auto) 1.45 K/uL (0.00-0.50) H 10/08/23 11:32 Baso # (Auto) 0.04 K/uL (0.00-0.20) 10/08/23 11:32 Immature Gran # (Auto) 0.03 K/uL (0.01-0.20) 10/08/23 11:32 Polychromasia 1+ 10/08/23 11:32 Anisocytosis Present 10/08/23 11:32 Tear Drop Cells 1+ 10/08/23 11:32 Ovalocytes 1+ 10/08/23 11:32 Sodium 138 mmol/L (136-145) 10/09/23 06:31 Potassium 4.2 mmol/L (3.5-5.1) 10/09/23 06:31 Chloride 110 mmol/L (98-107) H 10/09/23 06:31 Carbon Dioxide 19 mmol/L (21-32) L 10/09/23 06:31 Anion Gap 9 (3-11) 10/09/23 06:31 BUN 56 mg/dl (6-23) H 10/09/23 06:31 Creatinine 4.97 mg/dl (0.6-1.4) H* 10/09/23 06:31 Est Cr Clr Drug Dosing 18.3 ml/min 10/09/23 06:31 Est GFR ( Amer) 13.8 ml/min 10/09/23 06:31 Est GFR (Non-Af Amer) 11.9 ml/min 10/09/23 06:31 BUN/Creatinine Ratio 11.3 (10-20) 10/09/23 06:31 Glucose 107 mg/dl (70-99(Fasting)) H 10/09/23 06:31 Calcium 8.2 mg/dl (8.6-10.3) L 10/09/23 06:31 Total Bilirubin 0.3 mg/dl (0.2-1.0) 10/08/23 11:32 AST 16 U/L (13-39) 10/08/23 11:32 ALT 17 U/L (7-52) 10/08/23 11:32 Alkaline Phosphatase 98 U/L (34-104) 10/08/23 11:32 Troponin I High Sens 24.7 pg/ml (0-20) H 10/08/23 22:25 Total Protein 7.9 gm/dl (6.0-8.3) 10/08/23 11:32 Albumin 4.2 gm/dl (3.4-5.0) 10/08/23 11:32 Globulin 3.7 gm/dl (2.5-4.0) 10/08/23 11:32 Albumin/Globulin Ratio 1.1 (0.9-2) 10/08/23 11:32 TSH 2.330 uIu/ml (0.300-4.500) 10/08/23 11:32 Urine Color Yellow 10/08/23 19:23 Urine Appearance Clear (Clear) 10/08/23 19:23 Urine pH 6.5 (4.5-7.5) 10/08/23 19:23 Ur Specific [place] 1.011 (1.000-1.030) 10/08/23 19:23 Urine Protein 2+ (Negative) H 10/08/23 19:23 Urine Glucose (UA) Negative (Negative) 10/08/23 19:23 Urine Ketones Negative (Negative) 10/08/23 19:23 Urine Blood Negative (Negative) 10/08/23 19:23 Urine Nitrite Negative (Negative) 10/08/23 19:23 Urine Bilirubin Negative (Negative) 10/08/23 19:23 Urine Urobilinogen Negative (Negative) 10/08/23 19:23 Ur Leukocyte Esterase Negative (Negative) 10/08/23 19:23 Urine WBC (Auto) 0 /hpf (0-5) 10/08/23 19:23 Urine RBC (Auto) 0-4 /hpf (0-4) 10/08/23 19:23 U Hyaline Cast (Auto) 0 /lpf (0-5) 10/08/23 19:23 U Epithel Cells (Auto) 0-5 /lpf (0-5) 10/08/23 19:23 Urine Bacteria (Auto) Negative (Negative) 10/08/23 19:23 Urine Opiates Screen Neg (Neg) 10/08/23 19:23 Ur Methadone, Qual Neg (Neg) 10/08/23 19:23 Urine Barbiturates Neg (Neg) 10/08/23 19:23 Ur Phencyclidine (PCP) Neg (Neg) 10/08/23 19:23 U Amphetamin/Meth Scrn Neg (Neg) 10/08/23 19:23 MDMA (Ecstasy) Screen Neg (Neg) 10/08/23 19:23 U Benzodiazepines Scrn Neg (Neg) 10/08/23 19:23 Ur Cocaine Metabolite Neg (Neg) 10/08/23 19:23 U Marijuana (THC) Screen Neg (Neg) 10/08/23 19:23 Impressions Chest X-Ray 10/08/23 11:36 SINGLE VIEW CHEST CLINICAL HISTORY: Hypertension FINDINGS: An AP, portable, upright chest radiograph is compared to study dated 10/06/2022. The heart is enlarged. The pulmonary vasculature is noncongested. The lungs and pleural spaces are clear. No pneumothorax is seen. The bony thorax is grossly intact. IMPRESSION: Cardiomegaly with no active disease in the chest. ACT 112: Negative or not required by law. Electronically signed by: Pete Ocampo M.D. 10/08/2023 11:55 AM Renal Ultrasound 10/09/23 08:34 ULTRASOUND KIDNEYS AND BLADDER CLINICAL HISTORY: Acute on chronic renal insufficiency.. COMPARISON STUDY: Renal ultrasound dated 04/15/2022. TECHNIQUE: Real-time, grayscale, and color flow sonography of the kidneys and bladder is performed. Images are reviewed in the transverse and longitudinal planes. FINDINGS: Kidneys: The kidneys are normal in size. Echotexture is increased. The right kidney measures 10.0 cm in length and the left kidney measures 9.3 cm. There is no hydronephrosis. No shadowing renal calculi are identified. A 1.1 cm cyst is seen in the right upper pole. There is no sonographic evidence of contour deforming renal mass lesion. No perinephric fluid is identified. Bladder: The prostate gland is enlarged and heterogeneous noting median lobe hypertrophy. The bladder is distended, the wall appears thickened/trabeculated indicating chronic outlet obstruction. Only left ureteral jet was seen. IMPRESSION: 1. The kidneys are normal in size and without hydronephrosis. 2. Cortical echotexture is increased suggesting medical renal disease. 3. Prostatomegaly with evidence of chronic bladder outlet obstruction. ACT 112: Negative or not required by law. Electronically signed by: Pete Ocampo M.D. 10/09/2023 10:07 AM Ordered Studies 10/09/23 08:34 US Renal Bladder [US renal/blad retro comp] Routine Hospital Course (1) Hypertensive emergency: Patient is a 58 yr male with H/O HTN, tobacco use, BPH, DM II and other medical problems listed below who was sent in by IVELISSE Goodwin from [facility] cardiology for elevated BP in clinic. Ran out of home meds - missed PM dose of Carvedilol, nifedipine last night. Hypertensive urgency Medication noncompliance --ECHO: Severe asymmetric left ventricular hypertrophy. No regional wall motion abnormality. LV systolic function is normal to hyperdynamic LVEF 60% depression. Mild mitral regurgitation. Grade 1 diastolic dysfunction. Trace anterior pericardial effusion. Tamponade is absent. Nicardipine drip discontinued Continue Coreg, nifedipine, Cardura. Added back clonidine 0.1 mg twice a day Continue to hold torsemide, losartan for now as recommended by cardiology Appreciate Cardiology, Nephrology input Blood pressure much improved Right-sided rib pain Likely musculoskeletal in origin --CXR:Cardiomegaly with no active disease in the chest. Patient denies any trauma Conservative management (2) Acute kidney injury superimposed on chronic kidney disease: Cr 5.07 (baseline CR mid 2s- mid3s) in setting of hypertensive crisis --Renal USD:The kidneys are normal in size and without hydronephrosis. Cortical echotexture is increased suggesting medical renal disease. Prostatomegaly with evidence of chronic bladder outlet obstruction. Cr:4.97 Today Progressively worsening CKD impression stage V from uncontrolled hypertension for many years as per nephrology Patient has follow-up with nephrology tomorrow Received IV Venofer for anemia of chronic kidney disease Needs follow-up with nephrology on discharge (3) BPH with obstruction/lower urinary tract symptoms: Continue finasteride, Doxazosin, bladder scan PRN (4) Tobacco use: Smoking cessation DVT Px: SQ heparin Code status: FULL CODE Disposition Home Total Time Total Time Spent Total Time Spent (In Minutes): 56 minutes Discharge Plan Discharge Items Patient Disposition: Home - Self-Care Reason For Visit: HTN EMERGENCY Discharge Diagnosis: Hypertensive urgency 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 Activity: Per Instructions section Exercise/Sports: Gradually increase as tolerated Non-emergency contact: Primary Care Provider and Survey Project Manager Call non-emergency contact if: you have any medication questions, your symptoms worsen, your pain is concerning for you and you have a fever Follow-up/Referrals: Albert Jhaveri MD [Surgeon] - (Date & Time 10/10/2023 2:40 PM Provider Albert Jhaveri MD Department Nephrology, [facility] ) Irma Gavin MD [Primary Care Provider] - (Date & Time 10/15/2023 2:00 PM Provider Irma Gavin MD Department [facility] ) Diet: Heart Healthy Addtl Attending Provider Instructions: Follow-up with your primary care physician on 10/15/2023 2:00 PM Follow-up with your fluxer Dr. Jhaveri on 10/10/2023 2:40 PM Follow-up with your art museum docent Dr. Chan as advised --- Monitor your blood pressure regularly at home. Discuss with your physicians for further adjustment of medications as needed. Seek immediate medical attention if your symptoms reoccur or worsen Please take all medications as instructed on discharge list below. Please call if you have any questions or problems. You can reach a [facility] hospitalist on duty at [facility] 24 hours a day by calling [phone] Pending Studies at Discharge: No Stand-Alone Forms: My [facility], Smoking Cessation Medications and DC Order Prescriptions: Continued aspirin 81 mg Tablet,Chewable 81 mg PO QAM atorvastatin 40 mg tablet 40 mg PO HS omeprazole 40 mg capsule,delayed release(DR/EC) 40 mg PO DAILY finasteride 5 mg tablet 5 mg PO QAM nitroglycerin [Nitrostat] 0.4 mg Tablet, Sublingual 0.4 mg sublingual Q5M PRN (Reason: chest pain) Qty: 15 0RF Rx Instructions: NEEDED FOR CHEST PAIN : ONE TABLET UNDER THE TONGUE EVERY FIVE MINUTES UP TO 3 DOSES. doxazosin 4 mg Tablet 8 mg PO HS Qty: 30 0RF Rx Instructions: reports he is not taking nifedipine [Procardia XL] 30 mg Tablet Extended Release 24hr 90 mg PO HS Qty: 90 0RF carvedilol 25 mg Tablet 25 mg PO BID Qty: 60 0RF Changed clonidine HCl 0.1 mg Tablet 0.1 mg PO BID Qty: 60 1RF Rx Instructions: for SBP >160 Held torsemide 10 mg Tablet 10 mg PO DAILY Hold Instructions: Until further instructions from your primary care physician/fluxer Rx Instructions: reportedly not taking valsartan 160 mg Tablet 160 mg PO DAILY Hold Instructions: Until further instructions from your primary care physician/fluxer Rx Instructions: ?unsure whether or not taking Discontinued clonidine HCl 0.2 mg tablet 0.2 mg PO TID Discharge Orders: Discharge Order (Routine); Ordered 10/09/23 Ordered By: Ross Matamoros Admission Data Admit Date/Time: 10/08/23 14:23 Attending Provider: Ross Matamoros Admit Provider: Mariam Ortiz Primary Care Provider: Irma Gavin Other Providers: Les Wiggins; Albert Jhaveri; Mariam Ortiz
[2023-10-09 14:55] LABS: Creatinine Urine Random 95.8 mg/dl; Protein Creatinine Ratio Urine 0.7 (0-0.2); Total Protein Urine Random 66.7 mg/dl (0-11.9)
[2023-10-09] MEDS ORDERED: ATORVASTATIN 40 MG TAB PO SCH (21:00)
[2023-10-09] MEDS ORDERED: cloNIDine HCL 0.1 MG TAB PO SCH (21:00)
== END 2023-10-09 15:06 | disposition home or self-care (01) | DRG 305 ==
LOC: ED 11:13 → SUATTDRO 14:23 → 2E 14:23

== ENCOUNTER 2023-12-06 16:04 | Inpatient (IN) ==
[2023-12-06 16:38] LABS: Basophils # (auto) 0.05 K/uL (0.00-0.20); Basophils % (auto) 0.7 %; Eosinophils # (auto) 1.71 K/uL (0.00-0.50); Eosinophils % (auto) 22.3 %; Hematocrit (blood only) 30.2 % (42.0-52.0); Hemoglobin 9.7 g/dl (14.0-18.0); Immature Granulocytes # (auto) 0.01 K/uL (0.01-0.20); Immature Granulocytes % (auto) 0.1 %; Lymphocytes # (auto) 1.32 K/uL (1.20-3.40); Lymphocytes % (auto) 17.2 %; Mean Corpuscular Hemoglobin 26.5 pg (25.0-34.0); Mean Corpuscular Hgb Conc 32.1 g/dL (32.0-36.0); Mean Corpuscular Volume 82.5 fL (80.0-100.0); Mean Platelet Volume 10.3 fL (9.4-12.4); Monocytes # (auto) 0.55 K/uL (0.11-0.59); Monocytes % (auto) 7.2 %; Neutrophils # (auto) 4.04 K/uL (1.40-6.50); Neutrophils % (auto) 52.5 %; Platelet Count 237 K/uL (130-400); RDW Coefficient of Variation 18.4 % (11.5-14.5); RDW Standard Deviation 55.4 fL (36.4-46.3); Red Blood Count 3.66 M/uL (4.70-6.10); White Blood Count 7.68 K/ul (4.8-10.8)
[2023-12-06 16:59] LABS: Albumin Globulin Ratio 1.2 (0.9-2); Albumin Level 4.1 gm/dl (3.4-5.0); BUN Creatinine Ratio 9.5 (10-20); Bilirubin,Total 0.3 mg/dl (0.2-1.0); Calcium 8.1 mg/dl (8.6-10.3); Creatinine Clr Calc Pharmacy 13.9 ml/min; Est GFR (African American) 9.1 ml/min; Est GFR (Non-African American) 7.8 ml/min; Globulin 3.5 gm/dl (2.5-4.0); Potassium 4.2 mmol/L (3.5-5.1); Total Protein 7.6 gm/dl (6.0-8.3)
--- NOTE | 2023-12-06 18:16 | Emergency Department Note ---
History of Present Illness General Chief Complaint: Abnormal Labs/Diagnostic Testing Stated Complaint: ABNORMAL BLOOD WORK/LABS Time Seen by Provider: 12/06/23 17:04 History of Present Illness Provider Complaint: + abnormal lab Initial visit (ago): day(s) (1) Returns today for: + called because of abnormal lab/test Description of abnormal result: Worsening kidney function Symptoms since prior visit: + no new symptoms Associated symptoms: no fever, no chills, no chest pain, no shortness of breath, no rash, no malaise, no nausea or no abdominal pain Home Medications Medication Instructions Recorded Confirmed Type aspirin 81 mg chewable tablet 81 mg PO QAM 10/06/18 12/06/23 History finasteride 5 mg tablet 5 mg PO QAM 03/08/21 12/06/23 History nitroglycerin 0.4 mg sublingual 0.4 mg sublingual Q5M PRN chest 04/18/22 12/06/23 Rx tablet (Nitrostat) pain #15 tabs carvedilol 25 mg tablet 25 mg PO BID #60 tabs 10/11/22 12/06/23 Rx doxazosin 4 mg tablet 8 mg (2 x 4 mg) PO HS #30 tabs 10/11/22 12/06/23 Rx atorvastatin 40 mg tablet 40 mg PO HS 10/08/23 12/06/23 History clonidine HCl 0.2 mg tablet 0.2 mg PO TID 12/06/23 12/06/23 History famotidine 20 mg tablet 20 mg PO QAM 12/06/23 12/06/23 History nifedipine 90 mg tablet,extended 90 mg PO HS 12/06/23 12/06/23 History release torsemide 100 mg tablet 0 mg PO QAM 12/06/23 12/06/23 History valsartan 160 mg tablet 160 mg PO HS 12/06/23 12/06/23 History Allergies Allergy/AdvReac Type Severity Reaction Status Date / Time Penicillins Allergy Unknown CAN'T Verified 12/06/23 17:47 REMEMBER propoxyphene Allergy Unknown TYLENOL OK Verified 12/06/23 17:47 acetaminophen AdvReac Intermediate UPSETS Verified 12/06/23 17:47 STOMACH naproxen AdvReac Intermediate stomach Verified 12/06/23 17:47 burning, takes ibuprofen w/out prob Past Med/Surg History Medical History Tobacco use LV hypertrophy, hypertensive CKD (chronic kidney disease) stage 3, GFR 30-59 ml/min HERBERT (acute kidney injury) BPH (benign prostatic hyperplasia) HTN (hypertension) Diabetes Surgical History History of rotator cuff surgery Family History Grandmother (Maternal) Dementia Mother Dementia Other Cancer Diabetes Heart disease Hypertension Social History Smoking Status: Current every day smoker Tobacco Type: Cigarettes Second Hand Exposure: No; Do You Dip or Chew Tobacco: No; Hx Alcohol Use: No Hx Substance Use: Yes Last Used Substance: Unknown Preferred Language: Slovak Communication Ability: Effective 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 Cd Reactor Operator Required: No Beliefs That Will Affect Care: None marital status: Single Current Living Situation: Spouse current occupational status: employed How many Children do You have: 4 Feels Safe at Home: Yes Assistive Devices: None Physical Exam 2 Vital Signs: Vital Signs - 24 hr 12/06/23 16:10 12/06/23 18:00 Temperature 36.4 C L Temperature Source Temporal Artery Sc an Pulse Rate 84 Pulse Rate [Finger ] 71 Pulse Rhythm Regular Pulse Strength Normal Respiratory Rate 20 18 Respiratory Effort / Characteristics Non-Labored Respiratory Depth Normal Blood Pressure 229/112 H Blood Pressure [Ri ght Arm] 223/142 H Blood Pressure Rachel n 151 Blood Pressure Rachel n [Right Arm] 169 Blood Pressure Pos ition Sitting Pulse Oximetry 97 98 Oxygen Delivery Me thod Room Air Room Air Sepsis Recent Feve r Within 48 Hours No Sepsis New/Unexpla ined Change in Men kel Status N/A Sepsis Action Take n by Nursing No Action Required Physical Exam: Physical Exam GENERAL: oriented to person, place, and time. appears well-developed and well- nourished. HENT: Exam performed. - Head: Normocephalic and atraumatic. EYES: Conjunctivae and EOM are normal. Right eye exhibits no discharge. Left eye exhibits no discharge. No scleral icterus. NECK: Normal range of motion. Neck supple. No JVD present. CV: Normal rate, regular rhythm, normal heart sounds and intact distal pulses. There is no peripheral edema. Palpable radial pulses bue. PULM/CHEST: Effort normal and breath sounds normal. No respiratory distress. No stridor. no wheezes. no rales. ABD: The abdomen is soft. There is no tenderness. NEURO: Motor and sensation grossly intact. SKIN: Skin is warm and dry. He is not diaphoretic. PSYCH: normal mood and affect. Behavior is normal. Judgment and thought content normal. Course Course 1703: The patient was evaluated in room C8. A complete history and physical exam was performed Medical Decision Making Medical Records Attestation: I reviewed the patient's medical records. External medical records reviewed from the [employer] system obtained by Joey [facility]an baptiste hospice case manager. Patient's last creatinine in September 2022 was 4.1 and before that 2021 it was 2.7. Patient had blood work done yesterday which showed a creatinine of 7.6. Laboratory Data Attestation: I reviewed the patient's lab results. 12/06/23 16:15 12/06/23 16:15 Lab Results 12/06/23 Range/Units 16:15 WBC 7.68 (4.8-10.8) K/ul RBC 3.66 L (4.70-6.10) M/uL Hgb 9.7 L (14.0-18.0) g/dl Hct 30.2 L (42.0-52.0) % MCV 82.5 (80.0-100.0) fL MCH 26.5 (25.0-34.0) pg MCHC 32.1 (32.0-36.0) g/dL RDW Std Deviation 55.4 H (36.4-46.3) fL RDW Coeff of Rufino 18.4 H (11.5-14.5) % Plt Count 237 (130-400) K/uL MPV 10.3 (9.4-12.4) fL Immature Gran % (Auto) 0.1 % Neut % (Auto) 52.5 % Lymph % (Auto) 17.2 % [place] % (Auto) 7.2 % Eos % (Auto) 22.3 % Baso % (Auto) 0.7 % Neut # (Auto) 4.04 (1.40-6.50) K/uL Lymph # (Auto) 1.32 (1.20-3.40) K/uL [place] # (Auto) 0.55 (0.11-0.59) K/uL Eos # (Auto) 1.71 H (0.00-0.50) K/uL Baso # (Auto) 0.05 (0.00-0.20) K/uL Immature Gran # (Auto) 0.01 (0.01-0.20) K/uL Sodium 137 (136-145) mmol/L Potassium 4.2 (3.5-5.1) mmol/L Chloride 104 (98-107) mmol/L Carbon Dioxide 22 (21-32) mmol/L Anion Gap 11 (3-11) BUN 67 H (6-23) mg/dl Creatinine 7.03 H* (0.6-1.4) mg/dl Est Cr Clr Drug Dosing 13.9 ml/min Est GFR ( Amer) 9.1 ml/min Est GFR (Non-Af Amer) 7.8 ml/min BUN/Creatinine Ratio 9.5 L (10-20) Glucose 106 H (70-99(Fasting)) mg/dl Calcium 8.1 L (8.6-10.3) mg/dl Total Bilirubin 0.3 (0.2-1.0) mg/dl AST 13 (13-39) U/L ALT 15 (7-52) U/L Alkaline Phosphatase 93 (34-104) U/L Total Protein 7.6 (6.0-8.3) gm/dl Albumin 4.1 (3.4-5.0) gm/dl Globulin 3.5 (2.5-4.0) gm/dl Albumin/Globulin Ratio 1.2 (0.9-2) ECG Data Attestation: I personally reviewed and interpreted this ECG as follows: Rate (beats per minute): 77 Rhythm: normal sinus Findings: no ST depression, no ST elevation or no prolonged QT MDM Narrative Cardiac monitoring: An order was placed for continuous cardiac monitoring. The monitor shows a rate of 80 with sinus rhythm interpreted by me Patient is hypertensive but asymptomatic. Patient's creatinine today is 7.03. Patient will be admitted to the [facility] team for HERBERT on CKD. Impression & Plan Acute kidney injury superimposed on chronic kidney disease Discharge Plan Visit Data Chief Complaint: Abnormal Labs/Diagnostic Testing Stated Complaint: ABNORMAL BLOOD WORK/LABS ED Provider: Luis Guajardo Discharge Problem: Acute kidney injury superimposed on chronic kidney disease Patient Disposition: Admitted As Inpatient Forms Stand Alone Forms: My [facility] Prescriptions Prescriptions: No Action aspirin 81 mg Tablet,Chewable 81 mg PO QAM atorvastatin 40 mg tablet 40 mg PO HS finasteride 5 mg tablet 5 mg PO QAM nitroglycerin [Nitrostat] 0.4 mg Tablet, Sublingual 0.4 mg sublingual Q5M PRN (Reason: chest pain) Qty: 15 0RF Rx Instructions: NEEDED FOR CHEST PAIN : ONE TABLET UNDER THE TONGUE EVERY FIVE MINUTES UP TO 3 DOSES. doxazosin 4 mg Tablet 8 mg PO HS Qty: 30 0RF carvedilol 25 mg Tablet 25 mg PO BID Qty: 60 0RF nifedipine 90 mg tablet extended release 90 mg PO HS clonidine HCl 0.2 mg tablet 0.2 mg PO TID famotidine 20 mg tablet 20 mg PO QAM torsemide 100 mg tablet 0 mg PO QAM Rx Instructions: Per pt, this medication is currently on hold per PCP, he has not been given a restart date. Original Directions: 50mg by mouth in the morning valsartan 160 mg tablet 160 mg PO HS Referrals Referrals: Irma Gavin MD [Primary Care Provider] -
--- NOTE | 2023-12-06 18:20 | History & Physical Report ---
Date of Service December 06, 2023 Assessment & Plan (1) Acute kidney injury superimposed on chronic kidney disease: (2) Uncontrolled hypertension: Plan: 58-year-old male with history of diabetes, hypertension, CKD stage IV, smoker, BPH, presenting with elevated creatinine level at PCP office. ACUTE KIDNEY INJURY ON CKD STAGE 4 Patient on torsemide Otherwise unclear inciting factor, no diarrhea, vomiting, no NSAID use Renal ultrasound September 2023: Kidneys are normal in size, without hydronephrosis Discussed with nephrology service Will start half NSS at 75 cc/h BMP tomorrow UNCONTROLLED HYPERTENSION Discussed with nephrology service Patient has a history of nonadherence to medications Had an episode of low BP during last admission Will give a stat dose of labetalol IV, and continue usual medication regimen As needed hydralazine ordered Monitor closely at telemetry unit NONSPECIFIC ST DEPRESSIONS IN LATERAL LEADS No cardiac symptoms Check troponin level Had a recent echocardiogram back in September 2023 DIABETES TYPE 2 HISTORY Not on any medications Check A1c SMOKER Has been trying to quit, uses 2 cigarettes/day Declines nicotine patch BPH Continue finasteride DVT prophylaxis SCDs for now History of Present Illness Primary Care Provider: Irma Gavin MD 58-year-old male with history of diabetes type 2, hypertension, CKD, smoking, BPH, Sent over by primary care physician for elevated creatinine level. Patient was recently mated to [facility] last September 2023 for hypertensive urgency and acute on chronic kidney disease. Patient reports he was doing fine at home, denies any symptoms including headache, chest pain, shortness of breath, abdominal pain. He has not noticed any reduction of urine output, but does report some difficulty with initiating urination intermittently. Patient had a routine blood work yesterday by primary care physician and creatinine level was found to be 7. He was called today to proceed to the emergency room for further evaluation. At the ER, patient was admitted with elevated blood pressure, 229/110. Creatinine 7.0, bicarb 22, sodium [address] depressions in the lateral leads On exam, patient seen resting in bed, comfortable, not in distress, very pleasant, in good spirits States he feels fine, denies any active symptoms-no headache, dizziness, nausea, chest pain, shortness of breath, etc. Allergies Allergy/AdvReac Type Severity Reaction Status Date / Time Penicillins Allergy Unknown CAN'T Verified 12/06/23 17:47 REMEMBER propoxyphene Allergy Unknown TYLENOL OK Verified 12/06/23 17:47 acetaminophen AdvReac Intermediate UPSETS Verified 12/06/23 17:47 STOMACH naproxen AdvReac Intermediate stomach Verified 12/06/23 17:47 burning, takes ibuprofen w/out prob Home Medications Medication Instructions Recorded Confirmed Type aspirin 81 mg chewable tablet 81 mg PO QAM 10/06/18 12/06/23 History finasteride 5 mg tablet 5 mg PO QAM 03/08/21 12/06/23 History nitroglycerin 0.4 mg sublingual 0.4 mg sublingual Q5M PRN chest 04/18/22 12/06/23 Rx tablet (Nitrostat) pain #15 tabs carvedilol 25 mg tablet 25 mg PO BID #60 tabs 10/11/22 12/06/23 Rx doxazosin 4 mg tablet 8 mg (2 x 4 mg) PO HS #30 tabs 10/11/22 12/06/23 Rx atorvastatin 40 mg tablet 40 mg PO HS 10/08/23 12/06/23 History clonidine HCl 0.2 mg tablet 0.2 mg PO TID 12/06/23 12/06/23 History famotidine 20 mg tablet 20 mg PO QAM 12/06/23 12/06/23 History nifedipine 90 mg tablet,extended 90 mg PO HS 12/06/23 12/06/23 History release torsemide 100 mg tablet 0 mg PO QAM 12/06/23 12/06/23 History valsartan 160 mg tablet 160 mg PO HS 12/06/23 12/06/23 History Past Med/Surg History Medical History Tobacco use LV hypertrophy, hypertensive CKD (chronic kidney disease) stage 3, GFR 30-59 ml/min HERBERT (acute kidney injury) BPH (benign prostatic hyperplasia) HTN (hypertension) Diabetes Surgical History History of rotator cuff surgery Family History Grandmother (Maternal) Dementia Mother Dementia Other Cancer Diabetes Heart disease Hypertension Social History Smoking Status: Current every day smoker Tobacco Type: Cigarettes Second Hand Exposure: No; Do You Dip or Chew Tobacco: No; Hx Alcohol Use: No Hx Substance Use: Yes Last Used Substance: Unknown Preferred Language: [place]se Communication Ability: Effective Preprint Analyst Required: No Beliefs That Will Affect Care: None marital status: Single Current Living Situation: Spouse current occupational status: employed How many Children do You have: 4 Feels Safe at Home: Yes Assistive Devices: None Review of Systems Review of Systems: all noted and negative except for above Physical Exam Physical Exam: General- oriented x 3, not in distress, speaks in sentences with no effort or accessory muscle use Head- atraumatic Eyes- PERRL, EOMI, anicteric ENT- oropharynx clear Neck- supple, no JVD, no adenopathy, no thyromegaly; carotids +2/2, no bruits appreciated Lungs- clear to auscultation bilaterally, no rales/wheezes Heart- normal rate, regular rhythm; no murmur, no gallop, no rub appreciated Abdomen- normal bowel sounds, nondistended, soft, nontender, no masses or hepatosplenomegaly Extremities- no pretibial edema, no calf tenderness; peripheral pulses intact Neuro- alert, oriented x 3; CN 2-12 grossly intact; motor 5/5 bilaterally;sensation 100% on all extremities; no other gross focal neurologic deficits Skin- warm & dry Results & Data Results & Data Vital Signs (Past 12 Hours) Vital Signs Temp Pulse Pulse Resp BP BP Pulse Ox 12/06/23 18:00 71 18 223/142 H 98 12/06/23 16:10 36.4 C L 84 20 229/112 H 97 O2 Del Method 12/06/23 18:00 Room Air 12/06/23 16:10 Room Air all noted and reviewed including below
[2023-12-06] MEDS: LABETALOL HCL IV 5 MG/ML 20ML IV STA (18:25)
[2023-12-06] MEDS: hydrALAZINE HCL 20 MG/ML VIAL IV PRN (20:56)
[2023-12-06] MEDS: cloNIDine HCL 0.1 MG TAB PO SCH (21:05)
[2023-12-06] MEDS: NIFEdipine EXTENDED REL 30 MG TABCR PO SCH (21:10)
[2023-12-06] MEDS: ATORVASTATIN 40 MG TAB PO SCH (21:10)
[2023-12-06] MEDS: carvediloL 25 MG TAB PO SCH (21:11)
[2023-12-06 21:46] LABS: BUN Creatinine Ratio 9.9 (10-20); Calcium 7.8 mg/dl (8.6-10.3); Creatinine Clr Calc Pharmacy 13.8 ml/min; Est GFR (Non-African American) 7.7 ml/min; Magnesium 1.8 mg/dl (1.7-2.4); Phosphorus 4.6 mg/dl (2.5-4.9); Potassium 4.3 mmol/L (3.5-5.1)
[2023-12-06 22:23] LABS: Troponin I High Sensitivity 119.1 pg/ml (0-20)
[2023-12-06] MEDS: SODIUM CHLORIDE 0.45 % 1,000 ML IV SCH (23:20)
--- NOTE | 2023-12-07 00:06 | Communication Note ---
Date of Service: December 07, 2023 Made aware by RN of uncontrolled blood pressure. SBP 190s-220s since arrival at the ER yesterday afternoon Heart rate 60s 70s AP Hypertensive urgency History of medical noncompliance as per records Add amlodipine (dihydropyridine CCB) to regimen which includes nifedipine (nondihydropyridine CCB) home Been Will relay to AM provider.
[2023-12-07] MEDS: amLODIPine BESYLATE 5 MG TAB PO SCH (00:52)
[2023-12-07] MEDS: DOXAZosin MESYLATE 4 MG TAB PO SCH (01:16)
[2023-12-07 06:55] LABS: Basophils # (auto) 0.06 K/uL (0.00-0.20); Basophils % (auto) 0.7 %; Eosinophils # (auto) 2.11 K/uL (0.00-0.50); Eosinophils % (auto) 24.1 %; Hematocrit (blood only) 30.1 % (42.0-52.0); Hemoglobin 9.5 g/dl (14.0-18.0); Immature Granulocytes # (auto) 0.03 K/uL (0.01-0.20); Immature Granulocytes % (auto) 0.3 %; Lymphocytes % (auto) 14.8 %; Mean Corpuscular Hemoglobin 26.1 pg (25.0-34.0); Mean Corpuscular Hgb Conc 31.6 g/dL (32.0-36.0); Mean Corpuscular Volume 82.7 fL (80.0-100.0); Mean Platelet Volume 10.8 fL (9.4-12.4); Monocytes # (auto) 0.67 K/uL (0.11-0.59); Monocytes % (auto) 7.6 %; Neutrophils # (auto) 4.59 K/uL (1.40-6.50); Neutrophils % (auto) 52.5 %; Platelet Count 234 K/uL (130-400); RDW Coefficient of Variation 18.1 % (11.5-14.5); RDW Standard Deviation 55.3 fL (36.4-46.3); Red Blood Count 3.64 M/uL (4.70-6.10); White Blood Count 8.76 K/ul (4.8-10.8)
[2023-12-07 07:15] LABS: BUN Creatinine Ratio 9.7 (10-20); Calcium 7.9 mg/dl (8.6-10.3); Creatinine Clr Calc Pharmacy 13.4 ml/min; Est GFR (African American) 8.8 ml/min; Est GFR (Non-African American) 7.6 ml/min; Magnesium 1.7 mg/dl (1.7-2.4); Phosphorus 4.9 mg/dl (2.5-4.9); Potassium 4.4 mmol/L (3.5-5.1)
--- OUTSIDE RECORDS SUMMARY | 2023-12-07 07:40 | External Medical Summary | Summary of Care ---
Author Name Unknown Organization [facility] Address [address] [place] [address] Phone [phone] Care Team Providers Care Brand Communications Manager Name Role Phone Irma Gavin MD Primary Care Provid er Reason for Visit * Reason Onset Date Comments Follow Up 12/06/2023 Encounter Details Date Type Department Care Team (Late st Contact Info) Description 12/06/2023 [place] [address] [facility] [place] [id number] Albert Jhaveri MD [address] [place] [id number] Follow Up Allergies Active Allergy Reactions Criticality Noted Date Comments Acetaminophen High 10/06/2022 Other Reaction(s): UPSETS STOMACH Propoxyphene Abdominal pain Low 01/30/2016 Penicillins Abdominal pain Low 01/30/2016 documented as of this encounter (statuses as of 12/06/2023) Medications Medication Sig Dispensed Refills Start Date End Date Status Nitroglycerin 0.4 MG Sublingual Tablet Sublingual (Nitrostat) Place 1 Tablet under the tongue every 5 minutes as needed for Pain, Chest. 0 Active Atorvastatin Calcium 40 MG Oral Tablet (Lipitor)Indication s:Mild CAD Take 1 Tablet by mouth every night at bedtime. Take with coenzyme qu 10 supplement. 90 Tablet 3 01/31/2023 Active NIFEdipine ER 90 MG Oral Tablet Extended Release 24 Hour (Adalat CC) Take 1 Tablet by mouth in the morning. 90 Tablet 3 02/01/2023 Active Doxazosin Mesylate 4 MG Oral Tablet (Cardura) Take 1 Tablet by mouth at bedtime. 90 Tablet 3 02/01/2023 Active Additional Information Patient not taking.Reported on 06/04/2023 Finasteride 5 MG Oral Tablet (Proscar) Take 1 Tablet by mouth in the morning. 90 Tablet 3 05/31/2023 Active Famotidine 20 MG Oral Tablet (Pepcid)Indications :Gastroesophageal reflux disease, unspecified whether esophagitis present,Hypertensio n goal BP (blood pressure) < 130/80 Take 1 Tablet by mouth in the morning. 90 Tablet 3 06/04/2023 Active Additional Information Patient not taking.Reported on 10/10/2023 Omeprazole 40 MG Oral Capsule Delayed Release (PriLOSEC)Indicatio ns:Gastroesophageal reflux disease, unspecified whether esophagitis present,Hypertensio n goal BP (blood pressure) < 130/80 Take 1 Capsule by mouth in the morning. 90 Capsule 3 06/04/2023 Active Aspirin Low Dose 81 MG Oral Tablet Chewable (aspirin)Indication s:Hypertensive heart disease without congestive heart failure CHEW 1 TABLET BY MOUTH DAILY IN THE MORNING WITH FOOD 90 Tablet 3 07/12/2023 Active cloNIDine HCl 0.2 MG Oral Tablet (Catapres) Take 1 Tablet by mouth in the morning and 1 Tablet at noon and 1 Tablet before bedtime. 270 Tablet 3 10/10/2023 Active Torsemide 100 MG Oral Tablet (Demadex) Take 0.5 Tablets by mouth in the morning. 45 Tablet 5 10/10/2023 Active Carvedilol 25 MG Oral Tablet (Coreg) Take 1 Tablet by mouth in the morning and 1 Tablet before bedtime. 180 Tablet 3 10/10/2023 Active documented as of this encounter (statuses as of 12/06/2023) Active Problems Problem Noted Date Diagnosed Date [...] as of this encounter (statuses as of 12/06/2023) Immunizations Name Administration Dates Next Due Hepatitis B, 20+ yrs 12/28/2022 Pneumococcal Conjugate Vaccine, 20-valent (Prevn ar20) 12/28/2022 TDAP (age 10 and older)(Boostrix) 03/12/2016 documented as of this encounter Social History Tobacco Use Types Packs/Day Years Used Date Smoking Tobacco: Every Day Cigarettes Passive Smoke Exposure: Current Smokeless Tobacco: Former Comments:10/10/23 Has had no cigarettes in 1 week Girlfriend smokes at home Alcohol Use Standard Drinks/Week Comments No 0 [...] on file documented as of this encounter Miscellaneous Notes * Telephone Encounter - Addie Bello RN - 12/06/2023 9:22 AM EST Attempted to reach pt at his place of employment due to critical lab results. They will send him a message to contact Dr Jhaveri's office. * Telephone Encounter - Addie Bello RN - 12/06/2023 9:21 AM EST ----- Message from Albert Jhaveri MD sent at 11/29/2023 12:46 PM EST ----- He is due for multiple labs so will do labs 1st. Do renal panel CBC iron screen, PTH, UA and protein to creatinine ratio Once we have the recent result will be able to approve iron infusion if the iron level is low. Albert Jhaveri MD ----- Message ----- From: Irma Gavin MD Sent: 11/29/2023 7:45 AM EST To: Albert Jhaveri MD documented in this encounter Plan of Treatment Upcoming Encounters Date Type Department Care Team (Late st Contact Info) Description 01/31/2024 9:40 AM EDT Office Visit [facility] [address] [place] [facility] [place] [place] [address] Irma Gavin MD [address] [place] [facility] [place] [place] [address] Scheduled Procedures Name Priority Associated Diagnoses Date/Ti me COLONOSCOPY FLEXIBLE PROXIMA L DIAGNOSTIC Recall Family history of colon cancer Health Maintenance Due Date Last Done Comments Zoster Vaccines (1 of 2) 2015 Hepatitis B (2 of 3 - 19+ 3-dose series) 01/25/2023 12/28/2022 COVID-19 Vaccine ( - season) 2023 Influenza Vaccine (FLU shot) (#1) 2023 Depression Screening 07/30/2023 07/30/2022 COLONOSCOPY-EVERY 5 YRS AGES 18-100 12/18/2023 12/17/2018, 12/17/2018 Albumin/Creatinine Ratio 06/04/2024 06/04/2023, 03/31 GFR 06/06/2024 12/05/2023, 02/2023, 06/04/2023, Additional history exists Nephrology Referral 10/10/2024 10/10/2023 Hgb 12/04/2024 12/05/2023, 01/2023, 06/04/2023, Additional history exists PTH 12/04/2024 12/05/2023, 02/2023, 06/04/2023, Additional history exists Phosphate 12/04/2024 12/05/2023, 02/2023, 06/04/2023, Additional history exists DTaP,Tdap,and Td Vaccines (2 - Td or Tdap) 03/12/2026 03/12/2016 Diabetes Screening 12/04/2026 12/05/2023, 1 10/05/2022, 06/04/2023, Additional history exists Lipid Panel 08/05/2028 08/05/2023, 0501/2023, 05/11/2020, Additional history exists Pneumococcal Vaccine: Pediatrics [...] Not on filedocumented as of this encounter Care Teams Brand Communications Manager Relationship Specialty Start Date End Date Irma Gavin MD [address] [place] [address] PCP - General Family Medicine 04/23/22 documented as of this encounter
--- OUTSIDE RECORDS SUMMARY | 2023-12-07 07:41 | External Medical Summary ---
Author Name Unknown Address Unknown Organization [id number]:LABORATORY [facility] [place] - [address] [place] [address] Laboratory Report Ordering Provider Test Date Status JIMIRADHAABBEY 12/05/2023 08:09:41 Final Observation Date Value Abnormality Reference (Units ) Status Parathyrin.intact [Mass/volume] in Serum or Plasma 12/05/2023 08:09:41 277 Above high normal 15-65 (pg/mL) Final Performing Location LAB[facility]ATORY [facility] [place] - [address] [place] [address]
--- OUTSIDE RECORDS SUMMARY | 2023-12-07 07:41 | External Medical Summary | Summary of Care ---
Author Name Unknown Organization [facility] Address [address] [place] [address] Phone [phone] Care Team Providers Care Single Stroke Preformer Name Role Phone Irma Gavin MD Primary Care Provid er Reason for Visit * Reason Onset Date Comments Advice 11/26/2023 Encounter Details Date Type Department Care Team (Late st Contact Info) Description 11/26/[address] [facility] [address] [place] [address] Irma Gavin MD [address] [place] [address] Advice Allergies Active Allergy Reactions Criticality Noted Date Comments Acetaminophen High 10/06/2022 Other Reaction(s): UPSETS STOMACH Propoxyphene Abdominal pain Low 01/30/2016 Penicillins Abdominal pain Low 01/30/2016 documented as of this encounter (statuses as of 12/05/2023) Medications Medication Sig Dispensed Refills Start Date [...] as of this encounter (statuses as of 12/05/2023) Active Problems Problem Noted Date Diagnosed Date [...] as of this encounter (statuses as of 12/05/2023) Immunizations Name Administration Dates Next Due Hepatitis [...] Miscellaneous Notes * Telephone Encounter - Addie Bowling RN - 12/05/2023 1:29 PM EST Attempted to contact pt-Unable to leave message. * Telephone Encounter - Addie Bowling RN - 12/04/2023 1:51 PM EST Attempted to contact pt-Unable to leave VM. * Telephone Encounter - Nena Foote OSA - 12/03/2023 2:38 PM EST Patient has been notified of the message. Patient has been scheduled for labs on 12/05/23. * Addendum Note - Addie Bowling RN - 12/03/2023 2:35 PM ESTAddended by: ADDIE BOWLING on: 12/03/2023 02:35 PM Modules accepted: Orders * Telephone Encounter - Addie Bowling RN - 12/03/2023 2:31 PM EST Attempted to contact pt regarding lab tests that need completed. Orders placed in the system. Unable to leave message on VM. * Telephone Encounter - Irma Gavin MD - 11/29/2023 7:45 AM EST Patient is inquiring about iron infusions Forwarding to Nephrology Please advise Dr. Jhaveri, thank you * Telephone Encounter - Diane Grullon CCMA - 11/26/2023 2:52 PM EST Please advise as below. Thank you. * Telephone Encounter - Polo Donahue OSA - 11/26/2023 9:10 AM EST Pt called in today to check the status on the referral to be sent to the infusion clinic for iron. Please give pt a call back on his mobile phone to discuss this. documented in this encounter Plan of Treatment Upcoming Encounters Date Type Department Care Team (Late st Contact Info) Description 01/31/2024 9:40 AM EDT Office Visit [facility] [address] [facility] [place] [id number] Irma Gavin MD [address] [place] [facility] [place] [address] Pending Results Name Type Priority Associated Diagnoses Date /Time CBC Lab Routine Kidney disease, chronic, stage IV (GFR 15-29 ml/min) ([facility]) 12/05/2023 8:09 AM EST IRON SCREEN, INCLUDING TIBC Lab Routine Kidney disease, chronic, stage IV (GFR 15-29 ml/min) ([facility]) 12/05/2023 8:09 AM EST URINALYSIS WITH MICROSCOPIC EXAM Lab Routine Kidney disease, chronic, stage IV (GFR 15-29 ml/min) ([facility]) 12/05/2023 10:29 AM EST PROTEIN/ CREATININE RATIO, URINE Lab Routine Kidney disease, chronic, stage IV (GFR 15-29 ml/min) ([facility]) 12/05/2023 10:29 AM EST Scheduled Orders Name Type Priority Associated Diagnoses Orde r Schedule CBC Lab Routine Kidney disease, chronic, stage IV (GFR 15-29 ml/min) ([facility]) Expected: 12/04/2023 (Approximate), Expires: 12/02/2024 IRON SCREEN, INCLUDING TIBC Lab Routine Kidney disease, chronic, stage IV (GFR 15-29 ml/min) ([facility]) Expected: 12/04/2023 (Approximate), Expires: 12/02/2024 URINALYSIS WITH MICROSCOPIC EXAM Lab Routine Kidney disease, chronic, stage IV (GFR 15-29 ml/min) ([facility]) Expected: 12/04/2023 (Approximate), Expires: 12/02/2024 PROTEIN/ CREATININE RATIO, URINE Lab Routine Kidney disease, chronic, stage IV (GFR 15-29 ml/min) ([facility]) Expected: 12/04/2023 (Approximate), Expires: 12/02/2024 Scheduled Procedures Name Priority Associated Diagnoses Date/Ti me COLONOSCOPY FLEXIBLE PROXIMA L DIAGNOSTIC Recall Family history of colon cancer Health Maintenance Due Date Last Done Comments Zoster Vaccines (1 of 2) 2015 Hepatitis B (2 of 3 - 19+ 3-dose series) 01/25/2023 12/28/2022 COVID-19 Vaccine (1 - 2022-24 season) 2023 Influenza Vaccine (FLU shot) (#1) 2023 Depression Screening 07/30/2023 07/30/2022 COLONOSCOPY-EVERY 5 YRS AGES 18-100 12/18/2023 12/17/2018, 12/17/2018 GFR 02/03/2024 08/05/2023, 09/0 01/2023, 01/11/2023, Additional history exists Albumin/Creatinine Ratio 06/04/2024 06/04/2023, 07/2 01/2022 Hgb 06/04/2024 06/04/2023, 09/0 01/2023, 01/11/2023, Additional history exists PTH 08/05/2024 08/05/2023, 09/0 01/2023, 10/26/2022 Phosphate 08/05/2024 08/05/2023, 09/0 01/2023, 01/11/2023, Additional history exists Nephrology Referral 10/10/2024 10/10/2023 DTaP,Tdap,and Td Vaccines (2 - Td or Tdap) 03/12/2026 03/12/2016 Diabetes Screening 08/05/2026 08/05/2023, 0 06/04/2023, 01/11/2023, Additional history exists Lipid Panel 08/05/2028 08/05/2023, 05/0 01/2023, 05/11/2020, Additional history exists Pneumococcal Vaccine: [...] as of this encounter Visit Diagnoses Diagnosis Kidney disease, chronic, stage IV (GFR 15-29 ml/min) (HCC)- Primary Chronic kidney disease, Stage IV (severe) documented in this encounter Care Teams Single Stroke Preformer Relationship Specialty Start Date End Date Irma Gavin MD [address] [facility] [place] [address] PCP - General Family Medicine 04/23/22 documented as of this encounter
--- OUTSIDE RECORDS SUMMARY | 2023-12-07 07:41 | External Medical Summary | Summary of Care ---
Author Name Unknown Organization [facility] Address [address] [place] [address] Phone [phone] Care Team Providers Care Urgent Care Technician Name Role Phone Irma Gavin MD Primary Care Provid er Reason for Visit * Reason Onset Date Comments Advice 11/26/2023 Encounter Details Date Type Department Care Team (Late st Contact Info) Description 11/26/2023 Telephone [facility] [address] [place] [address] Irma Gavin MD [address] [place] [address] Advice Allergies Active Allergy Reactions Criticality Noted Date Comments Acetaminophen High 10/06/2022 Other Reaction(s): UPSETS STOMACH Propoxyphene Abdominal pain Low 01/30/2016 Penicillins Abdominal pain Low 01/30/2016 documented as of this encounter (statuses as of 12/03/2023) Medications Medication Sig Dispensed Refills Start Date [...] as of this encounter (statuses as of 12/03/2023) Active Problems Problem Noted Date Diagnosed Date [...] as of this encounter (statuses as of 12/03/2023) Immunizations Name Administration Dates Next Due Hepatitis [...] as of this encounter Miscellaneous Notes * Addendum Note - Addie Bello RN - 12/03/2023 2:35 PM ESTAddended by: ADDIE BELLO on: 12/03/2023 02:35 PM Modules accepted: Orders * Telephone Encounter - Addie Bello RN - 12/03/2023 2:31 PM EST Attempted [...] Description 01/31/2024 9:40 AM EDT Office Visit [facility] [address] [place] [address] Irma Gavin MD [address] [place] [address] Scheduled Orders Name Type Priority Associated Diagnoses Orde r Schedule RENAL FUNCTION PANEL Lab Routine Kidney disease, chronic, stage IV (GFR 15-29 ml/min) ([facility]) Expected: 12/04/2023 (Approximate), Expires: 12/02/2024 CBC Lab Routine Kidney disease, chronic, stage IV (GFR 15-29 ml/min) ([facility]) Expected: 12/04/2023 (Approximate), Expires: 12/02/2024 IRON SCREEN, INCLUDING TIBC Lab Routine Kidney disease, chronic, stage IV (GFR 15-29 ml/min) ([facility]) Expected: 12/04/2023 (Approximate), Expires: 12/02/2024 PTH Lab Routine Kidney disease, chronic, stage IV (GFR 15-29 ml/min) ([facility]) Expected: 12/04/2023 (Approximate), Expires: 12/02/2024 URINALYSIS WITH MICROSCOPIC EXAM Lab Routine Kidney disease, chronic, stage IV (GFR 15-29 ml/min) ([facility]) Expected: 12/04/2023 (Approximate), Expires: 12/02/2024 PROTEIN/ CREATININE RATIO, URINE Lab Routine Kidney disease, chronic, stage IV (GFR 15-29 ml/min) ([facility]) Expected: 12/04/2023 (Approximate), Expires: 12/02/2024 Scheduled Procedures Name Priority Associated Diagnoses Date/Ti me COLONOSCOPY FLEXIBLE PROXIMA L DIAGNOSTIC Recall Family history of colon cancer Health Maintenance Due Date Last Done Comments Zoster Vaccines (1 of 2) 2015 Hepatitis B (2 of 3 - 19+ 3-dose series) 01/25/2023 12/28/2022 COVID-19 Vaccine ( - 2022- season) 2023 Influenza Vaccine (FLU shot) (#1) [...] (severe) documented in this encounter Care Teams Urgent Care Technician Relationship Specialty Start Date End Date Irma Gavin MD [address] [place] [address] PCP - General Family Medicine 04/23/22 documented as of this encounter
--- OUTSIDE RECORDS SUMMARY | 2023-12-07 07:41 | External Medical Summary ---
Author Name Unknown Address Unknown Organization [id number]:[facility] [place] [address] [place] [address] Laboratory Report Ordering Provider Test Date Status DREW LA 12/05/2023 08:09:41 Final Observation Date Value Abnormality Reference (Units ) Status Iron 12/05/2023 08:09:41 31 Below low normal 45-176 (ug/dL) Final Iron-binding capacity 12/05/2023 08:09:41 336 250-425 (ug/dL) Final Transferrin Sat % 12/05/2023 08:09:41 9 Below low normal 15-55 (%) Final Performing Location [facility] [place] [address] [place] [address]
--- OUTSIDE RECORDS SUMMARY | 2023-12-07 07:41 | External Medical Summary ---
Author Name Unknown Address Unknown Organization K01:[facility] [place] - [address] [place] [address] Laboratory Report Ordering Provider Test Date Status DREW LA 12/05/2023 08:09:41 Final Observation Date Value Abnormality Reference (Units ) Status WBC, Total 12/05/2023 08:09:41 8.21 4.00-10.80 (K/uL) Final RBC 12/05/2023 08:09:41 3.56 4.50-5.25 (M/uL) Final Hemoglobin 12/05/2023 08:09:41 9.3 Below low normal 14.0-16.8 (g/dL) Final HCT 12/05/2023 08:09:41 31.5 Below low normal 40.0-48.4 (%) Final MCV 12/05/2023 08:09:41 88.5 82.0-99.5 (fL) Final MCH 12/05/2023 08:09:41 26.1 27.0-34.0 (pg) Final MCHC 12/05/2023 08:09:41 29.5 32.0-36.0 (g/dL) Final RDW 12/05/2023 08:09:41 18.6 11.5-15.5 (%) Final Platelets 12/05/2023 08:09:41 256 140-400 (K/uL) Final MPV 12/05/2023 08:09:41 11.8 6.6-11.1 (fL) Final Nucleated erythrocytes/100 leukocytes [Ratio] in Blood by Automated count 12/05/2023 08:09:41 0 <=0 (/100 WBCs) Final Performing Location LABORATORY [facility] - [address] [place] [address]
--- OUTSIDE RECORDS SUMMARY | 2023-12-07 07:41 | External Medical Summary | Summary of Care ---
Author Name Unknown Organization [facility] Address [address] [place] [address] Phone [phone] Care Team Providers Care Atmospheric Physicist Name Role Phone Irma Gavin MD Primary Care Provid er Reason for Visit * Reason Onset Date Comments Hospital Follow-Up Still having a bit of wheezing he is concerned with and also urology suggested [facility] Follow-Up 10/15/2023 Encounter Details Date Type Department Care Team (Late st Contact Info) Description 10/15/2023 2:00 PM EST Office Visit [facility] [address] [place] [address] Irma Gavin MD [address] [place] [address] Hospital discharge follow-up*; Hypertensive urgency; Cardiomyopathy due to hypertension, without heart failure (HCC); LVH (left ventricular hypertrophy); Hypertensive left ventricular hypertrophy, without heart failure; Cigarette smoker one half pack a day or less; Stage 5 chronic kidney disease not on chronic dialysis (HCC); Erectile dysfunction, unspecified erectile dysfunction type Allergies Active Allergy Reactions Criticality Noted Date Comments Acetaminophen High 10/06/2022 Other Reaction(s): UPSETS STOMACH Propoxyphene Abdominal pain Low 01/30/2016 Penicillins Abdominal pain Low 01/30/2016 documented as of this encounter (statuses as of 10/15/2023) Medications Medication Sig Dispensed Refills Start Date [...] before bedtime. 180 Tablet 3 10/10/2023 Active Tadalafil 10 MG Oral Tablet (Cialis)Indication s:Erectile dysfunction, unspecified erectile dysfunction type Take 1 Tablet by mouth once for 1 dose. prior to intercourse, no more than 1 dose in 24 hours 10 Tablet 11 10/15/2023 10/15/2023 Active documented as of this encounter (statuses as of 10/15/2023) Active Problems Problem Noted Date Diagnosed Date [...] as of this encounter (statuses as of 10/15/2023) Immunizations Name Administration Dates Next Due Hepatitis B, 20+ yrs 12/28/2022 Pneumococcal Conjugate Vaccine, 20-valent (Prevn ar20) 12/28/2022 TDAP (age 10 and older)(Boostrix) 03/12/2016 documented as of this encounter Social History Tobacco Use Types Packs/Day Years Used Date Smoking Tobacco: Every Day Cigarettes 0.3 Passive Smoke Exposure: Current Smokeless Tobacco: Former Tobacco Cessation:Ready to Q uit: Not Asked; Counseling Given: Not Answered Comments:10/10/23 Has had no cigarettes in 1 [...] Sign Reading Time Taken Comments Blood Pressure 164/100 10/15/2023 1:59 PM EST Pulse 87 10/15/2023 1:59 PM EST Temperature 36.7 C (98 F) 10/15/2023 1:59 PM EST Respiratory Rate 18 10/15/2023 1:59 PM EST Oxygen Saturation - - Inhaled Oxygen Concentration - - Weight 95.6 kg (210 lb 12.8 oz) 10/15/2023 1:59 PM EST Height - - Body Mass Index 27.81 08/02/2023 11:53 AM EDT documented in this encounter Progress Notes * Irma Gavin MD - 10/15/2023 2:21 PM EST ASSESSMENT / PLAN: Christopher Harry is a 58 year old male with PMHx resistant HTN / CKD 3 now 4 since 2022 / LVH / tobacco use / BPH - Here for RASHEED - admitted at [facility] the following dates 10/08 - 10/09 Presented with: elev BP - sent by patient's predatory animal trapper Diagnosis: hypertensive urgency, medication noncompliance, HERBERT on CKD Diagnostics: TTE - showed severe LVH. No WMA. Tamponade absent. EF hyperdynamic. Grade I diastolic dysfunction. Hospital stay complicated by: 1- HERBERT Treatments / Consultation(s): 1- Cardiology - med mgmt o fBP as below 2- Nephro - concern for progressively worsening CKD stage V (hypertension related) Changes to chronic medications: 1 - cont coreg, nifedipine, cardura 2- restart clonidine 0.1mg bid 3- cont to HOLD torsemide, losartan (per cardiology) -- saw Nephro 10/10/23 and he recommended to resume torsemide, and incr clonidine to 0.2 TID We reviewed hospital stay and nephro recommendations He is adherent Also states he and his urologist had historically talked about ED med mgt, and he is interested in trialing cialis. Gave info on [facility] , med sent Hospital discharge follow-up (Primary) - DISCH MED RECON CUR MED LIS - RETURN TO WORK OR SCHOOL Hypertensive urgency - DISCH MED RECON CUR MED LIS - RETURN TO WORK OR SCHOOL Cardiomyopathy due to hypertension, without heart failure (HCC) - DISCH MED RECON CUR MED LIS - RETURN TO WORK OR SCHOOL LVH (left ventricular hypertrophy) - DISCH MED RECON CUR MED LIS - RETURN TO WORK OR SCHOOL Hypertensive left ventricular hypertrophy, without heart failure - DISCH MED RECON CUR MED LIS - RETURN TO WORK OR SCHOOL Cigarette smoker one half pack a day or less - DISCH MED RECON CUR MED LIS - RETURN TO WORK OR SCHOOL Stage 5 chronic kidney disease not on chronic dialysis (HCC) - DISCH MED RECON CUR MED LIS - RETURN TO WORK OR SCHOOL Erectile dysfunction, unspecified erectile dysfunction type - Tadalafil 10 MG Oral Tablet (Cialis); Take 1 Tablet by mouth once for 1 dose. prior to intercourse, no more than 1 dose in 24 hours If needed, prefers contact by: Ok to leave message on phone: SUBJECTIVE: Nursing Notes: Vidya Winston LPN 10/15/23 1408 Signed The patient has been properly identified by confirmation of name and date of . Chief Complaint Patient presents with Hospital Follow-Up Still having a bit of wheezing he is concerned with and also urology suggested Cialis HPI: Christopher Harry is a 58 year old male. Here for recheck. See RASHEED details above Saw Nephro 10/10 - plan to start dialysis. Consider renal replacement, but will need to optimize HTNmed mgt. Recommendations: Will Raise torsemide to 50 daily. Will need labs in about 10 days after higher dose of torsemide Restart Clonidine previous dose 0.2 tid NO Valsartan for now. He did not tolerate Hydralazine. Continue Coreg, Doxazosin, Nifedipine Xl." Home BP 158 /98 He is adherent with meds BP is improving Also states he and his urologist had historically talked about ED med mgt, and he is interested in trialing cialis. Reviewed sources 1- Patient Active Problem List Diagnosis Code LV hypertrophy, hypertensive I11.9 Essential (primary) hypertension I10 History of tobacco abuse Z87.891 Cigarette smoker one half pack a day or less F17.210 Patent foramen ovale Q21.12 Cardiomyopathy due to hypertension, without heart failure (HCC) I11.9, I43 Kidney disease, chronic, stage IV (GFR 15-29 ml/min) (HCC) N18.4 BPH (benign prostatic hyperplasia) N40.0 Positive urine drug screen R82.5 Hyperparathyroidism (HCC) E21.3 Current Outpatient Medications Medication Sig Dispense Refill Nitroglycerin 0.4 MG Sublingual Tablet Sublingual (Nitrostat) Place 1 Tablet under the tongue every5 minutes as needed for Pain, Chest. Atorvastatin Calcium 40 MG Oral Tablet (Lipitor) Take 1 Tablet by mouth every night at bedtime. Take with coenzyme qu 10 supplement. 90 Tablet 3 NIFEdipine ER 90 MG Oral Tablet Extended Release 24 Hour (Adalat CC) Take 1 Tablet by mouth in the morning. 90 Tablet 3 Finasteride 5 MG Oral Tablet (Proscar) Take 1 Tablet by mouth in the morning. 90 Tablet 3 Omeprazole 40 MG Oral Capsule Delayed Release (PriLOSEC) Take 1 Capsule by mouth in the morning. 90Capsule 3 Aspirin Low Dose 81 MG Oral Tablet Chewable (aspirin) CHEW 1 TABLET BY MOUTH DAILY IN THE MORNING WITH FOOD 90 Tablet 3 cloNIDine HCl 0.2 MG Oral Tablet (Catapres) Take 1 Tablet by mouth in the morning and 1 Tablet at noon and 1 Tablet before bedtime. 270 Tablet 3 Torsemide 100 MG Oral Tablet (Demadex) Take 0.5 Tablets by mouth in the morning. 45 Tablet 5 Carvedilol 25 MG Oral Tablet (Coreg) Take 1 Tablet by mouth in the morning and 1 Tablet before bedtime. 180 Tablet 3 Tadalafil 10 MG Oral Tablet (Cialis) Take 1 Tablet by mouth once for 1 dose. prior to intercourse, no more than 1 dose in 24 hours 10 Tablet 11 Doxazosin Mesylate 4 MG Oral Tablet (Cardura) Take 1 Tablet by mouth at bedtime. (Patient not taking: Reported on 06/04/2023) 90 Tablet 3 Famotidine 20 MG Oral Tablet (Pepcid) Take 1 Tablet by mouth in the morning. (Patient not taking: Reported on 10/10/2023) 90 Tablet 3 No current facility-administered medications for this visit. OBJECTIVE: BP 164/100 | Pulse 87 | Temp 36.7 C (98 F) | Resp 18 | Wt 95.6 kg (210 lb 12.8 oz) | BMI 27.81kg/m | BSA 2.22 m Vitals reviewed and is hypertensive / afebrile / and not tachycardic General: No acute distress. Neuro: Alert Pleasant & interactive. Respiratory: Good inspiratory effort, no labored breathing. HEENT: Conjunctivae appear clear. No swelling noted face or lips. Skin: No rash visible on exposed skin areas, normal coloration & appears dry. Psych: Normal affect. Fluent speech. Irma Gavin MD [address] [address] There are no Patient Instructions on file for this visit. documented in this encounter Nursing Notes * Vidya Winston LPN - 10/15/2023 2:08 PM EST The patient has been properly identified by confirmation of name and date of . Chief Complaint Patient presents with Hospital Follow-Up Still having a bit of wheezing he is concerned with and also urology suggested Cialis documented in this encounter Plan of Treatment Upcoming Encounters Date Type Department Care Team (Late st Contact Info) Description 12/11/2023 9:00 AM EDT Office Visit [facility] [address] [place] [address] Albert Jhaveri MD [address] [place] [address] 01/31/2024 9:40 AM EDT Office Visit [facility] [address] [place] [address] Irma Gavin MD [address] [place] [address] Scheduled Procedures Name Priority Associated Diagnoses [...] 18-100 12/18/2023 12/17/2018, 12/17/2018 GFR 02/03/2024 08/05/2023, 090 01/2023, 01/11/2023, Additional history exists Albumin/Creatinine Ratio 06/04/2024 06/04/2023, 07/2 01/2022 Hgb 06/04/2024 06/04/2023, 090 01/2023, 01/11/2023, Additional history exists PTH 08/05/2024 08/05/2023, 090 01/2023, 10/26/2022 Phosphate 08/05/2024 08/05/2023, 090 01/2023, 01/11/2023, Additional history exists Nephrology Referral 10/10/2024 10/10/2023 DTaP,Tdap,and Td Vaccines (2 - Td or Tdap) 03/12/2026 03/12/2016 Diabetes Screening 08/05/2026 08/05/2023, 0 06/04/2023, 01/11/2023, Additional history exists Lipid Panel 08/05/2028 08/05/2023, 050 01/2023, 05/11/2020, Additional history exists Pneumococcal Vaccine: [...] as of this encounter Visit Diagnoses Diagnosis Hospital discharge follow-up- Primary Other follow-up examination Hypertensive urgency Unspecified essential hypertension Cardiomyopathy due to hypertension, without heart failure (HCC) LVH (left ventricular hypertrophy) Cardiomegaly Hypertensive left ventricular hypertrophy, without heart failure Cigarette smoker one half pack a day or less Tobacco use disorder Stage 5 chronic kidney disease not on chronic dialysis (HCC) Erectile dysfunction, unspecified erectile dysfunction type documented in this encounter Care Teams Atmospheric Physicist Relationship Specialty Start Date End Date Irma Gavin MD [address] [place] [address] PCP - General Family Medicine 04/23/22 documented as of this encounter
--- OUTSIDE RECORDS SUMMARY | 2023-12-07 07:41 | External Medical Summary | Summary of Care ---
Author Name Unknown Organization [facility] Address [address] [place] [address] Phone [phone] Care Team Providers Care Wheel Alignment Technician Name Role Phone Irma Gavin MD Primary Care Provid er Reason for Visit * Reason Onset Date Comments Advice 11/26/2023 Encounter Details Date Type Department Care Team (Late st Contact Info) Description 11/26/2023 Telephone [facility] [address] [place] [address] Irma Gavin MD [address] [place] [address] Advice Allergies Active Allergy Reactions Criticality Noted Date Comments Acetaminophen High 10/06/2022 Other Reaction(s): UPSETS STOMACH Propoxyphene Abdominal pain Low 01/30/2016 Penicillins Abdominal pain Low 01/30/2016 documented as of this encounter (statuses as of 12/04/2023) Medications Medication Sig Dispensed Refills Start Date [...] as of this encounter (statuses as of 12/04/2023) Active Problems Problem Noted Date Diagnosed Date [...] as of this encounter (statuses as of 12/04/2023) Immunizations Name Administration Dates Next Due Hepatitis [...] Care Team (Late st Contact Info) Description 12/05/2023 7:50 AM EST [facility] [place] [address] [facility] [address] [place] [facility] [address] [facility] [address] 01/31/2024 9:40 AM EDT Office Visit [facility] [address] [facility] [address] Irma Gavin MD [address] [place], [place] [id number] Scheduled Orders Name Type Priority Associated Diagnoses Orde r Schedule RENAL FUNCTION PANEL Lab Routine Kidney disease, chronic, stage IV (GFR 15-29 ml/min) ([facility]) Expected: 12/04/2023 (Approximate), Expires: 12/02/2024 CBC Lab Routine Kidney disease, chronic, stage IV (GFR 15-29 ml/min) ([facility]) Expected: 12/04/2023 (Approximate), Expires: 12/02/2024 IRON SCREEN, INCLUDING TIBC Lab Routine Kidney disease, chronic, stage IV (GFR 15-29 ml/min) ([facility]) Expected: 12/04/2023 (Approximate), Expires: 12/02/2024 PTH Lab Routine Kidney disease, chronic, stage IV (GFR 15-29 ml/min) ([facility]) Expected: 12/04/2023 (Approximate), Expires: 12/02/2024 URINALYSIS WITH MICROSCOPIC EXAM Lab Routine Kidney disease, chronic, stage IV (GFR 15-29 ml/min) ([facility]) Expected: 12/04/2023 (Approximate), Expires: 12/02/2024 PROTEIN/ CREATININE RATIO, URINE Lab Routine Kidney disease, chronic, stage IV (GFR 15-29 ml/min) ([facility]) Expected: 12/04/2023 (Approximate), Expires: 12/02/2024 Scheduled Procedures [...] (severe) documented in this encounter Care Teams Wheel Alignment Technician Relationship Specialty Start Date End Date Irma Gavin MD [address] [place] [address] PCP - General Family Medicine 04/23/22 documented as of this encounter
--- OUTSIDE RECORDS SUMMARY | 2023-12-07 07:41 | External Medical Summary ---
Author Name Unknown Address Unknown Organization [id number]:[facility] [place] [address] [facility] [address] Laboratory Report Ordering Provider Test Date Status DREW LA 12/05/2023 10:29:01 Final Observation Date Value Abnormality Reference (Units ) Status Color of Urine by Auto 12/05/2023 10:29:01 Colorless Colorless, Light Yellow, Yellow, Dark Yellow Final Clarity, Urine 12/05/2023 10:29:01 Clear Clear Final Glucose [Mass/volume] in Urine by Automated test strip 12/05/2023 10:29:01 Negative Negative (mg/dL) Final Bilirubin.total [Presence] in Urine by Automated test strip 12/05/2023 10:29:01 Negative Negative Final Ketones [Mass/volume] in Urine by Automated test strip 12/05/2023 10:29:01 Negative Negative (mg/dL) Final Specific gravity, Urine 12/05/2023 10:29:01 1.010 1.003-1.030 Final Hemoglobin [Presence] in Urine by Automated test strip 12/05/2023 10:29:01 Negative Negative Final pH, Urine 12/05/2023 10:29:01 6.5 5.0-7.5 (Units) Final Protein [Mass/volume] in Urine by Automated test strip 12/05/2023 10:29:01 30 Abnormal Negative (mg/dL) Final Urobilinogen [Mass/volume] in Urine by Automated test strip 12/05/2023 10:29:01 Normal Normal (mg/dL) Final Nitrite [Presence] in Urine by Automated test strip 12/05/2023 10:29:01 Negative Negative Final Leukocyte esterase [Presence] in Urine by Automated test strip 12/05/2023 10:29:01 Negative Negative Final RBC, Urine 12/05/2023 10:29:01 0-2 0-2 (/HPF) Final WBC, Urine 12/05/2023 10:29:01 0-2 0-2 (/HPF) Final Bacteria [#/area] in Urine sediment by Microscopy high power field 12/05/2023 10:29:01 0-25 0-25 (/HPF) Final Performing Location [facility] [place] - [facility] [address] [facility] [address]
--- OUTSIDE RECORDS SUMMARY | 2023-12-07 07:41 | External Medical Summary | Summary of Care ---
Author Name Unknown Organization [facility] Address [address] [place] [address] Phone [phone] Care Team Providers Care Bark Press Operator Name Role Phone Irma Gavin MD Primary Care Provid er Reason for Visit * Reason Onset Date Comments Advice 11/26/2023 Encounter Details Date Type Department Care Team (Late st Contact Info) Description 11/26/2023 Telephone [facility] [address] [place] [address] Irma Gavin MD [address] [place] [address] Advice Allergies Active Allergy Reactions [...] Telephone Encounter - Addie Bowling RN - 12/06/2023 8:32 AM EST Attempted to contact pt regarding lab results. Unable to reach pt. * Telephone Encounter - Addie Bowling RN - 12/06/2023 8:28 AM EST Attempted to contact pt. It appears he has had recent labs with changes noted. * Telephone Encounter - Addie Bowling RN [...] Description 01/31/2024 9:40 AM EDT Office Visit [facility] [address] [place] [address] Irma Gavin MD [address] [place] [address] Scheduled Procedures Name Priority Associated Diagnoses Date/Ti me COLONOSCOPY FLEXIBLE PROXIMA L DIAGNOSTIC Recall Family history of colon cancer Health Maintenance Due Date Last Done Comments Zoster Vaccines (1 of 2) 2015 Hepatitis B (2 of 3 - 19+ 3-dose series) 01/25/2023 12/28/2022 COVID-19 Vaccine (1 - 2022- season) 2023 Influenza Vaccine (FLU shot) (#1) 2023 Depression Screening 07/30/2023 07/30/2022 COLONOSCOPY-EVERY 5 YRS AGES 18-100 12/18/2023 12/17/2018, 12/17/2018 Albumin/Creatinine Ratio 06/04/2024 06/04/2023, 0701/2022 GFR 06/06/2024 12/05/2023, 02/2023, 06/04/2023, Additional history exists Nephrology Referral 10/10/2024 10/10/2023 Hgb 12/04/2024 12/05/2023, 0 01/2023, 06/04/2023, Additional history exists PTH 12/04/2024 12/05/2023, 02/2023, 06/04/2023, Additional history exists Phosphate 12/04/2024 12/05/2023, 0 02/2023, 06/04/2023, Additional history exists DTaP,Tdap,and Td [...] Not on filedocumented as of this encounter Results * (ABNORMAL) PROTEIN/ CREATININE RATIO, URINE (12/05/2023 10:29 AM EST) Protein/ Creatinine Ratio, Urine 745(H) <150 mg/g 12/05/2023 5:33 PM EST [facility] Protein, Random Urine 41 mg/dL 12/05/2023 5:33 PM EST [facility] Creatinine, Random Urine 55 mg/dL 12/05/2023 5:33 PM EST LABORATORY [facility] Urine Non-blood Collection / Unknown 12/05/2023 10:29 AM EST 12/05/2023 10:29 AM EST Narrative [facility] - 12/05/2023 5:33 PM EST Normal: <150 mg/g creatinine High: 150-500 mg/g creatinine Very High: >500 mg/g creatinine Nephrotic: >3000 mg/g creatinine Irma Gavin MD LAB URINE OR DERABLES [facility] [address] [place] [address] * (ABNORMAL) URINALYSIS WITH MICROSCOPIC EXAM (12/05/2023 10:29 AM EST) Color, Urine Colorless Colorless, Light Yellow, Yellow, Dark Yellow 12/05/2023 4:17 PM EST [facility] Clarity, Urine Clear Clear 12/05/2023 4:17 PM EST [facility] Glucose, Urine Negative Negative mg/dL 12/05/2023 4:17 PM EST [facility] Bilirubin, Urine Negative Negative 12/05/2023 4:17 PM EST [facility] Ketone, Urine Negative Negative mg/dL 12/05/2023 4:17 PM EST [facility] Specific [place], Urine 1.010 1.003 - 1.030 12/05/2023 4:17 PM EST [facility] Blood, Urine Negative Negative 12/05/2023 4:17 PM EST [facility] pH, Urine 6.5 5.0 - 7.5 Units 12/05/2023 4:17 PM EST [facility] Protein, Urine 30(A) Negative mg/dL 12/05/2023 4:17 PM EST [facility] Urobilinogen, Urine Normal Normal mg/dL 12/05/2023 4:17 PM EST [facility] Nitrite, Urine Negative Negative 12/05/2023 4:17 PM EST [facility] Esterase, Urine Negative Negative 12/05/2023 4:17 PM EST [facility] RBC, Urine 0-2 0 - 2 /HPF 12/05/2023 4:17 PM EST [facility] WBC, Urine 0-2 0 - 2 /HPF 12/05/2023 4:17 PM EST [facility] Bacteria, Urine 0-25 0 - 25 /HPF 12/05/2023 4:17 PM EST [facility] Urine Non-blood Collection / Unknown 12/05/2023 10:29 AM EST 12/05/2023 10:29 AM EST Irma Gavin MD LAB URINE OR DERABLES Performing Organization Address City/State/[facility] Co de Phone Number LAB[facility]ATORY [facility] [address] [place] [address] * (ABNORMAL) IRON SCREEN, INCLUDING TIBC (12/05/2023 8:09 AM EST) Iron 31(L) 45 - 176 ug/dL 12/05/2023 6:18 PM EST [facility] Iron Binding Capacity 336 250 - 425 ug/dL 12/05/2023 6:18 PM EST [facility] Transferrin Saturation Percent 9(L) 15 - 55 % 12/05/2023 6:18 PM EST [facility] Blood Venous blood specimen / Unknown Venipuncture / Unknown 12/05/2023 8:09 AM EST 12/05/2023 8:09 AM EST Irma Gavin MD LAB BLOOD OR DERABLES [facility] [address] [place], [place] [id number] * (ABNORMAL) CBC (12/05/2023 8:09 AM EST) WBC 8.21 4.00 - 10.80 K/uL 12/05/2023 4:37 PM EST [facility] RBC 3.56 4.50 - 5.25 M/uL 12/05/2023 4:37 PM EST [facility] HGB 9.3(L) 14.0 - 16.8 g/dL 12/05/2023 4:37 PM EST [facility] HCT 31.5(L) 40.0 - 48.4 % 12/05/2023 4:37 PM EST [facility] MCV 88.5 82.0 - 99.5 fL 12/05/2023 4:37 PM EST [facility] MCH 26.1 27.0 - 34.0 pg 12/05/2023 4:37 PM EST [facility] MCHC 29.5 32.0 - 36.0 g/dL 12/05/2023 4:37 PM EST [facility] RDW 18.6 11.5 - 15.5 % 12/05/2023 4:37 PM EST [facility] PLT 256 140 - 400 K/uL 12/05/2023 4:37 PM EST [facility] MPV 11.8 6.6 - 11.1 fL 12/05/2023 4:37 PM EST [facility] nRBCs 0 <=0 /100 WBCs 12/05/2023 4:37 PM EST [facility] Blood Venous blood specimen / Unknown Venipuncture / Unknown 12/05/2023 8:09 AM EST 12/05/2023 8:09 AM EST Irma Gavin MD LAB BLOOD OR DERABLES [facility] [address] [place] [address] documented in this encounter Visit Diagnoses Diagnosis Kidney disease, chronic, stage IV (GFR 15-29 ml/min) (HCC)- Primary Chronic kidney disease, Stage IV (severe) documented in this encounter Care Teams Bark Press Operator Relationship Specialty Start Date End Date Irma Gavin MD [address] [place] [address] PCP - General Family Medicine 04/23/22 documented as of this encounter
--- OUTSIDE RECORDS SUMMARY | 2023-12-07 07:41 | External Medical Summary | Summary of Care ---
Author Name Unknown Organization [facility] Address [address] [place] [address] Phone [phone] Care Team Providers Care City Bailiff Name Role Phone Irma Gavin MD Primary Care Provid er Reason for Visit * Reason Comments Outpatient Testing Encounter Details Date Type Department Care Team (Late st Contact Info) Description 12/05/2023 7:50 AM EST Laboratory Laboratory, [place] [address] [place] [address] [place] [address] [place] [address] Kidney disease, chronic, stage IV (GFR 15-29 ml/min) ([facility]) Allergies Active Allergy Reactions Criticality Noted Date [...] on file documented as of this encounter Plan of Treatment Upcoming Encounters Date Type Department Care Team (Late st Contact Info) Description 01/31/2024 9:40 AM EDT Office Visit [facility] [address] [place] [address] Irma Gavin MD [address] [facility] [place] [id number] Pending Results Name Type Priority Associated Diagnoses Date /Time PTH Lab STAT Kidney disease, chronic, stage IV (GFR 15-29 ml/min) ([facility]) 12/05/2023 8:09 AM EST RENAL FUNCTION PANEL Lab Routine Kidney disease, chronic, stage IV (GFR 15-29 ml/min) ([facility]) 12/05/2023 8:09 AM EST CBC Lab Routine Kidney disease, chronic, stage IV (GFR 15-29 ml/min) ([facility]) 12/05/2023 8:09 AM EST IRON SCREEN, INCLUDING TIBC Lab Routine Kidney disease, chronic, stage IV (GFR 15-29 ml/min) ([facility]) 12/05/2023 8:09 AM EST URINALYSIS WITH MICROSCOPIC EXAM Lab Routine Kidney disease, chronic, stage IV (GFR 15-29 ml/min) ([facility]) 12/05/2023 10:29 AM EST PROTEIN/ CREATININE RATIO, URINE Lab Routine Kidney disease, chronic, stage IV (GFR 15-29 ml/min) ([facility]) 12/05/2023 10:29 AM EST Scheduled Procedures Name Priority Associated Diagnoses Date/Ti me COLONOSCOPY FLEXIBLE PROXIMA L DIAGNOSTIC Recall Family history of colon cancer Health Maintenance Due Date Last Done Comments Zoster Vaccines (1 of 2) 2015 Hepatitis B (2 of 3 - 19+ 3-dose series) 01/25/2023 12/28/2022 COVID-19 Vaccine (2022- season) 2023 Influenza Vaccine (FLU shot) (#1) [...] chronic, stage IV (GFR 15-29 ml/min) (HCC) Chronic kidney disease, Stage IV (severe) documented in this encounter Care Teams City Bailiff Relationship Specialty Start Date End Date Irma Gavin MD [address] [place] [address] PCP - General Family Medicine 04/23/22 documented as of this encounter
--- OUTSIDE RECORDS SUMMARY | 2023-12-07 07:41 | External Medical Summary | Summary of Care ---
Author Name Unknown Organization [facility] Address [address] [place] [address] Phone [phone] Care Team Providers Care Dental Nurse Name Role Phone Irma Gavin MD Primary Care Provid er Reason for Visit * Reason Onset Date Comments Hospital Follow-Up 10/11/2023 RASHEED Encounter Details Date Type Department Care Team (Late st Contact Info) Description 10/11/2023 Telephone [place] [address] [place] [address] Jessica Dove RN Hospital Follow-Up (RASHEED) Allergies Active Allergy Reactions Criticality Noted Date Comments Acetaminophen High 10/06/2022 Other Reaction(s): UPSETS STOMACH Propoxyphene Abdominal pain Low 01/30/2016 Penicillins Abdominal pain Low 01/30/2016 documented as of this encounter (statuses as of 10/11/2023) Medications Medication Sig Dispensed Refills Start Date [...] as of this encounter (statuses as of 10/11/2023) Active Problems Problem Noted Date Diagnosed Date [...] as of this encounter (statuses as of 10/11/2023) Immunizations Name Administration Dates Next Due Hepatitis [...] encounter Miscellaneous Notes * Telephone Encounter - Jessica Dove RN - 10/11/2023 9:44 AM EST Transitions of Care Note Reason for Referral:Recent Admission Phone visit for follow up:RASHEED Admitted to: [facility], Date: 10/08/2023 Discharged to: Home, Date: 10/09/2023 Diagnosis driving hospitalization: Hypertensive Urgency, 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 Source/Contact: Patient SUBJECTIVE Consent: Verbal consent for review of hospital discharge: No REVIEW OF SYSTEMS Patient/Other Reports: Current patient/caregiver problems or concerns: Doing well at home. Saw Nephrology yesterday with further changes to meds. Encouraged to monitor BP daily, has not measured today yet. Plans to pick upmeds today from pharmacy. CV: Denies problems Pulmonary: Denies problems Chills/Sweats/Fever:Denies chills/sweats Denies fever Appetite:Denies problems such as nausea, vomiting, burning, decreased appetite Current diet: Heart Healthy Bowel: denies problems Bladder: denies problems Wound (If applicable): N/A Pain:Denies Sleep:Denies problems FUNCTIONAL STATUS: ADL'S: Needs Assistance With:N/A as pt is independent IADL'S: Needs Assistance With:N/A as pt is independent Cognitive and Mental Health: denies problems, alert and oriented x 3, and able to communicate, understand instructions, process information. MEDICATION RECONCILIATION Medications: Discharge med list reviewed with patient or caregiver Changes to Clonidine, Torsemide and Valsartan and further changes at Nephrology appt yesterday Patient states he plans to worm picker medications from pharmacy today and will take as directed ASSESSMENT Medication Risk Assessment: No risks identified Did patient fail outpatient treatment? No Discharge instructions available for review? Yes PLAN Symptom Monitoring Interventions:Member/caregiver education - signs and symptoms to contact PrimaryCare (DO NOT DELETE-Three hummel symptoms patient is to report to PCP) 1. Chest Pain/SOB 2. Fever/chills 3. Severe Headache or vision changes. Geriatric PsychiatristParts Driver of Care interventions/Action Plan: 5 - 7 day follow-up with PCP in place - Date: PCP appointment 10/15/2023 Educated on role of RASHEED completed with patient/caregiver. Educated patient/caregiver on patient right to have input on RASHEED plan of care. Verification of Home Health/DME if indicated: NA Identified Care Gaps: No Care Gaps closed this call: Appointment made or confirmed and Transition of Care follow-up communication Re-evaluation of Plan of Care and progress towards goals achievement: Patient education this visit: Verbal, Confirmed PCP appointment 10/15/2023, discussed reasons to call sooner as above Plan to instructed to call Primary Care Provider with change in symptoms or as needed before next follow-up, discharge needs met, verbalizes understanding and agrees with plan. Jessica Dove, RN documented in this encounter Plan of Treatment Upcoming Encounters Date Type Department Care Team (Late st Contact Info) Description 10/15/2023 2:00 PM EST [facility] [address] [facility] [address] [facility] [address] [facility] [address] 12/11/2023 9:00 AM EDT Office Visit Nephrology, [facility] [address] [place] [address] Albert Jhaveri MD [address] [place], [place] [address] 01/31/2024 9:40 AM EDT Office Visit [facility] [address] [place] [address] Irma Gavin MD [address] [place] [address] Scheduled Procedures Name Priority Associated [...] filedocumented as of this encounter Care Teams Dental Nurse Relationship Specialty Start Date End Date Irma Gavin MD [address] [place] [address] PCP - General Family Medicine 04/23/22 documented as of this encounter
--- OUTSIDE RECORDS SUMMARY | 2023-12-07 07:41 | External Medical Summary ---
Author Name Unknown Address Unknown Organization K01:[facility] [place] [address] [facility] [address] Laboratory Report Ordering Provider Test Date Status CHRISTY KRAUSE 12/05/2023 08:09:41 Final Observation Date Value Abnormality Reference (Units ) Status BUN 12/05/2023 08:09:41 66 Above high normal 6-20 (mg/dL) Final Creatinine 12/05/2023 08:09:41 7.6 Above high normal 0.6-1.2 (mg/dL) Final Glomerular filtration rate/1.73 sq M.predicted [Volume Rate/Area] in Serum, Plasma or Blood by Creatinine-based formula (CKD-EPI) 12/05/2023 08:09:41 8 Below low normal >=60 (mL/min) Final eGFR is calculated based on the CKD-EPI 2020 equation SODIUM 12/05/2023 08:09:41 140 135-146 (m mol/L) Final Potassium 12/05/2023 08:09:41 4.8 3.5-5.1 (m mol/L) Final Cl 12/05/2023 08:09:41 105 98-107 (mm ol/L) Final CO2 12/05/2023 08:09:41 21 Below low normal 22- 32 (mmol/L) Final Anion gap 12/05/2023 08:09:41 14 7-15 (mmol /L) Final Glucose 12/05/2023 08:09:41 114 70-120 (mg /dL) Final Calcium 12/05/2023 08:09:41 8.3 Below low normal 8.4 -10.2 (mg/dL) Final Albumin 12/05/2023 08:09:41 3.8 3.8-5.0 (g /dL) Final Phosphate 12/05/2023 08:09:41 4.7 2.5-4.8 (m g/dL) Final Performing Location [facility] [place] [facility] [address] [facility] [address]
--- OUTSIDE RECORDS SUMMARY | 2023-12-07 07:41 | External Medical Summary | Summary of Care ---
Author Name Unknown Organization [facility] Address [address] [place] [address] Phone [phone] Care Team Providers Care Assembler Equipment Name Role Phone Irma Gavin MD Primary Care Provid er Reason for Visit * Reason Comments Hospital Follow-Up Chronic Kidney Disease (CKD) Hypertension Encounter Details Date Type Department Care Team (Late st Contact Info) Description 10/10/2023 2:40 PM EST [facility] [address] [facility] [place] [address] Albert Jhaveri MD [address] [facility] [place] [address] Kidney disease, chronic, stage IV (GFR 15-29 ml/min) ([facility])*; HTN, goal below 140/90 Allergies Active Allergy Reactions Criticality Noted Date Comments Acetaminophen High 10/06/2022 Other Reaction(s): UPSETS STOMACH Propoxyphene Abdominal pain Low 01/30/2016 Penicillins Abdominal pain Low 01/30/2016 documented as of this encounter (statuses as of 10/10/2023) Medications Medication Sig Dispensed Refills Start Date End Date Status Nitroglycerin 0.4 MG Sublingual Tablet Sublingual (Nitrostat) Place 1 Tablet under the tongue every 5 minutes as needed for Pain, Chest. 0 Active Atorvastatin Calcium 40 MG Oral Tablet (Lipitor)Indica tions:Mild CAD Take 1 Tablet by mouth every night at bedtime. Take with coenzyme qu 10 supplement. 90 Tablet 3 3 Active NIFEdipine ER 90 MG Oral Tablet Extended Release 24 Hour (Adalat CC) Take 1 Tablet by mouth in the morning. 90 Tablet 3 3 Active Doxazosin Mesylate 4 MG Oral Tablet (Cardura) Take 1 Tablet by mouth at bedtime. 90 Tablet 3 3 Active Additional Information Patient not taking.Reported on 06/04/2023 Finasteride 5 MG Oral Tablet (Proscar) Take 1 Tablet by mouth in the morning. 90 Tablet 3 3 Active Famotidine 20 MG Oral Tablet (Pepcid)Indicat ions:Gastroesop hageal reflux disease, unspecified whether esophagitis present,Hyperte nsion goal BP (blood pressure) < 130/80 Take 1 Tablet by mouth in the morning. 90 Tablet 3 3 Active Additional Information Patient not taking.Reported on 10/10/2023 Omeprazole 40 MG Oral Capsule Delayed Release (PriLOSEC)Indic ations:Gastroes ophageal reflux disease, unspecified whether esophagitis present,Hyperte nsion goal BP (blood pressure) < 130/80 Take 1 Capsule by mouth in the morning. 90 Capsule 3 3 Active Aspirin Low Dose 81 MG Oral Tablet Chewable (aspirin)Indica tions:Hypertens mona heart disease without congestive heart failure CHEW 1 TABLET BY MOUTH DAILY IN THE MORNING WITH FOOD 90 Tablet 3 3 Active cloNIDine HCl 0.2 MG Oral Tablet (Catapres) Take 1 Tablet by mouth in the morning and 1 Tablet at noon and 1 Tablet before bedtime. 270 Tablet 3 4 Active Torsemide 100 MG Oral Tablet (Demadex) Take 0.5 Tablets by mouth in the morning. 45 Tablet 5 4 Active Carvedilol 25 MG Oral Tablet (Coreg) Take 1 Tablet by mouth in the morning and 1 Tablet before bedtime. 180 Tablet 3 4 Active Torsemide 10 MG Oral Tablet (Demadex) Take 1 Tablet by mouth in the morning. 90 Tablet 3 3 10/10/19 24 Discontinued cloNIDine HCl 0.2 MG Oral Tablet (Catapres) Take 1 Tablet by mouth in the morning and 1 Tablet at noon and 1 Tablet before bedtime. 90 Tablet 11 3 10/10/19 24 Discontinued(Med ication/Dose Changed) hydrALAZINE HCl 100 MG Oral Tablet Take 1 Tablet by mouth in the morning and 1 Tablet at noon and 1 Tablet before bedtime. 90 Tablet 5 3 10/10/19 24 Discontinued Carvedilol 25 MG Oral Tablet (Coreg) Take 1 Tablet by mouth in the morning and 1 Tablet before bedtime. 180 Tablet 3 3 10/10/19 24 Discontinued(Ref ill) Valsartan 160 MG Oral Tablet (Diovan)Indicat ions:Hypertensi on goal BP (blood pressure) < 130/80,Gastroes ophageal reflux disease, unspecified whether esophagitis present Take 1 Tablet by mouth at bedtime. 90 Tablet 3 3 10/10/19 24 Discontinued cloNIDine HCl 0.1 MG Oral Tablet (Catapres) TAKE 1 TAB BY MOUTH NEEDED FOR HYPERTENSION (FOR BP HIGHER THAN 160 SYSTOLIC UP TO 3 TIMES A DAY) 0 3 10/10/19 24 Discontinued documented as of this encounter (statuses as of 10/10/2023) Active Problems Problem Noted Date Diagnosed Date [...] as of this encounter (statuses as of 10/10/2023) Immunizations Name Administration Dates Next Due Hepatitis [...] Sign Reading Time Taken Comments Blood Pressure 180/100 10/10/2023 3:18 PM EST Pulse 87 10/10/2023 3:03 PM EST Temperature 36.7 C (98 F) 10/10/2023 3:00 PM EST Respiratory Rate 20 10/10/2023 3:00 PM EST Oxygen Saturation 97% 10/10/2023 3:00 PM EST Inhaled Oxygen Concentration - - Weight 93.4 kg (205 lb 14.4 oz) 10/10/2023 3:00 PM EST Height - - Body Mass Index 27.17 08/02/2023 11:53 AM EDT documented in this encounter Patient Instructions * Patient Instructions* Albert Jhaveri MD - 10/10/2023 3:34 PM EST Stop Valsartan Restart the higher dose of Clonidine 0.2 mg three times daily like before Increase the dose of torsemide to 50 daily in AM Labs on 10/21/2023 ESRD options education class Nurse from [facility] will call you documented in this encounter Progress Notes * Albert Jhaveri MD - 10/10/2023 3:42 PM EST Chief complaint---CKD 4 and hypertensive urgency BACKGROUND: 58 with CKD4 , baseline creatinine not well established; HTN, LVH, hx of medication nonadherence/ multiple sources of care for HTN, 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 It was very difficult to get his blood pressure under control even during hospital stay. Also has history of emergency department visit with syncope and low blood pressure Since last visit -----was admitted in the hospital for 2 nights because of hypertensive urgency. He was seen in Cardiology office for routine checkup but because of high blood pressure and somenonspecific symptoms he was sent over to the hospital. His is also in the hospital and he is under considerable stress. And because of this he has not been with some of the medication---medications ran out and has not got the refill yet. However in the hospital his blood pressure got to near normal with essentially his home medications--in fact less than his home medications. At the time of discharge yesterday his blood pressure was around 150 systolic. Creatinine was higher than baseline at 5. Because of this torsemide and valsartan was held at the time of discharge which was yesterday. Past Medical History: Diagnosis Date Hypertension Patient Active Problem List Diagnosis Code LV hypertrophy, hypertensive I11.9 Essential (primary) hypertension I10 History of tobacco abuse Z87.891 Cigarette smoker one half pack a day or less F17.210 Patent foramen ovale Q21.12 Cardiomyopathy due to hypertension, without heart failure ([facility]) I11.9, I43 Kidney disease, chronic, stage IV (GFR 15-29 ml/min) ([facility]) N18.4 BPH (benign prostatic hyperplasia) N40.0 Positive urine drug screen R82.5 Hyperparathyroidism ([facility]) E21.3 REVIEW OF SYSTEMS: Current Outpatient Medications Medication Sig Dispense Refill [...] 1 Tablet before bedtime. 180 Tablet 3 Doxazosin Mesylate 4 MG Oral Tablet (Cardura) Take 1 Tablet by mouth at bedtime. (Patient not taking: Reported on 06/04/2023) 90 Tablet 3 Famotidine 20 MG Oral Tablet (Pepcid) Take 1 Tablet by mouth in the morning. (Patient not taking: Reported on 10/10/2023) 90 Tablet 3 No current facility-administered medications for this visit. Review of patient's allergies indicates: Allergen Reactions Acetaminophen Other Reaction(s): UPSETS STOMACH Darvon [Propoxyphene] Abdominal pain Penicillins Abdominal pain Social History Socioeconomic History Marital status: Spouse name: Not on file Number of children: Not on file Years of education: Not on file Highest education level: Not on file Occupational History Not on file Tobacco Use Smoking status: Every Day Packs/day: .25 Types: Cigarettes Passive exposure: Current Smokeless tobacco: Former Tobacco comments: 10/10/23 Has had no cigarettes in 1 week Girlfriend smokes at home Vaping Use Vaping Use: Never used Substance and Sexual Activity Alcohol use: No Drug use: Yes Types: Marijuana Comment: occ Sexual activity: Not on file Other Topics Concern Not on file Social History Narrative Not on file Social Determinants of Health Financial Resource Strain: Not on file Food Insecurity: No Food Insecurity (04/26/2020) Hunger Vital Sign Worried About Running Out of Food in the Last Year: Never true Ran Out of Food in the Last Year: Never true Transportation Needs: Not on file Physical Activity: Not on file Stress: Not on file Social Connections: Not on file Intimate Partner Violence: Not on file Housing Stability: Not on file Family History Problem Relation Age of Onset Alzheimer's disease Mother Prostate cancer Father currently age 88 Colon cancer Father Hypertension Sister Other (Other) Brother Gout Alzheimer's disease Grandmother (Maternal) Kidney disease Aunt (Paternal) No family status information on file. PHYSICAL EXAMINATION: BP Readings from Last 6 Encounters: 10/10/23 180/100 10/08/23 (!) 234/136 08/02/23 148/88 06/04/23 146/92 05/30/23 (!) 222/131 05/22/23 (!) 210/120 Wt Readings from Last 6 Encounters: 10/10/23 93.4 kg (205 lb 14.4 oz) 10/08/23 94.1 kg (207 lb 8 oz) 08/02/23 95.3 kg (210 lb) 06/04/23 91.6 kg (202 lb) 05/22/23 90.3 kg (199 lb) 01/30/23 96.5 kg (212 lb 11.2 oz) Pulse Readings from Last 6 Encounters: 10/10/23 87 10/08/23 76 08/02/23 74 05/30/23 68 05/22/23 68 01/30/23 66 NAD, oriented x 3, ambulatory and on table w/o asst, muscular build and tall Normocephalic, atraumatic, eomi nonicteric sclerae MMM Supple neck w/o lad RRR w/o m/g/r; trace RLE edema CTAB w/ reduced air mvt NT abd, +BS, soft No cyanosis or clubbing No rash No tremor, focal or global weakness; fluent speech, limited/challenging hx at times LABS: Latest Ref Rng 04/20/2022 04/23/2022 05/02/2022 06/26/2022 07/03/2022 CRF FOLLOW UP SODIUM 135 - 146 mmol/L 138 136 POTASSIUM 3.5 - 5.1 mmol/L 4.2 4.1 CHLORIDE 98 - 107 mmol/L 104 101 BUN 6 - 20 mg/dL 27 (H) 26 (H) GLUCOSE 70 - 120 mg/dL 104 108 CREATININE 0.6 - 1.2 mg/dL 2.7 (H) 2.3 (H) ALBUMIN 3.8 - 5.0 g/dL CALCIUM 8.4 - 10.2 mg/dL 9.7 9.6 CO2-TOTAL 22 - 32 mmol/L 23 23 Latest Ref Rng 07/30/2022 08/02/2022 10/15/2022 10/17/2022 CRF FOLLOW UP SODIUM 135 - 146 mmol/L 139 138 POTASSIUM 3.5 - 5.1 mmol/L 4.4 4.4 CHLORIDE 98 - 107 mmol/L 105 104 BUN 6 - 20 mg/dL 43 (H) 40 (H) GLUCOSE 70 - 120 mg/dL 128 (H) 111 CREATININE 0.6 - 1.2 mg/dL 4.4 (H) 4.1 (H) ALBUMIN 3.8 - 5.0 g/dL CALCIUM 8.4 - 10.2 mg/dL 9.2 9.2 CO2-TOTAL 22 - 32 mmol/L 22 21 (L) ASSESSMENT AND PLAN: Kidney disease, chronic, stage IV (GFR 15-29 ml/min) ([facility]) (Primary) CKD 4 which has declined fairly fast in the last few years and now approaching stage 5. Creatinine went up to 4+ range But then has started to get lower and now running higher again. Creatinine was 4+ in July and was 5 yesterday and the day before. I do not think this is really acute renal failure but more accelerated renal decline in the setting of hypertensive urgency. Hypertensive heart disease without congestive heart failure LVH (left ventricular hypertrophy) Longstanding history of uncontrolled hypertension which has already caused end organ damage including left ventricular hypertrophy with cardiomyopathy as well as CKD 5 Hypertension goal BP (blood pressure) < 130/80 Extremely high to extremely low. Making very difficult. He claims to take all meds regularly but I have doubts about intermittent adherence. Recommendations for today: We had a long discussion that now that his GFR is around 15 we have to plan for renal replacement therapy. Till we sort out this intermittent adherence with blood pressure medication and achieve good blood pressure control I do not want to send him for transplant evaluation yet. This was explained to the patient We will start the ESRD options education class and he has agreed. He wants to do dialysis through [facility] dialysis unit in [place] under my care Blood pressure is not at goal in fact is very high Will Raise torsemide to 50 daily. Will need labs in about 10 days after higher dose of torsemide Restart Clonidine previous dose 0.2 tid NO Valsartan for now. He did not tolerate Hydralazine. Continue Coreg, Doxazosin, Nifedipine Xl. Follow Up: Return in about 2 months (around 12/09/2023) for Clinic Visit. | For: Clinic Visit | Check-out note: Labs to be done on 10/21/2023 I spent a total of Greater than 55 mins (exact time 57 mins) on the date of service in preparation,delivery, and documentation of the care provided to Christopher Harry excluding any time spent in the performance of separately billed services. Albert Jhaveri MD documented in this encounter Nursing Notes * Melvi Yousif LPN - 10/10/2023 3:00 PM EST Patient identified by verbal name and date of . Hospital follow up post [facility] discharge 10/09/22BP at home today @ 0700 169/102 per pt report documented in this encounter Plan of Treatment Upcoming Encounters Date Type Department Care Team (Late st Contact Info) Description 10/15/2023 2:00 PM EST Office Visit [place] [address] [place] [address] Irma Gavin MD [address] [place] [address] 12/11/2023 9:00 AM EDT Office Visit Nephrology, [facility] [address] [facility] [place] [address] Albert Jhaveri MD [address] [facility] [address] 01/31/2024 9:40 AM EDT Office Visit [facility] [place] [address] [place] [address] Irma Gavin MD [address] [place] [address] Scheduled Procedures Name Priority Associated [...] Primary Chronic kidney disease, Stage IV (severe) HTN, goal below 140/90 Unspecified essential hypertension documented in this encounter Care Teams Assembler Equipment Relationship Specialty Start Date End Date Irma Gavin MD [address] [place] [address] PCP - General Family Medicine 04/23/22 documented as of this encounter"
--- OUTSIDE RECORDS SUMMARY | 2023-12-07 07:41 | External Medical Summary | Summary of Care ---
Author Name Unknown Organization [facility] Address [address] [place] [address] Phone [phone] Care Team Providers Care Edger Liner Name Role Phone Irma Gavin MD Primary Care Provid er Reason for Visit * Reason Onset Date Comments Advice 11/26/2023 Encounter Details Date Type Department Care Team (Late st Contact Info) Description 11/26/2023 Telephone Formerly [facility] [address] [place] [address] Irma Gavin MD [address] [place] [address] Advice Allergies Active Allergy Reactions Criticality Noted Date Comments Acetaminophen High 10/06/2022 Other Reaction(s): UPSETS STOMACH Propoxyphene Abdominal pain Low 01/30/2016 Penicillins Abdominal pain Low 01/30/2016 documented as of this encounter (statuses as of 11/29/2023) Medications Medication Sig Dispensed Refills Start Date [...] as of this encounter (statuses as of 11/29/2023) Active Problems Problem Noted Date Diagnosed Date [...] as of this encounter (statuses as of 11/29/2023) Immunizations Name Administration Dates Next Due Hepatitis [...] encounter Miscellaneous Notes * Telephone Encounter - Irma Gavin MD [...] Description 01/31/2024 9:40 AM EDT Office Visit Formerly [facility] [address] [place] [address] Irma Gavin MD [address] [place] [address] Scheduled Procedures Name Priority Associated [...] filedocumented as of this encounter Care Teams Edger Liner Relationship Specialty Start Date End Date Irma Gavin MD [address] [place] [address] PCP - General Family Medicine 04/23/22 documented as of this encounter
--- OUTSIDE RECORDS SUMMARY | 2023-12-07 07:41 | External Medical Summary | Summary of Care ---
Author Name Unknown Organization [facility] Address [address] [place] [address] Phone [phone] Care Team Providers Care Head Of Measurement & Insights Name Role Phone Irma Gavin MD Primary Care Provid er Reason for Visit * Reason Comments Outpatient Testing Encounter Details Date Type Department Care Team (Late st Contact Info) Description 12/05/2023 7:50 AM EST Laboratory Laboratory, [place] [address] [place] [address] [place] [address] [place] [address] Kidney disease, chronic, stage IV (GFR 15-29 ml/min) ([facility]) Allergies Active Allergy Reactions Criticality Noted Date [...] Description 01/31/2024 9:40 AM EDT Office Visit [facility] [address] [place] [address] Irma Gavin MD [address] [facility] [place] [id number] Pending Results Name Type Priority Associated Diagnoses Date /Time PTH Lab STAT Kidney disease, chronic, stage IV (GFR 15-29 ml/min) ([facility]) 12/05/2023 8:09 AM EST RENAL FUNCTION PANEL Lab Routine Kidney disease, chronic, stage IV (GFR 15-29 ml/min) ([facility]) 12/05/2023 8:09 AM EST CBC Lab Routine Kidney disease, chronic, stage IV (GFR 15-29 ml/min) ([facility]) 12/05/2023 8:09 AM EST IRON SCREEN, INCLUDING TIBC Lab Routine Kidney disease, chronic, stage IV (GFR 15-29 ml/min) ([facility]) 12/05/2023 8:09 AM EST Scheduled Procedures Name Priority Associated Diagnoses Date/Ti me COLONOSCOPY FLEXIBLE PROXIMA L DIAGNOSTIC Recall Family history of colon cancer Health Maintenance Due Date Last Done Comments Zoster Vaccines (1 of 2) 2015 Hepatitis B (2 of 3 - 19+ 3-dose series) 01/25/2023 12/28/2022 COVID-19 Vaccine ( - 2022-24 season) 2023 Influenza Vaccine (FLU [...] (severe) documented in this encounter Care Teams Head Of Measurement & Insights Relationship Specialty Start Date End Date Irma Gavin MD [address] [facility] [place] [address] PCP - General Family Medicine 04/23/22 documented as of this encounter
--- OUTSIDE RECORDS SUMMARY | 2023-12-07 07:41 | External Medical Summary | Summary of Care ---
Author Name Unknown Organization [facility] Address [address] [place] [address] Phone [phone] Care Team Providers Care Specimen Technician Name Role Phone Irma Gavin MD Primary Care Provid er Reason for Visit * Reason Onset Date Comments Advice 11/26/2023 Encounter Details Date Type Department Care Team (Late st Contact Info) Description 11/26/2023 Telephone [facility] [address] [place] [address] Irma Gavin MD [address] [place] [address] Advice Allergies Active Allergy Reactions [...] encounter Miscellaneous Notes * Telephone Encounter - Nena Foote OSA [...] Description 12/05/2023 7:50 AM EST Laboratory Laboratory, [place] [address] [place] [facility] [place] [id number] [facility] [address] [facility] [place] [id number] 01/31/2024 9:40 AM EDT Office Visit [facility] [address] [facility] [phone] Irma Gavin MD [address] [facility] [place] [id number] Scheduled Orders Name Type Priority Associated Diagnoses Orde r Schedule RENAL FUNCTION PANEL Lab Routine Kidney disease, chronic, stage IV (GFR 15-29 ml/min) ([facility]) Expected: 12/04/2023 (Approximate), Expires: 12/02/2024 CBC Lab Routine Kidney disease, chronic, stage IV (GFR 15-29 ml/min) ([facility]) Expected: 12/04/2023 (Approximate), Expires: 12/02/2024 IRON SCREEN, INCLUDING TIBC Lab Routine Kidney disease, chronic, stage IV (GFR 15-29 ml/min) ([facility]) Expected: 12/04/2023 (Approximate), Expires: 12/02/2024 PTH Lab Routine Kidney disease, chronic, stage IV (GFR 15-29 ml/min) ([facility]) Expected: 12/04/2023 (Approximate), Expires: 12/02/2024 URINALYSIS WITH MICROSCOPIC EXAM Lab Routine Kidney disease, chronic, stage IV (GFR 15-29 ml/min) ([facility]) Expected: 12/04/2023 (Approximate), Expires: 12/02/2024 PROTEIN/ CREATININE RATIO, URINE Lab Routine Kidney disease, chronic, stage IV (GFR 15-29 ml/min) ([facility]) Expected: 12/04/2023 (Approximate), Expires: 12/02/2024 [...] 18-100 12/18/2023 12/17/2018, 12/17/2018 GFR 02/03/2024 08/05/2023, 01/2023, 01/11/2023, Additional history exists Albumin/Creatinine Ratio [...] (severe) documented in this encounter Care Teams Specimen Technician Relationship Specialty Start Date End Date Irma Gavin MD [address] [place] [address] PCP - General Family Medicine 04/23/22 documented as of this encounter
[2023-12-07] MEDS: FINASTERIDE 5 MG TAB PO SCH (08:03)
[2023-12-07] MEDS: FAMOTIDINE 20 MG TAB PO SCH (08:03)
--- NOTE | 2023-12-07 08:53 | Electrocardiogram Report ---
Test Reason : Blood Pressure : / mmHG Vent. Rate : 077 BPM Atrial Rate : 077 BPM P-R Int : 156 ms QRS Dur : 096 ms QT Int : 420 ms P-R-T Axes : 075 -27 067 degrees QTc Int : 475 ms Normal sinus rhythm Left ventricular hypertrophy with repolarization abnormality Abnormal ECG When compared with ECG of 09-OCT-2023 07:22, T wave inversion now evident in Lateral leads Confirmed by Tarun Freedman ([id number]) on 12/07/2023 8:52:36 AM Referred By: REFERRED SELF Confirmed By:Tarun Freedman
--- OUTSIDE RECORDS SUMMARY | 2023-12-07 09:16 | External Medical Summary | Summary of Care ---
Author Name Unknown Organization [facility] Address [address] [place] [address] Phone [phone] Care Team Providers Care Turret Lathe Set Up Operator Name Role Phone Irma Gavin MD Primary Care Provid er Reason for Visit * Reason Onset Date Comments Test Results 12/06/2023 Encounter Details Date Type Department Care Team (Late st Contact Info) Description 12/06/[facility]23 [facility] [place] [address] [facility] [address] Albert Jhaveri MD [address] [place] [address] Test Results Allergies Active Allergy Reactions Criticality Noted Date [...] Encounter - Addie Bello RN - 12/06/2023 1:48 PM EST TE with pt regarding worsening lab results. Aware that he needs to go to ER and will likely be admitted. * Telephone Encounter - Addie Bello RN - 12/06/2023 1:48 PM EST ----- Message from Albert Jhaveri MD sent at 12/06/2023 1:39 PM EST ----- We have been trying very hard to get hold of the patient to let him know that he needs to go to theemergency department. documented in this encounter Plan of Treatment Upcoming Encounters Date Type Department Care Team (Late st Contact Info) Description 01/31/2024 9:40 AM EDT Office Visit [facility] [address] [place] [facility] [place] [phone] Irma Gavin MD [address] [place] [facility] [place] [address] Scheduled Procedures Name Priority Associated Diagnoses Date/Ti [...] 12/18/2023 12/17/2018, 12/17/2018 Albumin/Creatinine Ratio 06/04/2024 06/04/2023, 2 01/2022 GFR 06/06/2024 12/05/2023, 0 02/2023, 06/04/2023, Additional history exists Nephrology Referral 10/10/2024 10/10/2023 Hgb 12/04/2024 12/05/2023, 090 01/2023, 06/04/2023, Additional history exists PTH 12/04/2024 12/05/2023, 110 02/2023, 06/04/2023, Additional history exists Phosphate 12/04/2024 12/05/2023, 110 02/2023, 06/04/2023, Additional history exists DTaP,Tdap,and Td [...] filedocumented as of this encounter Care Teams Turret Lathe Set Up Operator Relationship Specialty Start Date End Date Irma Gavin MD [address] [facility] [place] [address] PCP - General Family Medicine 04/23/22 documented as of this encounter
--- NOTE | 2023-12-07 13:13 | Nephrology Consultation ---
Date of Consultation December 07, 2023 Assessment & Plan (1) Acute kidney injury superimposed on chronic kidney disease: Creat was in the 4's in sep. Now it is 7.20. Despite iv fluid creat went up. Nothing to suggest volume depletion. I believe this is progression of CKD 5 to ESRD at this point. Will do renal US or CT renal just to make sure no urine retention given h/o HUITRON. Will plan for Dialysis at this point. Will place HD catheter--tunneled and then start dialysis inpt then continue Outpt.He is agreeable with the plan. he is high risk of readmission if no dialysis either with BP or fluid issues. D/c Iv fluid restart his home torsemide 100 daily. Also restart Valsartan 320 now that we decided to start dialysis which he needs for cardiac issues ( has Sig LVH) (2) Uncontrolled hypertension: [place] noting that he does have intermittent adherence with BP meds. His BP gets very good quickly in hospital. has h/o Super low BP with Syncope and then high BP also. History of Present Illness Reason for Consultation: HERBERT on CKD 5 Attending Physician: Jakob Robertson MD History of Present Illness 58/M with rapidly progressive CKD related with diabetes type 2, hypertension, smoking, BPH, My office called him and advised to go to hospital for Abnormal labs with creat of 7. Patient was recently mated to [facility] last September 2023 for hypertensive urgency and acute on chronic kidney disease. his baseline recently from was in the 4's. [place] noting that he does have intermittent adherence with BP meds. His BP gets very good quickly in hospital. has h/o Super low BP with Syncope and then high BP also. Patient reports he was doing fine at home, denies any symptoms including headache, chest pain, shortness of breath, abdominal pain. He has not noticed any reduction of urine output, but does report some difficulty with initiating urination intermittently. At the ER, patient was admitted with elevated blood pressure, 229/110. But now BP is perfectly normal. States he feels fine, denies any active symptoms-no headache, dizziness, nausea, chest pain, shortness of breath, etc. At home he is on torsemide. valsartan already stopped in after rapidly rising creat. renal US unremarkable. ROS--12 Systems reviewed and negative Physical Exam Physical Exam: General- oriented x 3, not in distress, speaks in sentences with no effort or accessory muscle use Head- atraumatic Eyes- PERRL, EOMI, anicteric ENT- oropharynx clear Neck- supple, no JVD, no adenopathy, no thyromegaly; carotids +2/2, no bruits appreciated Lungs- clear to auscultation bilaterally, no rales/wheezes Heart- normal rate, regular rhythm; no murmur, no gallop, no rub appreciated Abdomen- normal bowel sounds, nondistended, soft, nontender, no masses or hepatosplenomegaly Extremities- no pretibial edema, no calf tenderness; peripheral pulses intact Neuro- alert, oriented x 3; CN 2-12 grossly intact; motor 5/5 bilaterally;sensation 100% on all extremities; no other gross focal neurologic deficits Skin- warm & dry Allergies Allergy/AdvReac Type Severity Reaction Status Date / Time Penicillins Allergy Unknown CAN'T Verified 12/06/23 17:47 REMEMBER propoxyphene Allergy Unknown TYLENOL OK Verified 12/06/23 17:47 acetaminophen AdvReac Intermediate UPSETS Verified 12/06/23 17:47 STOMACH naproxen AdvReac Intermediate stomach Verified 12/06/23 17:47 burning, takes ibuprofen w/out prob Home Medications Medication Instructions Recorded Confirmed Type aspirin 81 mg chewable tablet 81 mg PO QAM 10/06/18 12/06/23 History finasteride 5 mg tablet 5 mg PO QAM 03/08/21 12/06/23 History nitroglycerin 0.4 mg sublingual 0.4 mg sublingual Q5M PRN chest 04/18/22 12/06/23 Rx tablet (Nitrostat) pain #15 tabs carvedilol 25 mg tablet 25 mg PO BID #60 tabs 10/11/22 12/06/23 Rx doxazosin 4 mg tablet 8 mg (2 x 4 mg) PO HS #30 tabs 10/11/22 12/06/23 Rx atorvastatin 40 mg tablet 40 mg PO HS 10/08/23 12/06/23 History clonidine HCl 0.2 mg tablet 0.2 mg PO TID 12/06/23 12/06/23 History famotidine 20 mg tablet 20 mg PO QAM 12/06/23 12/06/23 History nifedipine 90 mg tablet,extended 90 mg PO HS 12/06/23 12/06/23 History release torsemide 100 mg tablet 0 mg PO QAM 12/06/23 12/06/23 History valsartan 160 mg tablet 160 mg PO HS 12/06/23 12/06/23 History Patient History Medical History Tobacco use LV hypertrophy, hypertensive CKD (chronic kidney disease) stage 3, GFR 30-59 ml/min HERBERT (acute kidney injury) BPH (benign prostatic hyperplasia) HTN (hypertension) Diabetes Surgical History History of rotator cuff surgery Family History Grandmother (Maternal) Dementia Mother Dementia Other Cancer Diabetes Heart disease Hypertension Social History Smoking Status: Current every day smoker Tobacco Type: Cigarettes Second Hand Exposure: No; Do You Dip or Chew Tobacco: No; Tobacco Cessation Education Requested by Patient: No Hx Alcohol Use: No Hx Substance Use: No Preferred Language: Romansh Communication Ability: Effective Livestock Producer Required: No Beliefs That Will Affect Care: None marital status: Single Current Living Situation: Spouse current occupational status: employed How many Children do You have: 4 Other Information That Helps Us Care for You: No Feels Safe at Home: Yes Safety Concerns: Feels Safe At This Time Assistive Devices: None Results & Data Vital Signs (Past 12 Hours) Vital Signs Temp Pulse Pulse Resp BP Pulse Ox O2 Del Method 12/07/23 11:24 36.7 C 71 19 120/71 95 Room Air 12/07/23 06:30 36.5 C 75 16 157/90 H 95 Room Air 12/07/23 02:21 36.4 C L 75 20 167/96 H 97 Room Air 12/07/23 01:15 70 Laboratory Results reveiwed. Diagnostic Findings reviewed.
[2023-12-07] MEDS: VALSARTAN 80 MG TAB PO SCH (14:23)
[2023-12-07] MEDS: TORSEMIDE 100 MG TAB PO SCH (14:23)
[2023-12-07] MEDS ORDERED: ACETAMINOPHEN 325 MG TAB PO PRN (14:31)
[2023-12-07] MEDS: ACETAMINOPHEN 325 MG TAB PO PRN (14:49)
--- NOTE | 2023-12-07 16:45 | Hospitalist Progress Note ---
Date of Service December 07, 2023 Assessment & Plan (1) Acute kidney injury superimposed on chronic kidney disease: (2) Uncontrolled hypertension: Plan: 58-year-old male with history of diabetes, hypertension, CKD stage IV, smoker, BPH, presenting with elevated creatinine level at PCP office. ACUTE KIDNEY INJURY ON CKD STAGE 4 Patient on torsemide Otherwise unclear inciting factor, no diarrhea, vomiting, no NSAID use Renal ultrasound September 2023: Kidneys are normal in size, without hydronephrosis Discussed with nephrology service Will start half NSS at 75 cc/h BMP tomorrow 12/06 Torsemide 100mg daily plan for HD by Nephro cath placement on Saturday by Vascular Surgery UNCONTROLLED HYPERTENSION Discussed with nephrology service Patient has a history of nonadherence to medications Had an episode of low BP during last admission Will give a stat dose of labetalol IV, and continue usual medication regimen As needed hydralazine ordered Monitor closely at telemetry unit 12/06 Valsartan 320mg po daily added NONSPECIFIC ST DEPRESSIONS IN LATERAL LEADS No cardiac symptoms Troponins negative Had a recent echocardiogram back in September 2023 DIABETES TYPE 2 HISTORY Not on any medications a1c 5.3 SMOKER Has been trying to quit, uses 2 cigarettes/day Declines nicotine patch BPH Continue finasteride DVT prophylaxis SCDs for now Admission and Anticipated Discharge Date Admission Date: December 06, 2023 Subjective ff up for HERBERT on CKD, etc seen resting in bed, comfortable states he feels fine overall no chest pain, dyspnea, palpitations, dizziness no other new symptoms Review of Systems Review of Systems: all noted and negative except for above Physical Exam Physical Exam: General- oriented x 3, not in distress, speaks in sentences with no effort or accessory muscle use Eyes- anicteric Neck- no JVD Lungs- clear breath sounds bilaterally, no rales/wheezes Heart- normal rate, regular rhythm; no murmurs Abdomen- normal bowel sounds, nondistended, soft, nontender Extremities- no pretibial edema, no calf tenderness Neuro- alert, oriented x 3; no gross focal neurologic deficits Skin- warm & dry Results & Data Results & Data Vital Signs (Past 12 Hours) Vital Signs Temp Pulse Resp BP Pulse Ox O2 Del Method 12/07/23 15:56 36.3 C L 71 16 132/82 96 Room Air 12/07/23 11:24 36.7 C 71 19 120/71 95 Room Air 12/07/23 06:30 36.5 C 75 16 157/90 H 95 Room Air all noted and reviewed including below
[2023-12-08 05:50] LABS: Basophils # (auto) 0.05 K/uL (0.00-0.20); Basophils % (auto) 0.7 %; Eosinophils # (auto) 1.46 K/uL (0.00-0.50); Eosinophils % (auto) 20.4 %; Hematocrit (blood only) 27.9 % (42.0-52.0); Hemoglobin 8.8 g/dl (14.0-18.0); Immature Granulocytes # (auto) 0.04 K/uL (0.01-0.20); Immature Granulocytes % (auto) 0.6 %; Lymphocytes # (auto) 1.36 K/uL (1.20-3.40); Mean Corpuscular Hgb Conc 31.5 g/dL (32.0-36.0); Mean Corpuscular Volume 82.3 fL (80.0-100.0); Mean Platelet Volume 10.7 fL (9.4-12.4); Monocytes # (auto) 0.67 K/uL (0.11-0.59); Monocytes % (auto) 9.4 %; Neutrophils # (auto) 3.57 K/uL (1.40-6.50); Neutrophils % (auto) 49.9 %; Platelet Count 240 K/uL (130-400); RDW Coefficient of Variation 17.7 % (11.5-14.5); RDW Standard Deviation 53.1 fL (36.4-46.3); Red Blood Count 3.39 M/uL (4.70-6.10); White Blood Count 7.15 K/ul (4.8-10.8)
[2023-12-08 06:03] LABS: BUN Creatinine Ratio 10.1 (10-20); Calcium 7.3 mg/dl (8.6-10.3); Creatinine Clr Calc Pharmacy 12.6 ml/min; Est GFR (African American) 8.2 ml/min; Est GFR (Non-African American) 7.1 ml/min; Phosphorus 6.1 mg/dl (2.5-4.9)
--- NOTE | 2023-12-08 08:56 | Ultrasound Report ---
US renal/blad retro comp CLINICAL HISTORY: HERBERT on CKD h/o HUITRON TECHNIQUE: Multiple sonographic real-time images of the kidneys and bladder were obtained. COMPARISON: Comparison is made to renal ultrasound 10/09/2023 FINDINGS: The right kidney measures 9.2 cm in length, and the left kidney measures 8.6 cm in length. The right renal cortex is diffusely echogenic in appearance with diffuse cortical thinning. No hydron ephrosis is identified. Multiple cysts noted, the largest measuring 1.1 cm. The left renal cortex is diffusely echogenic in appearance, with diffuse cortical thinning. No hydron ephrosis is identified. No renal lesion is identified. Bladder wall is thickened and trabeculated compatible with chronic outlet obstruction. Jets were not visualized during the exam. IMPRESSION: 1. Echogenic kidneys which may represent medical renal disease. Small cysts as above. No evidence of hydronephrosis. 2. Bladder wall thickening is seen which may represent chronic outlet obstruction or cystitis. ACT 112: Negative or not required by law. Electronically signed by: Matt Franklin M.D. 12/08/2023 8:54 AM
--- NOTE | 2023-12-08 11:02 | Hospitalist Progress Note ---
Date of Service December 08, 2023 Assessment & Plan (1) Acute kidney injury superimposed on chronic kidney disease: (2) Uncontrolled hypertension: Plan: 58-year-old male with history of diabetes, hypertension, CKD stage IV, smoker, BPH, presenting with elevated creatinine level at PCP office. ACUTE KIDNEY INJURY ON CKD STAGE 4 Patient on torsemide Otherwise unclear inciting factor, no diarrhea, vomiting, no NSAID use Renal ultrasound September 2023: Kidneys are normal in size, without hydronephrosis Discussed with nephrology service Will start half NSS at 75 cc/h BMP tomorrow 12/07 crea 7.6 Torsemide 100mg daily plan for HD by Nephro cath placement on Saturday by Vascular Surgery UNCONTROLLED HYPERTENSION Discussed with nephrology service Patient has a history of nonadherence to medications Had an episode of low BP during last admission Will give a stat dose of labetalol IV, and continue usual medication regimen As needed hydralazine ordered Monitor closely at telemetry unit 12/07 Valsartan 320mg po daily added BP improving NONSPECIFIC ST DEPRESSIONS IN LATERAL LEADS No cardiac symptoms Troponins negative Had a recent echocardiogram back in September 2023 DIABETES TYPE 2 HISTORY Not on any medications a1c 5.3 SMOKER Has been trying to quit, uses 2 cigarettes/day Declines nicotine patch BPH Continue finasteride DVT prophylaxis SCDs for now Disposition lives at home with significant other anticipate d/c home when medically stable, cleared by nephro Admission and Anticipated Discharge Date Admission Date: December 06, 2023 Subjective ff up for HTN, HERBERT on CKD, etc seen resting in bed, comfortable states he feels fine overall no chest pain, dyspnea, palpitations, dizziness no problems voiding no other symptoms Review of Systems Review of Systems: all noted and negative except for above Physical Exam Physical Exam: General- oriented x 3, not in distress, speaks in sentences with no effort or accessory muscle use Eyes- anicteric Neck- no JVD Lungs- clear breath sounds bilaterally, no crackles/wheezing Heart- normal rate, regular rhythm; no murmurs Abdomen- normal bowel sounds, nondistended, soft, nontender Extremities- no pretibial edema, no calf tenderness Neuro- alert, oriented x 3; no gross focal neurologic deficits Skin- warm & dry Results & Data Results & Data Vital Signs (Past 12 Hours) Vital Signs Temp Pulse Pulse Resp BP Pulse Ox O2 Del Method 12/08/23 08:00 Room Air 12/08/23 07:53 36.9 C 70 17 146/71 H 96 Room Air 12/08/23 03:00 36.6 C 72 18 137/79 97 Room Air 12/07/23 23:00 36.6 C 75 19 134/76 97 Room Air 12/07/23 22:04 79 all noted and reviewed including below
--- NOTE | 2023-12-08 17:19 | Nephrology Progress Note ---
Date of Service December 08, 2023 Assessment & Plan Admission and Anticipated Discharge Date Admission Date: December 06, 2023 Subjective Assessment & Plan (1) Acute kidney injury superimposed on chronic kidney disease: Creat was in the 4's in sep. Now it is 7.2 and juliocesar to 7.65 Despite iv fluid creat went up. Nothing to suggest volume depletion. I believe this is progression of CKD 5 to ESRD at this point. US renal no new findings. Will plan for Dialysis at this point. Will place HD catheter--tunneled and then start dialysis inpt then continue Outpt.He is agreeable with the plan. he is high risk of readmission if no dialysis either with BP or fluid issues. Continue same meds (2) Uncontrolled hypertension: [place] noting that he does have intermittent adherence with BP meds. His BP gets very good quickly in hospital. has h/o Super low BP with Syncope and then high BP also. S--feels fine. making urine Physical Exam Physical Exam: General- oriented x 3, not in distress, speaks in sentences with no effort or accessory muscle use Head- atraumatic Eyes- PERRL, EOMI, anicteric ENT- oropharynx clear Neck- supple, no JVD, no adenopathy, no thyromegaly; carotids +2/2, no bruits appreciated Lungs- clear to auscultation bilaterally, no rales/wheezes Heart- normal rate, regular rhythm; no murmur, no gallop, no rub appreciated Abdomen- normal bowel sounds, nondistended, soft, nontender, no masses or hepatosplenomegaly Extremities- no pretibial edema, no calf tenderness; peripheral pulses intact Neuro- alert, oriented x 3; CN 2-12 grossly intact; motor 5/5 bilaterally;sensation 100% on all extremities; no other gross focal neurologic deficits Skin- warm & dry Results & Data Vital Signs (Past 12 Hours) Vital Signs Temp Pulse Resp BP Pulse Ox O2 Del Method 12/08/23 15:18 36.9 C 74 17 133/80 95 Room Air 12/08/23 11:50 36.9 C 71 17 110/66 95 Room Air 12/08/23 08:00 Room Air 12/08/23 07:53 36.9 C 70 17 146/71 H 96 Room Air
[2023-12-09 07:37] LABS: Basophils # (auto) 0.07 K/uL (0.00-0.20); Hemoglobin 8.9 g/dl (14.0-18.0); Immature Granulocytes # (auto) 0.03 K/uL (0.01-0.20); Immature Granulocytes % (auto) 0.4 %; Lymphocytes # (auto) 1.53 K/uL (1.20-3.40); Lymphocytes % (auto) 21.7 %; Mean Corpuscular Hemoglobin 25.9 pg (25.0-34.0); Mean Corpuscular Hgb Conc 31.8 g/dL (32.0-36.0); Mean Corpuscular Volume 81.6 fL (80.0-100.0); Mean Platelet Volume 10.2 fL (9.4-12.4); Monocytes # (auto) 0.76 K/uL (0.11-0.59); Monocytes % (auto) 10.8 %; Neutrophils # (auto) 3.45 K/uL (1.40-6.50); Neutrophils % (auto) 49.1 %; Platelet Count 241 K/uL (130-400); RDW Coefficient of Variation 17.7 % (11.5-14.5); RDW Standard Deviation 52.4 fL (36.4-46.3); Red Blood Count 3.43 M/uL (4.70-6.10); White Blood Count 7.04 K/ul (4.8-10.8)
[2023-12-09 08:04] LABS: BUN Creatinine Ratio 10.4 (10-20); Calcium 7.3 mg/dl (8.6-10.3); Creatinine Clr Calc Pharmacy 11.9 ml/min; Est GFR (African American) 7.5 ml/min; Est GFR (Non-African American) 6.5 ml/min; Phosphorus 6.3 mg/dl (2.5-4.9); Potassium 4.2 mmol/L (3.5-5.1)
--- NOTE | 2023-12-09 09:59 | Nephrology Progress Note ---
Date of Service December 09, 2023 Assessment & Plan Admission and Anticipated Discharge Date Admission Date: December 06, 2023 Subjective Assessment & Plan (1) Acute kidney injury superimposed on chronic kidney disease: Creat was in the 4's in sep. Now it is 7.2 and juliocesar to 7.65 and now 8+ Despite iv fluid creat went up. Nothing to suggest volume depletion. I believe this is progression of CKD 5 to ESRD at this point. US renal no new findings. Will plan for Dialysis at this point. Will place HD catheter--tunneled and then start dialysis inpt then continue Outpt.He is agreeable with the plan. he is high risk of readmission if no dialysis either with BP or fluid issues. Continue same meds (2) Uncontrolled hypertension: Edgar noting that he does have intermittent adherence with BP meds. His BP gets very good quickly in hospital. has h/o Super low BP with Syncope and then high BP also. S--feels fine. making urine. Just anxious about it and wants to do soon and then go home. Physical Exam Physical Exam: General- oriented x 3, not in distress, speaks in sentences with no effort or accessory muscle use Head- atraumatic Eyes- PERRL, EOMI, anicteric ENT- oropharynx clear Neck- supple, no JVD, no adenopathy, no thyromegaly; carotids +2/2, no bruits appreciated Lungs- clear to auscultation bilaterally, no rales/wheezes Heart- normal rate, regular rhythm; no murmur, no gallop, no rub appreciated Abdomen- normal bowel sounds, nondistended, soft, nontender, no masses or hepatosplenomegaly Extremities- no pretibial edema, no calf tenderness; peripheral pulses intact Neuro- alert, oriented x 3; CN 2-12 grossly intact; motor 5/5 bilaterally;sensation 100% on all extremities; no other gross focal neurologic deficits Skin- warm & dry Results & Data Vital Signs (Past 12 Hours) Vital Signs Temp Pulse Pulse Resp BP Pulse Ox O2 Del Method 12/09/23 07:56 36.6 C 70 17 119/72 97 Room Air 12/09/23 02:58 36.9 C 76 16 143/76 H 96 Room Air 12/08/23 23:05 36.6 C 78 16 132/82 96 Room Air 12/08/23 22:04 75
--- NOTE | 2023-12-09 18:03 | Hospitalist Progress Note ---
Date of Service December 09, 2023 Assessment & Plan (1) Acute kidney injury superimposed on chronic kidney disease: Plan: (1) Acute kidney injury superimposed on chronic kidney disease: (2) Uncontrolled hypertension: Plan: 58-year-old male with history of diabetes, hypertension, CKD stage IV, smoker, BPH, presenting with elevated creatinine level at PCP office. ACUTE KIDNEY INJURY ON CKD STAGE 4 Patient on torsemide Otherwise unclear inciting factor, no diarrhea, vomiting, no NSAID use Renal ultrasound September 2023: Kidneys are normal in size, without hydronephrosis Discussed with nephrology service Will start half NSS at 75 cc/h BMP tomorrow 12/07 crea 7.6 Torsemide 100mg daily plan for HD by Nephro cath placement on Saturday by Vascular Surgery 12/08 Creatinine increased, 8.1 Discussed with nephrology service Vascular surgery service will be available to place dialysis catheter on Saturday Continue torsemide UNCONTROLLED HYPERTENSION Discussed with nephrology service Patient has a history of nonadherence to medications Had an episode of low BP during last admission Will give a stat dose of labetalol IV, and continue usual medication regimen As needed hydralazine ordered Monitor closely at telemetry unit 12/08 Valsartan 320mg po daily added BP improving Monitor NONSPECIFIC ST DEPRESSIONS IN LATERAL LEADS No cardiac symptoms Troponins negative Had a recent echocardiogram back in September 2023 DIABETES TYPE 2 HISTORY Not on any medications a1c 5.3 SMOKER Has been trying to quit, uses 2 cigarettes/day Declines nicotine patch BPH Continue finasteride DVT prophylaxis SCDs for now Disposition lives at home with significant other anticipate d/c home when medically stable, cleared by nephro Admission and Anticipated Discharge Date Admission Date: December 06, 2023 Subjective Follow-up for HERBERT, hypertension, etc. Seen resting in bed, comfortable, not in distress Feels fine overall no chest pain, dyspnea, palpitations, dizziness Voiding with no problems No other new symptom Review of Systems Review of Systems: all noted and negative except for above Physical Exam Physical Exam: General- oriented x 3, not in distress, speaks in sentences with no effort or accessory muscle use Eyes- anicteric Neck- no JVD Lungs- clear breath sounds bilaterally, no crackles or wheezing Heart- normal rate, regular rhythm; no murmurs Abdomen- normal bowel sounds, nondistended, soft, nontender Extremities- no pretibial edema, no calf tenderness Neuro- alert, oriented x 3; no gross focal neurologic deficits Skin- warm & dry Results & Data Results & Data Vital Signs (Past 12 Hours) Vital Signs Temp Pulse Resp BP Pulse Ox O2 Del Method 12/09/23 15:26 36.9 C 66 18 96/69 L 97 Room Air 12/09/23 11:56 36.7 C 65 16 120/82 97 Room Air 12/09/23 07:56 36.6 C 70 17 119/72 97 Room Air all noted and reviewed including below
[2023-12-10 07:23] LABS: Basophils # (auto) 0.06 K/uL (0.00-0.20); Basophils % (auto) 0.9 %; Eosinophils # (auto) 0.94 K/uL (0.00-0.50); Eosinophils % (auto) 14.8 %; Hematocrit (blood only) 29.5 % (42.0-52.0); Hemoglobin 9.4 g/dl (14.0-18.0); Immature Granulocytes # (auto) 0.03 K/uL (0.01-0.20); Immature Granulocytes % (auto) 0.5 %; Lymphocytes # (auto) 1.21 K/uL (1.20-3.40); Lymphocytes % (auto) 19.1 %; Mean Corpuscular Hemoglobin 26.2 pg (25.0-34.0); Mean Corpuscular Hgb Conc 31.9 g/dL (32.0-36.0); Mean Corpuscular Volume 82.2 fL (80.0-100.0); Mean Platelet Volume 10.5 fL (9.4-12.4); Monocytes # (auto) 0.68 K/uL (0.11-0.59); Monocytes % (auto) 10.7 %; Neutrophils # (auto) 3.43 K/uL (1.40-6.50); Platelet Count 253 K/uL (130-400); RDW Coefficient of Variation 17.4 % (11.5-14.5); RDW Standard Deviation 52.7 fL (36.4-46.3); Red Blood Count 3.59 M/uL (4.70-6.10); White Blood Count 6.35 K/ul (4.8-10.8)
[2023-12-10 07:40] LABS: Calcium 7.3 mg/dl (8.6-10.3); Creatinine Clr Calc Pharmacy 11.8 ml/min; Est GFR (African American) 7.4 ml/min; Est GFR (Non-African American) 6.4 ml/min; Phosphorus 6.9 mg/dl (2.5-4.9); Potassium 4.4 mmol/L (3.5-5.1)
--- NOTE | 2023-12-10 10:26 | Nephrology Progress Note ---
Date of Service December 10, 2023 Assessment & Plan Admission and Anticipated Discharge Date Admission Date: December 06, 2023 Subjective Assessment & Plan (1) Acute kidney injury superimposed on chronic kidney disease: Creat was in the 4's in sep. Now it is 7.2 and juliocesar to 7.65 and now 8+ Despite iv fluid creat went up. Nothing to suggest volume depletion. I believe this is progression of CKD 5 to ESRD at this point. US renal no new findings. Will plan for Dialysis at this point. Will place HD catheter--tunneled and then start dialysis inpt then continue Outpt. He is agreeable with the plan. First Outpt Chair time for Saturday. Will plan to have one HD inpt tomorrow for 2 hrs after HD cath and then Discharge. (2) Uncontrolled hypertension: Trent noting that he does have intermittent adherence with BP meds. His BP gets very good quickly in hospital. has h/o Super low BP with Syncope and then high BP also. In fact we are seeing his BP is dropping and now lower than ideal. Lower Clonidine to 0.1 tid. S--feels fine. making urine. BP is now low. Just anxious about it and wants to do soon and then go home. Physical Exam Physical Exam: General- oriented x 3, not in distress, speaks in sentences with no effort or accessory muscle use Head- atraumatic Eyes- PERRL, EOMI, anicteric ENT- oropharynx clear Neck- supple, no JVD, no adenopathy, no thyromegaly; carotids +2/2, no bruits appreciated Lungs- clear to auscultation bilaterally, no rales/wheezes Heart- normal rate, regular rhythm; no murmur, no gallop, no rub appreciated Abdomen- normal bowel sounds, nondistended, soft, nontender, no masses or hepatosplenomegaly Extremities- no pretibial edema, no calf tenderness; peripheral pulses intact Neuro- alert, oriented x 3; CN 2-12 grossly intact; motor 5/5 bilaterally;sensation 100% on all extremities; no other gross focal neurologic deficits Skin- warm & dry Results & Data Vital Signs (Past 12 Hours) Vital Signs Temp Pulse Pulse Resp BP Pulse Ox O2 Del Method 12/10/23 07:59 36.4 C L 68 18 105/68 97 Room Air 12/10/23 02:41 36.8 C 68 18 125/80 97 Room Air 12/09/23 23:34 84 12/09/23 22:56 36.8 C 72 18 137/84 97 Room Air
--- NOTE | 2023-12-10 14:25 | Consultation ---
Date of Consultation December 10, 2023 Assessment & Plan (1) Acute kidney injury superimposed on chronic kidney disease: Pt with HERBERT and needs permcath insertion for HD initiation, per nephrology. Planning on tomorrow afternoon. Procedure, risks, benefits, and alternatives discussed with pt by myself at Dr Fenton's request. Pt expresses understanding and agreement to proceed. History of Present Illness Reason for Consultation: ESRD, need permcath Attending Physician: Jakob Robertson MD History of Present Illness 58 yo m with hx of HTN, CKD, BPH, DMII, anemia, admitted with HERBERT on CKD, seen in consultation today for permcath insertion for HD initiation. Pt states he has had multiple episodes of hypertensive urgency over the past year and his PCP has had difficulty controlling his BP. When his BP rises, he feels a NORMAN and blurry vision. Overall states feeling ok now, just tired. Renal fxn continues to decline, and pt needs HD per nephrology. Denies NORMAN, fever, chest pain, SOB, abd pain, N/V, rest pain, claudication, other complaints. Allergies Allergy/AdvReac Type Severity Reaction Status Date / Time Penicillins Allergy Unknown CAN'T Verified 12/06/23 17:47 REMEMBER propoxyphene Allergy Unknown TYLENOL OK Verified 12/06/23 17:47 acetaminophen AdvReac Intermediate UPSETS Verified 12/06/23 17:47 STOMACH naproxen AdvReac Intermediate stomach Verified 12/06/23 17:47 burning, takes ibuprofen w/out prob Home Medications Medication Instructions Recorded Confirmed Type aspirin 81 mg chewable tablet 81 mg PO QAM 10/06/18 12/06/23 History finasteride 5 mg tablet 5 mg PO QAM 03/08/21 12/06/23 History nitroglycerin 0.4 mg sublingual 0.4 mg sublingual Q5M PRN chest 04/18/22 12/06/23 Rx tablet (Nitrostat) pain #15 tabs carvedilol 25 mg tablet 25 mg PO BID #60 tabs 10/11/22 12/06/23 Rx doxazosin 4 mg tablet 8 mg (2 x 4 mg) PO HS #30 tabs 10/11/22 12/06/23 Rx atorvastatin 40 mg tablet 40 mg PO HS 10/08/23 12/06/23 History clonidine HCl 0.2 mg tablet 0.2 mg PO TID 12/06/23 12/06/23 History famotidine 20 mg tablet 20 mg PO QAM 12/06/23 12/06/23 History nifedipine 90 mg tablet,extended 90 mg PO HS 12/06/23 12/06/23 History release torsemide 100 mg tablet 0 mg PO QAM 12/06/23 12/06/23 History valsartan 160 mg tablet 160 mg PO HS 12/06/23 12/06/23 History Patient History Medical History Tobacco use LV hypertrophy, hypertensive CKD (chronic kidney disease) stage 3, GFR 30-59 ml/min HERBERT (acute kidney injury) BPH (benign prostatic hyperplasia) HTN (hypertension) Diabetes Surgical History History of rotator cuff surgery Family History Grandmother (Maternal) Dementia Mother Dementia Other Cancer Diabetes Heart disease Hypertension Social History Smoking Status: Current every day smoker Tobacco Type: Cigarettes Second Hand Exposure: No; Do You Dip or Chew Tobacco: No; Tobacco Cessation Education Requested by Patient: No Hx Alcohol Use: No Hx Substance Use: No Preferred Language: Croatian Communication Ability: Effective Display Department Manager Required: No Beliefs That Will Affect Care: None marital status: Single Current Living Situation: Spouse current occupational status: employed How many Children do You have: 4 Other Information That Helps Us Care for You: No Feels Safe at Home: Yes Safety Concerns: Feels Safe At This Time Assistive Devices: None Review of Systems Review of Systems: All systems reviewed & are unremarkable except as noted in HPI & below Physical Exam Constitutional: WD/WN, vitals as above healthy appearing, cooperative and comfortable; not in distress ENMT: Ears: no hearing impairment Neck: trachea midline Respiratory: normal respiratory effort, lungs clear to auscultation Auscultation: + diminished lung sounds Cardiovascular: Rate/Rhythm: regular rate and regular rhythm Vessels: normal peripheral pulses, femoral pulses present, posterior tibial pulses present, dorsalis pedis pulses present and radial pulses present Extremities: normal capillary refill and + edema (mild) Gastrointestinal (Abdomen): Inspection/Auscultation: abdomen normal to inspection and normal bowel sounds Percussion/Palpation: abdomen soft; abdomen nontender Musculoskeletal: no cyanosis or clubbing, extremities motor strength 5/5 Skin: no rashes, warm and dry Neurologic: moves all extremities and awake; no focal motor deficits and not confused Results & Data Vital Signs (Past 12 Hours) Vital Signs Temp Pulse Resp BP Pulse Ox O2 Del Method 12/10/23 11:34 36.5 C 66 18 126/68 96 Room Air 12/10/23 11:00 65 12/10/23 07:59 36.4 C L 68 18 105/68 97 Room Air 12/10/23 02:41 36.8 C 68 18 125/80 97 Room Air
[2023-12-10] MEDS: cloNIDine HCL 0.1 MG TAB PO SCH (14:27)
--- NOTE | 2023-12-10 16:17 | Hospitalist Progress Note ---
Date of Service December 10, 2023 Assessment & Plan (1) Acute kidney injury superimposed on chronic kidney disease: Plan 58-year-old male with history of diabetes, hypertension, CKD stage IV, smoker, BPH, presenting with elevated creatinine level at PCP office. ACUTE KIDNEY INJURY ON CKD STAGE 4 END-STAGE RENAL DISEASE Patient on torsemide at home Otherwise unclear inciting factor, no diarrhea, vomiting, no NSAID use Renal ultrasound September 2023: Kidneys are normal in size, without hydronephrosis Creatinine trending up, but no clinical signs of uremia Baseline 4.9-->7.0, 8.2 Plan to initiate hemodialysis per nephrology For placement of dialysis PermCath tomorrow, followed by initiation of hemodialysis Next schedule of HD is on Saturday UNCONTROLLED HYPERTENSION HYPERTENSIVE EMERGENCY Systolic BPs in the 200s upon admission Discussed with nephrology service Patient has a history of nonadherence to medications Had an episode of low BP during last admission 12/09 Valsartan 320mg po daily added BP improved Monitor closely NONSPECIFIC ST DEPRESSIONS IN LATERAL LEADS POSSIBLE DEMAND ISCHEMIA No cardiac symptoms Troponins negative Had a recent echocardiogram back in September 2023 DIABETES TYPE 2 HISTORY Not on any medications a1c 5.3 SMOKER Has been trying to quit, uses 2 cigarettes/day Declines nicotine patch BPH Continue finasteride DVT prophylaxis SCDs for now Disposition lives at home with significant other anticipate d/c home when medically stable, cleared by nephro Admission and Anticipated Discharge Date Admission Date: December 06, 2023 Subjective Follow-up for end-stage renal disease, hypertensive emergency, etc. Seen resting in bed, comfortable, sitting up, watching TV States he feels fine overall Denies dizziness, lightheadedness, chest pain, shortness of breath No problems voiding No other new symptom Review of Systems Review of Systems: all noted and negative except for above Physical Exam Physical Exam: General- oriented x 3, not in distress, speaks in sentences with no effort or accessory muscle use Eyes- anicteric Neck- no JVD Lungs- clear breath sounds bilaterally, no crackles or wheeze Heart- normal rate, regular rhythm; no murmurs Abdomen- normal bowel sounds, nondistended, soft, nontender Extremities- no pretibial edema, no calf tenderness Neuro- alert, oriented x 3; no gross focal neurologic deficits Skin- warm & dry Results & Data Results & Data Vital Signs (Past 12 Hours) Vital Signs Temp Pulse Resp BP BP Pulse Ox O2 Del Method 12/10/23 15:03 36.5 C 69 18 116/70 97 Room Air 12/10/23 14:36 36.4 C L 65 16 125/79 96 Room Air 12/10/23 11:34 36.5 C 66 18 126/68 96 Room Air 12/10/23 11:00 65 12/10/23 07:59 36.4 C L 68 18 105/68 97 Room Air all noted and reviewed including below
[2023-12-10 16:28] LABS: Appearance Urine Clear (Clear); Bacteria Urine Automated Negative (Negative); Bilirubin Urine Negative (Negative); Blood Urine Negative (Negative); Cast Urine Automated 0 /lpf (0-5); Color Urine Yellow; Epithelial Cell Urine Auto 0-5 /lpf (0-5); Glucose Urine UA Negative (Negative); Ketones Urine Negative (Negative); Leukocyte Esterase Urine Negative (Negative); Nitrite Urine Negative (Negative); Protein Urine Trace (Negative); RBC Urine Automated 0-4 /hpf (0-4); Specific Gravity Urine 1.009 (1.000-1.030); Urobilinogen Urine Negative (Negative); WBC Urine Automated 0 /hpf (0-5)
[2023-12-11 08:25] LABS: Basophils # (auto) 0.08 K/uL (0.00-0.20); Basophils % (auto) 1.3 %; Eosinophils # (auto) 0.95 K/uL (0.00-0.50); Eosinophils % (auto) 15.2 %; Hematocrit (blood only) 29.1 % (42.0-52.0); Hemoglobin 9.6 g/dl (14.0-18.0); Immature Granulocytes # (auto) 0.01 K/uL (0.01-0.20); Immature Granulocytes % (auto) 0.2 %; Lymphocytes # (auto) 1.29 K/uL (1.20-3.40); Lymphocytes % (auto) 20.7 %; Mean Corpuscular Hemoglobin 26.6 pg (25.0-34.0); Mean Corpuscular Volume 80.6 fL (80.0-100.0); Mean Platelet Volume 11.3 fL (9.4-12.4); Monocytes # (auto) 0.61 K/uL (0.11-0.59); Monocytes % (auto) 9.8 %; Neutrophils % (auto) 52.8 %; Platelet Count 272 K/uL (130-400); RDW Coefficient of Variation 17.2 % (11.5-14.5); RDW Standard Deviation 50.5 fL (36.4-46.3); Red Blood Count 3.61 M/uL (4.70-6.10); White Blood Count 6.24 K/ul (4.8-10.8)
--- NOTE | 2023-12-11 08:27 | History & Physical Bridge Note ---
Date of Service December 11, 2023 History & Physical Bridge Note Patient for permcath insertion today. I have discussed the risks options and benefits of the procedure with the patient. The patient understands the risks options and benefits and agrees to the procedure. I have examined the patient, reviewed the History & Physical and in the interval since the performance of the History & Physical I have noted the following changes of clinical significance: no changes noted
[2023-12-11 09:01] LABS: BUN Creatinine Ratio 10.6 (10-20); Calcium 7.3 mg/dl (8.6-10.3); Creatinine Clr Calc Pharmacy 11.2 ml/min; Phosphorus 7.2 mg/dl (2.5-4.9); Potassium 3.9 mmol/L (3.5-5.1)
[2023-12-11 11:28] LABS: HBSAG NON-REACTIVE (NON-REACTIVE); Hepatitis B Core Antibody IgM NON-REACTIVE (NON-REACTIVE); Hepatitis B Surface Ab, Quant <5 mIU/mL (> OR = 10)
[2023-12-11] MEDS ORDERED: SODIUM CHLORIDE 0.9% 1,000 ML IV PRN (11:49)
--- NOTE | 2023-12-11 13:42 | Hospitalist Progress Note ---
Date of Service December 11, 2023 Assessment & Plan (1) Acute kidney injury superimposed on chronic kidney disease: Plan 58-year-old male with history of diabetes, hypertension, CKD stage IV, smoker, BPH, presenting with elevated creatinine level at PCP office. ACUTE KIDNEY INJURY ON CKD STAGE 4 END-STAGE RENAL DISEASE Patient's creatinine trended up from 5.07 in September to 8.74 Plan for dialysis permacath today followed by initiation of hemodialysis Plan to initiate hemodialysis per nephrology Next schedule of HD is on Saturday as outpatient UNCONTROLLED HYPERTENSION HYPERTENSIVE EMERGENCY Systolic BPs in the 200s upon admission Patient has a history of nonadherence to medications Currently on nifedipine, Coreg, valsartan. Will discharge on same medication DIABETES TYPE 2 HISTORY Not on any medications a1c 5.3 SMOKER Has been trying to quit, uses 2 cigarettes/day Declines nicotine patch Outpatient follow-up BPH Continue finasteride DVT prophylaxis SCDs for now Disposition lives at home with significant other possible discharge today after permacath Please note the above document was generated using voice recognition software. It may contain grammatical, syntax or spelling errors. Any formal questions or concerns about the content, text or information contained within the body of this dictation should be directly addressed to the provider for clarification Admission and Anticipated Discharge Date Admission Date: December 06, 2023 Subjective Patient seen and examined at bedside. Is comfortably lying in the bed; not in distress. He is awaiting further procedure today. Review of Systems Review of Systems: All systems reviewed & are unremarkable except as noted in Subjective Physical Exam Physical Exam: General- oriented x 3, not in distress, speaks in sentences with no effort or accessory muscle use Eyes- anicteric Neck- no JVD Lungs- clear breath sounds bilaterally, no crackles or wheeze Heart- normal rate, regular rhythm; no murmurs Abdomen- normal bowel sounds, nondistended, soft, nontender Extremities- no pretibial edema, no calf tenderness Neuro- alert, oriented x 3; no gross focal neurologic deficits Skin- warm & dry Results & Data Results & Data Vital Signs (Past 12 Hours) Vital Signs Temp Pulse Pulse Resp BP Pulse Ox O2 Del Method 12/11/23 13:05 36.8 C 63 20 130/91 98 Room Air 12/11/23 11:36 36.5 C 66 18 123/75 97 Room Air 12/11/23 09:11 64 12/11/23 08:15 36.7 C 73 18 116/77 97 Room Air 12/11/23 02:36 36.7 C 18 121/73 96 Room Air
[2023-12-11] MEDS: CLINDAMYCIN/D5W 900 MG/50 ML BAG IV SCH (14:18)
--- NOTE | 2023-12-11 14:46 | Pre Anesthesia Assessment ---
Date of Service December 11, 2023 Pre Sedation Assessment Vital Signs Temp Pulse Pulse Resp BP BP Pulse Ox 12/11/23 14:40 64 18 147/90 H 150/98 H 100 12/11/23 14:35 62 18 147/90 H 147/96 H 100 12/11/23 14:30 62 18 147/90 H 153/98 H 100 12/11/23 13:05 36.8 C 63 20 130/91 98 12/11/23 11:36 36.5 C 66 18 123/75 97 12/11/23 09:11 64 12/11/23 08:15 36.7 C 73 18 116/77 97 12/11/23 02:36 36.7 C 18 121/73 96 12/10/23 22:44 36.8 C 68 18 134/88 99 12/10/23 22:00 72 12/10/23 19:13 36.9 C 71 18 133/80 95 12/10/23 16:25 68 12/10/23 15:03 36.5 C 69 18 116/70 97 O2 Del Method O2 Flow Rate 12/11/23 14:40 Oxymask 4 12/11/23 14:35 Oxymask 4 12/11/23 14:30 Oxymask 4 12/11/23 13:05 Room Air 12/11/23 11:36 Room Air 12/11/23 09:11 12/11/23 08:15 Room Air 12/11/23 02:36 Room Air 12/10/23 22:44 Room Air 12/10/23 22:00 12/10/23 19:13 Room Air 12/10/23 16:25 12/10/23 15:03 Room Air Cardiovascular RRR, no murmur, no edema Respiratory normal respiratory effort, lungs clear to auscultation Pre-Sedation Airway Assessment Smoking Status: Current every day smoker Hx Sleep Apnea: No Short, Thick Neck: Yes Thyromental Distance: > or= 3.5 Finger Breadths Oral Cavity: + Dental Abnormalities Mallampati Class: III ASA: ASA4 NPO Status Date of Last Intake of Fluids: 12/10/23 Time of Last Intake of Fluids: 23:00 Date of Last Intake of Solid Food: 12/10/23 Time of Last Intake of Solid Foods: 23:00 Procedure Planning Contraindications for Sedation: none Current Medications Reviewed: Yes Notes The planned sedation has been discussed with the patient. Informed Consent was obtained. I have identified the patient, determined the appropriateness of sedation and have assessed the patient immediately prior to the procedure. All medicine(s) and interventions are by my order.
[2023-12-11] MEDS: MIDAZOLAM HCL 1 MG/ML 2ML VIAL ONE ×2 (14:50→17:51)
[2023-12-11] MEDS: fentaNYL citrate PF 100 MCG/2 ML VIAL ONE ×2 (14:50→17:51)
[2023-12-11] MEDS: LIDOCAINE 1% LOCAL 20 ML VIAL ONE (14:52)
[2023-12-11] MEDS: HEPARIN SOD (PORCINE) 5,000 UNITS/ML VIAL ONE (15:03)
--- NOTE | 2023-12-11 15:06 | Operative Report ---
Post Operative Report Pre & Post Diagnosis Operation Date: 12/11/23 13:45 Pre-Op Diagnosis: HERBERT, UNCONTROLLED HTN Post-Op Diagnosis: HERBERT, UNCONTROLLED HTN I identified the patient and participated in the time-out.: Yes Procedure Operation Date: 12/11/23 13:45 Actual Procedures p Insertion of Perm Catheter, Right Internal Jugular Approach, Ultrasound Local ization of Right Internal Jugular Vein, Fluoroscopy for Positioning, Moderate Sedation ([id number])- Wan Fenton MD Surgeon Wan Fenton MD Probation Manager none Estimated Blood Loss 3 Findings Consistent with Post-Op Diagnosis Specimens none Anesthesia Type RN Sedation Complications none Disposition Accompanied Patient To Recovery: No Disposition: Recovery Room Indications This is a 58-year-old gentleman who has history of chronic kidney disease and was admitted for acute kidney injury. He is in need of urgent dialysis. PermCath was recommended. I have discussed the risks options and benefits of the procedure with the patient. The patient understands the risks options and benefits and agrees to the procedure. Description of Procedure Patient was taken to the angio suite and placed in the supine position. The right side of the neck and chest wall were prepped and draped in a sterile manner. The patient was identified and a timeout performed. Local anesthesia was then administered to the appropriate areas of the neck and chest wall. Ultrasound was then used to locate the right internal jugular vein. The vein compressed easily, had no filing defects, and was patent. The vein was then punctured under direct ultrasound imaging. A guidewire was then passed centrally under fluoroscopic imaging. A stab wound was then made in the anterior chest wall and a 19 cm permcath was passed from the stab wound on the chest wall to the puncture site on the neck. The puncture site was then dilated till the 14Fr peel away sheath was inserted. The permcath was then inserted through the sheath to a central position in the distal superior vena cava. The peel away sheath was then removed. The catheter was then sutured in place using nylon sutures. The puncture was then closed using a 4-0 Vicryl subcuticular suture. Dermabond was used for a dressing on the puncture site. Both ports aspirated and flushed easily and were then packed with heparin. A sterile dressing was applied to the catheter. The patient left the operation room in satisfactory condition and tolerated the procedure well. All needle and sponge counts were correct at the end of the procedure. I attest to the content of the Intraoperative Record and any orders documented therein. Any exceptions are noted below.
--- NOTE | 2023-12-11 15:06 | Post Anesthesia Assessment ---
Date of Service December 11, 2023 Post Sedation Assessment Vital Signs Temp Pulse Pulse Resp BP BP Pulse Ox 12/11/23 15:00 60 18 147/90 H 120/82 97 12/11/23 14:55 60 18 147/90 H 137/94 100 12/11/23 14:50 66 18 147/90 H 156/96 H 100 12/11/23 14:45 66 18 147/90 H 158/98 H 100 12/11/23 14:40 64 18 147/90 H 150/98 H 100 12/11/23 14:35 62 18 147/90 H 147/96 H 100 12/11/23 14:30 62 18 147/90 H 153/98 H 100 12/11/23 13:05 36.8 C 63 20 130/91 98 12/11/23 11:36 36.5 C 66 18 123/75 97 12/11/23 09:11 64 12/11/23 08:15 36.7 C 73 18 116/77 97 12/11/23 02:36 36.7 C 18 121/73 96 12/10/23 22:44 36.8 C 68 18 134/88 99 12/10/23 22:00 72 12/10/23 19:13 36.9 C 71 18 133/80 95 12/10/23 16:25 68 O2 Del Method O2 Flow Rate 12/11/23 15:00 Room Air 12/11/23 14:55 Oxymask 4 12/11/23 14:50 Oxymask 4 12/11/23 14:45 Oxymask 4 12/11/23 14:40 Oxymask 4 12/11/23 14:35 Oxymask 4 12/11/23 14:30 Oxymask 4 12/11/23 13:05 Room Air 12/11/23 11:36 Room Air 12/11/23 09:11 12/11/23 08:15 Room Air 12/11/23 02:36 Room Air 12/10/23 22:44 Room Air 12/10/23 22:00 12/10/23 19:13 Room Air 12/10/23 16:25 Recovery Score Activity: Moves 4 extremities Respiration: Deep Breath/Cough Circulation: +/-20% PreAnes Value Consciousness: Fully Awake Oxygen Saturation: > 92% On Room Air Post Anesthesia Score: 10 Discharge Sedation Level of Care: Fast Track Phase II Post Sedation Plan On clinical assessment, the patient appears to have tolerated the sedation without complications. Patient is recovering as anticipated. Patient will continue to be monitored by nursing and may be discharged when sedation discharge criteria are met per below protocol. Upon Completions of procedure up to 15 minutes continue every 5 minute vital signs and the P.A.R. score; then discharge to a Phase I or Fast Track to Phase II per the following guidelines: * Discharge Patient to appropriate Phase II area if PAR is 8 or greater or return to pre- procedure baseline. The post - procedure orders will be as directed. * If PAR score is less than 8 or not return to pre-procedure baseline then patient will follow Phase I monitoring till PAR is reached for Phase II. The Phase I may be done in procedure room or may call to secure a Phase I area. * If naloxone or flumazenil are used for reversal, hold in Phase I for continued monitoring from when last reversal dose was given for a minimum of 60 minutes or longer pending the nurse and/or physician discretion of patient condition before discharge to Phase II. Please call the Sedation Physician to re-evaluate and complete post-note for discharge to Phase II area. Do NOT discharge from procedure sedation or Phase 1 until post- sedation evaluation note is complete by procedure /sedation MD Sedation Discharge Instructions to be given to the patient at discharge to home.
[2023-12-11] MEDS: HYDROmorphone INJ 0.5 MG/0.5 ML SYR IV STA (23:48)
[2023-12-12] MEDS: HYDROmorphone INJ 0.5 MG/0.5 ML SYR IV STA (07:41)
[2023-12-12 07:54] LABS: BUN Creatinine Ratio 9.1 (10-20); Calcium 7.6 mg/dl (8.6-10.3); Creatinine Clr Calc Pharmacy 13.2 ml/min; Est GFR (African American) 8.6 ml/min; Est GFR (Non-African American) 7.4 ml/min; Potassium 3.8 mmol/L (3.5-5.1)
--- NOTE | 2023-12-12 13:15 | Discharge Summary ---
Date of Service December 12, 2023 Admission HPI Per Admitting Provider 58-year-old male with history of diabetes type 2, hypertension, CKD, smoking, BPH, Sent over by primary care physician for elevated creatinine level. Patient was recently mated to [facility] last September 2023 for hypertensive urgency and acute on chronic kidney disease. Patient reports he was doing fine at home, denies any symptoms including headache, chest pain, shortness of breath, abdominal pain. He has not noticed any reduction of urine output, but does report some difficulty with initiating urination intermittently. Patient had a routine blood work yesterday by primary care physician and creatinine level was found to be 7. He was called today to proceed to the emergency room for further evaluation. At the ER, patient was admitted with elevated blood pressure, 229/110. Creatinine 7.0, bicarb 22, sodium [address] depressions in the lateral leads On exam, patient seen resting in bed, comfortable, not in distress, very pleasant, in good spirits States he feels fine, denies any active symptoms-no headache, dizziness, nausea, chest pain, shortness of breath, etc. Admission Exam Per Admitting Provider General- oriented x 3, not in distress, speaks in sentences with no effort or accessory muscle use Head- atraumatic Eyes- PERRL, EOMI, anicteric ENT- oropharynx clear Neck- supple, no JVD, no adenopathy, no thyromegaly; carotids +2/2, no bruits appreciated Lungs- clear to auscultation bilaterally, no rales/wheezes Heart- normal rate, regular rhythm; no murmur, no gallop, no rub appreciated Abdomen- normal bowel sounds, nondistended, soft, nontender, no masses or hepatosplenomegaly Extremities- no pretibial edema, no calf tenderness; peripheral pulses intact Neuro- alert, oriented x 3; CN 2-12 grossly intact; motor 5/5 bilaterally;sensation 100% on all extremities; no other gross focal neurologic deficits Skin- warm & dry Principal Diagnosis ESRD on hemodialysis Discharge Exam General- oriented x 3, not in distress, speaks in sentences with no effort or accessory muscle use Eyes- anicteric Neck- no JVD Lungs- clear breath sounds bilaterally, no crackles or wheeze Heart- normal rate, regular rhythm; no murmurs Abdomen- normal bowel sounds, nondistended, soft, nontender Extremities- no pretibial edema, no calf tenderness Neuro- alert, oriented x 3; no gross focal neurologic deficits Skin- warm & dry Discharge Data Allergies Allergy/AdvReac Type Severity Reaction Status Date / Time Penicillins Allergy Unknown CAN'T Verified 12/06/23 17:47 REMEMBER propoxyphene Allergy Unknown TYLENOL OK Verified 12/06/23 17:47 acetaminophen AdvReac Intermediate UPSETS Verified 12/06/23 17:47 STOMACH naproxen AdvReac Intermediate stomach Verified 12/06/23 17:47 burning, takes ibuprofen w/out prob Consultations 12/06/23 17:25 ED Decision to Admit Stat 12/06/23 20:42 Consult Nephrology Routine 12/08/23 17:17 Consult Vascular Surgery Routine Procedures Performed Operation Date: 12/11/23 13:45 Actual Procedures p Insertion of Perm Catheter, Right Internal Jugular Approach, Ultrasound Localization of Right Internal Jugular Vein, Fluoroscopy for Positioning, Moderate Sedation - Wan Fenton MD Ordered Studies 12/08/23 US renal/blad retro comp Routine 12/11/23 13:45 EV cvc insrt tunnel wo prt/denial resolution specialist Routine US EV guide vascular access Routine Hospital Course (1) Acute kidney injury superimposed on chronic kidney disease: Plan 58-year-old male with history of diabetes, hypertension, CKD stage IV, smoker, BPH, presenting with elevated creatinine level at PCP office. ACUTE KIDNEY INJURY ON CKD STAGE 4 END-STAGE RENAL DISEASE Status post permacath placement on December 11, 2023 Patient's creatinine trended up from 5.07 in September to 8.74 Patient was referred for admission Patient underwent insertion of permacath on right internal jugular by Dr. Fenton from vascular surgery Patient underwent hemodialysis after the insertion of permacath Patient discharged home with instruction to follow-up with PCP and nephrology. Patient has full session of outpatient hemodialysis schedule tomorrow( December 12) at 5 AM UNCONTROLLED HYPERTENSION HYPERTENSIVE EMERGENCY Systolic BPs in the 200s upon admission Patient has a history of nonadherence to medications Currently on nifedipine, Coreg, valsartan and clonidine. At discharge, clonidine was stopped and patient's valsartan was increased. Please note the above document was generated using voice recognition software. It may contain grammatical, syntax or spelling errors. Any formal questions or concerns about the content, text or information contained within the body of this dictation should be directly addressed to the provider for clarification Total Time Total Time Spent Total Time Spent (In Minutes): 35 Total Time Includes: Examination of the Patient, Discharge Planning, Medication Reconciliation, Communication With Other Providers and Other Discharge Plan Discharge Items Patient Disposition: Home - Self-Care Reason For Visit: HERBERT, UNCONTROLLED HTN Discharge Diagnosis: ESRD on hemodialysis Activity: Resume your previous activity Non-emergency contact: Primary Care Provider Call non-emergency contact if: you have any medication questions Follow-up/Referrals: Irma Gavin MD [Primary Care Provider] - (Date & Time 12/17/2023 11:00 AM Provider Irma Gavin MD [facility] ) Diet: Regular Addtl Attending Provider Instructions: You were admitted to the hospital due to renal failure. You underwent evaluation by nephrology. You underwent placement of permacath for hemodialysis on December 11, 2023. Following changes are made to her medication regimen: 1) stop taking clonidine 2) valsartan is increased to 320 mg once a day. A new prescription has been sent to your pharmacy 3) Doxazosin dose has been decreased to 4 mg once a day. Please measure your blood pressure daily at home and make a note of it. The blood pressure medication might need to be modified depending on your blood pre ssure reading at home. Your dialysis is set up for tomorrow at 5 AM. Pending Studies at Discharge: No Stand-Alone Forms: My [employer], Smoking Cessation Medications and DC Order Prescriptions: New valsartan 320 mg tablet 320 mg PO DAILY Qty: 30 0RF Continued aspirin 81 mg Tablet,Chewable 81 mg PO QAM atorvastatin 40 mg tablet 40 mg PO HS finasteride 5 mg tablet 5 mg PO QAM nitroglycerin [Nitrostat] 0.4 mg Tablet, Sublingual 0.4 mg sublingual Q5M PRN (Reason: chest pain) Qty: 15 0RF Rx Instructions: NEEDED FOR CHEST PAIN : ONE TABLET UNDER THE TONGUE EVERY FIVE MINUTES UP TO 3 DOSES. carvedilol 25 mg Tablet 25 mg PO BID Qty: 60 0RF nifedipine 90 mg tablet extended release 90 mg PO HS famotidine 20 mg tablet 20 mg PO QAM torsemide 100 mg tablet 0 mg PO QAM Rx Instructions: Per pt, this medication is currently on hold per PCP, he has not been given a restart date. Original Directions: 50mg by mouth in the morning Changed doxazosin 4 mg Tablet 4 mg PO HS Qty: 30 0RF Discontinued clonidine HCl 0.2 mg tablet 0.2 mg PO TID valsartan 160 mg tablet 160 mg PO HS Discharge Orders: Discharge Order (Routine); Ordered 12/12/23 Ordered By: Dangelo Sanchez Admission Data Admit Date/Time: 12/06/23 18:24 Attending Provider: Dangelo Sanchez Admit Provider: Jakob Robertson Primary Care Provider: Irma Gavin Other Providers: Cara Loco; Albert Jhaveri; Wan Fenton
== END 2023-12-12 18:16 | disposition home or self-care (01) | DRG 683 ==
LOC: ED 16:04 → SUATTDRO 18:24 → EDINP 18:24 → 2S 20:42